=== PATIENT | male | born 1945 | race Caucasian/White ===

== ENCOUNTER 2022-04-21 14:18 | Inpatient (IN) | payer OTHER ==
--- OUTSIDE RECORDS SUMMARY | 2022-04-21 14:22 | XMS REPORT | Continuity of Care Document ---
:1945 Author Organization [facility] t Address [address] [place] [address] [address]. [address] [place] [address] Care Team Providers Name Role Phone JABIER HENRY Primary Care Physician Unavailable MAIRA NUÑEZ Attending Clinician Unavailable Savannah CARTRIDGE FEEDERMaira Ross Attending Clinician Jabier Henry MD Attending Clinician MAIRA NUÑEZ Admitting Clinician Unavailable Payers Payer Name Policy Type Policy Number Effective Date Expiration Date S luli MEDICARE PART A [id number] 2002 \\T\\ B 00:00:00 [employer] [id number] 2017 SHAY 00:00:00 Problems Condition Condition Condition Status Onset Resolution Last Treating Co mments Source Name Details Category Date Date Treatment Clinician Date Left leg Left leg Disease Active Unive rs weakness weakness 7-01 ity of 00:00: [place] 00 Medical Branch Gastroesop Gastroesop Disease Active 2020-09 U nivers hageal hageal 0-19 ity of reflux reflux 00:00: [place] disease disease 00 Medical Branch BPH BPH Disease Active Univers associated associated 4-23 it y of with with 00:00: [place] nocturia nocturia 00 Medica l Branch Dyspnea, Dyspnea, Disease Active Overview: Un janelle unspecifie unspecifie 9-17 Formattin ity of d type d type 00:00: g of this [place] 00 note Medical might be Branch different from the original. 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 0-12 ity of 00:00: [address] Branch Chronic Chronic Disease Active 2014-09 Univers back pain back pain 0-12 ity of 00:00: [address] Branch Essential Essential Disease Active 2014-09 Uni vers hypertensi hypertensi 0-12 it y of on on 00:00: [place] [facility] Branch 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 0-12 ity of disease disease 00:00: [address] Branch 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 nivers infarct, infarct, 0-12 ity of old old 00:00: [address] Branch 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 0-12 it y of s with s with 00:00: [place] radiculopa radiculopa 00 Me dical thy thy Branch Bite, Bite, Disease Active 2009-09 Univers snake snake 0-31 ity of 00:00: [address] Lower Lower Diagnosis Active Common urinary urinary Spirit tract tract - [facility] symptoms symptoms St (LUTS) (LUTS) [facility] Low Low Diagnosis Active Common testostero testostero Sp felipe ne in male ne in male - [facility] Urinary Urinary Diagnosis Active Commo n tract tract Spirit infection infection - CH I without without St hematuria, hematuria, Regi kes site site Medical unspecifie unspecifie Ce nter d d Urine Urine Diagnosis Active Common retention retention Spir - [facility] Allergies, Adverse Reactions, Alerts Allergy Allergy Status Severity Reaction(s) Onset Inactive Treating Comm ents Source Name Type Date Date Clinician NO KNOWN Drug Active Univers ALLERGIE Class ity of S [facility] Social History Social Habit Start Date Stop Date Quantity Comments Source Exposure to 2022-03-26 2022-04-05 Not sure [facility] SARS-CoV-2 00:00:00 12:23:00 [place] Medical (event) Branch Alcohol intake 2022-03-03 2022-03-03 Current University 00:00:00 00:00:00 non-drinker of [facility] alcohol (finding) Branch Tobacco use and 2015-07-02 2015-07-02 Smokeless tobacco Un iversity of exposure 00:00:00 00:00:00 non-user [facility] Sex [birth year] Universit y of 00:00:00 00:00:00 [facility] Smoking Status Start Date Stop Date Source Never smoked tobacco [facility] Medications Ordered Filled Start Stop Current Ordering Indication Dosage Frequency Signature Comments Components Source Medication Medication Date Date Medication? Clinician (SIG) Name Name cyanocobala 2021- No [id number] 1000ug Univers min 04-05 ity of (VITAMIN 18:45: 19:34 [place] B12) 00 :00 Medical injection Branch 1,000 mcg testosteron 2021- No [id number] 260mg Univers e cypionate 04-05 ity of (DEPO-TESTO 18:45: 19:34 [place] STERONE) 00 :00 Medical injection Branch 260 mg testosteron 2021- No [id number] 260mg 260 mg, Univers e cypionate 04-05 Intramuscu i ty of (DEPO-TESTO 18:45: 19:34 lar, ONCE, [place] STERONE) 00 :00 1 dose, On Medic al injection Sun04/05/22 Bran ch 260 mg at 1345, Routine cyanocobala 2021- No [id number] 1000ug 1,000 mcg, Univers min 04-05 Intramuscu ity of (VITAMIN 18:45: 19:34 [place] B12[place] 00 :00 1 dose, On Medical injection Sun04/05/22 Bran ch 1,000 mcg at 1345, Routine cyanocobala 2021- No [id number] 1000ug Univers min 04-05 ity of (VITAMIN 18:45: 19:34 [place] B12) 00 :00 Medical injection Branch 1,000 mcg testosteron 2021- No [id number] 260mg Univers e cypionate 04-05 ity of (DEPO-TESTO 18:45: 19:34 [place] STERONE) 00 :00 Medical injection Branch 260 mg testosteron 2021- No [id number] 260mg 260 mg, Univers e cypionate 04-05 Intramuscu i ty of (DEPO-TESTO 18:45: 19:34 lar, ONCE, [place] STERONE) 00 :00 1 dose, On Medic al injection Sun04/05/22 Bran ch 260 mg at 1345, Routine cyanocobala 2021- No [id number] 1000ug 1,000 mcg, Univers min 04-05 Intramuscu ity of (VITAMIN 18:45: 19:34 [place] B12[place] 00 :00 1 dose, On Medical injection Sun04/05/22 Bran ch 1,000 mcg at 1345, Routine atorvastati Yes [id number] 80mg Take 1 Univers n 80 mg 7-03 [id number] tablet by ity o f tablet 00:00: mouth at [place] 00 bedtime. Medical Branch levocetiriz Yes [id number] 2.5mg Take 0.5 Univers ine 5 mg 7- [id number] tablets by ity of tablet 00:00: mouth [place] 00 every Medical evening as Branch needed for Other (itching). atorvastati Yes [id number] 80mg Take 1 Univers n 80 mg 7-03 [id number] tablet by ity o f tablet 00:00: mouth at [place] 00 bedtime. Medical Branch levocetiriz Yes [id number] 2.5mg Take 0.5 Univers ine 5 mg 7-03 [id number] tablets by ity of tablet 00:00: mouth [place] 00 every Medical evening as Branch needed for Other (itching). atorvastati Yes [id number] 80mg Take 1 Univers n 80 mg 7-03 [id number] tablet by ity o f tablet 00:00: mouth at [place] 00 bedtime. Medical Branch levocetiriz Yes [id number] 2.5mg Take 0.5 Univers ine 5 mg 7-03 [id number] tablets by ity of tablet 00:00: mouth [place] 00 every Medical evening as Branch needed for Other (itching). SERTRALINE 0 Yes [id number] 50mg TAKE 1 U nivers 50 mg 6-27 TABLET BY ity of tablet 00:00: MOUTH [place] 00 DAILY Medical Branch SERTRALINE 0 Yes [id number] 50mg TAKE 1 U nivers 50 mg 6-27 TABLET BY ity of tablet 00:00: MOUTH DAILY Medical Branch SERTRALINE 0 Yes [id number] 50mg TAKE 1 U nivers 50 mg 6-27 TABLET BY ity of tablet 00:00: MOUTH [place] 00 DAILY Medical Branch HYDROCORTIS 0 Yes [id number] APPLY TO Univers ONE 2.5 % 6-01 AFFECTED ity of cream 00:00: AREA TWICE DAILY Medical Branch meclizine Yes [id number] 12.5mg Take 1 Univers 12.5 mg 6-01 tablet by ity of tablet 00:00: mouth 3 (three) Medical times Branch daily as needed for Dizziness. HYDROCORTIS Yes [id number] APPLY TO Univers ONE 2.5 % 6-01 AFFECTED ity of cream 00:00: AREA TWICE DAILY Medical Branch meclizine 0 Yes [id number] 12.5mg Take 1 Univers 12.5 mg 6-01 tablet by ity of tablet 00:00: mouth 3 (three) Medical times Branch daily as needed for Dizziness. HYDROCORTIS 0 Yes [id number] APPLY TO Univers ONE 2.5 % 6-01 AFFECTED ity of cream 00:00: AREA TWICE DAILY Medical Branch meclizine 0 Yes [id number] 12.5mg Take 1 Univers 12.5 mg 6-01 tablet by ity of tablet 00:00: mouth 3 00 (three) Medical times Branch daily as needed for Dizziness. ciprofloxac 2021-0 Yes [id number] 500mg Take 1 Univers in HCl 3-08 tablet by ity of (CIPRO) 500 00:00: mouth [place] mg tablet 00 every 12 Medica l (twelve) Branch hours. ciprofloxac 2021-0 Yes [id number] 500mg Take 1 Univers in HCl 3-08 tablet by ity of (CIPRO) 500 00:00: mouth [place] mg tablet 00 every 12 Medica l (twelve) Branch hours. ciprofloxac 0 Yes [id number] 500mg Take 1 Univers in HCl 3-08 tablet by ity of (CIPRO) 500 00:00: mouth [place] mg tablet 00 every 12 Medica l (twelve) Branch hours. amLODIPine 0 Yes [id number] 2.5mg Take 1 Univers 2.5 mg 1-28 tablet by ity of tablet 00:00: mouth [place] 00 daily. Medical Branch clopidogreL Yes [id number] 75mg Take 1 Univers 75 mg 1-28 tablet by ity of tablet 00:00: mouth [place] 00 daily. Medical Branch amLODIPine Yes [id number] 2.5mg Take 1 Univers 2.5 mg 1-28 tablet by ity of tablet 00:00: mouth [place] 00 daily. Medical Branch clopidogreL Yes [id number] 75mg Take 1 Univers 75 mg 1-28 tablet by ity of tablet 00:00: mouth [place] 00 daily. Medical Branch amLODIPine Yes [id number] 2.5mg Take 1 Univers 2.5 mg 1-28 tablet by ity of tablet 00:00: mouth [place] 00 daily. Medical Branch clopidogreL 0 Yes [id number] 75mg Take 1 Univers 75 mg 1-28 tablet by ity of tablet 00:00: mouth [place] 00 daily. Medical Branch ALPRAZOLAM 2020-09 Yes [id number] TAKE 1/2 Univers 2 mg tablet 2-13 TABLET BY ity of 00:00: MOUTH [place] 00 EVERY Medical NIGHT AT Branch BEDTIME NEEDED FOR SLEEP OR ANXIETY ALPRAZOLAM 2020-09 Yes [id number] TAKE 1/2 Univers 2 mg tablet 2-13 TABLET BY ity of 00:00: MOUTH [place] 00 EVERY Medical NIGHT AT Branch BEDTIME NEEDED FOR SLEEP OR ANXIETY ALPRAZOLAM 2020-09 Yes [id number] TAKE 1/2 Univers 2 mg tablet 2-13 TABLET BY ity of 00:00: MOUTH [place] 00 EVERY Medical NIGHT AT Branch BEDTIME NEEDED FOR SLEEP OR ANXIETY pantoprazol 0 Yes [id number] 40mg Take 1 Univers e 40 mg EC 6-03 tablet by ity of tablet 00:00: mouth [place] 00 daily. [facility] Branch pantoprazol Yes [id number] 40mg Take 1 Univers e 40 mg EC 6-03 tablet by ity of tablet 00:00: mouth [place] 00 daily. Medical Branch pantoprazol Yes [id number] 40mg Take 1 Univers e 40 mg EC 6-03 tablet by ity of tablet 00:00: mouth [place] 00 daily. Medical Branch Alfuzosin Alfuzosin 2020- No Brielle 1 tablet Common HCl ER HCl ER [id number] 06-16 [place] immediatel Spirit 00:00: 00:00 y after - [facility] 00 :00 the same [facility] Tamsulosin Tamsulosin 2020- No Brielle 1 capsule Common HCl HCl 10-14 08 [place] [facility] 00:00: 00:00 - [facility] 00 :00 [facility] fluocinonid 2018-09 Yes [id number] Apply to Univers e 0.05 % 1-18 area(s) 2 ity of cream 00:00: (two) 00 times Medical daily. Branch fluocinonid 2018-09 Yes [id number] Apply to Univers e 0.05 % 1-18 area(s) 2 ity of cream 00:00: (two) [place] 00 times Medical daily. Branch fluocinonid 2018-09 Yes [id number] Apply to Univers e 0.05 % 1-18 area(s) 2 ity of cream 00:00: (two) [place] 00 times Medical daily. Branch HYDROcodone Yes TK 1 T PO U nivers -acetaminop 8-23 TID ity of hen 10-325 00:00: [place] mg tablet 00 Medical Branch HYDROcodone Yes TK 1 T PO U nivers -acetaminop 8-23 TID ity of hen 10-325 00:00: [place] mg tablet 00 Medical Branch HYDROcodone Yes TK 1 T PO U nivers -acetaminop 8-23 TID ity of hen 10-325 00:00: [place] mg tablet 00 Medical Branch tamsulosin Yes [id number] .4mg Take 1 Univers 0.4 mg 24 4-23 01 capsule by ity of hr capsule 00:00: mouth [place] 00 daily. Medical Branch tamsulosin Yes [id number] .4mg Take 1 Univers 0.4 mg 24 4-23 01 capsule by ity of hr capsule 00:00: mouth [place] 00 daily. Medical Branch tamsulosin 2019-0 Yes [id number] .4mg Take 1 Univers 0.4 mg 24 4- 01 capsule by ity of hr capsule 00:00: mouth [place] 00 daily. Medical Branch lidocaine-p 0 Yes Apply to Un janelle rilocaine 4-10 area(s) ity of 2.5-2.5 % 00:00: daily. [place] cream Medical Branch lidocaine-p 0 Yes Apply to Un janelle rilocaine 4-10 area(s) ity of 2.5-2.5 % 00:00: daily. [place] cream 00 Medical Branch lidocaine-p 0 Yes Apply to Un janelle rilocaine 4-10 area(s) ity of 2.5-2.5 % 00:00: daily. [place] cream 00 Medical Branch oxybutynin 0 Yes 5mg Take 1 Unive rs chloride 5 7-02 tablet by ity of mg tablet 00:00: mouth 3 (three) Medical times Branch daily as needed for Bladder spasms. oxybutynin 2017-0 Yes 5mg Take 1 Unive rs chloride 5 7-02 tablet by ity of mg tablet 00:00: mouth 3 (three) Medical times Branch daily as needed for Bladder spasms. oxybutynin 2017-0 Yes 5mg Take 1 Unive rs chloride 5 7-02 tablet by ity of mg tablet 00:00: mouth 3 00 (three) Medical times Branch daily as needed for Bladder spasms. finasteride Yes [id number] 5mg Take 1 Univers 5 mg tablet 4-09 tablet by ity of 00:00: mouth [place] 00 daily. Medical Branch finasteride Yes [id number] 5mg Take 1 Univers 5 mg tablet 4-09 tablet by ity of 00:00: mouth [place] 00 daily. Medical Branch finasteride 2017-0 Yes [id number] 5mg Take 1 Univers 5 mg tablet 4-09 tablet by ity of 00:00: mouth [place] 00 daily. Medical Branch methadone 2015-09 Yes Take by Unive rs (DOLOPHINE 0-14 mouth ity of HCL) 10 mg 00:00: daily. [place] tablet 00 Indication Medical s: 2tabs Branch methadone 2015-09 Yes Take by Unive rs (DOLOPHINE 0-14 mouth ity of HCL) 10 mg 00:00: daily. [place] tablet 00 Indication Medical s: 2tabs Branch methadone 2015-09 Yes Take by Unive rs (DOLOPHINE 0-14 mouth ity of HCL) 10 mg 00:00: daily. [place] tablet 00 Indication Medical s: 2tabs Branch Amlodipine Amlodipine Yes Brielle 1 tablet Common Besylate Besylate Alicja [facility] Pantoprazol Pantoprazol Yes Brielle 1 tablet Common e Sodium e Sodium Alicja [facility] HydrOXYzine HydrOXYzine Yes Brielle 1 tablet Common HCl HCl [place] as needed [facility] Yes Brielle as Common Silver Silver Alicja directed [facility] Methadone Methadone Yes Brielle 1 tablet Common HCl HCl Alicja [facility] Ranolazine Ranolazine Yes Brielle 1 tablet Common ER ER Alicja [facility] Aspir-81 Aspir-81 Yes Brielle 1 tablet Co mmon Alicja [facility] Testosteron Testosteron Yes Brielle as Common e e [place] directed [facility] Clopidogrel Clopidogrel Yes Brielle 1 tablet Common Bisulfate Bisulfate [facility] Metoprolol Metoprolol Yes Brielle 1 capsule Common Succinate Succinate [facility] Immunizations Ordered Filled Immunization Date Status Comments [facility] e Immunization Name Name Influenza Virus 2021-12-07 Completed Universit y of Vaccine,quad 00:00:00 [place] Medica l Im,preserve Free Branch 65+ Influenza Virus 2021-12-07 Completed Universit y of Vaccine,quad 00:00:00 [place] Medica l Im,preserve Free Branch 65+ Influenza Virus 2021-12-07 Completed Universit y of Vaccine,quad 00:00:00 [place] Medica l Im,preserve Free Branch 65+ SARS-COV-2 COVID-19 2021-08-10 Completed Unive rsity of PFIZER VACCINE 00:00:00 [facility] SARS-COV-2 COVID-19 2021-08-10 Completed Unive rsity of PFIZER VACCINE 00:00:00 [facility] SARS-COV-2 COVID-19 2021-08-10 Completed Unive rsity of PFIZER VACCINE 00:00:00 [facility] SARS-COV-2 COVID-19 2020-11-05 Completed Unive rsity of PFIZER VACCINE 00:00:00 [facility] SARS-COV-2 COVID-19 2020-11-05 Completed Unive rsity of PFIZER VACCINE 00:00:00 [facility] SARS-COV-2 COVID-19 2020-11-05 Completed Unive rsity of PFIZER VACCINE 00:00:00 [facility] SARS-COV-2 COVID-19 2020-10-15 Completed Unive rsity of PFIZER VACCINE 00:00:00 [facility] SARS-COV-2 COVID-19 2020-10-15 Completed Unive rsity of PFIZER VACCINE 00:00:00 [facility] SARS-COV-2 COVID-19 2020-10-15 Completed Unive rsity of PFIZER VACCINE 00:00:00 [facility] Influenza High Dose 2020-09-02 Completed Unive rsity of Quad 00:00:00 [facility] Influenza High Dose 2020-09-02 Completed Unive rsity of Quad 00:00:00 [facility] Influenza High Dose 2020-09-02 Completed Unive rsity of Quad 00:00:00 [facility] Pneumococcal 2019-06-25 Completed University o f Polysaccharide, 00:00:00 [place] Med ical PPSV23 (PNEUMOVAX) Branch Influenza High Dose 2019-06-25 Completed Unive rsity of 00:00:00 [facility] Pneumococcal 2019-06-25 Completed University o f Polysaccharide, 00:00:00 [place] Med ical PPSV23 (PNEUMOVAX) Branch Influenza High Dose 2019-06-25 Completed Unive rsity of 00:00:00 [facility] Pneumococcal 2019-06-25 Completed University o f Polysaccharide, 00:00:00 [place] Med ical PPSV23 (PNEUMOVAX) Branch Influenza High Dose 2019-06-25 Completed Unive rsity of 00:00:00 [facility] Vital Signs Vital Name Observation Time Observation Value Comments Source Body temperature 2022-04-12 18:21:00 36.61 Diandra Univ ersity of [facility] Systolic blood 2022-04-12 18:19:00 121 mm[Hg] Univer sity of pressure [facility] Diastolic blood 2022-04-12 18:19:00 85 mm[Hg] Unive rsity of [facility] Heart rate 2022-04-12 18:19:00 91 /min Universi ty of [facility] Respiratory rate 2022-04-12 18:19:00 18 /min Univ ersity of [facility] Body height 2022-04-12 18:19:00 172.7 cm Universi ty of [facility] Body weight 2022-04-12 18:19:00 62.596 kg Universi ty [facility] BMI 2022-04-12 18:19:00 20.98 kg/m2 Universi [facility] Oxygen saturation in 2022-04-12 18:19:00 96 /min [facility] Arterial blood by [facility] Pulse oximetry Branch Systolic blood 2022-04-05 17:15:00 136 mm[Hg] Univer sity of [facility] Diastolic blood 2022-04-05 17:15:00 77 mm[Hg] Unive rsity of [facility] Heart rate 2022-04-05 17:15:00 82 /min Universi ty [facility] Body weight 2022-04-05 17:15:00 59.784 kg Universi [facility] BMI 2022-04-05 17:15:00 20.04 kg/m2 Universi [facility] Procedures Procedure Date / Time Performed Performing Clinician Sour e URINALYSIS 2022-04-12 21:11:00 Maira Nuñez [facility] HB ECG ROUTINE & 2022-04-12 19:01:56 Maira Nuñez [facility] RHYTHM STRIP [facility] XR CHEST 1 VW 2022-04-12 18:41:36 Maira Nuñez [facility] LIPASE 2022-04-12 18:30:00 Maira Nuñez [facility] TROPONIN I 2022-04-12 18:30:00 Maira Nuñez [facility] COMP. METABOLIC PANEL 2022-04-12 18:30:00 Maira Nuñez [facility] ([id number]) [facility] CBC WITH DIFF 2022-04-12 18:30:00 Maira Nuñez University o f [facility] Encounters Start End Encounter Admission Attending Care Care Encounter Source Date/Time Date/Time Type Type Clinicians Facility Department ID 2021-09-28 Outpatient [facility] [id number] Common 11:07:04 [id number] [facility] 2022-04-12 2022-04-12 Emergency X [facility] ERT [id number] Univers 13:22:00 16:36:00 CYNISE ity of [facility] 2022-04-12 2022-04-12 Emergency [facility] [id number] Univers 13:22:00 16:36:00 [facility] [id number] i ty of [facility] [id number] [place] [id number] [address] 2022-04-05 2022-04-05 [facility] [id number] Univers 12:15:00 13:00:56 Visit [facility] [id number] it y of [place] [id number] Abel as YOHAN?BLEA [id number] [address] MEDICAL OFFICE BUILDING 2019-11-19 2019-11-19 [id number] Common 11:45:00 11:45:00 t Specialty/U Sp felipe Specialty rology - [facility] 2019-10-15 2019-10-15 [id number] Common 09:41:00 09:41:00 t Specialty/U Sp felipe Specialty rology - [facility] 2019-10-14 2019-10-14 [id number] Common 14:00:00 14:00:00 t Specialty/U Sp felipe Specialty rology - [facility] Results Test Description Test Time Test Comments Results Result Comments Source CBC WITH DIFF 2022-04-12 19:18:34 Test Item Value Reference Range Interpretation Comme nts WBC (test code = 6690-2) See_Comment [A utomated message] The system which ge nerated this result transmit patricio reference range: 4.20 - 1 0.70 10*3/?L. The reference r sen was not used to interpr et this result as normal/abnor mal. RBC (test code = 789-8) See_Comment [Au tomated message] The system which ge nerated this result transmit patricio reference range: 4.26 - 5 .52 10*6/?L. The reference r sen was not used to interpr et this result as normal/abnor mal. HGB (test code = 718-7) 17.0 g/dL 12.2-16.4 H HCT (test code = 4544-3) 49.6 % 38.4-49.3 H MCV (test code = 787-2) 90.0 fL 81.7-95.6 MCH (test code = 785-6) 30.9 pg 26.1-32.7 MCHC (test code = 786-4) 34.3 g/dL 31.2-35 RDW-SD (test code = 18315-9) 44.2 fL 38.5-51.6 RDW-CV (test code = 788-0) 13.5 % 12.1-15.4 PLT (test code = 777-3) See_Comment [Au tomated message] The system which ge nerated this result transmit patricio reference range: 150 - 32 8 10*3/?L. The reference range was not used to interpret th is result as normal/abnormal . MPV (test code = 61150-3) 10.4 fL 9.8-13 NRBC/100 WBC (test code = See_Comment [ Automated message] The [id number]) system which ge nerated this result transmit patricio reference range: 0.0 - 10 .0 /100 WBCs. The reference r sen was not used to interpr et this result as normal/abnor mal. NRBC x10^3 (test code = See_Comment [Au tomated message] The [id number]) system which ge nerated this result transmit patricio reference range: 10*3/?L. The reference range was not u sed to interpret this result as normal/abnormal . GRAN MAT (NEUT) % (test code 76.9 % = 770-8) IMM GRAN % (test code = 0.40 % 4205707468) LYMPH % (test code = 736-9) 14.3 % MONO % (test code = 5905-5) 7.7 % EOS % (test code = 713-8) 0.3 % BASO % (test code = 706-2) 0.4 % GRAN MAT x10^3(ANC) (test 5.28 10*3/uL 1.99-6.95 code = 4635640322) IMM GRAN x10^3 (test code = 0.03 10*3/uL 0-0.06 5690165045) LYMPH x10^3 (test code = 0.98 10*3/uL 1.09-3.23 L 731-0) MONO x10^3 (test code = 0.53 10*3/uL 0.36-1.02 742-7) EOS x10^3 (test code = 0.06-0.53 L 711-2) BASO x10^3 (test code = 0.03 10*3/uL 0.01-0.09 704-7) Lab Interpretation (test Abnormal code = 58507-2) [facility] [id number] 19:17:13 Test Item Value Reference Interpretation Comments Range TROPONIN I (test 0.029 ng/mL See_Comment [Automated code = [id number]) message] The system which generated this result transmitted reference range : <=0.034. The reference range was not used to interpret this result as normal/abnormal . SONAL (test code = Reference (Normal) SONAL) Range (defined by the 99th percentile reference limit): <= 0.034 ng/mL Note: Cardiac troponin begins to rise 3-4 hours after the onset of ischemia. Repeat in 4-6 hours if the sample was drawn within 3-4 hours of the onset of the symptom and found normal. Diagnosis of myocardial injury is made with acute changes in cTn concentrations with at least one serial sample above the 99th percentile upper reference limit (URL), taken together with the patient's clinical presentation. Biotin has been reported to cause a negative bias, interpret results relative to patient's use of biotin. Lab Interpretation Normal (test code = 88611-5) [facility]. METABOLIC PANEL (75155)2022-04-12 19:05:30 Test Item Value Reference Range Interpretation Comments NA (test code = 141 mmol/L 135-145 1481883943) K (test code = 3.8 mmol/L 3.5-5 9845585314) CL (test code = 103 mmol/L 98-108 2660225769) CO2 TOTAL (test code = 29 mmol/L 23-31 4082649419) AGAP (test code = 2-16 4575457128) BUN (test code = 25 mg/dL 7-23 H 6535171850) GLUCOSE (test code = 108 mg/dL 70-110 9882334887) CREATININE (test code = 1.47 mg/dL 0.6-1.25 H 2918039118) TOTAL BILI (test code = 2.1 mg/dL 0.1-1.1 H 9761992916) CALCIUM (test code = 9.5 mg/dL 8.6-10.6 2479167454) T PROTEIN (test code = 6.5 g/dL 6.3-8.2 1257196584) ALBUMIN (test code = 4.0 g/dL 3.5-5 6663616727) ALK PHOS (test code = 80 U/L 34-122 5227559966) ALTv (test code = 29 U/L 5-50 1742-6) AST(SGOT) (test code = 33 U/L 13-40 1940419371) eGFR (test code = mL/min/1.73m2 6154055775) SONAL (test code = SONAL) Association of Glomerular Filtration Rate (GFR) and Staging of Kidney Disease* + --+ --+ ------+| GFR (mL/min/1.73 m2) ?| With Kidney Damage ?| ?Without Kidney Damage+ --------+ --------+ +| ?>90 ?| ?Stage one ?| ? Normal ?+ ---+ ---+ -------+| ?60-89 ?| ?Stage two ?| ? Decreased GFR ? + --+ --+ ------+| ?30-59 ?| ?Stage three ?| ? Stage three ? + --+ --+ ------+| ?15-29 ?| ?Stage four ? | ? Stage four ?+ ---+ ---+ -------+| ?<15 (or dialysis) ? ?| ?Stage five ? | ? Stage five ?+ ---+ ---+ -------+ *Each stage assumes the associated GFR level has been in effect for at least three months. ?Stages 1 to 5, with or without kidney disease, indicate chronic kidney disease. Notes: Determination of stages one and two (with eGFR >59mL/min/1.73 m2) requires estimation of kidney damage for at least three months as defined by structural or functional abnormalities of the kidney, manifested by either:Pathological abnormalities or Markers of kidney damage (including abnormalities in the composition of the blood or urine or abnormalities in imaging tests). Lab Interpretation Abnormal (test code = 12693-8) [facility] Test Item Value Reference Range Interpretation Comments LIPASE (test code = [id number]) 343 U/L 0-220 H Lab Interpretation (test code = Abnormal 73515-2) [facility]"
[2022-04-21 15:01] LABS: Absolute Lymphocytes (CBC) 0.7 K/uL (0.7-4.9); Hematocrit 46.3 % (39.6-49.0); Lymphocytes % 10.5 % (15.3-44.8); MCV 89.6 fL (80-100); MPV 7.5 fL (7.6-11.3); RBC Red Blood Cell Count 5.17 M/uL (4.33-5.43)
[2022-04-21 15:03] LABS: Protime INR 1.22
[2022-04-21 15:22] LABS: SARS-CoV-2 Antigen Rapid Res Negative (Negative)
--- NOTE | 2022-04-21 15:26 | RAD REPORT ---
EXAM DESCRIPTION: CT - Head Brain Wo Cont - 04/21/2022 3:18 pm CLINICAL HISTORY: Syncope COMPARISON: None TECHNIQUE: Computed axial tomography of the head was obtained. IV contrast was not requested. All CT scans are performed using dose optimization technique as appropriate and may include automated exposure control or mA/KV adjustment according to patient size. FINDINGS: An intracranial bleed is not seen . The ventricles are normal in caliber. No extra-axial fluid collection is noted. Moderate low-density within the right occipital and right parietal lobes. Small amount of fluid in the sphenoid sinus may indicate acute sinusitis IMPRESSION: Moderate low-density within the right occipital and right parietal lobes. 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 Right occipital lobe has more of an indeterminate appearance of acute versus chronic infarct If clinically indicated further evaluation with MRI may be helpful
[2022-04-21 15:41] LABS: Albumin 3.2 g/dL (3.4-5.0); Bilirubin Direct 0.6 mg/dL (0-0.2); Bilirubin Total 1.9 mg/dL (0.2-1.0); Potassium 3.7 mmol/L (3.5-5.1); Protein, Total 6.2 g/dL (6.4-8.2); Troponin High Sensitivity 16.9 pg/mL (<58.9)
--- NOTE | 2022-04-21 15:44 | RAD REPORT ---
EXAM DESCRIPTION: [facility] Single View04/21/2022 3:14 pm CLINICAL HISTORY: Cough COMPARISON: none FINDINGS: The lungs appear clear of acute infiltrate. The heart is normal size Postsurgical changes involve the chest. Absent distal left clavicle IMPRESSION: No acute abnormalities displayed
[2022-04-21 15:49] LABS: Urine Blood Trace-intact (Negative); Urine Glucose Negative (Negative); Urine Protein 1+ (Negative); Urine Specific Gravity >=1.030 (1.005-1.030); Urine pH 5.5 (5.0-7.0)
[2022-04-21] MEDS ORDERED: ASPIRIN 81 MG CHEWABLE TABLET ONE (16:11)
[2022-04-21] MEDS ORDERED: CEFTRIAXONE 1000 MG/VIAL ONE (16:11)
[2022-04-21] MEDS ORDERED: FAMOTIDINE 20 MG/2 ML VIAL IV ONE (16:11)
[2022-04-21] MEDS ORDERED: FOLIC ACID 5 MG/ML VIAL ONE (16:13)
--- NOTE | 2022-04-21 16:16 | ER ---
Nurse's Notes [facility] Name: Fritz Laws Age: 77 yrs Sex: Male : 1945 Arrival Date: 04/21/2022 Time: 14:21 Bed 25 Private MD: Diagnosis: Dehydration;Syncope Near;UTI/ Urinary tract infection, site not specified;Adjustment disorder with depressed mood-'s ;Acute kidney failure, unspecified-insufficency;Cerebral infarction, unspecified-SUBACUTE Presentation: 04/21 14:42 Chief complaint: Patient states: Cali hernandez toned out to pt home for weakness X 2 ld1 days. Fell last night, does not recall hitting head. C/O dizziness, denies pain. Coronavirus screen: At this time, the client does not indicate any symptoms associated with coronavirus-19. Ebola Screen: No symptoms or risks identified at this time. Initial Sepsis Screen: Does the patient meet any 2 criteria? No. Patient's initial sepsis screen is negative. Does the patient have a suspected source of infection? No. Patient's initial sepsis screen is negative. Risk Assessment: Do you want to hurt yourself or someone else? Patient reports no desire to harm self or others. Onset of symptoms was April 21, 2022. 14:42 Method Of Arrival: EMS: [facility] ld1 14:42 Acuity: MARTIN 3 ld1 Triage Assessment: 14:43 General: Appears in no apparent distress. comfortable, Behavior is calm, cooperative, ld1 appropriate for age. Pain: Denies pain. EENT: No signs and/or symptoms were reported regarding the EENT system. Neuro: Level of Consciousness is awake, alert, obeys commands, Oriented to person, place, time, situation, Reports dizziness. Cardiovascular: Capillary refill < 3 seconds Patient's skin is warm and dry. Rhythm is sinus rhythm. Respiratory: Airway is patent Respiratory effort is even, unlabored, Respiratory pattern is regular, symmetrical. GI: Abdomen is flat, non-distended. : No signs and/or symptoms were reported regarding the genitourinary system. Derm: No signs and/or symptoms reported regarding the dermatologic system. Musculoskeletal: No signs and/or symptoms reported regarding the musculoskeletal system. 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 - Social history:: Smoking status: Patient denies any tobacco usage or history of. Patient/guardian denies using alcohol. - Family history:: not pertinent. Screenin:45 Abuse screen: Denies threats or abuse. Denies injuries from another. Nutritional ld1 screening: No deficits noted. Tuberculosis screening: No symptoms or risk factors identified. Fall Risk Fall in past 12 months (25 points). No secondary diagnosis (0 pts). Assessment: 14:45 Reassessment: See triage assessment. ld1 19:00 Reassessment: Patient appears in no apparent distress at this time. Patient and/or jb4 family updated on plan of care and expected duration. Pain level reassessed. Patient is alert, oriented x 3, equal unlabored respirations, skin warm/dry/pink. 20:00 Reassessment: Patient appears in no apparent distress at this time. Patient and/or jb4 family updated on plan of care and expected duration. Pain level reassessed. Patient is alert, oriented x 3, equal unlabored respirations, skin warm/dry/pink. 21:00 Reassessment: Patient appears in no apparent distress at this time. Patient and/or jb4 family updated on plan of care and expected duration. Pain level reassessed. Patient is alert, oriented x 3, equal unlabored respirations, skin warm/dry/pink. 22:01 General: [phone] more williamson daughter . tw5 Vital Signs: 14:42 BP 143 / 98; Pulse 90; Resp 18; Temp 97.3(O); Pulse Ox 97% on R/A; Weight 62.6 kg; ld1 Height 5 ft. 8 in. (172.72 cm); Pain 0/10; 15:38 BP 133 / 102; Pulse 97; Resp 18; Pulse Ox 98% on R/A; ld1 17:00 BP 165 / 97; Pulse 86; Resp 18; Pulse Ox 99% on R/A; Pain 0/10; eh3 19:00 BP 165 / 83; Pulse 83; Resp 18; Pulse Ox 97% on R/A; jb4 20:00 BP 167 / 87; Pulse 73; Resp 21; Pulse Ox 97% on R/A; jb4 21:00 BP 142 / 72; Pulse 79; Resp 17; Pulse Ox 98% on R/A; jb4 22:00 BP 155 / 93; Pulse 74; Resp 21; Pulse Ox 98% on R/A; jb4 14:42 Body Mass Index 20.98 (62.60 kg, 172.72 cm) ld1 NIH Stroke Scale Scores: 15:43 NIHSS Score: 0 [facility] ED Course: 14:21 Patient arrived in ED. aa5 14:25 Haresh Pimentel MD is Attending Physician. elif 14:43 Triage completed. ld1 14:43 Arm band placed on right wrist. ld1 14:45 Patient has correct armband on for positive identification. Placed in gown. Bed in low ld1 position. Call light in reach. Side rails up X2. monitoring manager on. Pulse ox on. NIBP on. Door closed. Noise minimized. Warm blanket given. 14:45 No provider procedures requiring assistance completed. Maintain EMS IV. Dressing ld1 intact. Good blood return noted. Site clean \T\ dry. Gauge \T\ site: 20G LAC. 14:54 SARS RAPID Sent. jd3 14:55 Africa Magallon, RN is Primary Nurse. ld1 15:16 XRAY Chest (1 view) In Process Unspecified. EDMS 15:19 CT Head Brain wo Cont In Process Unspecified. EDMS 15:44 Straight cath inserted, using sterile technique, 14 Fr. Specimen obtained. Returned jw7 bloody urine. Patient tolerated well. 16:11 Con Dubon MD is Hospitalizing Provider. [facility] 16:36 Urine Culture Sent. eh3 17:04 Brain Wo Cont In Process Unspecified. EDMS 17:18 Door closed. Noise minimized. Lights dimmed. Warm blanket given. Pillow given. PO eh3 fluids given. Head of bed lowered. Diet: Patient given water. Tolerated well. 18:30 US Carotid Artery Bilateral In Process Unspecified. EDMS 08 07:46 Primary Nurse role handed off by Africa Magallon, RN eb Administered Medications: 04/21 14:54 Drug: NS 0.9% 1000 ml Route: IV; Rate: 1 bolus; Site: right antecubital; jd3 16:10 Drug: Rocephin (cefTRIAXone) 1 grams Route: IV; Rate: per protocol; Site: right 3 antecubital; 16:10 Drug: Aspirin Chewable Tablet 324 mg Route: PO; eh3 16:10 Drug: Pepcid (famotidine) 20 mg Route: IVP; Site: right antecubital; 3 16:10 Drug: foLIC Acid 1 mg Route: IVPB; Site: right antecubital; 3 16:40 Drug: Ativan (LORazepam) 1 mg Route: PO; ld1 18:51 Drug: Lipitor (atorvastatin) 40 mg Route: PO; ld1 19:49 Drug: PlaVIX (clopidogrel) 75 mg Route: PO; jb4 Medication: 14:45 VIS not applicable for this client. ld1 Outcome: 16:15 Decision to Hospitalize by Provider. [facility] 04/22 18:34 Patient left the ED. aa5 NIH Stroke Scale - NIH Stroke Score Date: 04/21/2022 Time: 15:43 Total Score = 0 1a. Level of Consciousness (LOC) - 0(Alert) 1b. Level of Consciousness (LOC) (Month \T\ Age) - 0(Both) 1c. LOC Commands (Open \T\ Closes Eyes/Criminal Justice Faculty) - 0(Both) 2. Best Gaze (Lateral Gaze Paresis) - 0(Normal) 3. Visual Field Loss - 0(No visual loss) 4. Facial Palsy - 0(Normal) 5a. Left Arm: Motor (10-second hold) - 0(No drift) 5b. Right Arm: Motor (10-second hold) - 0(No drift) 6a. Left Leg: Motor (5-second hold - always test supine) - 0(No drift) 6b. Right Leg: Motor (5-second hold - always test supine) - 0(No drift) 7. Limb Ataxia (finger/nose \T\ heel/lares - test with eyes open) - 0(Absent) 8. Sensory Loss (pinprick arms/legs/face) - 0(Normal) 9. Best Language: Aphasia (description/naming/reading) - 0(No aphasia) 10. Dysarthria (speech clarity - read or repeat words) - 0(Normal) 11. Extinction and Inattention (visual/tactile/auditory/spatial/personal) - 0(No abnormality) Initials: elif Signatures: Dispatcher [employer] Haresh Mijares MD MD cha Calderon, Audri, RN RN aa5 Robert Mckeon RN RN jb4 Lucian Navarrete RN RN jd3 Angelica Delaney Lauren RN RN ld1 Taryn Edgar tw5 Janeth Mason 7 Kasie Barrera RN RN eh3
--- NOTE | 2022-04-21 16:16 | EDPHYS ---
Physician Documentation [facility] Name: Fritz Laws Age: 77 yrs Sex: Male : 1945 Arrival Date: 04/21/2022 Time: 14:21 Bed 25 Private MD: ED Physician Haresh Pimentel HPI: 04/21 14:46 This 77 yrs old Male presents to ER via EMS with complaints of weak, near elif syncope. 14:46 04/17. The patient has experienced near-syncope, almost passed out, felt elif dizzy, felt faint, felt generally weak. Onset: The symptoms/episode began/occurred today. Duration: This was a single episode, that lasted 20 second(s). Context: the episode(s) was witnessed, by family. Onset: The symptoms/episode began/occurred today. Associated injury: The patient did not suffer any apparent associated injury. Associated signs and symptoms: The patient has no apparent associated signs or symptoms. Severity of symptoms: At their worst the symptoms were moderate in the emergency department the symptoms have improved moderately. 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 - Social history:: Smoking status: Patient denies any tobacco usage or history of. Patient/guardian denies using alcohol. - Family history:: not pertinent. ROS: 14:46 Constitutional: Negative for fever, chills, and weight loss, Eyes: Negative for injury, elif pain, redness, and discharge, ENT: Negative for injury, pain, and discharge, Neck: Negative for injury, pain, and swelling, Cardiovascular: Negative for chest pain, palpitations, and edema, Respiratory: Negative for shortness of breath, cough, wheezing, and pleuritic chest pain, Abdomen/GI: Negative for abdominal pain, nausea, vomiting, diarrhea, and constipation, Back: Negative for injury and pain, : Negative for injury, bleeding, discharge, and swelling, MS/Extremity: Negative for injury and deformity, Skin: Negative for injury, rash, and discoloration, Psych: Negative for depression, anxiety, suicide ideation, homicidal ideation, and hallucinations, Allergy/Immunology: Negative for hives, rash, and allergies, Endocrine: Negative for neck swelling, polydipsia, polyuria, polyphagia, and marked weight changes, Hematologic/Lymphatic: Negative for swollen nodes, abnormal bleeding, and unusual bruising. 14:46 Neuro: Positive for near syncope, weakness. Exam: 14:46 Constitutional: This is a well developed, well nourished patient who is awake, alert, elif and in no acute distress. Head/Face: Normocephalic, atraumatic. Eyes: Pupils equal round and reactive to light, extra-ocular motions intact. Lids and lashes normal. Conjunctiva and sclera are non-icteric and not injected. Cornea within normal limits. Periorbital areas with no swelling, redness, or edema. ENT: Nares patent. No nasal discharge, no septal abnormalities noted. Tympanic membranes are normal and external auditory canals are clear. Oropharynx with no redness, swelling, or masses, exudates, or evidence of obstruction, uvula midline. Mucous membranes moist. Neck: Trachea midline, no thyromegaly or masses palpated, and no cervical lymphadenopathy. Supple, full range of motion without nuchal rigidity, or vertebral point tenderness. No Meningismus. Chest/axilla: Normal chest wall appearance and motion. Nontender with no deformity. No lesions are appreciated. Cardiovascular: Regular rate and rhythm with a normal S1 and S2. No gallops, murmurs, or rubs. Normal PMI, no JVD. No pulse deficits. Respiratory: Lungs have equal breath sounds bilaterally, clear to auscultation and percussion. No rales, rhonchi or wheezes noted. No increased work of breathing, no retractions or nasal flaring. Abdomen/GI: Soft, non-tender, with normal bowel sounds. No distension or tympany. No guarding or rebound. No evidence of tenderness throughout. Back: No spinal tenderness. No costovertebral tenderness. Full range of motion. Male : Normal genitalia with no discharge or lesions. Skin: Warm, dry with normal turgor. Normal color with no rashes, no lesions, and no evidence of cellulitis. MS/ Extremity: Pulses equal, no cyanosis. Neurovascular intact. Full, normal range of motion. Neuro: Awake and alert, GCS 15, oriented to person, place, time, and situation. Cranial nerves II-XII grossly intact. Motor strength 5/5 in all extremities. Sensory grossly intact. Cerebellar exam normal. Normal gait. Psych: Awake, alert, with orientation to person, place and time. Behavior, mood, and affect are within normal limits. 14:46 ECG was reviewed by the Attending Physician. Vital Signs: 14:42 BP 143 / 98; Pulse 90; Resp 18; Temp 97.3(O); Pulse Ox 97% on R/A; Weight 62.6 kg; ld1 Height 5 ft. 8 in. (172.72 cm); Pain 0/10; 15:38 BP 133 / 102; Pulse 97; Resp 18; Pulse Ox 98% on R/A; ld1 17:00 BP 165 / 97; Pulse 86; Resp 18; Pulse Ox 99% on R/A; Pain 0/10; eh3 19:00 BP 165 / 83; Pulse 83; Resp 18; Pulse Ox 97% on R/A; jb4 20:00 BP 167 / 87; Pulse 73; Resp 21; Pulse Ox 97% on R/A; jb4 21:00 BP 142 / 72; Pulse 79; Resp 17; Pulse Ox 98% on R/A; jb4 22:00 BP 155 / 93; Pulse 74; Resp 21; Pulse Ox 98% on R/A; jb4 14:42 Body Mass Index 20.98 (62.60 kg, 172.72 cm) ld1 NIH Stroke Scale Scores: 15:43 NIHSS Score: 0 elif MDM: 14:25 Patient medically screened. elif 14:51 Differential Diagnosis altered mental status. Differential Diagnosis: aortic aneurysm, elif cardiac arrhythmia, cerebrovascular accident, emotional response, idiopathic syncope, vasovagal episode. Data reviewed: vital signs, nurses notes, lab test result(s), EKG, radiologic studies, CT scan, plain films. Data interpreted: Pulse oximetry: on room air is 97 %. Test interpretation: by ED physician or midlevel provider: ECG, plain radiologic studies. Counseling: I had a detailed discussion with the patient and/or guardian regarding: the historical points, exam findings, and any diagnostic results supporting the discharge/admit diagnosis, lab results, radiology results. 17:47 Physician consultation: Franklin Hearn MD and will see patient in inpatient room, NO elif TNK. ED course: PT WEAK X 2 DAYS, NEAR SYNCOPE, NIH 0, NON FOCAL, NOT IN A 4.5 HOUR WINDOW, NOT A TNK CANDIDATE. 04/21 14:44 Order name: Basic Metabolic Panel; Complete Time: 15:43 [facility] 04/21 14:44 Order name: CBC with Diff; Complete Time: 15:43 [facility] 04/21 14:44 Order name: LFT's; Complete Time: 15:43 [facility] 04/21 14:44 Order name: Magnesium; Complete Time: 15:43 [facility] 04/21 14:44 Order name: NT PRO-BNP; Complete Time: 15:43 [facility] 04/21 14:44 Order name: PT-INR; Complete Time: 15:43 [facility] 04/21 14:44 Order name: Troponin HS; Complete Time: 15:43 [facility] 04/21 14:44 Order name: Lipase; Complete Time: 15:43 [facility] 04/21 14:44 Order name: SARS RAPID; Complete Time: 15:43 [facility] 04/21 15:49 Order name: Urine Dipstick-Ancillary; Complete Time: 15:55 [facility] 04/21 15:54 Order name: Urine Culture [facility] 04/21 17:52 Order name: Lipid Profile; Complete Time: 18:50 [facility] 04/21 19:05 Order name: Urine Microscopic Only la1 04/22 03:34 Order name: CBC with Automated Diff [facility] 04/21 14:44 Order name: XRAY Chest (1 view); Complete Time: 15:55 [facility] 04/21 14:44 Order name: EKG; Complete Time: 14:45 [facility] 04/21 14:44 Order name: CT Head Brain wo Cont; Complete Time: 15:43 [facility] 04/21 16:54 Order name: Brain Wo Cont; Complete Time: 17:36 [facility] 04/21 17:52 Order name: US Carotid Artery Bilateral; Complete Time: 18:50 [facility] 04/22 03:49 Order name: Comprehensive Metabolic Panel [facility] 04/22 03:49 Order name: Lipid Profile [facility] 04/21 14:44 Order name: Cardiac monitoring; Complete Time: 14:46 [facility] 04/21 14:44 Order name: EKG - Nurse/Tech; Complete Time: 14:46 [facility] 04/21 14:44 Order name: IV Saline Lock; Complete Time: 14:46 [facility] 04/21 14:44 Order name: Labs collected and sent; Complete Time: 14:55 elif 04/21 14:44 Order name: O2 Per Protocol; Complete Time: 14:46 [facility] 04/21 14:44 Order name: O2 Sat Monitoring; Complete Time: 14:46 [facility] 04/21 14:44 Order name: Urine Dipstick-Ancillary (obtain specimen); Complete Time: 15:50 elif EC:46 Rate is 89 beats/min. Rhythm is regular. QRS [place] is Normal. [place] interval is normal. QRS elif interval is normal. QT interval is normal. No Q waves. T waves are Normal. No ST changes noted. Clinical impression: NSR w/ Non-specific ST/T Changes and No evidence of ischemia. Interpreted by me. Reviewed by me. Administered Medications: 14:54 Drug: NS 0.9% 1000 ml Route: IV; Rate: 1 bolus; Site: right antecubital; jd3 16:10 Drug: Rocephin (cefTRIAXone) 1 grams Route: IV; Rate: per protocol; Site: right eh3 antecubital; 16:10 Drug: Aspirin Chewable Tablet 324 mg Route: PO; eh3 16:10 Drug: Pepcid (famotidine) 20 mg Route: IVP; Site: right antecubital; eh3 16:10 Drug: foLIC Acid 1 mg Route: IVPB; Site: right antecubital; eh3 16:40 Drug: Ativan (LORazepam) 1 mg Route: PO; ld1 18:51 Drug: Lipitor (atorvastatin) 40 mg Route: PO; ld1 19:49 Drug: PlaVIX (clopidogrel) 75 mg Route: PO; jb4 Disposition Summary: 04/21/22 16:15 Hospitalization Ordered Provider: Con Dubon cha Condition: Fair elif Problem: new elif Symptoms: have improved elif Bed/Room Type: Standard elif Hospitalization Status: Inpatient Admission(04/21/22 17:52) elif Location: Telemetry/MedSurg (Inpatient)(04/22/22 17:38) eb Room Assignment: 224(04/22/22 17:38) eb Diagnosis - Dehydration elif - Syncope Near elif - UTI/ Urinary tract infection, site not specified elif - Adjustment disorder with depressed mood - 's elif - Acute kidney failure, unspecified - insufficency elif - Cerebral infarction, unspecified - SUBACUTE elif Forms: - Medication Reconciliation Form elif - SBAR form elif NIH Stroke Scale - NIH Stroke Score Date: 04/21/2022 Time: 15:43 Total Score = 0 1a. Level of Consciousness (LOC) - 0(Alert) 1b. Level of Consciousness (LOC) (Month \T\ Age) - 0(Both) 1c. LOC Commands (Open \T\ Closes Eyes/Portfolio Consultant) - 0(Both) 2. Best Gaze (Lateral Gaze Paresis) - 0(Normal) 3. Visual Field Loss - 0(No visual loss) 4. Facial Palsy - 0(Normal) 5a. Left Arm: Motor (10-second hold) - 0(No drift) 5b. Right Arm: Motor (10-second hold) - 0(No drift) 6a. Left Leg: Motor (5-second hold - always test supine) - 0(No drift) 6b. Right Leg: Motor (5-second hold - always test supine) - 0(No drift) 7. Limb Ataxia (finger/nose \T\ heel/lares - test with eyes open) - 0(Absent) 8. Sensory Loss (pinprick arms/legs/face) - 0(Normal) 9. Best Language: Aphasia (description/naming/reading) - 0(No aphasia) 10. Dysarthria (speech clarity - read or repeat words) - 0(Normal) 11. Extinction and Inattention (visual/tactile/auditory/spatial/personal) - 0(No abnormality) Initials: elif Signatures: Dispatcher [employer] EDHaresh Teran MD MD cha Attema, Lee, ASTRONAUT MISSION SPECIALIST-C ASTRONAUT MISSION SPECIALIST-Cla1 Sherice Ku, GERONIMO RN cg Robert Mckeon RN RN jb4 Lucian Navarrete RN RN jd3 Angelica Delaney Lauren, RN RN ld1 Kasie Barrera, RN RN eh3 Corrections: (The following items were deleted from the chart) 16:54 15:50 MR STROKE PROTOCOL+MRI.RAD.BRZ ordered. EDCT EDCT 17:52 16:15 Observation elif elif 21:12 16:15 Telemetry/MedSurg (Inpatient) elif cg 21:12 16:15 elif cg 04/22 17:38 04/21 21:12 [facility] ER HOLD cg eb 04/22 17:38 08/19 21:12 ERHOLD- eb
[2022-04-21] MEDS ORDERED: LORAZEPAM 1 MG TABLET ONE (16:45)
--- NOTE | 2022-04-21 17:14 | RAD REPORT ---
EXAM DESCRIPTION: MRI - Brain Wo Cont - 04/21/2022 5:02 pm CLINICAL HISTORY: CVA COMPARISON: Head CT April 21, 2022 TECHNIQUE: Axial, sagittal, and coronal magnetic resonance images of the brain were obtained. FINDINGS: Diffusion-weighted/ADC mapping demonstrate several small areas of abnormal signal within the perivent ricular and deep white matter of the left frontal and left parietal lobes. Moderate abnormal signal within the right occipital and right parietal lobes compatible with old infa rction. Old lacunar infarcts thalamus and basal ganglia. Several punctate areas of low signal on T2 weighted sequences within the cerebellum and brainstem lik rashawn old small bleeds The ventricles are normal caliber. An extra-axial fluid collection is not noted. Fluid within the sphenoid sinus IMPRESSION: Very small acute infarcts involving the periventricular and deep white matter of the lef t frontal and left parietal lobes
--- NOTE | 2022-04-21 18:39 | RAD REPORT ---
EXAM DESCRIPTION: USCarotid Artery Bilateral04/21/2022 6:28 pm CLINICAL HISTORY: CVA COMPARISON: None FINDINGS: The velocity of the right internal carotid artery equals 56 cm/sec. The right ICA/CCA rati o 1 The velocity of the left internal carotid artery equals 74 cm/sec. The left ICA/CCA ratio 0.9 Mild plaque is present within the carotid arteries. The vertebral arteries demonstrate antegrade flow IMPRESSION: Mild plaque within the carotid arteries without evidence of a hemodynamically significan t stenosis NASCET criteria used. Mild 0-49% stenosis Moderate 50-69% stenosis Severe 70-99% stenosis
[2022-04-21] MEDS ORDERED: ATORVASTATIN 20 MG TAB ONE ×2 (18:57→23:50)
[2022-04-21] MEDS ORDERED: CLOPIDOGREL 75 MG TABLET ONE (19:47)
--- NOTE | 2022-04-21 20:41 | P.HP ---
Certification for Inpatient Patient admitted to: Inpatient With expected LOS: >2 Midnights Patient will require the following post-hospital care: None Practitioner: I am a practitioner with admitting privileges, knowledge of patient current condition, hospital course, and medical plan of care. Services: Services provided to patient in accordance with Admission requirements found in Title 42 Section 412.3 of the Code of Federal Regulations <Alexandr Gunderson - Last Filed: 04/21/22 20:35> Patient History Date of Service: 04/21/22 Reason for admission: CVA History of Present Illness: 77-year-old male with history of hypertension, CAD status post CABG presented to the emergency department for 2 days of weakness, he had a fall last night feels as if he has been unable to walk and has been leaning to the left last couple of days. He lives alone he reports that he was trying to get to the bathroom last night and could not walk he had to crawl. He was evaluated in the emergency department his labs were significant for creatinine of 1.49 GFR 48 BUN 19unknown baseline renal function patient unaware of any kidney disease, T bili 1.9D bili 0.6 urine is nitrite positive leukoesterase negative chest x-ray with no acute findings CT scan of the head without contrast revealed moderate low- density within the right occipital and right parietal lobes, right parietal lobe has the appearance of an old infarction right occipital lobe has more of an indeterminate appearance of acute versus chronic infarct MRI of the brain was obtained which revealed very small acute infarcts involving the periventricular and deep white matter of the left frontal and left parietal lobes carotid Doppler was obtained which showed mild plaque within the carotids without evidence of hemodynamically significant stenosis. Patient was given aspirin, statin, folic acid in the emergency department ED provider discussed case with nephrology who recommends admission to the hospital service for further evaluation and management. - Past Medical/Surgical History -: CAD -: Hypertension -: CABG Psychosocial/ Personal History: Patient is retired and lives at home alone - Family History Father -: Heart disease - Social History Smoking Status: Never smoker Alcohol use: No CD- Drugs: No Caffeine use: Yes Place of Residence: Home <Alexandr Gunderson - Last Filed: 04/21/22 20:35> Date of Service: 04/22/22 <Con Dubon - Last Filed: 04/22/22 18:36> Allergies No Known Allergies Allergy (Unverified 04/21/22 18:51) Review of Systems 10-point ROS is otherwise unremarkable General: Weakness, Other (Falls) <Alexandr Gunderson - Last Filed: 04/21/22 20:35> Physical Examination - Physical Exam General: Alert, In no apparent distress, Oriented x3 HEENT: Atraumatic, PERRLA, Mucous membr. moist/pink, EOMI, Sclerae nonicteric Neck: Supple, 2+ carotid pulse no bruit, No LAD, Without JVD or thyroid abnormality Respiratory: Clear to auscultation bilaterally, Normal air movement Cardiovascular: Regular rate/rhythm, Normal S1 S2 Capillary refill: <2 Seconds Gastrointestinal: Normal bowel sounds, No tenderness Musculoskeletal: No tenderness Integumentary: No rashes Neurological: Normal speech, Normal strength at 5/5 x4 extr, Normal tone, Normal affect, Other (NIH 0) - Studies Laboratory Data (last 24 hrs) 04/21/22 14:52: Triglycerides 93, Cholesterol 86, HDL Cholesterol 27 L, Cholesterol/HDL Ratio 3.19 04/21/22 14:52: PT 13.5 H, INR 1.22 04/21/22 14:52: WBC 6.40, Hgb 16.2, Hct 46.3, Plt Count 192 04/21/22 14:52: Sodium 142, Potassium 3.7, BUN 19 H, Creatinine 1.49 H, Glucose 98, Magnesium 2.0, Total Bilirubin 1.9 H, AST 22, ALT 33, Alkaline Phosphatase 76, Lipase 194 <Alexandr Gunderson - Last Filed: 04/21/22 20:35> Assessment and Plan - Plan Assessment: Acute ischemic CVA Gait instability/weakness History of CAD Hypertension ARSENIO versus CKD Plan: Acute ischemic CVA: NIH 0, Reports gait instability and weakness. PT/OT/speech consults in place. Neuro consult. Continue ASA, plavix, statin, folic acid. Carotid doppler with mild plaque, non-smoker. hx HTN will monitor and adjust meds as needed. Gait instability/weakness: PT consult History of CAD: Monitor on tele, continue ASA and home meds. Hypertension: Continue home meds, adjust as needed to reduce risk fro further CVA ARSENIO versus CKD: unknown baseline, continue gentle IVF in AM and recheck chemistry. Consider renal consult for worsening. DVT PPX: Lovenox Code status: Full Discharge Plan: Home Plan to discharge in: 48 Hours - Advance Directives Does patient have a Living Will: No Does patient have a Durable POA for Healthcare: No - Code Status/Comfort Care Code Status Assessed: Yes (Full code) Critical Care: No Time Spent Managing Pts Care (In Minutes): 70 <Alexandr Gunderson - Last Filed: 04/21/22 20:35> Physician Review: Patient Assessed, Agree with Above Assessment and Plan <Con Dubon - Last Filed: 04/22/22 18:36>
[2022-04-21] MEDS ORDERED: ACETAMINOPHEN 500 MG TAB PO PRN (22:23)
[2022-04-21] MEDS: ATORVASTATIN 40 MG TAB PO SCH (22:23)
[2022-04-21] MEDS: Ringers Lactate 1,000 ML IV SCH (22:23)
[2022-04-21] MEDS ORDERED: ONDANSETRON 4 MG/2 ML VIAL IV PRN (22:23)
[2022-04-21] MEDS ORDERED: Ringers Lactate 1,000 ML IV ONE (23:50)
[2022-04-22 03:31] LABS: Absolute Lymphocytes (CBC) 0.9 K/uL (0.7-4.9); Hematocrit 44.3 % (39.6-49.0); Lymphocytes % 15.4 % (15.3-44.8); MCV 91.9 fL (80-100); MPV 7.9 fL (7.6-11.3); RBC Red Blood Cell Count 4.82 M/uL (4.33-5.43)
[2022-04-22 03:48] LABS: Albumin 2.9 g/dL (3.4-5.0); Potassium 3.5 mmol/L (3.5-5.1); Protein, Total 5.7 g/dL (6.4-8.2)
[2022-04-22] MEDS ORDERED: POTASSIUM 25 MEQ EFFERV TAB PO ONE (07:42)
--- NOTE | 2022-04-22 08:56 | EKG ---
Test Date: 2022-04-21 Test Time: 14:38:12 Senior Materials Analyst: MARQUITA MEASUREMENT RESULTS: Intervals: Rate: 89 OK: 154 QRSD: 126 QT: 400 QTc: 486 [place]: P: 89 OK: 154 QRS: -44 T: 84 INTERPRETIVE STATEMENTS: Sinus rhythm with occasional premature ventricular complexes Left axis deviation Right bundle branch block Left ventricular hypertrophy with repolarization abnormality Cannot rule out Septal infarct, age undetermined Abnormal ECG Compared to ECG 11/29/2000 16:39:00 Ventricular premature complex(es) now present Right bundle-branch block now present Early repolarization now present Myocardial infarct finding now present Electronically Signed On 04-22-22 08:55:50 CDT by Rahul Francis
[2022-04-22] MEDS ORDERED: FOLIC ACID 1 MG TABLET ONE (10:39)
[2022-04-22] MEDS ORDERED: ASPIRIN EC 81 MG TAB PO ONE (10:39)
[2022-04-22] MEDS ORDERED: CLOPIDOGREL 75 MG TABLET ONE (10:39)
[2022-04-22] MEDS ORDERED: POTASSIUM 25 MEQ EFFERV TAB ONE (10:39)
[2022-04-22] MEDS ORDERED: ENOXAPARIN 40 MG/0.4 ML SQ ONE (10:40)
[2022-04-22] MEDS: FOLIC ACID 1 MG TABLET PO SCH (11:00)
[2022-04-22] MEDS: ENOXAPARIN 40 MG/0.4 ML SQ SCH (11:00)
[2022-04-22] MEDS: ASPIRIN EC 81 MG TAB PO SCH (11:00)
[2022-04-22] MEDS: CLOPIDOGREL 75 MG TABLET PO SCH (11:00)
[2022-04-22] MEDS ORDERED: CYCLOBENZAPRINE 10 MG TAB PO ONE (16:31)
[2022-04-22] MEDS ORDERED: CYCLOBENZAPRINE 10 MG TAB ONE (17:00)
--- NOTE | 2022-04-22 18:39 | P.PN ---
Subjective Date of Service: 04/22/22 Chief Complaint: CVA No acute events overnight. He reports generalized weakness this morning. He denies any unilateral motor or sensory deficits. He reports significant muscle cramping in his right leg. Review of Systems 10-point ROS is otherwise unremarkable General: Weakness Musculoskeletal: Leg Pain (right, cramping) Physical Examination - Vital Signs Temperature: 98.0 F Blood Pressure: 160/84 Pulse: 77 Respirations: 16 Pulse Ox (%): 99 - Physical Exam General: Alert, In no apparent distress, Oriented x3 HEENT: Atraumatic, PERRLA, Mucous membr. moist/pink, EOMI, Sclerae nonicteric Neck: Supple, JVD not distended Respiratory: Clear to auscultation bilaterally, Normal air movement Cardiovascular: No edema, Regular rate/rhythm, Normal S1 S2, No gallops, No rubs, No murmurs Capillary refill: <2 Seconds Gastrointestinal: Normal bowel sounds, Soft and benign, Non-distended, No tenderness, No rebound, No guarding Musculoskeletal: No clubbing Integumentary: No rashes Neurological: Normal speech, Normal strength at 5/5 x4 extr, Sensation intact, Cranial nerves 3-12 intact, Normal affect, Abnormal gait (generalized weakness, unsteadiness) Assessment And Plan - Plan NIH Stroke Scale 1a. Level of consciousness: 0 - Alert; keenly responsive 1b. LOC questions: 0 - Both questions right 1c. LOC commands: 0 - Performs both tasks 2. Best Gaze: 0 - Normal 3. Visual: 0 - No visual loss 4. Facial Palsy: 0 - Normal symmetry 5a. Motor left arm: 0 - No drift for 10 seconds 5b. Motor right arm: 0 - No drift for 10 seconds 6a. Motor left le - No drift for 5 seconds 6b. Motor right le - No drift for 5 seconds 7. Limb ataxia: 0 - No ataxia 8. Sensory: 0 - Normal; no sensory loss 9. Best Language: 0 - Normal; no aphasia 10. Dysarthria: 0 - Normal 11. Extinction and Inattention: 0 - No abnormality 12. Distal motor function: 0 - No abnormality Total Score: 0 # Acute Small Left Frontal and Left Parietal Lobe Cerebrovascular Accidents - Consulted Neurology - recommendations appreciated - NIHSS = 0 - q4hr neurochecks - CT head = "moderate low-density within the right occipital and right parietal lobes. 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 Right occipital lobe has more of an indeterminate appearance of acute versus chronic infarct If clinically indicated further evaluation with MRI may be helpful " - MR brain = "very small acute infarcts involving the periventricular and deep white matter of the left frontal and left parietal lobes " - Ordered MRA head/neck - Ordered TTE - Carotid Doppler = "Mild plaque within the carotid arteries without evidence of a hemodynamically significant stenosis" - PT/OT evaluation requested - Ordered risk profile: - Hgb A1c = pending - Lipid panel = TC 79, LDL 36, HDL 27, TG 80 - TSH = pending - Started on aspirin, atorvastatin, clopidogrel, folic acid # Acute Kidney Injury likely Pre-Renal (improved) - Monitor creatinine and urine output - Renally dose medications # Coronary Artery Disease s/p CABG # Hypertension - Stable, continue home meds Con Dubon M.D.
[2022-04-22] MEDS: Ringers Lactate 1,000 ML IV SCH (21:04)
[2022-04-22] MEDS: MELATONIN 5 MG TABLET PO PRN (21:04)
[2022-04-22] MEDS: ATORVASTATIN 40 MG TAB PO SCH (21:09)
--- NOTE | 2022-04-22 23:59 | P.PN ---
Subjective Date of Service: 04/22/22 Chief Complaint: CVA Pt c/o insomnia, not any meds on medication list. Pt stated he takes something that was 50mg at HS Melatonin given earlier did not help. Requests medication for sleep. Will order trazodone. Physical Examination - Vital Signs Temperature: 98.8 F Blood Pressure: 125/72 Pulse: 89 Respirations: 16 Pulse Ox (%): 99 Assessment And Plan Physician Review: Patient Assessed, Agree with Above Assessment and Plan
[2022-04-23] MEDS: TRAZODONE 50 MG TABLET PO PRN ×2 (00:22→20:56)
[2022-04-23 06:23] LABS: Albumin 2.6 g/dL (3.4-5.0); Bilirubin Total 1.4 mg/dL (0.2-1.0); Potassium 3.4 mmol/L (3.5-5.1); Protein, Total 5.2 g/dL (6.4-8.2)
[2022-04-23 06:30] LABS: Absolute Lymphocytes (CBC) 0.9 K/uL (0.7-4.9); Hematocrit 42.7 % (39.6-49.0); Lymphocytes % 18.7 % (15.3-44.8); MCV 89.6 fL (80-100); MPV 7.9 fL (7.6-11.3); RBC Red Blood Cell Count 4.76 M/uL (4.33-5.43)
[2022-04-23] MEDS: ENOXAPARIN 40 MG/0.4 ML SQ SCH (08:40)
[2022-04-23] MEDS: FOLIC ACID 1 MG TABLET PO SCH (08:41)
[2022-04-23] MEDS: ASPIRIN EC 81 MG TAB PO SCH (08:41)
[2022-04-23] MEDS: CLOPIDOGREL 75 MG TABLET PO SCH (08:41)
[2022-04-23] MEDS ORDERED: POTASSIUM CL SA 10 MEQ TAB PO ONE (09:00)
[2022-04-23] MEDS: Ringers Lactate 1,000 ML IV SCH (11:10)
[2022-04-23] MEDS: lisinopriL 10 MG TAB PO SCH (15:31)
--- NOTE | 2022-04-23 18:55 | RAD REPORT ---
EXAM DESCRIPTION: CT - Head Brain Wo Cont - 04/23/2022 6:28 pm CLINICAL HISTORY: Increased weakness on right side, CVA COMPARISON: Head angio dated 04/23/2022; Neck Angio dated 04/23/2022; Head Brain Wo Cont dated 04/21/20 22; Brain Wo Cont dated 04/21/2022 TECHNIQUE: Axial 5 mm thick images of the head were obtained without IV contrast. All CT scans are performed using dose optimization technique as appropriate and may include automated exposure control or mA/KV adjustment according to patient size. FINDINGS: No intracranial hemorrhage has developed. No new mass effect, edema or shift of midline st ructures. The encephalomalacia and gliosis pattern in the right parietal and occipital lobes has not changed from April 21. The punctate nonhemorrhagic infarctions seen on the April 21 MRI study remai n occult on CT imaging. Underlying atrophy and chronic ischemic changes are present. Ventricles are i n proportion to volume loss. Asymmetry is created by head tilt. Arterial tree calcifications are pres ent. Mastoid air cells are clear. Air-fluid level present sphenoid sinus. No acute bony findings. IMPRESSION: No intracranial hemorrhage has developed. No new infarction seen by CT criteria. The acute nonhemorrhagic infarctions on the recent MRI study remain occult on CT imaging. No new CT Head finding compared April 21 imaging.
--- NOTE | 2022-04-23 18:57 | RAD REPORT ---
EXAM DESCRIPTION: CT - Neck Angio - 04/23/2022 6:30 pm CLINICAL HISTORY: Stroke Eval, CVA, abnormal MRI TECHNIQUE: During dynamic enhancement using nonionic IV contrast, axial 2 mm thick images of the nec k were obtained. Sagittal and axial reconstruction images were generated using MIP technique and revi ewed. All CT scans are performed using dose optimization technique as appropriate and may include automated exposure control or mA/KV adjustment according to patient size. COMPARISON: Carotid ultrasound April 21 FINDINGS: No aneurysm or vascular malformation identified. No carotid or vertebral dissection. No aortic arch or great vessel origin abnormality seen. Vertebral artery origins are tortuous but oth erwise unremarkable as well. No stenosis, vasculitis or other significant carotid artery finding. No focal abnormality of either vertebral artery. Basilar artery is normal. Air-fluid level seen in the sphenoid sinus. IMPRESSION: No significant atherosclerotic changes. No acute or significant cervical carotid or perico tebral finding. Air-fluid level in the sphenoid sinus.
--- NOTE | 2022-04-23 19:08 | RAD REPORT ---
EXAM DESCRIPTION: CT - Head angio - 04/23/2022 6:29 pm CLINICAL HISTORY: Stroke Eval, CVA, abnormal MRI TECHNIQUE: During dynamic enhancement using nonionic IV contrast, axial 1 millimeter thick images of the head were obtained. Sagittal and axial reconstruction images were generated using MIP technique and reviewed. All CT scans are performed using dose optimization technique as appropriate and may include automated exposure control or mA/KV adjustment according to patient size. COMPARISON: CT head April 23, MRI April 21 FINDINGS: No aneurysm or vascular malformation identified. Major venous sinuses are patent. Distal vertebral arteries and basilar artery are unremarkable. Posterior cerebral artery distribution s are unremarkable. Bilateral middle cerebral artery distributions show no named branch occlusion, vasculitis or signific ant atherosclerotic change. Right anterior cerebral artery distribution shows a short-segment narrowi ng in the A2 segment. Right-sided BOYD distribution is otherwise unremarkable. The left A1 and A2 BOYD segments are unremarkable. There is truncation or substantial reduction in flow in the left-side A3 s egment and far peripheral branches. The recent MRI show the infarctions to be in the left BOYD distrib ution. Bilateral internal carotid arteries show no significant disease. IMPRESSION: Truncation or marked reduction in flow in the left anterior cerebral artery A3 segment and more distal distribution. The recent MRI showed the infarction to be in the left BOYD distribution . Short segment stenosis of the right anterior cerebral artery A2 segment.
--- NOTE | 2022-04-23 19:39 | P.PN ---
Subjective Date of Service: 04/23/22 Chief Complaint: CVA This afternoon, he reported significant unsteadiness and right-sided deficits; however, his NIHSS remains at 0. Review of Systems 10-point ROS is otherwise unremarkable Neurological: Weakness, Incoordination Physical Examination - Vital Signs Temperature: 98.0 F Blood Pressure: 169/84 Pulse: 62 Respirations: 16 Pulse Ox (%): 94 - Studies Microbiology Data (last 24 hrs): 04/21/22 16:15 Catheterized Urine [place] Count - Final No growth. 04/21/22 16:15 Catheterized Urine - Final No growth. Assessment And Plan - Plan NIH Stroke Scale 1a. Level of consciousness: 0 - Alert; keenly responsive 1b. LOC questions: 0 - Both questions right 1c. LOC commands: 0 - Performs both tasks 2. Best Gaze: 0 - Normal 3. Visual: 0 - No visual loss 4. Facial Palsy: 0 - Normal symmetry 5a. Motor left arm: 0 - No drift for 10 seconds 5b. Motor right arm: 0 - No drift for 10 seconds 6a. Motor left le - No drift for 5 seconds 6b. Motor right le - No drift for 5 seconds 7. Limb ataxia: 0 - No ataxia 8. Sensory: 0 - Normal; no sensory loss 9. Best Language: 0 - Normal; no aphasia 10. Dysarthria: 0 - Normal 11. Extinction and Inattention: 0 - No abnormality 12. Distal motor function: 0 - No abnormality Total Score: 0 # Acute Small Left Frontal and Left Parietal Lobe Cerebrovascular Accidents - Consulted Neurology - recommendations appreciated - NIHSS = 0 - q4hr neurochecks - CT head = "moderate low-density within the right occipital and right parietal lobes. 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 Right occipital lobe has more of an indeterminate appearance of acute versus chronic infarct If clinically indicated further evaluation with MRI may be helpful " - MR brain = "very small acute infarcts involving the periventricular and deep white matter of the left frontal and left parietal lobes " - Ordered MRA head/neck - Ordered TTE - Carotid Doppler = "Mild plaque within the carotid arteries without evidence of a hemodynamically significant stenosis" - PT/OT evaluation requested - Ordered risk profile: - Hgb A1c = pending - Lipid panel = TC 79, LDL 36, HDL 27, TG 80 - TSH = pending - Started on aspirin, atorvastatin, clopidogrel, folic acid - Given new reported deficits, ordered STAT CT head, CTA head/neck: - CT head = "No intracranial hemorrhage has developed. No new infarction seen by CT criteria. The acute nonhemorrhagic infarctions on the recent MRI study remain occult on CT imaging. No new CT Head finding compared April 21 imaging." - CTA head = "Truncation or marked reduction in flow in the left anterior cerebral artery A3 segment and more distal distribution. The recent MRI showed the infarction to be in the left BOYD distribution. Short segment stenosis of the right anterior cerebral artery A2 segment." - CTA neck = "No significant atherosclerotic changes. No acute or significant cervical carotid or vertebral finding. Air-fluid level in the sphenoid sinus." - Discussed with Dr. Hearn - he states that he is not a candidate for TNK or thrombectomy - he recommended continued medical management # Acute Kidney Injury likely Pre-Renal (improved) - Monitor creatinine and urine output - Renally dose medications # Coronary Artery Disease s/p CABG # Hypertension - Stable, continue home meds Con Dubon M.D.
[2022-04-23] MEDS: ATORVASTATIN 40 MG TAB PO SCH (20:54)
[2022-04-23] MEDS: MELATONIN 5 MG TABLET PO PRN (20:55)
[2022-04-24] MEDS: Ringers Lactate 1,000 ML IV SCH ×3 (03:43→20:47)
[2022-04-24 05:55] LABS: Absolute Lymphocytes (CBC) 0.9 K/uL (0.7-4.9); Hematocrit 43.3 % (39.6-49.0); Lymphocytes % 14.9 % (15.3-44.8); MCV 89.7 fL (80-100); MPV 7.8 fL (7.6-11.3); RBC Red Blood Cell Count 4.83 M/uL (4.33-5.43)
[2022-04-24 06:17] LABS: Albumin 2.8 g/dL (3.4-5.0); Bilirubin Total 1.3 mg/dL (0.2-1.0); Potassium 3.7 mmol/L (3.5-5.1); Protein, Total 5.2 g/dL (6.4-8.2)
[2022-04-24] MEDS ORDERED: POTASSIUM CL SA 10 MEQ TAB PO ONE (09:00)
[2022-04-24] MEDS ORDERED: lisinopriL 10 MG TAB PO SCH (09:00)
[2022-04-24] MEDS: ENOXAPARIN 40 MG/0.4 ML SQ SCH (09:35)
[2022-04-24] MEDS: CLOPIDOGREL 75 MG TABLET PO SCH (09:36)
[2022-04-24] MEDS: ASPIRIN EC 81 MG TAB PO SCH (09:36)
[2022-04-24] MEDS: FOLIC ACID 1 MG TABLET PO SCH (09:36)
[2022-04-24] MEDS: lisinopriL 10 MG TAB PO SCH (09:36)
[2022-04-24] MEDS ORDERED: MORPHINE 2 MG/ML SYR IV ONE (09:48)
[2022-04-24] MEDS ORDERED: LORAZEPAM 1 MG TABLET PO ONE (09:50)
[2022-04-24] MEDS ORDERED: FAMOTIDINE 20 MG TAB PO ONE (10:53)
--- NOTE | 2022-04-24 11:55 | RAD REPORT ---
EXAM DESCRIPTION: MRI - MRA Neck W/Wo Cont - 04/24/2022 11:46 am CLINICAL HISTORY: Stroke Eval COMPARISON: Brain Wo Cont dated 04/21/2022 FINDINGS: Contrast enhance 2D [id number] MR angiography of the neck vessels was performed. Both carotid systems are widely patent. The vertebral arteries are codominant. Mild stenosis at the o rigin of the right vertebral artery. . IMPRESSION: Mild right proximal vertebral artery stenosis which is unlikely to be clinically signifi cant. The carotid systems and left vertebral artery are widely patent.
--- NOTE | 2022-04-24 12:06 | RAD REPORT ---
EXAM DESCRIPTION: MRI - MRA Head Wo Cont - 04/24/2022 11:46 am CLINICAL HISTORY: Stroke Eval CVA COMPARISON: Brain Wo Cont dated 04/21/2022; Carotid Artery Bilateral dated 04/21/2022; MRA Neck W/Wo C ont dated 04/24/2022; Head angio dated 04/23/2022 FINDINGS: 3D noncontrast [id number] MR angiography of the [place] was performed. Moderate focal stenosis of the right A2 segment of the anterior cerebral artery. Evaluation of the st enosis/occlusion of the left A3 segment is limited due to the field of view and [id number] techni que. The flow in the left A2 segment is certainly diminished compared with what would be expected wit h the caliber of the left A1 and A2 segments. Moderate focal stenosis at the distal right M1 segment of the middle cerebral artery. 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 . The visualized dural venous sinuses appear patent. IMPRESSION: MRI findings at the anterior cerebral artery is correlating with the recent CTA head fin dings. This includes stenoses of the right A2 segment and left A3 segments. Also noted is a moderate focal stenosis of the distal right M1 segment of the middle cerebral artery. 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
[2022-04-24 19:23] VITALS: BMI 18.8
[2022-04-24] MEDS: ENSURE ENLIVE 237 ML CAN PO SCH (20:46)
[2022-04-24] MEDS: ATORVASTATIN 40 MG TAB PO SCH (20:47)
[2022-04-24] MEDS: MELATONIN 5 MG TABLET PO PRN (20:50)
[2022-04-24] MEDS: TRAZODONE 50 MG TABLET PO PRN (20:50)
[2022-04-24] MEDS ORDERED: ALPRAZOLAM 0.5 MG TABLET PO ONE (23:31)
[2022-04-24] MEDS: TEMAZEPAM 15 MG CAP PO PRN (23:47)
[2022-04-25 04:19] LABS: Potassium 3.6 mmol/L (3.5-5.1)
[2022-04-25] MEDS: Ringers Lactate 1,000 ML IV SCH ×2 (06:23→21:56)
[2022-04-25] MEDS ORDERED: POTASSIUM CL SA 10 MEQ TAB PO ONE (09:00)
[2022-04-25] MEDS: ENOXAPARIN 40 MG/0.4 ML SQ SCH (09:41)
[2022-04-25] MEDS: CLOPIDOGREL 75 MG TABLET PO SCH (09:41)
[2022-04-25] MEDS: ASPIRIN EC 81 MG TAB PO SCH (09:42)
[2022-04-25] MEDS: lisinopriL 10 MG TAB PO SCH (09:42)
[2022-04-25] MEDS: ENSURE ENLIVE 237 ML CAN PO SCH ×2 (09:43→21:07)
[2022-04-25] MEDS: FOLIC ACID 1 MG TABLET PO SCH (09:43)
--- NOTE | 2022-04-25 14:21 | ECHO ---
HEIGHT: 5 ft 8 in WEIGHT: 123 lb 11.2 oz DATE OF STUDY: 04/25/[address]: Alexandr Gunderson NP 2-DIMENSIONAL: YES M.MODE: YES DOPPLER: YES COLOR FLOW: YES TDS: PORTABLE: YES DEFINITY: BUBBLE STUDY: DIAGNOSIS: CEREBRAL VASCULAR ACCIDENT CARDIAC HISTORY: CATHERIZATION: SURGERY: PROSTHETIC VALVE: PACEMAKER: MEASUREMENTS (cm) DIASTOLIC (NORMALS) SYSTOLIC (NORMALS) IVSd 1.0 (0.6-1.2) LA Diam 3.1 (1.9-4.0) LVEF 55-60% LVIDd 3.3 (3.5-5.7) LVIDs 2.4 (2.0-3.5) %FS 27% LVPWd 1.0 (0.6-1.2) Ao Diam 3.1 (2.0-3.7) 2 DIMENSIONAL ASSESSMENT: RIGHT ATRIUM: NORMAL LEFT ATRIUM: NORMAL RIGHT VENTRICLE: NORMAL LEFT VENTRICLE: NORMAL TRICUSPID VALVE: MILD TRICUSPID REGURGITATION MITRAL VALVE: NORMAL PULMONIC VALVE: NORMAL AORTIC VALVE: NORMAL PERICARDIAL EFFUSION: NONE AORTIC ROOT: NORMAL LEFT VENTRICULAR WALL MOTION: NORMAL DOPPLER/COLOR FLOW: MILD TRICUSPID REGURGITATION. COMMENTS: NORMAL LEFT VENTRICULAR EJECTION FRACTION 55-60%. NORMAL WALL MOTION. MILD TRICUSPID REGURGITATION. TECHNOLOGIST: ROSA ISELA HOFFMANN
[2022-04-25] MEDS: ATORVASTATIN 40 MG TAB PO SCH (21:06)
[2022-04-25] MEDS: TEMAZEPAM 15 MG CAP PO PRN (21:55)
--- NOTE | 2022-04-26 00:34 | P.PN ---
Subjective Date of Service: 04/24/22 Patient doing well. MRI report pending. Continue with physical therapy and speech therapy. Awaiting for placement. Review of Systems 10-point ROS is otherwise unremarkable Physical Examination - Vital Signs Temperature: 97.8 F Blood Pressure: 150/92 Pulse: 66 Respirations: 15 Pulse Ox (%): 94 - Physical Exam General: Alert, In no apparent distress, Oriented x3 Respiratory: Clear to auscultation bilaterally, Normal air movement Cardiovascular: Regular rate/rhythm, Normal S1 S2, No murmurs Gastrointestinal: Normal bowel sounds, Soft and benign, Non-distended, No tenderness Musculoskeletal: No clubbing, No swelling, No tenderness Neurological: Sensation intact, Cranial nerves 3-12 intact - Studies Medications List Reviewed: Yes Assessment & Plan - Problems (Diagnosis) (1) Acute CVA (cerebrovascular accident) Current Visit: Yes Status: Acute (2) Hypertension Current Visit: Yes Status: Acute (3) Depression Current Visit: Yes Status: Acute - Plan 1. MRI of the brain 2. Echocardiogram and carotid Doppler 3. Anti-platelet therapy and statin therapy 4. Neurology consultation appreciated 5. Physical therapy/occupational therapy/speech therapy evaluation; awaiting for [facility] facility placement 6. antidepressant 7. DVT prophylaxis Discharge Plan: Senior Living Plan to discharge in: 48 Hours - Advance Directives Does patient have a Living Will: Yes Does patient have a Durable POA for Healthcare: Yes - Code Status/Comfort Care Code Status Assessed: Yes Code Status: Full Code Physician Review: Patient Assessed, Agree with Above Assessment and Plan Critical Care: No Time Spent Managing PTS Care (In Minutes): 35
--- NOTE | 2022-04-26 00:35 | P.PN ---
Date of Service: 04/25/22 Subjective patient continues to improve. Clinical symptoms are better. Patient is depressed. Review of Systems 10-point ROS is otherwise unremarkable Physical Examination - Vital Signs reviewed - Physical Exam General: Alert, In no apparent distress, Oriented x3 Respiratory: Clear to auscultation bilaterally, Normal air movement Cardiovascular: Regular rate/rhythm, Normal S1 S2, No murmurs Gastrointestinal: Normal bowel sounds, Soft and benign, Non-distended, No tenderness Musculoskeletal: No clubbing, No swelling, No tenderness Neurological: Sensation intact, Cranial nerves 3-12 intact Assessment & Plan - Problems (Diagnosis) (1) Acute CVA (cerebrovascular accident) Current Visit: Yes Status: Acute (2) Hypertension Current Visit: Yes Status: Acute (3) Depression Current Visit: Yes Status: Acute - Plan 1. MRI of the brain with CVA 2. Echocardiogram and carotid Doppler pending 3. Anti-platelet therapy and statin therapy 4. Neurology consultation appreciated 5. Physical therapy/occupational therapy/speech therapy evaluation; awaiting for [facility] facility placement 6. antidepressant 7. DVT prophylaxis Discharge Plan: Snf Plan to discharge in: 48 Hours - Advance Directives Does patient have a Living Will: Yes Does patient have a Durable POA for Healthcare: Yes - Code Status/Comfort Care Code Status Assessed: Yes Code Status: Full Code Physician Review: Patient Assessed, Agree with Above Assessment and Plan Critical Care: No Time Spent Managing PTS Care (In Minutes): 35
[2022-04-26] MEDS: Ringers Lactate 1,000 ML IV SCH ×2 (09:03→17:23)
[2022-04-26] MEDS: AMLODIPINE 10 MG TAB PO SCH (09:24)
[2022-04-26] MEDS: ENSURE ENLIVE 237 ML CAN PO SCH ×2 (09:24→21:10)
[2022-04-26] MEDS: ENOXAPARIN 40 MG/0.4 ML SQ SCH (09:24)
[2022-04-26] MEDS: CLOPIDOGREL 75 MG TABLET PO SCH (09:24)
[2022-04-26] MEDS: FOLIC ACID 1 MG TABLET PO SCH (09:24)
[2022-04-26] MEDS: ASPIRIN EC 81 MG TAB PO SCH (09:24)
[2022-04-26] MEDS: lisinopriL 10 MG TAB PO SCH (09:25)
[2022-04-26] MEDS: ESCITALOPRAM 20 MG TAB PO SCH (09:25)
--- NOTE | 2022-04-26 13:55 | P.PN ---
Date of Service: 04/26/22 Subjective Patient continues to improve. Patient walked 160 feet with physical therapy. Continue with plan of care as mentioned. Patient will be referred to inpatient rehab. continue with antidepressant Review of Systems 10-point ROS is otherwise unremarkable Physical Examination - Vital Signs reviewed - Physical Exam General: Alert, In no apparent distress, Oriented x3 Respiratory: Clear to auscultation bilaterally, Normal air movement Cardiovascular: Regular rate/rhythm, Normal S1 S2, No murmurs Gastrointestinal: Normal bowel sounds, Soft and benign, Non-distended, No tenderness Musculoskeletal: No clubbing, No swelling, No tenderness Neurological: Sensation intact, Cranial nerves 3-12 intact Assessment & Plan - Problems (Diagnosis) (1) Acute CVA (cerebrovascular accident) Current Visit: Yes Status: Acute (2) Hypertension Current Visit: Yes Status: Acute (3) Depression Current Visit: Yes Status: Acute - Plan Continue with plan of care as mentioned below: 1. MRI of the brain with CVA 2. Echocardiogram and carotid Doppler pending 3. Anti-platelet therapy and statin therapy 4. Neurology consultation appreciated 5. Physical therapy/occupational therapy/speech therapy evaluation; awaiting for senior care facility placement 6. antidepressant 7. DVT prophylaxis Discharge Plan: Half-Way Plan to discharge in: 48 Hours - Advance Directives Does patient have a Living Will: Yes Does patient have a Durable POA for Healthcare: Yes - Code Status/Comfort Care Code Status Assessed: Yes Code Status: Full Code Physician Review: Patient Assessed, Agree with Above Assessment and Plan Critical Care: No Time Spent Managing PTS Care (In Minutes): 35
[2022-04-26] MEDS: TEMAZEPAM 15 MG CAP PO PRN (21:08)
[2022-04-26] MEDS: ATORVASTATIN 40 MG TAB PO SCH (21:08)
[2022-04-26] MEDS: TRAZODONE 50 MG TABLET PO PRN (23:11)
[2022-04-27 04:17] VITALS: O2SAT 97
[2022-04-27 05:56] LABS: Potassium 3.3 mmol/L (3.5-5.1)
[2022-04-27] MEDS ORDERED: POTASSIUM CL SA 10 MEQ TAB PO ONE (07:00)
[2022-04-27] MEDS: ESCITALOPRAM 20 MG TAB PO SCH (08:17)
[2022-04-27] MEDS: FOLIC ACID 1 MG TABLET PO SCH (08:17)
[2022-04-27] MEDS: AMLODIPINE 10 MG TAB PO SCH (08:17)
[2022-04-27] MEDS: CLOPIDOGREL 75 MG TABLET PO SCH (08:17)
[2022-04-27] MEDS: lisinopriL 10 MG TAB PO SCH (08:17)
[2022-04-27] MEDS: ENOXAPARIN 40 MG/0.4 ML SQ SCH (08:17)
[2022-04-27] MEDS: ASPIRIN EC 81 MG TAB PO SCH (08:17)
[2022-04-27] MEDS: ENSURE ENLIVE 237 ML CAN PO SCH ×2 (08:18→20:27)
[2022-04-27] MEDS: Ringers Lactate 1,000 ML IV SCH (08:18)
[2022-04-27] MEDS: TRAZODONE 50 MG TABLET PO PRN (20:26)
[2022-04-27] MEDS: TEMAZEPAM 15 MG CAP PO PRN (20:26)
[2022-04-27] MEDS: ATORVASTATIN 40 MG TAB PO SCH (20:27)
[2022-04-28] MEDS: Ringers Lactate 1,000 ML IV SCH (00:55)
--- NOTE | 2022-04-28 03:08 | P.DS ---
Discharge Date: 04/28/22 Disposition: TRANSFER TO INPATIENT REHAB Discharge Condition: GOOD Reason for Admission: CVA - Problems (1) Acute CVA (cerebrovascular accident) Current Visit: Yes Status: Acute (2) Hypertension Current Visit: Yes Status: Acute (3) Depression Current Visit: Yes Status: Acute Brief History of Present Illness: 77-year-old male with history of hypertension, CAD status post CABG presented to the emergency department for 2 days of weakness, he had a fall last night feels as if he has been unable to walk and has been leaning to the left last couple of days. He lives alone he reports that he was trying to get to the bathroom last night and could not walk he had to crawl. He was evaluated in the emergency department his labs were significant for creatinine of 1.49 GFR 48 BUN 19unknown baseline renal function patient unaware of any kidney disease, T bili 1.9D bili 0.6 urine is nitrite positive leukoesterase negative chest x-ray with no acute findings CT scan of the head without contrast revealed moderate low- density within the right occipital and right parietal lobes, right parietal lobe has the appearance of an old infarction right occipital lobe has more of an indeterminate appearance of acute versus chronic infarct MRI of the brain was obtained which revealed very small acute infarcts involving the periventricular and deep white matter of the left frontal and left parietal lobes carotid Doppler was obtained which showed mild plaque within the carotids without evidence of hemodynamically significant stenosis. Patient was given aspirin, statin, folic acid in the emergency department ED provider discussed case with nephrology who recommends admission to the hospital service for further evaluation and management. Vital Signs/Physical Exam: Temp Pulse Resp BP Pulse Ox 97.2 F 71 16 157/83 H 95 04/28/22 00:00 04/28/22 00:00 04/28/22 00:00 04/28/22 00:00 04/28/22 00:00 Laboratory Data at Discharge: WBC 6.30 K/uL (4.3-10.9) D 04/24/22 05:33 Hgb 14.8 g/dL (13.6-17.9) 04/24/22 05:33 Hct 43.3 % (39.6-49.0) 04/24/22 05:33 Plt Count 151 K/uL (152-406) L 04/24/22 05:33 PT 13.5 SECONDS (9.5-12.5) H 04/21/22 14:52 INR 1.22 04/21/22 14:52 Sodium 139 mmol/L (136-145) 04/27/22 05:24 Potassium 3.9 mmol/L (3.5-5.1) 04/27/22 12:56 BUN 11 mg/dL (7-18) 04/27/22 05:24 Creatinine 0.82 mg/dL (0.55-1.3) 04/27/22 05:24 Glucose 88 mg/dL (74-106) 04/27/22 05:24 Magnesium 2.0 mg/dL (1.8-2.4) 04/21/22 14:52 Total Bilirubin 1.3 mg/dL (0.2-1.0) H 04/24/22 05:33 AST 27 U/L (15-37) 04/24/22 05:33 ALT 23 U/L (12-78) 04/24/22 05:33 Alkaline Phosphatase 61 U/L (45-117) 04/24/22 05:33 Triglycerides 80 mg/dL (<150) 04/22/22 02:58 Cholesterol 79 mg/dL (<200) 04/22/22 02:58 HDL Cholesterol 27 mg/dL (40-60) L 04/22/22 02:58 Cholesterol/HDL Ratio 2.93 04/22/22 02:58 Lipase 194 U/L (73-393) 04/21/22 14:52 Home Medications: Amlodipine [Norvasc*] 10 mg PO DAILY #30 tab 04/26/22 Aspirin [Aspirin EC 81 MG] 162 mg PO DAILY #60 04/26/22 Atorvastatin Calcium [Lipitor] 40 mg PO BEDTIME #30 tab 04/26/22 Clopidogrel Bisulfate [Plavix*] 75 mg PO DAILY #30 04/26/22 Enoxaparin Sodium [Lovenox 40 MG INJ*] 40 mg SQ DAILY #14 syr 04/26/22 Ensure Enlive 237 ml PO BID #60 can 04/26/22 Escitalopram [Lexapro*] 10 mg PO DAILY #30 tab 04/26/22 Folic Acid 1 mg PO DAILY #30 04/26/22 Melatonin 5 mg PO BEDTIME PRN PRN #10 04/26/22 lisinopriL [Prinivil*] 10 mg PO DAILY #30 tab 04/26/22 New Medications: Aspirin [Aspirin EC 81 MG] 162 mg PO DAILY #60 Ensure Enlive 237 ml PO BID #60 can Folic Acid 1 mg PO DAILY #30 Escitalopram [Lexapro*] 10 mg PO DAILY #30 tab Atorvastatin Calcium [Lipitor] 40 mg PO BEDTIME #30 tab Enoxaparin Sodium [Lovenox 40 MG INJ*] 40 mg SQ DAILY #14 syr Melatonin 5 mg PO BEDTIME PRN PRN #10 PRN Reason: Insomnia Amlodipine [Norvasc*] 10 mg PO DAILY #30 tab Clopidogrel Bisulfate [Plavix*] 75 mg PO DAILY #30 lisinopriL [Prinivil*] 10 mg PO DAILY #30 tab Physician Discharge Instructions: OK TO TRANSFER TO INPATIENT REHAB ONCE ACCEPTED Diet: AHA Activity: Fall precautions Followup: Pasha Patel MD [Primary Care Provider] -
--- NOTE | 2022-04-28 03:12 | P.PN ---
Date of Service: 04/27/22 Subjective Patient is doing well. He has been accepted to inpatient rehab. He was scheduled to go upstairs, but he was COVID-19 test was positive. Patient completely asymptomatic and this is an incidental finding. Review of Systems 10-point ROS is otherwise unremarkable Physical Examination - Vital Signs reviewed - Physical Exam General: Alert, In no apparent distress, Oriented x3 Respiratory: Clear to auscultation bilaterally, Normal air movement Cardiovascular: Regular rate/rhythm, Normal S1 S2, No murmurs Gastrointestinal: Normal bowel sounds, Soft and benign, Non-distended, No tenderness Musculoskeletal: No clubbing, No swelling, No tenderness Neurological: Sensation intact, Cranial nerves 3-12 intact Assessment & Plan - Problems (Diagnosis) (1) Acute CVA (cerebrovascular accident) Current Visit: Yes Status: Acute (2) Hypertension Current Visit: Yes Status: Acute (3) Depression Current Visit: Yes Status: Acute (4) COVID-19 incidental positive test; asymptomatic Current Visit: Yes Status: Acute - Plan Continue with plan of care as mentioned below: 1. MRI of the brain with CVA 2. Echocardiogram and carotid Doppler pending 3. Anti-platelet therapy and statin therapy 4. Neurology consultation appreciated 5. Physical therapy/occupational therapy/speech therapy evaluation; awaiting for residential facility placement 6. antidepressant 7. Pt is stable for DC to rehab. Will recommend DC to rehab 8. GI/DVT prophylaxis Discharge Plan: Fpc Plan to discharge in: 48 Hours - Advance Directives Does patient have a Living Will: Yes Does patient have a Durable POA for Healthcare: Yes - Code Status/Comfort Care Code Status Assessed: Yes Code Status: Full Code Physician Review: Patient Assessed, Agree with Above Assessment and Plan Critical Care: No Time Spent Managing PTS Care (In Minutes): 35
[2022-04-28 06:52] LABS: Absolute Lymphocytes (CBC) 0.9 K/uL (0.7-4.9); Hematocrit 43.6 % (39.6-49.0); Lymphocytes % 17.5 % (15.3-44.8); MCV 90.1 fL (80-100); MPV 7.9 fL (7.6-11.3); RBC Red Blood Cell Count 4.84 M/uL (4.33-5.43)
[2022-04-28 07:04] LABS: Potassium 3.3 mmol/L (3.5-5.1)
[2022-04-28 08:23] VITALS: TEMP 97.9
[2022-04-28] MEDS: ENSURE ENLIVE 237 ML CAN PO SCH (09:00)
[2022-04-28] MEDS ORDERED: lisinopriL 10 MG TAB PO SCH (09:00)
[2022-04-28] MEDS ORDERED: POTASSIUM CL SA 10 MEQ TAB PO ONE (09:00)
[2022-04-28] MEDS: AMLODIPINE 10 MG TAB PO SCH (09:08)
[2022-04-28] MEDS: FOLIC ACID 1 MG TABLET PO SCH (09:09)
[2022-04-28] MEDS: ASPIRIN EC 81 MG TAB PO SCH (09:10)
[2022-04-28] MEDS: ESCITALOPRAM 20 MG TAB PO SCH (09:10)
[2022-04-28] MEDS: ENOXAPARIN 40 MG/0.4 ML SQ SCH (09:11)
--- NOTE | 2022-04-28 09:36 | RAD REPORT ---
EXAM DESCRIPTION: [place] Single View04/28/2022 5:21 am CLINICAL HISTORY: Chest pain COMPARISON: April 21, 2022 FINDINGS: The lungs appear clear of acute infiltrate. The heart is normal size. Postsurgical changes involve the chest IMPRESSION: No acute abnormalities displayed
[2022-04-28] MEDS: CLOPIDOGREL 75 MG TABLET PO SCH (12:10)
[2022-04-28 12:12] VITALS: BP 147/83
[2022-04-28] MEDS ORDERED: ENSURE ENLIVE 237 ML CAN PO SCH (14:00)
== END 2022-04-28 13:15 | DRG 64 ==
LOC: ER 14:18 → ERHOLD 20:02 → 2ND 04-22 18:23 → 4TH 04-24 13:46
PROVIDERS: ADMIT Internal Medicine; ATTEND Internal Medicine
DX: I63.9 Cerebral infarction, unspecified (principal); U07.1 COVID-19; N17.9 Acute kidney failure, unspecified; R53.1 Weakness; R29.700 NIHSS score 0; I25.10 Atherosclerotic heart disease of native coronary artery without angina pectoris; R26.89 Other abnormalities of gait and mobility; G47.00 Insomnia, unspecified; F32.A Depression, unspecified; Z95.1 Presence of aortocoronary bypass graft; Z20.822 Contact with and (suspected) exposure to COVID-19
CPT/HCPCS: 36415; 51702; 70450; 70496; 70498; 70544; 70549; 70551; 71045; 80048; 80053; 80061; 80076; 81003; 82947; 83690; 83735; 83880; 84132; 84484; 85025; 85610; 87086; 87088; 87811; 93005; 93306; 93880; 96374; 96375; 97110; 97116; 97161; 97165; 97530; 99284; A9577; J1650; J2270; J7120; Q9967; U0003

== ENCOUNTER 2022-04-27 10:13 | Inpatient (IN) | payer OTHER ==
--- NOTE | 2022-04-27 12:26 | R.PREADM ---
PRE-ADMISSION SCREENING FORM SCREENING DATE AND TIME 04/27/2022 10:38 (CDT) ANTICIPATED REHAB ADMISSION DATE 04/29/2022 REFERRING FACILITY [facility] REFERRAL DATE AND TIME 04/27/2022 10:40 (CDT) ACUTE ADMIT DATE 04/21/2022 HOSPITALIZED IN LAST 60 DAYS? Yes Previous Rehabilitation(s): No. REFERRING PHYSICIAN Con [place] REHAB FACILITY [facility] CLINICAL LIAISON Tamia Parker PHYSICIAN REVIEWER Dr. Franklin Hearn M.D. MR# [id number] NAME LESLYE ACOSTA ADDRESS [address] [place] [address] PHONE [facility] [id number] DATE OF 1945 AGE 77 SSN# [id number] GENDER male MARITAL STATUS unknown race ADMIT FROM 02 - [facility] PRE-HOSPITAL LIVING SETTING 01 - Home (private home/apt. board/care, assisted living, prison, transitional living) HOME TYPE AND DETAILS Type of home: single family house # of levels in the residence: 1 # of steps within the residence: 0 # of steps to enter the residence: 0 PRE-HOSPITAL LIVING WITH Family/Relatives FAMILY SUPPORT Yes PHONE PRIMARY FAMILY CONTACT ON ADM.? no IS PRIMARY FAMILY CONTACT AUTH. REP.? no PHONE 1ST CONTACT ON ADM. no IS 1ST CONTACT AUTH. REP.? no PHONE 2ND CONTACT ON ADM.? no PATIENT EMPLOYMENT STATUS Retired (for age) PATIENT EMPLOYER No Employer PAYOR INFORMATION: 1ST PAYOR NAME MEDICARE 1ST PAYOR PHONE 1ST PAYOR INJURY/ILLNESS DUE TO ACCIDENT? No ANOTHER LIBERTARIAN RESPONSIBLE? No PRIMARY REHAB/ACUTE DIAGNOSIS: CVA ONSET DATE 04/21/2022 REHAB IMPAIRMENT CATEGORY (NOREEN): 01 Stroke (STR) MEETS 60% rule AFFECTED EXTREMITIES: RLE, and RUE PRIMARY DIAGNOSIS-RELATED SURGERIES: None COMORBID REHAB/ACUTE DIAGNOSES: - Tier 3 Acute kidney failure, unspecified (N17.9) - Non-Tiered Essential (primary) hypertension (I10) - N/A coronary artery disease (CAD) INTERVENTIONS: - Hypertension Assess/ Monitor patient B/P and treat with prescribed medications Implement healthy diet Increase physical activity - CAD Monitor blood pressure, apical heart rate, and respirations every 5 minutes during an anginal attack Place patient in comfortable position and administer oxygen, if prescribed, to enhance myocardial oxy gen supply Encourage supine position for dizziness caused by antianginals Identify specific activities patient may engage in that are below the level at which anginal pain occ urs. - ARSENIO Administer medications as prescribed per MD Monitor pt BUN/Creatinine Monitor pt urine output - Stroke Assess pt neuro status regularly Monitor laboratory parameters like PT, INR, and PTT Provide aggressive PT, OT and Speech to improve pt level of function Monitor vital signs RISK FOR COMPLICATIONS: - DVT Active and Passive ROM exercises Administer medications per MD order Assist patient with frequent position changes Elevate BLE - Skin Breakdown Encourage ambulation as tolerated Repositioning q 2 hours Use of pillows or foam wedges while in bed - Pain Assess pt for pain and Administer prescribed pain medication as needed Anticipate the need for pain medication for optimal pain managment Educate patient on relaxation and deep breathing techniques - Falls Maintain call light within patient reach for easy access to nursing assistance Provide assistance getting out of bed and with ambulation Provide assistive devices - Stroke Assess/ Monitor and maintain patient pain level Assess/ Monitor patient blood pressure - Cardiac Failure Assess/Monitor pt cardiac status SUMMARY OF ACUTE HOSPITALIZATION: On 04/21/2022 Pt. presented to [facility] with sudden onset of right-side weakness. Pt. is a 77 yo male of unknown race. On 04/21/2022 he was admitted to [facility] with diagnosis CVA. His impairment category is Stroke 01 - Right Body (Left Brain) (01.2). Pre-morbidly, Pt. was independent/mod-I in Locomotion and Self-Care; and he had good Safety Awareness , Balance, Transfers Control, and Endurance. Currently, he has deficits of Locomotion, Safety Awareness, Balance, Transfers Control, Sphincter Con trol, Self-Care, and Endurance. Pt. is now referred to [facility] for acute in-patient rehabilitation in order to maximize patient's functional independence in activities of daily living, strength, ROM, and mobi lity. Patient has realistic goal of being discharged at assistance level 6-Con to reside at Home with Fam ebenezer/Relatives. PAST MEDICAL HISTORY Acute kidney failure, unspecified (N17.9) Essential (primary) hypertension (I10) coronary artery disease (CAD) PAST SURGICAL HISTORY: CABG MEDICATION ALLERGIES: No Known Drug Allergies (NKDA) ENVIRONMENTAL ALLERGIES: - Substance Allergies None Known - Other Allergies None Known CODE STATUS: Full code WEIGHT/HEIGHT/BMI: WEIGHT UNKNOWN lbs HEIGHT 5' UNKNOWN" BMI N/A DIET: - Diet Type Regular - Diet - Solid Texture Regular - Diet - Liquid Texture Regular - Tube Feed N/A none REVIEW OF SYSTEMS: - Gen Alert and awake Lying in bed No apparent distress Oriented to: person, time, and place - Vital Signs Temperature: 98.1 F SBP/DBP: 155/86 Pulse: 69 Resp: 18 Vital signs stable, afebrile - CVS RRR VITAL SIGNS Temperature: 98.1 F SBP/DBP: 155/86 Pulse: 69 Resp: 18 Vital signs stable, afebrile MEDICATIONS/TREATMENT: Other- See attached MAR (Medication Administration Record). CURRENT SPHINCTER CONTROL: Pre-hospital bladder status: unspecified # of bladder accidents in the last 7 days prior to screenin Pre-hospital bowel status: unspecified # of bowel accidents in the last 7 days prior to screenin Last Bowel Movement Date: 04/27/2022 CURRENT LOCOMOTION STATUS: distance walked 160 feet DETAILED CURRENT FUNCTIONAL STATUS: - Bladder accident frequency: 7-Ind - No accidents in the past 7 days - Bowel accident frequency: 7-Ind - No accidents in the past 7 days - Walking score based on distance walked: 0(N/A) score based on distance walked: 3(>=150ft) - Wheelchair score based on distance traveled: 0(N/A) QI SCORES: - Self-Care A. Eating 05-Setup or clean-up assistance B. Oral hygiene 05-Setup or clean-up assistance C. Toileting hygiene 03-Partial/moderate assistance E. Shower/bathe self 03-Partial/moderate assistance F. Upper body dressing 03-Partial/moderate assistance G. Lower body dressing 03-Partial/moderate assistance H. Putting on/taking off footwear 03-Partial/moderate assistance - Mobility A. Roll left and right 03-Partial/moderate assistance B. Sit to lying 03-Partial/moderate assistance C. Lying to sitting on side of bed 03-Partial/moderate assistance D. Sit to stand 03-Partial/moderate assistance E. Chair/[id number]-[id number] transfer 03-Partial/moderate assistance F. Toilet transfer 03-Partial/moderate assistance G. Car transfer 88-Not attempted due to medical condition or safety concerns I. Walk 10 feet 03-Partial/moderate assistance J. Walk 50 feet with two turns 03-Partial/moderate assistance K. Walk 150 feet 03-Partial/moderate assistance L. Walking 10 feet on uneven surfaces 88-Not attempted due to medical condition or safety concerns M. 1 step (curb) 88-Not attempted due to medical condition or safety concerns N. 4 steps 88-Not attempted due to medical condition or safety concerns O. 12 steps 88-Not attempted due to medical condition or safety concerns P. Picking up object 88-Not attempted due to medical condition or safety concerns R. Wheel 50 feet with two turns 09-Not applicable S. Wheel 150 feet 09-Not applicable - Bladder and Bowel Bladder continence 0-Always continent Bowel continence 0-Always continent - Endurance Fair - Balance Poor - Safety Awareness Fair CURRENT FUNC. DEFICITS: Self-Care, Mobility, Endurance, Balance, and Safety Awareness THERAPY NOTES FROM ACUTE CARE: Attached. SPECIAL NEEDS: - Safety Concerns Skin breakdown precautions needed due to skin breakdown risk PRECAUTIONS: - Weight Bearing Precaution WBAT left LE PATIENT NEEDS ACTIVE AND ONGOING THERAPEUTIC INTERVENTION OF MULTIPLE THERAPY DISCIPLINES, INCLUDING: - Dietary and Nutrition Adequate Nutrition. Nutritional Education. Nutritional Supplements. - Occupational Therapy Cognitive Retraining. Patient needs Occupational Therapy for a daily minimum of 1.5 hours at least 5 out of 7 days, to improve Activities of Daily Living, including: Eating, Grooming, Bathing, Dressing, Toileting, Toilet Transfers, Community Reintegration, Higher functional activities, Adaptive Equipme nt, Splinting, Household Tasks, and Other activities as determined. Visual Perceptual Training. - Speech Therapy Cognitive Training. Expressive Language Skills. Memory Strategies. Patient needs Speech Therapy for a daily minimum of 1.5 hours at least 5 out of 7 days, to improve: Swallowing, Cognition, Language Ski lls, and Compensatory Strategies. Receptive Language Skills. Speech Intelligibility Training. - Physical Therapy Patient needs Physical Therapy for a daily minimum of 1.5 hours at least 5 out of 7 days, to improve: Mobility, Strengthening, Transfers, Stretching, ROM, Endurance, Ability to manage stairs, Gait, and Balance. PATIENT NEEDS CLOSE MEDICAL SUPERVISION BY A REHABILITATION PHYSICIAN FOR: Coordination of Treatment Team Medical and Co-Morbidity Management Bowel and Bladder Management Pain Management PATIENT REQUIRES 24X7 REHAB NURSING FOR MEDICAL AND FUNCTIONAL MGT. OF THE FOLLOWING DEFICITS: Disease Management Medication Management Patient requires 24x7 Rehabilitation Nursing for: Pain Issues, Identifying and preventing risk factor s, Monitoring and reporting current medical conditions, Assisting with ambulation and transfer, Shoshana ting with all ADL-s, Teaching patients about disease process and medications, Family teaching, Provid ing safe environment, Bowel and Bladder Issues, Skin Integrity, and Medication Management Patient/Family Education Providing Safe Environment Skin Integrity PATIENT REQUIRES INTENSIVE, COORDINATED INTERDISCIPLINARY APPROACH TO REHAB: Arranging Home Equipment/Services Discharge Planning Family Intervention/Training Patient needs Dietary and Nutrition Services for: Adequate Nutrition, Nutritional Supplements, and Nu tritional Education Patient needs Market Garden Worker and/or Case Management for: Discharge Planning, Arranging Home Equipmen t or Services, and Family Interventions Market Garden Worker/Case Management PATIENT REHAB POTENTIAL: Gabriel ACOSTA is able and expected to receive 3 hours of individualized therapy daily on at least 5 of e very 7 days Gabriel ACOSTA'peter prognosis for significant practical improvement within a reasonable period of time appea rs Good Expected level of measurable improvement will be of a practical value to Gabriel ACOSTA's functional capa city or adaptations to impairments Has a viable Discharge Plan Medically appropriate; condition is sufficiently stable to participate in intensive rehab program DISCHARGE PLAN: - Estimated Length of Stay (days) 17. - Consensus on plan Discharge plan has been discussed with primary caregiver. Patient/Family is in agreement with the jorge a n. Primary caregiver is in agreement with the plan. - Patient/Family Goals Return home independently. - Planned Living Setting Upon Discharge Home, to live with Family/Relatives. Transitional Living. RECOMMENDED CARE LEVEL: IRF RECOMMENDATION DETAILS: Recommended Admission to Comprehensive Rehabilitation Program to Increase Functional [place] SCREENER'S COMPLETENESS CONFIRMATION: - Screening Confirmation The patient data collection on this preadmission screening form is finished PHYSICIANS REVIEW AND ADMISSION DETERMINATION Admit - Based on my review of the Pre-Admission Screening results, in my medical judgment and experie nce, I concur with the findings and recommend admission to [facility], as this patient requires an IRF level of care. SIGNATURE PANEL: Clinical Liaison - [electronically] signed by Tamia Parker on 04/27/2022 at 11:46 (CDT) Physician Reviewer - [electronically] signed by Dr. Franklin Hearn M.D. on 04/27/2022 at 12:25 (CDT )
--- OUTSIDE RECORDS SUMMARY | 2022-04-28 13:28 | XMS REPORT | Continuity of Care Document ---
:1945 Author Organization [facility] t Address [address] [place] [address] Care Team Providers Name Role Phone JABIER HENRY Primary Care Physician Unavailable MAIRA NUÑEZ Attending Clinician Unavailable [place] PRIMARY CARE PHYSICIANMaira Ross Attending Clinician Jabier Henry MD Attending Clinician MAIRA NUÑEZ Admitting Clinician Unavailable Payers Payer Name Policy Type Policy Number Effective Date Expiration Date S luli MEDICARE PART A [id number] 2002 \\T\\ B 00:00:00 [employer] [id number] 2017 SHAY 00:00:00 Problems Condition Condition Condition Status Onset Resolution Last Treating Co mments Source Name Details Category Date Date Treatment Clinician Date Left leg Left leg Disease Active Unive rs weakness weakness 7-01 ity of 00:00: [place] 00 Medical Branch Gastroesop Gastroesop Disease Active 2020-09 U nivers hageal hageal 0-19 ity of reflux reflux 00:00: [place] disease disease 00 Medical Branch BPH BPH Disease Active Univers associated associated 4-23 it y of with with 00:00: [place] nocturia nocturia 00 Medica l Branch Dyspnea, Dyspnea, Disease Active Overview: Un janelle unspecifie unspecifie 9-17 Formattin ity of d type d type 00:00: g of this [place] 00 note Medical might be Branch different from the original. 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 0-12 ity of 00:00: [address] Branch Chronic Chronic Disease Active 2014-09 Univers back pain back pain 0-12 ity of 00:00: [address] Branch Essential Essential Disease Active 2014-09 Uni vers hypertensi hypertensi 0-12 it y of on on 00:00: [place] [facility] Branch 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 0-12 ity of disease disease 00:00: [address] Branch 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 nivers infarct, infarct, 0-12 ity of old old 00:00: [address] Branch 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 0-12 it y of s with s with 00:00: [place] radiculopa radiculopa 00 Me dical thy thy Branch Bite, Bite, Disease Active 2009-09 Univers snake snake 0-31 ity of 00:00: [address] Lower Lower Diagnosis Active Common urinary urinary Spirit tract tract - [facility] symptoms symptoms St (LUTS) (LUTS) [facility] Low Low Diagnosis Active Common testostero testostero Sp felipe ne in male ne in male - [facility] Urinary Urinary Diagnosis Active Commo n tract tract Spirit infection infection - CH I without without St hematuria, hematuria, Regi kes site site Medical unspecifie unspecifie Ce nter d d Urine Urine Diagnosis Active Common retention retention Spir - [facility] Allergies, Adverse Reactions, Alerts Allergy Allergy Status Severity Reaction(s) Onset Inactive Treating Comm ents Source Name Type Date Date Clinician NO KNOWN Drug Active Univers ALLERGIE Class ity of S [facility] Social History Social Habit Start Date Stop Date Quantity Comments Source Exposure to 2022-03-26 2022-04-05 Not sure [facility] SARS-CoV-2 00:00:00 12:23:00 [place] Medical (event) Branch Alcohol intake 2022-03-03 2022-03-03 Current University 00:00:00 00:00:00 non-drinker of [facility] alcohol (finding) Branch Tobacco use and 2015-07-02 2015-07-02 Smokeless tobacco Un iversity of exposure 00:00:00 00:00:00 non-user [facility] Sex [birth year] Universit y of 00:00:00 00:00:00 [facility] Smoking Status Start Date Stop Date Source Never smoked tobacco [facility] Medications Ordered Filled Start Stop Current Ordering Indication Dosage Frequency Signature Comments Components Source Medication Medication Date Date Medication? Clinician (SIG) Name Name cyanocobala 2021- No [id number] 1000ug Univers min 04-05 ity of (VITAMIN 18:45: 19:34 [place] B12) 00 :00 Medical injection Branch 1,000 mcg testosteron 2021- No [id number] 260mg Univers e cypionate 04-05 ity of (DEPO-TESTO 18:45: 19:34 [place] STERONE) 00 :00 Medical injection Branch 260 mg testosteron 2021- No [id number] 260mg 260 mg, Univers e cypionate 04-05 Intramuscu i ty of (DEPO-TESTO 18:45: 19:34 lar, ONCE, [place] STERONE) 00 :00 1 dose, On Medic al injection Sun04/05/22 Bran ch 260 mg at 1345, Routine cyanocobala 2021- No [id number] 1000ug 1,000 mcg, Univers min 04-05 Intramuscu ity of (VITAMIN 18:45: 19:34 [place] B12[place] 00 :00 1 dose, On Medical injection Sun04/05/22 Bran ch 1,000 mcg at 1345, Routine cyanocobala 2021- No [id number] 1000ug Univers min 04-05 ity of (VITAMIN 18:45: 19:34 [place] B12) 00 :00 Medical injection Branch 1,000 mcg testosteron 2021- No [id number] 260mg Univers e cypionate 04-05 ity of (DEPO-TESTO 18:45: 19:34 [place] STERONE) 00 :00 Medical injection Branch 260 mg testosteron 2021- No [id number] 260mg 260 mg, Univers e cypionate 04-05 Intramuscu i ty of (DEPO-TESTO 18:45: 19:34 lar, ONCE, [place] STERONE) 00 :00 1 dose, On Medic al injection Sun04/05/22 Bran ch 260 mg at 1345, Routine cyanocobala 2021- No [id number] 1000ug 1,000 mcg, Univers min 04-05 Intramuscu ity of (VITAMIN 18:45: 19:34 [place] B12[place] 00 :00 1 dose, On Medical injection Sun04/05/22 Bran ch 1,000 mcg at 1345, Routine atorvastati Yes [id number] 80mg Take 1 Univers n 80 mg 7-03 [id number] tablet by ity o f tablet 00:00: mouth at [place] 00 bedtime. Medical Branch levocetiriz Yes [id number] 2.5mg Take 0.5 Univers ine 5 mg 7- [id number] tablets by ity of tablet 00:00: mouth [place] 00 every Medical evening as Branch needed for Other (itching). atorvastati Yes [id number] 80mg Take 1 Univers n 80 mg 7-03 [id number] tablet by ity o f tablet 00:00: mouth at [place] 00 bedtime. Medical Branch levocetiriz Yes [id number] 2.5mg Take 0.5 Univers ine 5 mg 7-03 [id number] tablets by ity of tablet 00:00: mouth [place] 00 every Medical evening as Branch needed for Other (itching). atorvastati Yes [id number] 80mg Take 1 Univers n 80 mg 7-03 [id number] tablet by ity o f tablet 00:00: mouth at [place] 00 bedtime. Medical Branch levocetiriz Yes [id number] 2.5mg Take 0.5 Univers ine 5 mg 7-03 [id number] tablets by ity of tablet 00:00: mouth [place] 00 every Medical evening as Branch needed for Other (itching). SERTRALINE 0 Yes [id number] 50mg TAKE 1 U nivers 50 mg 6-27 TABLET BY ity of tablet 00:00: MOUTH [place] 00 DAILY Medical Branch SERTRALINE 0 Yes [id number] 50mg TAKE 1 U nivers 50 mg 6-27 TABLET BY ity of tablet 00:00: MOUTH DAILY Medical Branch SERTRALINE 0 Yes [id number] 50mg TAKE 1 U nivers 50 mg 6-27 TABLET BY ity of tablet 00:00: MOUTH [place] 00 DAILY Medical Branch HYDROCORTIS 0 Yes [id number] APPLY TO Univers ONE 2.5 % 6-01 AFFECTED ity of cream 00:00: AREA TWICE DAILY Medical Branch meclizine Yes [id number] 12.5mg Take 1 Univers 12.5 mg 6-01 tablet by ity of tablet 00:00: mouth 3 (three) Medical times Branch daily as needed for Dizziness. HYDROCORTIS Yes [id number] APPLY TO Univers ONE 2.5 % 6-01 AFFECTED ity of cream 00:00: AREA TWICE DAILY Medical Branch meclizine 0 Yes [id number] 12.5mg Take 1 Univers 12.5 mg 6-01 tablet by ity of tablet 00:00: mouth 3 (three) Medical times Branch daily as needed for Dizziness. HYDROCORTIS 0 Yes [id number] APPLY TO Univers ONE 2.5 % 6-01 AFFECTED ity of cream 00:00: AREA TWICE DAILY Medical Branch meclizine 0 Yes [id number] 12.5mg Take 1 Univers 12.5 mg 6-01 tablet by ity of tablet 00:00: mouth 3 00 (three) Medical times Branch daily as needed for Dizziness. ciprofloxac 2021-0 Yes [id number] 500mg Take 1 Univers in HCl 3-08 tablet by ity of (CIPRO) 500 00:00: mouth [place] mg tablet 00 every 12 Medica l (twelve) Branch hours. ciprofloxac 2021-0 Yes [id number] 500mg Take 1 Univers in HCl 3-08 tablet by ity of (CIPRO) 500 00:00: mouth [place] mg tablet 00 every 12 Medica l (twelve) Branch hours. ciprofloxac 0 Yes [id number] 500mg Take 1 Univers in HCl 3-08 tablet by ity of (CIPRO) 500 00:00: mouth [place] mg tablet 00 every 12 Medica l (twelve) Branch hours. amLODIPine 0 Yes [id number] 2.5mg Take 1 Univers 2.5 mg 1-28 tablet by ity of tablet 00:00: mouth [place] 00 daily. Medical Branch clopidogreL Yes [id number] 75mg Take 1 Univers 75 mg 1-28 tablet by ity of tablet 00:00: mouth [place] 00 daily. Medical Branch amLODIPine Yes [id number] 2.5mg Take 1 Univers 2.5 mg 1-28 tablet by ity of tablet 00:00: mouth [place] 00 daily. Medical Branch clopidogreL Yes [id number] 75mg Take 1 Univers 75 mg 1-28 tablet by ity of tablet 00:00: mouth [place] 00 daily. Medical Branch amLODIPine Yes [id number] 2.5mg Take 1 Univers 2.5 mg 1-28 tablet by ity of tablet 00:00: mouth [place] 00 daily. Medical Branch clopidogreL 0 Yes [id number] 75mg Take 1 Univers 75 mg 1-28 tablet by ity of tablet 00:00: mouth [place] 00 daily. Medical Branch ALPRAZOLAM 2020-09 Yes [id number] TAKE 1/2 Univers 2 mg tablet 2-13 TABLET BY ity of 00:00: MOUTH [place] 00 EVERY Medical NIGHT AT Branch BEDTIME NEEDED FOR SLEEP OR ANXIETY ALPRAZOLAM 2020-09 Yes [id number] TAKE 1/2 Univers 2 mg tablet 2-13 TABLET BY ity of 00:00: MOUTH [place] 00 EVERY Medical NIGHT AT Branch BEDTIME NEEDED FOR SLEEP OR ANXIETY ALPRAZOLAM 2020-09 Yes [id number] TAKE 1/2 Univers 2 mg tablet 2-13 TABLET BY ity of 00:00: MOUTH [place] 00 EVERY Medical NIGHT AT Branch BEDTIME NEEDED FOR SLEEP OR ANXIETY pantoprazol 0 Yes [id number] 40mg Take 1 Univers e 40 mg EC 6-03 tablet by ity of tablet 00:00: mouth [place] 00 daily. [facility] Branch pantoprazol Yes [id number] 40mg Take 1 Univers e 40 mg EC 6-03 tablet by ity of tablet 00:00: mouth [place] 00 daily. Medical Branch pantoprazol Yes [id number] 40mg Take 1 Univers e 40 mg EC 6-03 tablet by ity of tablet 00:00: mouth [place] 00 daily. Medical Branch Alfuzosin Alfuzosin 2020- No Brielle 1 tablet Common HCl ER HCl ER [id number] [place] immediatel Spirit 00:00: 00:00 y after - [facility]I 00 :00 the same [facility] Tamsulosin Tamsulosin 2020- No Brielle 1 capsule Common HCl HCl 10-14 08 [place] Spirit 00:00: 00:00 - [facility] 00 :00 [facility] fluocinonid 2018-09 Yes [id number] Apply to Univers e 0.05 % 1-18 area(s) 2 ity of cream 00:00: (two) 00 times Medical daily. Branch fluocinonid 2018-09 Yes [id number] Apply to Univers e 0.05 % 1-18 area(s) 2 ity of cream 00:00: (two) [place] 00 times Medical daily. Branch fluocinonid 2018-09 Yes [id number] Apply to Univers e 0.05 % 1-18 [...] mg tablet 00 Medical Branch tamsulosin Yes [id number] .4mg Take 1 Univers 0.4 mg 24 4-23 01 capsule by ity of hr capsule 00:00: mouth [place] 00 daily. Medical Branch tamsulosin Yes [id number] .4mg Take 1 Univers 0.4 mg 24 4-23 01 capsule by ity of hr capsule 00:00: mouth [place] 00 daily. Medical Branch tamsulosin 2019-0 Yes [id number] .4mg Take 1 Univers 0.4 mg 24 [...] as needed for Bladder spasms. finasteride Yes [id number] 5mg Take 1 Univers 5 mg tablet 4-09 tablet by ity of 00:00: mouth [place] 00 daily. Medical Branch finasteride Yes [id number] 5mg Take 1 Univers 5 mg tablet 4-09 tablet by ity of 00:00: mouth [place] 00 daily. Medical Branch finasteride 2017-0 Yes [id number] 5mg Take 1 Univers 5 mg tablet [...] Brielle 1 tablet Common Besylate Besylate Alicja [facility] Pantoprazol Pantoprazol Yes Brielle 1 tablet Common e Sodium e Sodium Alicja [facility] HydrOXYzine HydrOXYzine Yes Brielle 1 tablet Common HCl HCl [place] as needed [facility] Centrum Centrum Yes Bri[place] as Common Silver Silver Alicja directed [facility] Methadone Methadone Yes Brielle 1 tablet Common HCl HCl Alicja [facility] Ranolazine Ranolazine Yes Brielle 1 tablet Common ER ER Alicja [facility] Aspir-81 Aspir-81 Yes Brielle 1 tablet Co mmon Alicja [facility] Testosteron Testosteron Yes [place] as Common e e [place] directed [facility] Clopidogrel Clopidogrel Yes Brielle 1 tablet Common Bisulfate Bisulfate [facility] Metoprolol Metoprolol Yes Brielle 1 capsule Common Succinate Succinate [facility] Immunizations Ordered Filled Immunization Date Status Comments [facility] e Immunization Name Name Influenza Virus 2021-12-07 Completed Universit y of Vaccine,quad 00:00:00 [place] Medica l Im,preserve Free Branch 65+ Influenza Virus 2021-12-07 Completed Universit y of Vaccine,quad 00:00:00 [place] Medica l Im,preserve Free Branch 65+ Influenza Virus 2021-12-07 Completed Universit y of Vaccine,quad 00:00:00 [place] Medica l Im,preserve Free Branch 65+ SARS-COV-2 COVID-19 2021-08-10 Completed Unive rsity of PFIZER VACCINE 00:00:00 [facility] SARS-COV-2 COVID-19 2021-08-10 Completed Unive rsity of PFIZER VACCINE 00:00:00 [facility] SARS-COV-2 COVID-19 2021-08-10 Completed Unive rsity of PFIZER VACCINE 00:00:00 [facility] SARS-COV-2 COVID-19 2020-11-05 Completed Unive rsity of PFIZER VACCINE 00:00:00 [facility] SARS-COV-2 COVID-19 2020-11-05 Completed Unive rsity of PFIZER VACCINE 00:00:00 [facility] SARS-COV-2 COVID-19 2020-11-05 Completed Unive rsity of PFIZER VACCINE 00:00:00 [facility] SARS-COV-2 COVID-19 2020-10-15 Completed Unive rsity of PFIZER VACCINE 00:00:00 [facility] SARS-COV-2 COVID-19 2020-10-15 Completed Unive rsity of PFIZER VACCINE 00:00:00 [facility] SARS-COV-2 COVID-19 2020-10-15 Completed Unive rsity of PFIZER VACCINE 00:00:00 [facility] Influenza High Dose 2020-09-02 Completed Unive rsity of Quad 00:00:00 [facility] Influenza High Dose 2020-09-02 Completed Unive rsity of Quad 00:00:00 [facility] Influenza High Dose 2020-09-02 Completed Unive rsity of [place] 00:00:00 [facility] Pneumococcal 2019-06-25 Completed University o f Polysaccharide, 00:00:00 [place] Med ical PPSV23 (PNEUMOVAX) Branch Influenza High Dose 2019-06-25 Completed Unive rsity of 00:00:00 [facility] Pneumococcal 2019-06-25 Completed University o f Polysaccharide, 00:00:00 [place] Med ical PPSV23 (PNEUMOVAX) Branch Influenza High Dose 2019-06-25 Completed Unive rsity of 00:00:00 [facility] Pneumococcal 2019-06-25 Completed University o f Polysaccharide, 00:00:00 [place] Med ical PPSV23 (PNEUMOVAX) Branch Influenza High Dose 2019-06-25 Completed Unive rsity of 00:00:00 [facility] Vital Signs Vital Name Observation Time Observation Value Comments Source Body temperature 2022-04-12 18:21:00 36.61 Diandra Univ ersity of [facility] Systolic blood 2022-04-12 18:19:00 121 mm[Hg] Univer sity of pressure [facility] Diastolic blood 2022-04-12 18:19:00 85 mm[Hg] Unive rsity of [facility] Heart rate 2022-04-12 18:19:00 91 /min Universi ty of [facility] Respiratory rate 2022-04-12 18:19:00 18 /min Univ ersity of [facility] Body height 2022-04-12 18:19:00 172.7 cm Universi ty of [facility] Body weight 2022-04-12 18:19:00 62.596 kg Universi ty [facility] BMI 2022-04-12 18:19:00 20.98 kg/m2 Universi [facility] Oxygen saturation in 2022-04-12 18:19:00 96 /min [facility] Arterial blood by [facility] Pulse oximetry Branch Systolic blood 2022-04-05 17:15:00 136 mm[Hg] Univer sity of [facility] Diastolic blood 2022-04-05 17:15:00 77 mm[Hg] Unive rsity of [facility] Heart rate 2022-04-05 17:15:00 82 /min Universi ty [facility] Body weight 2022-04-05 17:15:00 59.784 kg Universi [facility] BMI 2022-04-05 17:15:00 20.04 kg/m2 Universi [facility] Procedures Procedure Date / Time Performed Performing Clinician Sour e URINALYSIS 2022-04-12 21:11:00 Maira Nuñez [facility] HB ECG ROUTINE & 2022-04-12 19:01:56 Maira Nuñez [facility] RHYTHM STRIP [facility] XR CHEST 1 VW 2022-04-12 18:41:36 Maira Nuñez [facility] LIPASE 2022-04-12 18:30:00 Maira Nuñez [facility] TROPONIN I 2022-04-12 18:30:00 Maira Nuñez [facility] COMP. METABOLIC PANEL 2022-04-12 18:30:00 Maira Nuñez [facility] ([id number]) [facility] CBC WITH DIFF 2022-04-12 18:30:00 Maira Nuñez University o f [facility] Encounters Start End Encounter Admission Attending Care Care Encounter Source Date/Time Date/Time Type Type Clinicians Facility Department ID 2021-09-28 Outpatient [facility] [id number] Common 11:07:04 [id number] [facility] 2022-04-12 2022-04-12 Emergency X [facility] ERT [id number] Univers 13:22:00 16:36:00 CYNISE ity of [facility] 2022-04-12 2022-04-12 Emergency [facility] [id number] Univers 13:22:00 16:36:00 [facility] [id number] i [facility] [id number] [id number] [address] 2022-04-05 2022-04-05 [facility] [id number] Univers 12:15:00 13:00:56 Visit [facility] [id number] it y of [place] [id number] Abel as YOHAN?BLEA [id number] [address] MEDICAL OFFICE BUILDING 2019-11-19 2019-11-19 [id number] Common 11:45:00 11:45:00 t Specialty/U Sp felipe Specialty rology - [facility] 2019-10-15 2019-10-15 [facility] [id number] Common 09:41:00 09:41:00 t Specialty/U Sp felipe Specialty rology - [facility] /[facility] 2019-10-14 2019-10-14 [facility] [id number] Common 14:00:00 14:00:00 t Specialty/U Sp felipe Specialty rology - [facility] /[facility] Results Test Description Test Time Test Comments [...] 34.3 g/dL 31.2-35 RDW-SD (test code = 92253-7) 44.2 fL 38.5-51.6 RDW-CV (test code = 788-0) 13.5 % 12.1-15.4 PLT (test code = 777-3) See_Comment [Au tomated message] The system which ge nerated this result transmit patricio reference range: 150 - 32 8 10*3/?L. The reference range was not used to interpret th is result as normal/abnormal . MPV (test code = 78712-8) 10.4 fL 9.8-13 NRBC/100 WBC (test code = See_Comment [ Automated message] The 5717932119) system which ge nerated this result transmit patricio reference range: 0.0 - 10 .0 /100 WBCs. The reference r sen was not used to interpr et this result as normal/abnor mal. NRBC x10^3 (test code = See_Comment [Au tomated message] The 8732128096) system which ge nerated this result transmit patricio reference range: 10*3/?L. The reference range was not u sed to interpret this result as normal/abnormal . GRAN MAT (NEUT) % (test code 76.9 % = 770-8) IMM GRAN % (test code = 0.40 % 0961108555) LYMPH % (test code = 736-9) 14.3 % MONO % (test code = 5905-5) 7.7 % EOS % (test code = 713-8) 0.3 % BASO % (test code = 706-2) 0.4 % GRAN MAT x10^3(ANC) (test 5.28 10*3/uL 1.99-6.95 code = 4962120346) IMM GRAN x10^3 (test code = 0.03 10*3/uL 0-0.06 8566557777) LYMPH x10^3 (test code = 0.98 10*3/uL 1.09-3.23 L 731-0) MONO x10^3 (test code = 0.53 10*3/uL 0.36-1.02 742-7) EOS x10^3 (test code = 0.06-0.53 L 711-2) BASO x10^3 (test code = 0.03 10*3/uL 0.01-0.09 704-7) Lab Interpretation (test Abnormal code = 57670-1) [facility] [id number] 19:17:13 Test Item Value Reference Interpretation Comments Range TROPONIN I (test 0.029 ng/mL See_Comment [Automated code = 2400444101) message] The system which generated this result [...] biotin. Lab Interpretation Normal (test code = 22446-4) [facility]. METABOLIC PANEL ([id number])2022-04-12 19:05:30 Test Item Value Reference Range Interpretation Comments NA (test code = 141 mmol/L 135-145 8695504505) K (test code = 3.8 mmol/L 3.5-5 2820576789) CL (test code = 103 mmol/L 98-108 5671619049) CO2 TOTAL (test code = 29 mmol/L 23-31 0678489046) AGAP (test code = 2-16 7772311189) BUN (test code = 25 mg/dL 7-23 H 9414442083) GLUCOSE (test code = 108 mg/dL 70-110 7019460734) CREATININE (test code = 1.47 mg/dL 0.6-1.25 H 5649144560) TOTAL BILI (test code = 2.1 mg/dL 0.1-1.1 H 8224791024) CALCIUM (test code = 9.5 mg/dL 8.6-10.6 2980938208) T PROTEIN (test code = 6.5 g/dL 6.3-8.2 4463709426) ALBUMIN (test code = 4.0 g/dL 3.5-5 2105812846) ALK PHOS (test code = 80 U/L 34-122 3515495274) ALTv (test code = 29 U/L 5-50 1742-6) AST(SGOT) (test code = 33 U/L 13-40 7905229204) eGFR (test code = mL/min/1.73m2 6525004646) SONAL (test code = SONAL) Association of [...] tests). Lab Interpretation Abnormal (test code = 43713-7) [place] [facility]52 Test Item Value Reference Range Interpretation Comments LIPASE (test code = 3596904845) 343 U/L 0-220 H Lab Interpretation (test code = Abnormal 49813-0) [facility]"
[2022-04-28] MEDS ORDERED: ONDANSETRON 4 MG (ODT) TAB PO PRN (14:37)
[2022-04-28] MEDS ORDERED: DOCUSATE NA/SENNA CONC 1 TAB PO PRN (14:38)
--- NOTE | 2022-04-28 16:55 | R.HP ---
HISTORY AND PHYSICAL FACILITY: [facility] ENCOUNTER DATE AND TIME: 04/28/2022 16:50 (CDT) MR#: [id number] NAME LESLYE ACOSTA ADDRESS: [address] [place] [address] CITY: [facility] ZIP [address] PHONE: DATE OF : 1945 AGE: 77 SSN# [id number] GENDER: Male DEXTERITY Unknown dexterity MARITAL STATUS Unknown race PRE-HOSPITAL LIVING SETTING 01 - Home (private home/apt. board/care, assisted living, [facility], transitional living) PRE-HOSPITAL LIVING WITH Family/Relatives ENCOUNTER PHYSICIAN: Dr. Franklin Hearn M.D. REFERRING DOCTOR: florence Dubon DATE OF ADMISSION: 04/28/2022 13:10 (CDT) REFERRING FACILITY [facility] HOME TYPE AND DETAILS: Type of home: single family house # of levels in the residence: 1 # of steps within the residence: 0 # of steps to enter the residence: 0 ONSET DATE: 04/21/2022 PRIMARY DIAGNOSIS-RELATED SURGERIES: None SECONDARY/COMORBID DIAGNOSES (TIERED): - Tier 3 Acute kidney failure, unspecified (N17.9) - Non-Tiered Essential (primary) hypertension (I10) - N/A coronary artery disease (CAD) HISTORY OF PRESENT ILLNESS (HPI): On 04/21/2022 Pt. presented to [facility] with sudden onset of right-side weakness. Pt. is a 77 yo male of unknown race. On 04/21/2022 he was admitted to [facility] with diagnosis CVA. His impairment category is Stroke 01 - Right Body (Left Brain) (01.2). Pre-morbidly, Pt. was independent/mod-I in Locomotion and Self-Care; and he had good Safety Awareness , Balance, Transfers Control, and Endurance. Currently, he has deficits of Locomotion, Safety Awareness, Balance, Transfers Control, Sphincter Con trol, Self-Care, and Endurance. Pt. is now referred to [facility] for acute in-patient rehabilitation in order to maximize patient's functional independence in activities of daily living, strength, ROM, and mobi lity. Patient has realistic goal of being discharged at assistance level 6-Con to reside at Home with Fam ebenezer/Relatives. MEDICATION ALLERGIES: No Known Drug Allergies (NKDA) ENVIRONMENTAL ALLERGIES: - Substance Allergies None Known - Other Allergies None Known PAST MEDICAL HISTORY: Acute kidney failure, unspecified (N17.9) Essential (primary) hypertension (I10) coronary artery disease (CAD) PAST SURGICAL HISTORY: CABG SOCIAL HISTORY: - Home Living Family/Relatives REVIEW OF SYSTEMS: - Gen No Chills Fatigue No Fever - Eyes No Double Vision No itchiness - ENMT Difficulty Swallowing - CVS No Chest Discomfort No Chest Pain Fatigue No Weight Gain - Resp No Cough No Shortness of Breath - GI Continent No Abdominal Pain No Constipation No Diarrhea - Continent No Kidney Pain No Painful Urination No Urinary Urgency - MSK No Joint Pain Muscle Cramps Stiffness - Skin No Itching No Rash No Suspicious Lesions - Neuro Coordination Difficulty Difficulty with Concentration No Memory Loss No Seizures No Weakness - Psych Anxiety Depression No HIV Exposure No Persistent Infections No Seasonal Allergies - Endo No Cold/Heat Intolerance No Excessive Hunger No Excessive Thirst No Excessive Urination PHYSICAL EXAM - Gen Alert and awake Lying in bed No apparent distress Oriented to: person, time, and place - Skin No skin breakdown. Normacephalic - Eyes No abnormalities - ENMT No abnormalities - Neck No abnormalities - CVS RRR - Chest No abnormalities - Resp Clear to auscultation - Abd Soft - GI + bowel sounds Deferred - No abnormalities - Ext No significant edema - MSK 4+/5 weakness in right upper and lower extremities - Neuro 4/5 strength right upper and lower extremities. - Psych Mild depression and anxiety. VITAL SIGNS Temperature: 97.4 F SBP/DBP: 150/85 Pulse: 79 Resp: 16 NURSING: - Shower allowing shower - Bladder care per protocol - Skin care per protocol PRECAUTIONS: - Weight Bearing Precaution WBAT left LE ACTIVITIES OOB only with supervision QI SCORES: - Self-Care A. Eating 05-Setup or clean-up assistance B. Oral hygiene 05-Setup or clean-up assistance C. Toileting hygiene 03-Partial/moderate assistance E. Shower/bathe self 03-Partial/moderate assistance F. Upper body dressing 03-Partial/moderate assistance G. Lower body dressing 03-Partial/moderate assistance H. Putting on/taking off footwear 03-Partial/moderate assistance - Mobility A. Roll left and right 03-Partial/moderate assistance B. Sit to lying 03-Partial/moderate assistance C. Lying to sitting on side of bed 03-Partial/moderate assistance D. Sit to stand 03-Partial/moderate assistance E. Chair/dfs-qc-[id number] transfer 03-Partial/moderate assistance F. Toilet transfer 03-Partial/moderate assistance G. Car transfer 88-Not attempted due to medical condition or safety concerns I. Walk 10 feet 03-Partial/moderate assistance J. Walk 50 feet with two turns 03-Partial/moderate assistance K. Walk 150 feet 03-Partial/moderate assistance L. Walking 10 feet on uneven surfaces 88-Not attempted due to medical condition or safety concerns M. 1 step (curb) 88-Not attempted due to medical condition or safety concerns N. 4 steps 88-Not attempted due to medical condition or safety concerns O. 12 steps 88-Not attempted due to medical condition or safety concerns P. Picking up object 88-Not attempted due to medical condition or safety concerns R. Wheel 50 feet with two turns 09-Not applicable S. Wheel 150 feet 09-Not applicable - Bladder and Bowel Bladder continence 0-Always continent Bowel continence 0-Always continent - Endurance Fair - Balance Poor - Safety Awareness Fair CURRENT FUNC. DEFICITS: Self-Care, Mobility, Endurance, Balance, and Safety Awareness MEDICATIONS: - Other See attached MAR (Medication Administration Record) ASSESSMENT: On 04/21/2022 Pt. presented to [facility] with sudden onset of right-side weakness.Pt. is a 77 yo male of unknown race.On 04/21/2022 he was admitted to [facility] with diagnosis CV A.His impairment category is Stroke 01 - Right Body (Left Brain) (01.2).Pre-morbidly, Pt. was indepe ndent/mod-I in Locomotion and Self-Care; and he had good Safety Awareness, Balance, Transfers Control , and Endurance.Currently, he has deficits of Locomotion, Safety Awareness, Balance, Transfers Contro l, Sphincter Control, Self-Care, and Endurance.Pt. is now referred to [facility] for acute in-patient rehabilitation in order to maximize patient's functional independence in acti vities of daily living, strength, ROM, and mobility.- Rehab Goal Patient has realistic goal of being discharged at assistance level 6-Con to reside at Home with Fam ebenezer/Relatives. for Dementia, TBI, Stroke, or others - Physical Therapy Gait dysfunction - to improve, our physical therapists will perform initial evaluation of pt's status upon admission and devise an individualized program for Gait Training, and Wheel Chair mobility Inability to transfer - to improve, our physical therapists will perform initial evaluation of pt's s tatus upon admission and devise an individualized program for Bed mobility Need for home safety evaluation - to improve, our physical therapists will perform initial evaluation of pt's status upon admission and devise an individualized program for Home Evaluation Need in caregiver upon discharge - to improve, our physical therapists will perform initial evaluatio n of pt's status upon admission and devise an individualized program for Caregiver Training New precaution - to improve, our physical therapists will perform initial evaluation of pt's status u naila admission and devise an individualized program for Patient precaution education Edema - to improve, our physical therapists will perform initial evaluation of pt's status upon admi ssion and devise an individualized program for Elevation Training, and Lymphedema Therapy Poor balance - to improve, our physical therapists will perform initial evaluation of pt's status upo n admission and devise an individualized program for Balance Training Poor endurance - to improve, our physical therapists will perform initial evaluation of pt's status u naila admission and devise an individualized program for Endurance Training Weakness - to improve, our physical therapists will perform initial evaluation of pt's status upon ad mission and devise an individualized program for Aquatic Therapy, Neuromuscular Reeducation, and Stre ngthening Achieving independence - to improve, our physical therapists will perform initial evaluation of pt's status upon admission and devise an individualized program for Community Reintegration Activities - Occupational Therapy ADL deficits - to improve, our occupation therapists will perform initial evaluation of pt's status u naila admission and devise an individualized program for Bathing, Bed mobility, Community Reintegration , Cooking, Dressing, Eating, Fine Motor Skills, Grooming, Homemaking, Kitchen Mobility, Laundry, Joan ent Education, Safety Awareness, Splinting - Positioning, Transfers(Toilet, Tub, Shower), and Wheel C hair Management Need for post acute care nurse - to improve, our occupation therapists will perform initial evaluation of pt's s tatus upon admission and devise an individualized program for Caregiver Training Weakness - to improve, our occupation therapists will perform initial evaluation of pt's status upon admission and devise an individualized program for Aquatic Therapy, Balance, Endurance, UE ROM, and U E strengthening MEDICAL PLAN: - Diet Type Start Regular - Diet - Liquid Texture Start Regular - Tube Feed Start N/A - Bladder care per protocol - Weight Bearing Precaution WBAT right LE - Skin care per protocol - Other See attached MAR (Medication Administration Record) - Diet - Solid Texture Regular - Shower shower DISCHARGE PLAN: - Estimated Length of Stay (days) 17. - Consensus on plan Discharge plan has been discussed with primary caregiver. Patient/Family is in agreement with the jorge a n. Primary caregiver is in agreement with the plan. - Patient/Family Goals Return home independently. - Planned Living Setting Upon Discharge Home, to live with Family/Relatives. Transitional Living. SIGNATURE PANEL: (CDT)
--- NOTE | 2022-04-28 16:56 | PAPE ---
POST ADMISSION PHYSICIAN EVALUATION PATIENT: [facility] MR# [id number] REFERRING DOCTOR florence Dubon EVALUATION DATE AND TIME 04/28/2022 16:55 (CDT) NAME LESLYE ACOSTA DATE OF 1945 AGE 77 PHONE SSN# [id number] GENDER male EVALUATING PHYSICIAN Dr. Franklin Hearn M.D. ADMISSION DIAGNOSIS: CVA ONSET DATE 04/21/2022 SECONDARY/COMORBID DIAGNOSES TIERED: - Tier 3 Acute kidney failure, unspecified (N17.9) - Non-Tiered Essential (primary) hypertension (I10) - N/A coronary artery disease (CAD) POST-ADMISSION FUNCTIONAL/MEDICAL STATUS: - Bladder Same accident frequency: 7-Ind - No accidents in the past 7 days - Bowel Same accident frequency: 7-Ind - No accidents in the past 7 days - Walking Same score based on distance walked: 0(N/A) Same score based on distance walked: 3(>=150ft) - Wheelchair Same score based on distance traveled: 0(N/A) STATUS CHANGE EVALUATION: No change in Functional or Medical Status is identified compared with Pre-Admission screening. PATIENT NEEDS CLOSE MEDICAL SUPERVISION BY A REHABILITATION PHYSICIAN FOR: Coordination of Treatment Team Medical and Co-Morbidity Management Bowel and Bladder Management Pain Management PATIENT REQUIRES 24X7 REHAB NURSING FOR MEDICAL AND FUNCTIONAL MGT. OF THE FOLLOWING DEFICITS: Disease Management Medication Management Patient requires 24x7 Rehabilitation Nursing for: Pain Issues, Identifying and preventing risk factor s, Monitoring and reporting current medical conditions, Assisting with ambulation and transfer, Shoshana ting with all ADL-s, Teaching patients about disease process and medications, Family teaching, Provid ing safe environment, Bowel and Bladder Issues, Skin Integrity, and Medication Management Patient/Family Education Providing Safe Environment Skin Integrity PATIENT REQUIRES INTENSIVE, COORDINATED INTERDISCIPLINARY APPROACH TO REHAB: Arranging Home Equipment/Services Discharge Planning Family Intervention/Training Patient needs Dietary and Nutrition Services for: Adequate Nutrition, Nutritional Supplements, and Nu tritional Education Patient needs Pearl Maker and/or Case Management for: Discharge Planning, Arranging Home Equipmen t or Services, and Family Interventions Pearl Maker/Case Management LIST OF IDENTIFIED AND POTENTIAL PROBLEMS: Alteration in leisure activities Bladder, Incontinence Blood Pressure, Hypertension/hypotension Issues Bowel, Incontinence Infection, Actual or Potential Mobility Impaired Pain, Alteration in Comfort Self Care Deficit Skin Integrity, Actual or Potential Urinary Tract Infection (UTI), Actual or Potential RISK FOR COMPLICATIONS - DVT Active and Passive ROM exercises. Administer medications per MD order. Assist patient with frequent p osition changes. Elevate BLE. - Skin Breakdown Encourage ambulation as tolerated. Repositioning q 2 hours. Use of pillows or foam wedges while in be d. - Pain Assess pt for pain and Administer prescribed pain medication as needed. Anticipate the need for pain medication for optimal pain managment. Educate patient on relaxation and deep breathing techniques. - Falls Maintain call light within patient reach for easy access to nursing assistance. Provide assistance ge tting out of bed and with ambulation. Provide assistive devices. - Stroke Assess/ Monitor and maintain patient pain level. Assess/ Monitor patient blood pressure. - Cardiac Failure Assess/Monitor pt cardiac status. INTERVENTIONS - Hypertension - CAD Monitor blood pressure, apical heart rate, and respirations every 5 minutes during an anginal attack. Place patient in comfortable position and administer oxygen, if prescribed, to enhance myocardial ox ygen supply. Encourage supine position for dizziness caused by antianginals. Identify specific activi ties patient may engage in that are below the level at which anginal pain occurs. - ARSENIO Administer medications as prescribed per MD. Monitor pt BUN/Creatinine. Monitor pt urine output. - Stroke Assess pt neuro status regularly. Monitor laboratory parameters like PT, INR, and PTT. Provide aggres sive PT, OT and Speech to improve pt level of function. Monitor vital signs. PATIENT COULD BE AT RISK FOR COMPLICATIONS FROM ADVERSE MEDICAL CONDITIONS DUE TO HIS/HER COMORBIDITI ES AND THE RIGORS OF THE INTENSIVE REHABILLITATION PROGRAM. METHODS OR INTERVENTIONS TO AVOID COMPLIC ATIONS INCLUDE: - Bleeding Stroke patients assessed for lethargy or change in status. - Infection Clinical staff to assess and manage the signs and symptoms of infection including fever, redness, war mth, etc. - Urinary Tract Infection - Aspiration Clinical staff will assess and manage coughing, drooling, congestion. - Falls Patient will be evaluated for Fall Precautions and will be placed on Fall Precautions as indicated pe r protocol. - Skin Breakdown Nursing will assess skin daily using assessment tool and will place on Skin Breakdown Precautions as indicated per protocol. - Pain Clinical staff may employ non-medication methods such as massage, distraction, decrease stimulus, etc . as needed. Clinical staff will assess patient's pain level every shift per protocol to assess and e nsure pain management effectiveness. Medications will be given and the pain level re-assessed. PRELIMINARY PLAN OF CARE: - Physical Therapy Patient needs Physical Therapy for a daily minimum of 1.5 hours at least 5 out of 7 days, to improve: Mobility, Strengthening, Transfers, Stretching, ROM, Endurance, Ability to manage stairs, Gait, and Balance. - Speech Therapy Patient needs Speech Therapy for a daily minimum of 0.5 hours at least 5 out of 7 days, to improve: S wallowing, Cognition, Language Skills, and Compensatory Strategies. - Rehabilitation Nursing Patient requires 24x7 Rehabilitation Nursing for: Pain Issues, Identifying and preventing risk factor s, Monitoring and reporting current medical conditions, Assisting with ambulation and transfer, Shoshana ting with all ADL-s, Teaching patients about disease process and medications, Family teaching, Provid ing safe environment, Bowel and Bladder Issues, Skin Integrity, and Medication Management. Patient needs Pearl Maker and/or Case Management for: Discharge Planning, Arranging Home Equipmen t or Services, and Family Interventions. - Dietary and Nutrition Services Patient needs Dietary and Nutrition Services for: Adequate Nutrition, Nutritional Supplements, and Nu tritional Education. - Occupational Therapy Patient needs Occupational Therapy for a daily minimum of 1.5 hours at least 5 out of 7 days, to impr ove Activities of Daily Living, including: Eating, Grooming, Bathing, Dressing, Toileting, Toilet Tra nsfers, Community Reintegration, Higher functional activities, Adaptive Equipment, Splinting, Househo ld Tasks, and Other activities as determined. QI SCORES: - Self-Care A. Eating 05-Setup or clean-up assistance B. Oral hygiene 05-Setup or clean-up assistance C. Toileting hygiene 03-Partial/moderate assistance E. Shower/bathe self 03-Partial/moderate assistance F. Upper body dressing 03-Partial/moderate assistance G. Lower body dressing 03-Partial/moderate assistance H. Putting on/taking off footwear 03-Partial/moderate assistance - Mobility A. Roll left and right 03-Partial/moderate assistance B. Sit to lying 03-Partial/moderate assistance C. Lying to sitting on side of bed 03-Partial/moderate assistance D. Sit to stand 03-Partial/moderate assistance E. Chair/eqa-np-mquhs transfer 03-Partial/moderate assistance F. Toilet transfer 03-Partial/moderate assistance G. Car transfer 88-Not attempted due to medical condition or safety concerns I. Walk 10 feet 03-Partial/moderate assistance J. Walk 50 feet with two turns 03-Partial/moderate assistance K. Walk 150 feet 03-Partial/moderate assistance L. Walking 10 feet on uneven surfaces 88-Not attempted due to medical condition or safety concerns M. 1 step (curb) 88-Not attempted due to medical condition or safety concerns N. 4 steps 88-Not attempted due to medical condition or safety concerns O. 12 steps 88-Not attempted due to medical condition or safety concerns P. Picking up object 88-Not attempted due to medical condition or safety concerns R. Wheel 50 feet with two turns 09-Not applicable S. Wheel 150 feet 09-Not applicable - Bladder and Bowel Bladder continence 0-Always continent Bowel continence 0-Always continent - Endurance Fair - Balance Poor - Safety Awareness Fair POTENTIAL FUNCTIONAL GOALS FOR PATIENT TO ACHIEVE BY DISCHARGE: - Safety Precaution Patient will remain free from falls or injury at time of discharge. - Bed Mobility Patient will perform bed mobility at 4-Leigha level of assistance. - Transfers Patient will complete transfers from bed to chair at 4-Leigha level of assistance. - Mobility Patient will ambulate 150 ft with 4-Leigha level of assistance with RW. PATIENT REHAB POTENTIAL Gabriel ACOSTA is able and expected to receive 3 hours of individualized therapy daily on at least 5 of e very 7 days Gabriel ACOSTA's prognosis for significant practical improvement within a reasonable period of time appea rs Good Expected level of measurable improvement will be of a practical value to Gabriel ACOSTA's functional capa city or adaptations to impairments Has a viable Discharge Plan Medically appropriate; condition is sufficiently stable to participate in intensive rehab program DISCHARGE PLAN: - Estimated Length of Stay (days) 17. - Consensus on plan Discharge plan has been discussed with primary caregiver. Patient/Family is in agreement with the jorge a n. Primary caregiver is in agreement with the plan. - Patient/Family Goals Return home independently. - Planned Living Setting Upon Discharge Home, to live with Family/Relatives. Transitional Living. CONCLUSION ON REHABILITATION NECESSITY: I have evaluated patient's pre-admission functional status and, comparing it to the patient's post-ad mission functional status now, I conclude that the pre-admission assessment was accurate. Patient's c ondition on admission supports the medical necessity of admission to [facility]. It is safe to proceed with patient's therapy program. SIGNATURE PANEL: (CDT)
[2022-04-28] MEDS: lisinopriL 20 MG TAB PO SCH (19:40)
[2022-04-28] MEDS: MELATONIN 5 MG TABLET PO PRN (19:40)
[2022-04-28] MEDS: ATORVASTATIN 40 MG TAB PO SCH (19:40)
[2022-04-28] MEDS: TEMAZEPAM 15 MG CAP PO PRN (19:46)
[2022-04-28] MEDS: ENSURE ENLIVE 237 ML CAN PO SCH (19:51)
[2022-04-29 03:28] LABS: Urine Blood Negative (Negative); Urine Clarity Clear (Clear); Urine Color Yellow (Yellow); Urine Glucose Negative (Negative); Urine Protein Negative (Negative); Urine pH 7.5 (5.0-7.0)
[2022-04-29 03:41] LABS: Urine Bilirubin Negative (Negative)
[2022-04-29 04:24] LABS: Urine Bacteria 20-50 /HPF (<20); Urine Mucus 2+ /HPF (None Seen); Urine RBC <5 /HPF (None Seen)
[2022-04-29 06:10] LABS: Hematocrit 42.8 % (39.6-49.0); Lymphocytes % 18.2 % (15.3-44.8); MPV 7.6 fL (7.6-11.3); RBC Red Blood Cell Count 4.75 M/uL (4.33-5.43)
[2022-04-29 07:19] LABS: Magnesium 1.7 mg/dL (1.8-2.4); Potassium 3.6 mmol/L (3.5-5.1); Prealbumin 12.4 mg/dL (20-40)
[2022-04-29] MEDS ORDERED: AMLODIPINE 10 MG TAB PO SCH (08:00)
[2022-04-29] MEDS: ENOXAPARIN 40 MG/0.4 ML SQ SCH (08:00)
[2022-04-29] MEDS: lisinopriL 20 MG TAB PO SCH ×3 (08:18→20:30)
[2022-04-29] MEDS: ASPIRIN EC 81 MG TAB PO SCH (08:18)
[2022-04-29] MEDS: ESCITALOPRAM 20 MG TAB PO SCH (08:18)
[2022-04-29] MEDS: FOLIC ACID 1 MG TABLET PO SCH (08:18)
[2022-04-29] MEDS: CLOPIDOGREL 75 MG TABLET PO SCH (08:18)
[2022-04-29] MEDS: ENSURE ENLIVE 237 ML CAN PO SCH ×3 (10:49→20:30)
[2022-04-29] MEDS: AMLODIPINE 10 MG TAB PO SCH ×2 (10:49→12:52)
[2022-04-29] MEDS: ATORVASTATIN 40 MG TAB PO SCH (20:30)
[2022-04-29] MEDS: TEMAZEPAM 15 MG CAP PO PRN (20:30)
[2022-04-29] MEDS: clonazePAM 0.5 MG TAB PO PRN (21:53)
[2022-04-30] MEDS: ASPIRIN EC 81 MG TAB PO SCH (08:42)
[2022-04-30] MEDS: AMLODIPINE 10 MG TAB PO SCH (08:42)
[2022-04-30] MEDS: ENOXAPARIN 40 MG/0.4 ML SQ SCH (08:42)
[2022-04-30] MEDS: CLOPIDOGREL 75 MG TABLET PO SCH (08:43)
[2022-04-30] MEDS: FOLIC ACID 1 MG TABLET PO SCH (08:43)
[2022-04-30] MEDS: ESCITALOPRAM 20 MG TAB PO SCH (08:43)
[2022-04-30] MEDS: lisinopriL 20 MG TAB PO SCH ×2 (11:07→20:01)
[2022-04-30] MEDS: ENSURE ENLIVE 237 ML CAN PO SCH ×3 (11:07→20:27)
[2022-04-30] MEDS: MEGESTROL 40 MG TAB PO SCH (20:01)
[2022-04-30] MEDS: ATORVASTATIN 40 MG TAB PO SCH (20:01)
[2022-04-30] MEDS: clonazePAM 0.5 MG TAB PO PRN (20:02)
[2022-05-01] MEDS: ENOXAPARIN 40 MG/0.4 ML SQ SCH (07:07)
[2022-05-01] MEDS: ASPIRIN EC 81 MG TAB PO SCH (07:41)
[2022-05-01] MEDS: ESCITALOPRAM 20 MG TAB PO SCH (07:41)
[2022-05-01] MEDS: FOLIC ACID 1 MG TABLET PO SCH (07:42)
[2022-05-01] MEDS: MEGESTROL 40 MG TAB PO SCH ×2 (07:42→19:38)
[2022-05-01] MEDS: AMLODIPINE 10 MG TAB PO SCH (07:42)
[2022-05-01] MEDS: ENSURE ENLIVE 237 ML CAN PO SCH ×3 (07:43→19:39)
[2022-05-01] MEDS: CLOPIDOGREL 75 MG TABLET PO SCH (07:43)
[2022-05-01] MEDS: lisinopriL 20 MG TAB PO SCH ×2 (07:43→19:38)
[2022-05-01] MEDS: ACETAMINOPHEN 500 MG TAB PO PRN (08:19)
--- NOTE | 2022-05-01 15:21 | R.PN ---
PROGRESS NOTES ENCOUNTER DATE AND TIME: 05/01/2022 15:16 (CDT) NAME LESLYE ACOSTA DATE OF : 1945 DATE OF ADMISSION: 04/28/2022 13:10 (CDT) CVACHIEF COMPLAINT: Stroke with incoordination and weakness SUBJECTIVE: Pt denied any Shortness of Breath. Pt denied any depression. Labs reviewed and are stable. Ambulated 160' with RW and minimum assistance. VITAL SIGNS Temperature: 97.4 F SBP/DBP: 129/81 Pulse: 85 Resp: 16 MEDICATION ALLERGIES: No Known Drug Allergies (NKDA) ENVIRONMENTAL ALLERGIES: - Substance Allergies None Known - Other Allergies None Known NURSING: - Shower allowing shower - Bladder care per protocol - Skin care per protocol PRECAUTIONS: - Weight Bearing Precaution WBAT left LE ACTIVITIES OOB only with supervision THERAPIES: - Dietary and Nutrition Adequate Nutrition. Nutritional Education. Nutritional Supplements. - Occupational Therapy Cognitive Retraining. Patient needs Occupational Therapy for a daily minimum of 1.5 hours at least 5 out of 7 days, to improve Activities of Daily Living, including: Eating, Grooming, Bathing, Dressing, Toileting, Toilet Transfers, Community Reintegration, Higher functional activities, Adaptive Equipme nt, Splinting, Household Tasks, and Other activities as determined. Visual Perceptual Training. - Speech Therapy Cognitive Training. Expressive Language Skills. Memory Strategies. Patient needs Speech Therapy for a daily minimum of 1.5 hours at least 5 out of 7 days, to improve: Swallowing, Cognition, Language Ski lls, and Compensatory Strategies. Receptive Language Skills. Speech Intelligibility Training. - Physical Therapy Patient needs Physical Therapy for a daily minimum of 1.5 hours at least 5 out of 7 days, to improve: Mobility, Strengthening, Transfers, Stretching, ROM, Endurance, Ability to manage stairs, Gait, and Balance. PHYSICAL EXAM - Gen Alert and awake Lying in bed No apparent distress Oriented to: person, time, and place - Skin No skin breakdown. Normacephalic - Eyes No abnormalities - ENMT No abnormalities - Neck No abnormalities - CVS RRR - Chest No abnormalities - Resp Clear to auscultation - Abd Soft - GI + bowel sounds Deferred - No abnormalities - Ext No significant edema - MSK 4+/5 weakness in right upper and lower extremities - Neuro 4/5 strength right upper and lower extremities. - Psych Mild depression and anxiety. ASSESSMENT: On 04/21/2022 Pt. presented to [facility] with sudden onset of right-side weakness.Pt. is a 77 yo male of unknown race.On 04/21/2022 he was admitted to [facility] with diagnosis CV A.His impairment category is Stroke 01 - Right Body (Left Brain) (01.2).Pre-morbidly, Pt. was indepe ndent/mod-I in Locomotion and Self-Care; and he had good Safety Awareness, Balance, Transfers Control , and Endurance.Currently, he has deficits of Locomotion, Safety Awareness, Balance, Transfers Contro l, Sphincter Control, Self-Care, and Endurance.Pt. is now referred to [facility] for acute in-patient rehabilitation in order to maximize patient's functional independence in acti vities of daily living, strength, ROM, and mobility.- Rehab Goal Patient has realistic goal of being discharged at assistance level 6-Con to reside at Home with Fam ebenzeer/Relatives. MDM/PLAN: - Physical Therapy Gait dysfunction - to improve, our physical therapists will perform initial evaluation of pt's statu s upon admission and devise an individualized program for Gait Training, and Wheel Chair mobility Inability to transfer - to improve, our physical therapists will perform initial evaluation of pt's status upon admission and devise an individualized program for Bed mobility Need for home safety evaluation - to improve, our physical therapists will perform initial evaluatio n of pt's status upon admission and devise an individualized program for Home Evaluation Need in caregiver upon discharge - to improve, our physical therapists will perform initial evaluati on of pt's status upon admission and devise an individualized program for Caregiver Training New precaution - to improve, our physical therapists will perform initial evaluation of pt's status upon admission and devise an individualized program for Patient precaution education Edema - to improve, our physical therapists will perform initial evaluation of pt's status upon admis jama and devise an individualized program for Elevation Training, and Lymphedema Therapy Poor balance - to improve, our physical therapists will perform initial evaluation of pt's status up on admission and devise an individualized program for Balance Training Poor endurance - to improve, our physical therapists will perform initial evaluation of pt's status upon admission and devise an individualized program for Endurance Training Weakness - to improve, our physical therapists will perform initial evaluation of pt's status upon a dmission and devise an individualized program for Aquatic Therapy, Neuromuscular Reeducation, and Str engthening Achieving independence - to improve, our physical therapists will perform initial evaluation of pt's status upon admission and devise an individualized program for Community Reintegration Activities - Occupational Therapy ADL deficits - to improve, our occupation therapists will perform initial evaluation of pt's status upon admission and devise an individualized program for Bathing, Bed mobility, Community Reintegratio n, Cooking, Dressing, Eating, Fine Motor Skills, Grooming, Homemaking, Kitchen Mobility, Laundry, Pat ient Education, Safety Awareness, Splinting - Positioning, Transfers(Toilet, Tub, Shower), and Wheel Chair Management Need for child caregiver private home - to improve, our occupation therapists will perform initial evaluation of pt's status upon admission and devise an individualized program for Caregiver Training Weakness - to improve, our occupation therapists will perform initial evaluation of pt's status upon admission and devise an individualized program for Aquatic Therapy, Balance, Endurance, UE ROM, and UE strengthening - Other See attached MAR (Medication Administration Record) - Diet Type Continue Regular - Diet - Liquid Texture Continue Regular - Tube Feed Continue N/A - Bladder care per protocol - Weight Bearing Precaution WBAT right LE - Skin care per protocol - Diet - Solid Texture Continue Regular - Shower allowing shower for Dementia, TBI, Stroke, or others FUNCTIONAL STATUS: UPDATED AT WEEKLY TEAM CONFERENCE - Bladder Same accident frequency: 7-Ind - No accidents in the past 7 days - Bowel Same accident frequency: 7-Ind - No accidents in the past 7 days - Walking Same score based on distance walked: 0(N/A) Same score based on distance walked: 3(>=150ft) - Wheelchair Same score based on distance traveled: 0(N/A) FUNCTIONAL STATUS: - Self-Care A. Eating Ind B. Grooming Ind C. Bathing Leigha D. Dressing - Upper Leigha E. Dressing - Lower modA F. Toileting sup - Sphincter Control G. Bladder control Con H. Bowel control Con - Transfers Control I. Bed/Chair/Wheelchair sup J. Toilet sup K. Tub/Shower Leigha - Locomotion L. Walk/Wheelchair (B) Leigha M. Stairs maxA - Communication N. Comprehension (B) sup O. Expression (B) sup - Social Cognition P. Social Interaction Con Q. Problem Solving Leigha R. Memory Leigha - Endurance Fair - Balance Fair - Safety Awareness Fair QI SCORES: - Self-Care A. Eating 05-Setup or clean-up assistance B. Oral hygiene 05-Setup or clean-up assistance C. Toileting hygiene 03-Partial/moderate assistance E. Shower/bathe self 03-Partial/moderate assistance F. Upper body dressing 03-Partial/moderate assistance G. Lower body dressing 03-Partial/moderate assistance H. Putting on/taking off footwear 03-Partial/moderate assistance - Mobility A. Roll left and right 03-Partial/moderate assistance B. Sit to lying 03-Partial/moderate assistance C. Lying to sitting on side of bed 03-Partial/moderate assistance D. Sit to stand 03-Partial/moderate assistance E. Chair/[id number] transfer 03-Partial/moderate assistance F. Toilet transfer 03-Partial/moderate assistance G. Car transfer 88-Not attempted due to medical condition or safety concerns I. Walk 10 feet 03-Partial/moderate assistance J. Walk 50 feet with two turns 03-Partial/moderate assistance K. Walk 150 feet 03-Partial/moderate assistance L. Walking 10 feet on uneven surfaces 88-Not attempted due to medical condition or safety concerns M. 1 step (curb) 88-Not attempted due to medical condition or safety concerns N. 4 steps 88-Not attempted due to medical condition or safety concerns O. 12 steps 88-Not attempted due to medical condition or safety concerns P. Picking up object 88-Not attempted due to medical condition or safety concerns R. Wheel 50 feet with two turns 09-Not applicable S. Wheel 150 feet 09-Not applicable - Bladder and Bowel Bladder continence 0-Always continent Bowel continence 0-Always continent - Endurance Fair - Balance Poor - Safety Awareness Fair CURRENT FUNC. DEFICITS: Self-Care, Mobility, Endurance, Balance, and Safety Awareness SIGNATURE PANEL: (CDT)
[2022-05-01] MEDS: ATORVASTATIN 40 MG TAB PO SCH (19:38)
[2022-05-01] MEDS: clonazePAM 0.5 MG TAB PO PRN (19:38)
[2022-05-02] MEDS: FOLIC ACID 1 MG TABLET PO SCH (07:59)
[2022-05-02] MEDS: MEGESTROL 40 MG TAB PO SCH ×2 (07:59→20:10)
[2022-05-02] MEDS: ENOXAPARIN 40 MG/0.4 ML SQ SCH (07:59)
[2022-05-02] MEDS: AMLODIPINE 10 MG TAB PO SCH (08:00)
[2022-05-02] MEDS: lisinopriL 20 MG TAB PO SCH (08:00)
[2022-05-02] MEDS: ESCITALOPRAM 20 MG TAB PO SCH (08:01)
[2022-05-02] MEDS: CLOPIDOGREL 75 MG TABLET PO SCH (08:01)
[2022-05-02] MEDS: ASPIRIN EC 81 MG TAB PO SCH (08:01)
[2022-05-02] MEDS: ENSURE ENLIVE 237 ML CAN PO SCH ×3 (09:40→20:10)
[2022-05-02] MEDS ORDERED: NA CHLORIDE 0.9% 1,000 ML IV SCH (11:00)
--- NOTE | 2022-05-02 11:25 | RAD REPORT ---
EXAM DESCRIPTION: RAD - Hip Bilateral With Pelvis - 05/02/2022 10:06 am CLINICAL HISTORY: Pelvic pain FINDINGS: No fracture or dislocation is seen If patient continues to have symptoms to suggest an occult fracture MRI would be recommended
--- NOTE | 2022-05-02 11:49 | RAD REPORT ---
EXAM DESCRIPTION: CT - Head Brain Wo Cont - 05/02/2022 11:39 am CLINICAL HISTORY: Alteration of awareness/confusion COMPARISON: April 21, 2022 MRI TECHNIQUE: Computed axial tomography of the head was obtained. IV contrast was not requested. All CT scans are performed using dose optimization technique as appropriate and may include automated exposure control or mA/KV adjustment according to patient size. FINDINGS: An intracranial bleed is not seen . The ventricles are normal in caliber. No extra-axial fluid collection is noted. 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 Small left cerebellar infarct Small amount of fluid sphenoid sinus IMPRESSION: No acute intracranial abnormality is seen. If patient's symptoms persist MRI of the bra in would be recommended.
[2022-05-02] MEDS: LIDOCAINE 4% PATCH TOP SCH (13:15)
--- NOTE | 2022-05-02 15:45 | RAD REPORT ---
EXAM DESCRIPTION: RAD - Lumbar Spine 3 Views - 05/02/2022 3:36 pm CLINICAL HISTORY: S/P FALL COMPARISON: No comparisons FINDINGS: No acute fracture. Partially imaged mild thoracolumbar curvature. Mild disc height loss an d spurring at L4-5. Surgical clips in right upper quadrant. Facet degenerative changes are present at L4-5 and L5-S1. Question osteopenia. IMPRESSION: No acute osseous abnormality involving the lumbar spine.
--- NOTE | 2022-05-02 19:49 | R.PN ---
PROGRESS NOTES ENCOUNTER DATE AND TIME: 05/02/2022 19:44 (CDT) NAME LESLYE ACOSTA DATE OF : 1945 DATE OF ADMISSION: 04/28/2022 13:10 (CDT) CVACHIEF COMPLAINT: Stroke with incoordination and weakness SUBJECTIVE: Pt denied any Shortness of Breath. Pt denied any depression. Labs reviewed and are stable. Ambulated 160' with RW and minimum assistance. He fell in his room after transferring without requesting help.His lumbar spine x-ray, hip and pelvis x-rays and head CT were negative. Bed mobility was done with moderate assistance. VITAL SIGNS Temperature: 98.2 F SBP/DBP: 135/76 Pulse: 67 Resp: 16 MEDICATION ALLERGIES: No Known Drug Allergies (NKDA) ENVIRONMENTAL ALLERGIES: - Substance Allergies None Known - Other Allergies None Known NURSING: - Shower allowing shower - Bladder care per protocol - Skin care per protocol PRECAUTIONS: - Weight Bearing Precaution WBAT left LE ACTIVITIES OOB only with supervision THERAPIES: - Dietary and Nutrition Adequate Nutrition. Nutritional Education. Nutritional Supplements. - Occupational Therapy Cognitive Retraining. Patient needs Occupational Therapy for a daily minimum of 1.5 hours at least 5 out of 7 days, to improve Activities of Daily Living, including: Eating, Grooming, Bathing, Dressing, Toileting, Toilet Transfers, Community Reintegration, Higher functional activities, Adaptive Equipme nt, Splinting, Household Tasks, and Other activities as determined. Visual Perceptual Training. - Speech Therapy Cognitive Training. Expressive Language Skills. Memory Strategies. Patient needs Speech Therapy for a daily minimum of 1.5 hours at least 5 out of 7 days, to improve: Swallowing, Cognition, Language Ski lls, and Compensatory Strategies. Receptive Language Skills. Speech Intelligibility Training. - Physical Therapy Patient needs Physical Therapy for a daily minimum of 1.5 hours at least 5 out of 7 days, to improve: Mobility, Strengthening, Transfers, Stretching, ROM, Endurance, Ability to manage stairs, Gait, and Balance. PHYSICAL EXAM - Gen Alert and awake Lying in bed No apparent distress Oriented to: person, time, and place - Skin No skin breakdown. Normacephalic - Eyes No abnormalities - ENMT No abnormalities - Neck No abnormalities - CVS RRR - Chest No abnormalities - Resp Clear to auscultation - Abd Soft - GI + bowel sounds Deferred - No abnormalities - Ext No significant edema - MSK 4+/5 weakness in right upper and lower extremities - Neuro 4/5 strength right upper and lower extremities. - Psych Mild depression and anxiety. ASSESSMENT: On 04/21/2022 Pt. presented to [facility] with sudden onset of right-side weakness.Pt. is a 77 yo male of unknown race.On 04/21/2022 he was admitted to [facility] with diagnosis CV A.His impairment category is Stroke 01 - Right Body (Left Brain) (01.2).Pre-morbidly, Pt. was indepe ndent/mod-I in Locomotion and Self-Care; and he had good Safety Awareness, Balance, Transfers Control , and Endurance.Currently, he has deficits of Locomotion, Safety Awareness, Balance, Transfers Contro l, Sphincter Control, Self-Care, and Endurance.Pt. is now referred to [facility] for acute in-patient rehabilitation in order to maximize patient's functional independence in acti vities of daily living, strength, ROM, and mobility.- Rehab Goal Patient has realistic goal of being discharged at assistance level 6-Con to reside at Home with Fam ebenezer/Relatives. MDM/PLAN: - Physical Therapy Gait dysfunction - to improve, our physical therapists will perform initial evaluation of pt's statu s upon admission and devise an individualized program for Gait Training, and Wheel Chair mobility Inability to transfer - to improve, our physical therapists will perform initial evaluation of pt's status upon admission and devise an individualized program for Bed mobility Need for home safety evaluation - to improve, our physical therapists will perform initial evaluatio n of pt's status upon admission and devise an individualized program for Home Evaluation Need in caregiver upon discharge - to improve, our physical therapists will perform initial evaluati on of pt's status upon admission and devise an individualized program for Caregiver Training New precaution - to improve, our physical therapists will perform initial evaluation of pt's status upon admission and devise an individualized program for Patient precaution education Edema - to improve, our physical therapists will perform initial evaluation of pt's status upon admi ssion and devise an individualized program for Elevation Training, and Lymphedema Therapy Poor balance - to improve, our physical therapists will perform initial evaluation of pt's status up on admission and devise an individualized program for Balance Training Poor endurance - to improve, our physical therapists will perform initial evaluation of pt's status upon admission and devise an individualized program for Endurance Training Weakness - to improve, our physical therapists will perform initial evaluation of pt's status upon a dmission and devise an individualized program for Aquatic Therapy, Neuromuscular Reeducation, and Str engthening Achieving independence - to improve, our physical therapists will perform initial evaluation of pt's status upon admission and devise an individualized program for Community Reintegration Activities - Occupational Therapy ADL deficits - to improve, our occupation therapists will perform initial evaluation of pt's status upon admission and devise an individualized program for Bathing, Bed mobility, Community Reintegratio n, Cooking, Dressing, Eating, Fine Motor Skills, Grooming, Homemaking, Kitchen Mobility, Laundry, Pat ient Education, Safety Awareness, Splinting - Positioning, Transfers(Toilet, Tub, Shower), and Wheel Chair Management Need for healthcare liaison - to improve, our occupation therapists will perform initial evaluation of pt's status upon admission and devise an individualized program for Caregiver Training Weakness - to improve, our occupation therapists will perform initial evaluation of pt's status upon admission and devise an individualized program for Aquatic Therapy, Balance, Endurance, UE ROM, and UE strengthening - Other See attached MAR (Medication Administration Record) - Diet Type Continue Regular - Diet - Liquid Texture Continue Regular - Tube Feed Continue N/A - Bladder care per protocol - Weight Bearing Precaution WBAT right LE - Skin care per protocol - Diet - Solid Texture Continue Regular - Shower allowing shower for Dementia, TBI, Stroke, or others FUNCTIONAL STATUS: UPDATED AT WEEKLY TEAM CONFERENCE - Bladder Same accident frequency: 7-Ind - No accidents in the past 7 days - Bowel Same accident frequency: 7-Ind - No accidents in the past 7 days - Walking Same score based on distance walked: 0(N/A) Same score based on distance walked: 3(>=150ft) - Wheelchair Same score based on distance traveled: 0(N/A) FUNCTIONAL STATUS: - Self-Care A. Eating Ind B. Grooming Ind C. Bathing Leigha D. Dressing - Upper Leigha E. Dressing - Lower modA F. Toileting sup - Sphincter Control G. Bladder control Con H. Bowel control Con - Transfers Control I. Bed/Chair/Wheelchair sup J. Toilet sup K. Tub/Shower Leigha - Locomotion L. Walk/Wheelchair (B) Leigha M. Stairs maxA - Communication N. Comprehension (B) sup O. Expression (B) sup - Social Cognition P. Social Interaction Con Q. Problem Solving Leigha R. Memory Leigha - Endurance Fair - Balance Fair - Safety Awareness Fair QI SCORES: - Self-Care A. Eating 05-Setup or clean-up assistance B. Oral hygiene 05-Setup or clean-up assistance C. Toileting hygiene 03-Partial/moderate assistance E. Shower/bathe self 03-Partial/moderate assistance F. Upper body dressing 03-Partial/moderate assistance G. Lower body dressing 03-Partial/moderate assistance H. Putting on/taking off footwear 03-Partial/moderate assistance - Mobility A. Roll left and right 03-Partial/moderate assistance B. Sit to lying 03-Partial/moderate assistance C. Lying to sitting on side of bed 03-Partial/moderate assistance D. Sit to stand 03-Partial/moderate assistance E. Chair/fhh-yp-[id number] transfer 03-Partial/moderate assistance F. Toilet transfer 03-Partial/moderate assistance G. Car transfer 88-Not attempted due to medical condition or safety concerns I. Walk 10 feet 03-Partial/moderate assistance J. Walk 50 feet with two turns 03-Partial/moderate assistance K. Walk 150 feet 03-Partial/moderate assistance L. Walking 10 feet on uneven surfaces 88-Not attempted due to medical condition or safety concerns M. 1 step (curb) 88-Not attempted due to medical condition or safety concerns N. 4 steps 88-Not attempted due to medical condition or safety concerns O. 12 steps 88-Not attempted due to medical condition or safety concerns P. Picking up object 88-Not attempted due to medical condition or safety concerns R. Wheel 50 feet with two turns 09-Not applicable S. Wheel 150 feet 09-Not applicable - Bladder and Bowel Bladder continence 0-Always continent Bowel continence 0-Always continent - Endurance Fair - Balance Poor - Safety Awareness Fair CURRENT FUNC. DEFICITS: Self-Care, Mobility, Endurance, Balance, and Safety Awareness SIGNATURE PANEL: (CDT)
[2022-05-02] MEDS: ATORVASTATIN 40 MG TAB PO SCH (20:09)
[2022-05-02] MEDS: lisinopriL 10 MG TAB PO SCH (20:10)
[2022-05-02] MEDS: TAMSULOSIN 0.4 MG SR CAP PO SCH (20:10)
[2022-05-02] MEDS: clonazePAM 0.5 MG TAB PO PRN (21:27)
[2022-05-03] MEDS: lisinopriL 10 MG TAB PO SCH ×2 (08:00→20:24)
[2022-05-03] MEDS: AMLODIPINE 5 MG TAB PO SCH (08:00)
[2022-05-03] MEDS: ENSURE ENLIVE 237 ML CAN PO SCH ×3 (08:00→20:24)
[2022-05-03] MEDS: ESCITALOPRAM 20 MG TAB PO SCH (08:36)
[2022-05-03] MEDS: APIXABAN 2.5 MG TABLET PO SCH ×2 (08:36→20:24)
[2022-05-03] MEDS: FLUDROCORTISONE 0.1 MG TAB PO SCH (08:36)
[2022-05-03] MEDS: ASPIRIN EC 81 MG TAB PO SCH (08:36)
[2022-05-03] MEDS: CLOPIDOGREL 75 MG TABLET PO SCH (08:36)
[2022-05-03] MEDS: MEGESTROL 40 MG TAB PO SCH ×2 (09:32→20:23)
[2022-05-03] MEDS: LIDOCAINE 4% PATCH TOP SCH (09:32)
[2022-05-03] MEDS: FOLIC ACID 1 MG TABLET PO SCH (09:32)
[2022-05-03 11:24] LABS: Absolute Lymphocytes (CBC) 0.7 K/uL (0.7-4.9); Hematocrit 44.3 % (39.6-49.0); Lymphocytes % 15.1 % (15.3-44.8); MCV 92.1 fL (80-100); MPV 7.6 fL (7.6-11.3); RBC Red Blood Cell Count 4.81 M/uL (4.33-5.43)
[2022-05-03 11:39] LABS: Potassium 3.2 mmol/L (3.5-5.1)
[2022-05-03] MEDS ORDERED: LORAZEPAM 0.5 MG TABLET PO ONE (14:00)
--- NOTE | 2022-05-03 14:58 | RAD REPORT ---
EXAM DESCRIPTION: MRI - Brain Wo Cont - 05/03/2022 2:37 pm CLINICAL HISTORY: CVA COMPARISON: MRI April 21, 2022 TECHNIQUE: Axial, sagittal, and coronal magnetic resonance images of the brain were obtained. FINDINGS: Old right cerebral infarction. Small old left cerebellar infarction. Diffusion-weighted/ADC mapping demonstrate several small areas of abnormal signal within the perivent ricular and deep white matter of the left frontal and left parietal lobes that are without significan t change in size from the prior exam and are compatible with subacute infarcts. The ventricles are normal caliber. An extra-axial fluid collection is not noted. Fluid within the sinuses/mastoids is not seen IMPRESSION: Very small white matter subacute infarcts left cerebrum without significant change in si ze from April 21, 2022 An acute infarct is not visualized There is no evidence of hemorrhagic transformation.
[2022-05-03] MEDS ORDERED: NA CHLORIDE 0.9% 1,000 ML IV SCH (16:00)
[2022-05-03] MEDS ORDERED: POTASSIUM CL SA 10 MEQ TAB PO ONE (16:30)
--- NOTE | 2022-05-03 17:35 | R.PN ---
PROGRESS NOTES ENCOUNTER DATE AND TIME: 05/03/2022 17:28 (CDT) NAME LESLYE ACOSTA DATE OF : 1945 DATE OF ADMISSION: 04/28/2022 13:10 (CDT) CVACHIEF COMPLAINT: Stroke with incoordination and weakness SUBJECTIVE: Pt denied any Shortness of Breath. Pt denied any depression. He fell in his room after transferring without requesting help.His lumbar spine x-ray, hip and pelvis x-rays and head CT were negative. Bed mobility was done with maximum assistance. CBC with diff is essentially normal. K+ is 3.2. Given K+ 20 meq x 1 and 10 meq daily. Prealbumin 12.4 . 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 VITAL SIGNS Temperature: 97.7 F SBP/DBP: 104/62 Pulse: 78 Resp: 16 MEDICATION ALLERGIES: No Known Drug Allergies (NKDA) ENVIRONMENTAL ALLERGIES: - Substance Allergies None Known - Other Allergies None Known NURSING: - Shower allowing shower - Bladder care per protocol - Skin care per protocol PRECAUTIONS: - Weight Bearing Precaution WBAT left LE ACTIVITIES OOB only with supervision THERAPIES: - Dietary and Nutrition Adequate Nutrition. Nutritional Education. Nutritional Supplements. - Occupational Therapy Cognitive Retraining. Patient needs Occupational Therapy for a daily minimum of 1.5 hours at least 5 out of 7 days, to improve Activities of Daily Living, including: Eating, Grooming, Bathing, Dressing, Toileting, Toilet Transfers, Community Reintegration, Higher functional activities, Adaptive Equipme nt, Splinting, Household Tasks, and Other activities as determined. Visual Perceptual Training. - Speech Therapy Cognitive Training. Expressive Language Skills. Memory Strategies. Patient needs Speech Therapy for a daily minimum of 1.5 hours at least 5 out of 7 days, to improve: Swallowing, Cognition, Language Ski lls, and Compensatory Strategies. Receptive Language Skills. Speech Intelligibility Training. - Physical Therapy Patient needs Physical Therapy for a daily minimum of 1.5 hours at least 5 out of 7 days, to improve: Mobility, Strengthening, Transfers, Stretching, ROM, Endurance, Ability to manage stairs, Gait, and Balance. PHYSICAL EXAM - Gen Alert and awake Lying in bed No apparent distress Oriented to: person, time, and place - Skin No skin breakdown. Normacephalic - Eyes No abnormalities - ENMT No abnormalities - Neck No abnormalities - CVS RRR - Chest No abnormalities - Resp Clear to auscultation - Abd Soft - GI + bowel sounds Deferred - No abnormalities - Ext No significant edema - MSK 4+/5 weakness in right upper and lower extremities - Neuro 4/5 strength right upper and lower extremities. - Psych Mild depression and anxiety. ASSESSMENT: On 04/21/2022 Pt. presented to [facility] with sudden onset of right-side weakness.Pt. is a 77 yo male of unknown race.On 04/21/2022 he was admitted to [facility] with diagnosis CV A.His impairment category is Stroke 01 - Right Body (Left Brain) (01.2).Pre-morbidly, Pt. was indepe ndent/mod-I in Locomotion and Self-Care; and he had good Safety Awareness, Balance, Transfers Control , and Endurance.Currently, he has deficits of Locomotion, Safety Awareness, Balance, Transfers Contro l, Sphincter Control, Self-Care, and Endurance.Pt. is now referred to [facility] for acute in-patient rehabilitation in order to maximize patient's functional independence in acti vities of daily living, strength, ROM, and mobility.- Rehab Goal Patient has realistic goal of being discharged at assistance level 6-Con to reside at Home with Fam ebenezer/Relatives. MDM/PLAN: - Physical Therapy Gait dysfunction - to improve, our physical therapists will perform initial evaluation of pt's statu s upon admission and devise an individualized program for Gait Training, and Wheel Chair mobility Inability to transfer - to improve, our physical therapists will perform initial evaluation of pt's status upon admission and devise an individualized program for Bed mobility Need for home safety evaluation - to improve, our physical therapists will perform initial evaluatio n of pt's status upon admission and devise an individualized program for Home Evaluation Need in caregiver upon discharge - to improve, our physical therapists will perform initial evaluati on of pt's status upon admission and devise an individualized program for Caregiver Training New precaution - to improve, our physical therapists will perform initial evaluation of pt's status upon admission and devise an individualized program for Patient precaution education Edema - to improve, our physical therapists will perform initial evaluation of pt's status upon admi ssion and devise an individualized program for Elevation Training, and Lymphedema Therapy Poor balance - to improve, our physical therapists will perform initial evaluation of pt's status up on admission and devise an individualized program for Balance Training Poor endurance - to improve, our physical therapists will perform initial evaluation of pt's status upon admission and devise an individualized program for Endurance Training Weakness - to improve, our physical therapists will perform initial evaluation of pt's status upon a dmission and devise an individualized program for Aquatic Therapy, Neuromuscular Reeducation, and Str engthening Achieving independence - to improve, our physical therapists will perform initial evaluation of pt's status upon admission and devise an individualized program for Community Reintegration Activities - Occupational Therapy ADL deficits - to improve, our occupation therapists will perform initial evaluation of pt's status upon admission and devise an individualized program for Bathing, Bed mobility, Community Reintegratio n, Cooking, Dressing, Eating, Fine Motor Skills, Grooming, Homemaking, Kitchen Mobility, Laundry, Pat ient Education, Safety Awareness, Splinting - Positioning, Transfers(Toilet, Tub, Shower), and Wheel Chair Management Need for chronic care nurse - to improve, our occupation therapists will perform initial evaluation of pt's status upon admission and devise an individualized program for Caregiver Training Weakness - to improve, our occupation therapists will perform initial evaluation of pt's status upon admission and devise an individualized program for Aquatic Therapy, Balance, Endurance, UE ROM, and UE strengthening - Other See attached MAR (Medication Administration Record) - Diet Type Continue Regular - Diet - Liquid Texture Continue Regular - Tube Feed Continue N/A - Bladder care per protocol - Weight Bearing Precaution WBAT right LE - Skin care per protocol - Diet - Solid Texture Continue Regular - Shower allowing shower for Dementia, TBI, Stroke, or others FUNCTIONAL STATUS: UPDATED AT WEEKLY TEAM CONFERENCE - Bladder Same accident frequency: 7-Ind - No accidents in the past 7 days - Bowel Same accident frequency: 7-Ind - No accidents in the past 7 days - Walking Same score based on distance walked: 0(N/A) Same score based on distance walked: 3(>=150ft) - Wheelchair Same score based on distance traveled: 0(N/A) FUNCTIONAL STATUS: - Self-Care A. Eating Ind B. Grooming Ind C. Bathing Leigha D. Dressing - Upper Leigha E. Dressing - Lower modA F. Toileting sup - Sphincter Control G. Bladder control Con H. Bowel control Con - Transfers Control I. Bed/Chair/Wheelchair sup J. Toilet sup K. Tub/Shower Leigha - Locomotion L. Walk/Wheelchair (B) Leigha M. Stairs maxA - Communication N. Comprehension (B) sup O. Expression (B) sup - Social Cognition P. Social Interaction Con Q. Problem Solving Leigha R. Memory Leigha - Endurance Fair - Balance Fair - Safety Awareness Fair QI SCORES: - Self-Care A. Eating 05-Setup or clean-up assistance B. Oral hygiene 05-Setup or clean-up assistance C. Toileting hygiene 03-Partial/moderate assistance E. Shower/bathe self 03-Partial/moderate assistance F. Upper body dressing 03-Partial/moderate assistance G. Lower body dressing 03-Partial/moderate assistance H. Putting on/taking off footwear 03-Partial/moderate assistance - Mobility A. Roll left and right 03-Partial/moderate assistance B. Sit to lying 03-Partial/moderate assistance C. Lying to sitting on side of bed 03-Partial/moderate assistance D. Sit to stand 03-Partial/moderate assistance E. Chair/ule-yj-fttuk transfer 03-Partial/moderate assistance F. Toilet transfer 03-Partial/moderate assistance G. Car transfer 88-Not attempted due to medical condition or safety concerns I. Walk 10 feet 03-Partial/moderate assistance J. Walk 50 feet with two turns 03-Partial/moderate assistance K. Walk 150 feet 03-Partial/moderate assistance L. Walking 10 feet on uneven surfaces 88-Not attempted due to medical condition or safety concerns M. 1 step (curb) 88-Not attempted due to medical condition or safety concerns N. 4 steps 88-Not attempted due to medical condition or safety concerns O. 12 steps 88-Not attempted due to medical condition or safety concerns P. Picking up object 88-Not attempted due to medical condition or safety concerns R. Wheel 50 feet with two turns 09-Not applicable S. Wheel 150 feet 09-Not applicable - Bladder and Bowel Bladder continence 0-Always continent Bowel continence 0-Always continent - Endurance Fair - Balance Poor - Safety Awareness Fair CURRENT FUNC. DEFICITS: Self-Care, Mobility, Endurance, Balance, and Safety Awareness SIGNATURE PANEL: (CDT)
--- NOTE | 2022-05-03 18:30 | EKG ---
Test Date: 2022-05-02 Test Time: 11:17:36 Manager Of Product: DAVE MEASUREMENT RESULTS: Intervals: Rate: 82 MT: 162 QRSD: 126 QT: 412 QTc: 481 [place]: P: 69 MT: 162 QRS: -40 T: 58 INTERPRETIVE STATEMENTS: Normal sinus rhythm Left axis deviation Right bundle branch block Abnormal ECG Compared to ECG 04/21/2022 14:38:12 Ventricular premature complex(es) no longer present Left ventricular hypertrophy no longer present Early repolarization no longer present Myocardial infarct finding no longer present Electronically Signed On 05-03-22 18:28:12 CDT by Rahul Francis
[2022-05-03] MEDS: ATORVASTATIN 40 MG TAB PO SCH (20:23)
[2022-05-03] MEDS: TAMSULOSIN 0.4 MG SR CAP PO SCH (20:24)
[2022-05-03] MEDS: MAGNESIUM OXIDE 400 MG TAB PO SCH (20:24)
[2022-05-03] MEDS: SERTRALINE HCL 50 MG TAB PO SCH (20:24)
[2022-05-03] MEDS: clonazePAM 0.5 MG TAB PO PRN (23:00)
[2022-05-04 05:04] LABS: Hematocrit 40.6 % (39.6-49.0); Lymphocytes % 23.5 % (15.3-44.8); MCV 91.3 fL (80-100); MPV 7.9 fL (7.6-11.3); RBC Red Blood Cell Count 4.45 M/uL (4.33-5.43)
[2022-05-04 05:16] LABS: Albumin 2.9 g/dL (3.4-5.0); Potassium 3.4 mmol/L (3.5-5.1); Prealbumin 13.2 mg/dL (20-40)
[2022-05-04] MEDS ORDERED: POTASSIUM CL SA 10 MEQ TAB PO SCH (08:00)
[2022-05-04] MEDS: APIXABAN 2.5 MG TABLET PO SCH ×2 (08:03→20:18)
[2022-05-04] MEDS: lisinopriL 10 MG TAB PO SCH ×2 (08:03→20:19)
[2022-05-04] MEDS: AMLODIPINE 5 MG TAB PO SCH (08:04)
[2022-05-04] MEDS: MAGNESIUM OXIDE 400 MG TAB PO SCH ×2 (08:04→20:19)
[2022-05-04] MEDS: FOLIC ACID 1 MG TABLET PO SCH (08:04)
[2022-05-04] MEDS: MEGESTROL 40 MG TAB PO SCH ×2 (08:04→20:18)
[2022-05-04] MEDS: ESCITALOPRAM 20 MG TAB PO SCH (08:04)
[2022-05-04] MEDS: ASPIRIN EC 81 MG TAB PO SCH (08:04)
[2022-05-04] MEDS: CLOPIDOGREL 75 MG TABLET PO SCH (08:04)
[2022-05-04] MEDS: FLUDROCORTISONE 0.1 MG TAB PO SCH (08:05)
[2022-05-04] MEDS: ENSURE ENLIVE 237 ML CAN PO SCH ×3 (08:06→20:19)
[2022-05-04] MEDS: ACETAMINOPHEN 500 MG TAB PO PRN ×2 (08:07→15:08)
[2022-05-04] MEDS: LIDOCAINE 4% PATCH TOP SCH (09:54)
[2022-05-04] MEDS ORDERED: POTASSIUM CL SA 10 MEQ TAB PO ONE (13:00)
--- NOTE | 2022-05-04 17:57 | R.PN ---
PROGRESS NOTES ENCOUNTER DATE AND TIME: 05/04/2022 17:52 (CDT) NAME LESLYE ACOSTA DATE OF : 1945 DATE OF ADMISSION: 04/28/2022 13:10 (CDT) CVACHIEF COMPLAINT: Stroke with incoordination and weakness SUBJECTIVE: Pt denied any Shortness of Breath. Pt denied any depression. He fell in his room after transferring without requesting help.His lumbar spine x-ray, hip and pelvis x-rays and head CT were negative. Therapeutic exercises done in bed and chair. Bed mobility was done with maximum assistance. CBC with diff is essentially normal, WBC 4.2. K+ is 3.4. Given K+ 10 meq twice daily. Prealbumin 13. 2. 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 VITAL SIGNS Temperature: 97.6 F SBP/DBP: 112/71 Pulse: 109 Resp: 16 MEDICATION ALLERGIES: No Known Drug Allergies (NKDA) ENVIRONMENTAL ALLERGIES: - Substance Allergies None Known - Other Allergies None Known NURSING: - Shower allowing shower - Bladder care per protocol - Skin care per protocol PRECAUTIONS: - Weight Bearing Precaution WBAT left LE ACTIVITIES OOB only with supervision THERAPIES: - Dietary and Nutrition Adequate Nutrition. Nutritional Education. Nutritional Supplements. - Occupational Therapy Cognitive Retraining. Patient needs Occupational Therapy for a daily minimum of 1.5 hours at least 5 out of 7 days, to improve Activities of Daily Living, including: Eating, Grooming, Bathing, Dressing, Toileting, Toilet Transfers, Community Reintegration, Higher functional activities, Adaptive Equipme nt, Splinting, Household Tasks, and Other activities as determined. Visual Perceptual Training. - Speech Therapy Cognitive Training. Expressive Language Skills. Memory Strategies. Patient needs Speech Therapy for a daily minimum of 1.5 hours at least 5 out of 7 days, to improve: Swallowing, Cognition, Language Ski lls, and Compensatory Strategies. Receptive Language Skills. Speech Intelligibility Training. - Physical Therapy Patient needs Physical Therapy for a daily minimum of 1.5 hours at least 5 out of 7 days, to improve: Mobility, Strengthening, Transfers, Stretching, ROM, Endurance, Ability to manage stairs, Gait, and Balance. PHYSICAL EXAM - Gen Alert and awake Lying in bed No apparent distress Oriented to: person, time, and place - Skin No skin breakdown. Normacephalic - Eyes No abnormalities - ENMT No abnormalities - Neck No abnormalities - CVS RRR - Chest No abnormalities - Resp Clear to auscultation - Abd Soft - GI + bowel sounds Deferred - No abnormalities - Ext No significant edema - MSK 4+/5 weakness in right upper and lower extremities - Neuro 4/5 strength right upper and lower extremities. - Psych Mild depression and anxiety. ASSESSMENT: On 04/21/2022 Pt. presented to [facility] with sudden onset of right-side weakness.Pt. is a 77 yo male of unknown race.On 04/21/2022 he was admitted to [facility] with diagnosis CV A.His impairment category is Stroke 01 - Right Body (Left Brain) (01.2).Pre-morbidly, Pt. was indepe ndent/mod-I in Locomotion and Self-Care; and he had good Safety Awareness, Balance, Transfers Control , and Endurance.Currently, he has deficits of Locomotion, Safety Awareness, Balance, Transfers Contro l, Sphincter Control, Self-Care, and Endurance.Pt. is now referred to [facility] for acute in-patient rehabilitation in order to maximize patient's functional independence in acti vities of daily living, strength, ROM, and mobility.- Rehab Goal Patient has realistic goal of being discharged at assistance level 6-Con to reside at Home with Fam ebenezer/Relatives. MDM/PLAN: - Physical Therapy Gait dysfunction - to improve, our physical therapists will perform initial evaluation of pt's statu s upon admission and devise an individualized program for Gait Training, and Wheel Chair mobility Inability to transfer - to improve, our physical therapists will perform initial evaluation of pt's status upon admission and devise an individualized program for Bed mobility Need for home safety evaluation - to improve, our physical therapists will perform initial evaluatio n of pt's status upon admission and devise an individualized program for Home Evaluation Need in caregiver upon discharge - to improve, our physical therapists will perform initial evaluati on of pt's status upon admission and devise an individualized program for Caregiver Training New precaution - to improve, our physical therapists will perform initial evaluation of pt's status upon admission and devise an individualized program for Patient precaution education Edema - to improve, our physical therapists will perform initial evaluation of pt's status upon admi ssion and devise an individualized program for Elevation Training, and Lymphedema Therapy Poor balance - to improve, our physical therapists will perform initial evaluation of pt's status up on admission and devise an individualized program for Balance Training Poor endurance - to improve, our physical therapists will perform initial evaluation of pt's status upon admission and devise an individualized program for Endurance Training Weakness - to improve, our physical therapists will perform initial evaluation of pt's status upon a dmission and devise an individualized program for Aquatic Therapy, Neuromuscular Reeducation, and Str engthening Achieving independence - to improve, our physical therapists will perform initial evaluation of pt's status upon admission and devise an individualized program for Community Reintegration Activities - Occupational Therapy ADL deficits - to improve, our occupation therapists will perform initial evaluation of pt's status upon admission and devise an individualized program for Bathing, Bed mobility, Community Reintegratio n, Cooking, Dressing, Eating, Fine Motor Skills, Grooming, Homemaking, Kitchen Mobility, Laundry, Pat ient Education, Safety Awareness, Splinting - Positioning, Transfers(Toilet, Tub, Shower), and Wheel Chair Management Need for nurse care manager - to improve, our occupation therapists will perform initial evaluation of pt's status upon admission and devise an individualized program for Caregiver Training Weakness - to improve, our occupation therapists will perform initial evaluation of pt's status upon admission and devise an individualized program for Aquatic Therapy, Balance, Endurance, UE ROM, and UE strengthening - Other See attached MAR (Medication Administration Record) - Diet Type Continue Regular - Diet - Liquid Texture Continue Regular - Tube Feed Continue N/A - Bladder care per protocol - Weight Bearing Precaution WBAT right LE - Skin care per protocol - Diet - Solid Texture Continue Regular - Shower allowing shower for Dementia, TBI, Stroke, or others FUNCTIONAL STATUS: UPDATED AT WEEKLY TEAM CONFERENCE - Bladder Same accident frequency: 7-Ind - No accidents in the past 7 days - Bowel Same accident frequency: 7-Ind - No accidents in the past 7 days - Walking Same score based on distance walked: 0(N/A) Same score based on distance walked: 3(>=150ft) - Wheelchair Same score based on distance traveled: 0(N/A) FUNCTIONAL STATUS: - Self-Care A. Eating Ind B. Grooming Ind C. Bathing Leigha D. Dressing - Upper Leigha E. Dressing - Lower modA F. Toileting sup - Sphincter Control G. Bladder control Con H. Bowel control Con - Transfers Control I. Bed/Chair/Wheelchair sup J. Toilet sup K. Tub/Shower Leigha - Locomotion L. Walk/Wheelchair (B) Leigha M. Stairs maxA - Communication N. Comprehension (B) sup O. Expression (B) sup - Social Cognition P. Social Interaction Con Q. Problem Solving Leigha R. Memory Leigha - Endurance Fair - Balance Fair - Safety Awareness Fair QI SCORES: - Self-Care A. Eating 05-Setup or clean-up assistance B. Oral hygiene 05-Setup or clean-up assistance C. Toileting hygiene 03-Partial/moderate assistance E. Shower/bathe self 03-Partial/moderate assistance F. Upper body dressing 03-Partial/moderate assistance G. Lower body dressing 03-Partial/moderate assistance H. Putting on/taking off footwear 03-Partial/moderate assistance - Mobility A. Roll left and right 03-Partial/moderate assistance B. Sit to lying 03-Partial/moderate assistance C. Lying to sitting on side of bed 03-Partial/moderate assistance D. Sit to stand 03-Partial/moderate assistance E. Chair/egz-sb-yhutz transfer 03-Partial/moderate assistance F. Toilet transfer 03-Partial/moderate assistance G. Car transfer 88-Not attempted due to medical condition or safety concerns I. Walk 10 feet 03-Partial/moderate assistance J. Walk 50 feet with two turns 03-Partial/moderate assistance K. Walk 150 feet 03-Partial/moderate assistance L. Walking 10 feet on uneven surfaces 88-Not attempted due to medical condition or safety concerns M. 1 step (curb) 88-Not attempted due to medical condition or safety concerns N. 4 steps 88-Not attempted due to medical condition or safety concerns O. 12 steps 88-Not attempted due to medical condition or safety concerns P. Picking up object 88-Not attempted due to medical condition or safety concerns R. Wheel 50 feet with two turns 09-Not applicable S. Wheel 150 feet 09-Not applicable - Bladder and Bowel Bladder continence 0-Always continent Bowel continence 0-Always continent - Endurance Fair - Balance Poor - Safety Awareness Fair CURRENT FUNC. DEFICITS: Self-Care, Mobility, Endurance, Balance, and Safety Awareness SIGNATURE PANEL: (CDT)
[2022-05-04] MEDS: TEMAZEPAM 15 MG CAP PO PRN (20:18)
[2022-05-04] MEDS: ATORVASTATIN 40 MG TAB PO SCH (20:18)
[2022-05-04] MEDS: TAMSULOSIN 0.4 MG SR CAP PO SCH (20:18)
[2022-05-04] MEDS: POTASSIUM CL SA 10 MEQ TAB PO SCH (20:18)
[2022-05-04] MEDS: SERTRALINE HCL 50 MG TAB PO SCH (20:19)
[2022-05-05] MEDS: AMLODIPINE 5 MG TAB PO SCH (08:00)
[2022-05-05] MEDS: lisinopriL 10 MG TAB PO SCH ×2 (08:00→20:29)
[2022-05-05] MEDS: ESCITALOPRAM 20 MG TAB PO SCH ×2 (08:00→09:06)
[2022-05-05] MEDS: APIXABAN 2.5 MG TABLET PO SCH ×2 (08:55→20:28)
[2022-05-05] MEDS: LIDOCAINE 4% PATCH TOP SCH (09:05)
[2022-05-05] MEDS: FOLIC ACID 1 MG TABLET PO SCH (09:05)
[2022-05-05] MEDS: ASPIRIN EC 81 MG TAB PO SCH (09:06)
[2022-05-05] MEDS: MAGNESIUM OXIDE 400 MG TAB PO SCH ×2 (09:06→20:28)
[2022-05-05] MEDS: CLOPIDOGREL 75 MG TABLET PO SCH (09:06)
[2022-05-05] MEDS: ACETAMINOPHEN 500 MG TAB PO PRN ×3 (09:06→21:38)
[2022-05-05] MEDS: MEGESTROL 40 MG TAB PO SCH (09:06)
[2022-05-05] MEDS: POTASSIUM CL SA 10 MEQ TAB PO SCH ×2 (09:07→20:28)
[2022-05-05] MEDS: FLUDROCORTISONE 0.1 MG TAB PO SCH (09:07)
[2022-05-05] MEDS: ENSURE ENLIVE 237 ML CAN PO SCH ×3 (10:16→20:29)
--- NOTE | 2022-05-05 13:32 | P.RH.PN ---
Estimated Length of Stay: 11 Expected Discharge Date: 05/09/22 Discharge Disposition Plan: Home Family Support: Yes Alf Goal: Mobility, Transfers, Self Care Vital Signs: Last Vital Signs Temp 97.6 F 05/05/22 08:40 Pulse 93 H 05/05/22 08:40 Resp 18 05/05/22 08:40 BP 106/65 05/05/22 08:40 Pulse Ox 94 05/05/22 08:40 Laboratory: Laboratory Last Values WBC 4.20 K/uL (4.3-10.9) L 05/04/22 04:04 RBC 4.45 M/uL (4.33-5.43) 05/04/22 04:04 Hgb 13.8 g/dL (13.6-17.9) 05/04/22 04:04 Hct 40.6 % (39.6-49.0) 05/04/22 04:04 MCV 91.3 fL (80-100) 05/04/22 04:04 MCH 31.1 pg (27.0-35.0) 05/04/22 04:04 MCHC 34.1 g/dL (32.0-36.0) 05/04/22 04:04 RDW 15.4 % (12.1-15.2) H 05/04/22 04:04 Plt Count 159 K/uL (152-406) 05/04/22 04:04 MPV 7.9 fL (7.6-11.3) 05/04/22 04:04 Neutrophils % 68.2 % (41.7-73.7) 05/04/22 04:04 Lymphocytes % 23.5 % (15.3-44.8) 05/04/22 04:04 Monocytes % 6.0 % (3.3-12.3) 05/04/22 04:04 Eosinophils % 1.7 % (0-4.4) 05/04/22 04:04 Basophils % 0.6 % (0-1.3) 05/04/22 04:04 Absolute Neutrophils 2.9 K/uL (1.8-8.0) 05/04/22 04:04 Absolute Lymphocytes 1.0 K/uL (0.7-4.9) 05/04/22 04:04 Absolute Monocytes 0.3 K/uL (0.1-1.3) 05/04/22 04:04 Absolute Eosinophils 0.1 K/uL (0-0.5) 05/04/22 04:04 Absolute Basophils 0.0 K/uL (0-0.5) 05/04/22 04:04 Sodium 146 mmol/L (136-145) H 05/04/22 04:04 Potassium 3.4 mmol/L (3.5-5.1) L 05/04/22 04:04 Chloride 115 mmol/L (98-107) H 05/04/22 04:04 Carbon Dioxide 28 mmol/L (21-32) 05/04/22 04:04 Anion Gap 6.4 mEq/L (5.0-15.0) 05/04/22 04:04 BUN 23 mg/dL (7-18) H 05/04/22 04:04 Creatinine 0.92 mg/dL (0.55-1.3) 05/04/22 04:04 Est GFR (CKD-EPI) 86 ml/min (=/>90) L 05/04/22 04:04 Glucose 95 mg/dL (74-106) 05/04/22 04:04 POC Glucose 151 mg/dL (65-120) H 05/03/22 10:39 Calcium 8.4 mg/dL (8.5-10.1) L 05/04/22 04:04 Magnesium 2.0 mg/dL (1.8-2.4) 05/04/22 04:04 Albumin 2.9 g/dL (3.4-5.0) L 05/04/22 04:04 Prealbumin 13.2 mg/dL (20-40) L 05/04/22 04:04 Urine Color Yellow (Yellow) 04/29/22 03:25 Urine Clarity Clear (Clear) 04/29/22 03:25 Urine pH 7.5 (5.0-7.0) H 04/29/22 03:25 Ur Specific [place] 1.020 (1.005-1.030) 04/29/22 03:25 Glucose (UA)(Auto) Negative (Negative) 04/29/22 03:25 Urine Ketones 1+ (Negative) H 04/29/22 03:25 Urine Blood Negative (Negative) 04/29/22 03:25 Urine Nitrite Negative (Negative) 04/29/22 03:25 Urine Bilirubin Negative (Negative) 04/29/22 03:25 Urine Urobilinogen 2.0 mg/dL (0.2-1.0) H 04/29/22 03:25 Ur Leukocyte Esterase Negative (Negative) 04/29/22 03:25 Urine RBC <5 /HPF (None Seen) 04/29/22 03:25 Urine Red Cell Clumps Cancelled 04/29/22 03:14 Urine WBC <5 /HPF (<5) 04/29/22 03:25 Urine WBC Clumps Cancelled 04/29/22 03:14 Ur Squamous Epith Cells <5 /HPF (None Seen) 04/29/22 03:25 U Non-Squamous Epi Cells Cancelled 04/29/22 03:14 Ur Transition Epith Cell Cancelled 04/29/22 03:14 Ur Renal Epithelial Cell Cancelled 04/29/22 03:14 Calcium Carbonate Cryst Cancelled 04/29/22 03:14 Calcium Oxalate Crystal Cancelled 04/29/22 03:14 Leucine Crystals Cancelled 04/29/22 03:14 Cystine Crystals Cancelled 04/29/22 03:14 Uric Acid Crystals Few /HPF (None Seen) 04/29/22 03:25 Triple Phos Crystals Cancelled 04/29/22 03:14 Tyrosine Crystals Cancelled 04/29/22 03:14 Unidentified Crystals Cancelled 04/29/22 03:14 Amorphous Crystals Cancelled 04/29/22 03:14 Urine Bacteria 20-50 /HPF (<20) H 04/29/22 03:25 Hyaline Casts Cancelled 04/29/22 03:14 Granular Casts Cancelled 04/29/22 03:14 Waxy Casts Cancelled 04/29/22 03:14 RBC Casts Cancelled 04/29/22 03:14 WBC Casts Cancelled 04/29/22 03:14 Urine Mucus 2+ /HPF (None Seen) 04/29/22 03:25 Urine Trichomonas Cancelled 04/29/22 03:14 Ur Yeast w Hyphae Cancelled 04/29/22 03:14 Urine Yeast (Budding) Cancelled 04/29/22 03:14 Urine Sperm Cancelled 04/29/22 03:14 Ur Oval Fat Bodies Cancelled 04/29/22 03:14 Urine Total Protein Negative (Negative) 04/29/22 03:25 Urine Ascorbic Acid Cancelled 04/29/22 03:14 Urine Fat Cancelled 04/29/22 03:14 Weight: 121 lb 12.8 oz Wound Present: No Closed Surgical Incision Present: No Negative Pressure Wound Therapy Present: No Physician Update: Labs reviewed. Supine to sit min assistance, mod assistance for transfers. Wheelchair 150' x 2 SBA. Max assistance for gait with RW. Declined with occupational therapy, max assistance with bathing, upper and lower body dressing. Toilet transfer at mod assistance. Appears depressed after the loss of his . Poor vocal quality. Speech to reevalute after decline in functioning. Summary: Patient's care plan and nursing home goals have been reviewed and revised as necessary. Please see the Rehabilitation Signature page for all necessary signatures.
[2022-05-05 15:16] VITALS: BMI 18.5
[2022-05-05] MEDS: MEGESTROL 400 MG/10 ML UCUP PO SCH (20:00)
[2022-05-05] MEDS: TAMSULOSIN 0.4 MG SR CAP PO SCH (20:29)
[2022-05-05] MEDS: MELATONIN 5 MG TABLET PO PRN (20:30)
[2022-05-05] MEDS: SERTRALINE HCL 50 MG TAB PO SCH (20:30)
[2022-05-05] MEDS: ATORVASTATIN 40 MG TAB PO SCH (20:30)
[2022-05-05] MEDS: TEMAZEPAM 15 MG CAP PO PRN (23:22)
[2022-05-06] MEDS: LIDOCAINE 4% PATCH TOP SCH (07:42)
[2022-05-06] MEDS: CLOPIDOGREL 75 MG TABLET PO SCH (07:42)
[2022-05-06] MEDS: FLUDROCORTISONE 0.1 MG TAB PO SCH (07:42)
[2022-05-06] MEDS: MEGESTROL 400 MG/10 ML UCUP PO SCH ×2 (07:42→19:52)
[2022-05-06] MEDS: FOLIC ACID 1 MG TABLET PO SCH (07:42)
[2022-05-06] MEDS: APIXABAN 2.5 MG TABLET PO SCH ×2 (07:42→19:53)
[2022-05-06] MEDS: POTASSIUM CL SA 10 MEQ TAB PO SCH ×2 (07:43→19:53)
[2022-05-06] MEDS: ASPIRIN EC 81 MG TAB PO SCH (07:43)
[2022-05-06] MEDS: AMLODIPINE 5 MG TAB PO SCH (08:00)
[2022-05-06] MEDS: lisinopriL 10 MG TAB PO SCH ×2 (08:00→19:53)
[2022-05-06] MEDS: MAGNESIUM OXIDE 400 MG TAB PO SCH ×2 (09:21→19:52)
[2022-05-06] MEDS: ENSURE ENLIVE 237 ML CAN PO SCH ×3 (10:31→19:54)
[2022-05-06] MEDS ORDERED: NA CHLORIDE 0.9% 1,000 ML IV SCH (14:00)
[2022-05-06] MEDS: BISACODYL 10 MG RECTAL SUPP PR PRN (16:21)
[2022-05-06] MEDS: TAMSULOSIN 0.4 MG SR CAP PO SCH (19:52)
[2022-05-06] MEDS: TEMAZEPAM 15 MG CAP PO PRN (19:53)
[2022-05-06] MEDS: SERTRALINE HCL 50 MG TAB PO SCH (19:53)
[2022-05-06] MEDS: ATORVASTATIN 40 MG TAB PO SCH (19:53)
[2022-05-07] MEDS: clonazePAM 0.5 MG TAB PO PRN (02:13)
[2022-05-07] MEDS: ACETAMINOPHEN 500 MG TAB PO PRN (02:14)
[2022-05-07 05:42] LABS: Absolute Lymphocytes (CBC) 0.8 K/uL (0.7-4.9); Hematocrit 40.9 % (39.6-49.0); Lymphocytes % 15.4 % (15.3-44.8); MCV 91.8 fL (80-100); MPV 7.9 fL (7.6-11.3); RBC Red Blood Cell Count 4.45 M/uL (4.33-5.43)
[2022-05-07 05:54] LABS: Potassium 3.8 mmol/L (3.5-5.1)
[2022-05-07] MEDS: LIDOCAINE 4% PATCH TOP SCH (08:07)
[2022-05-07] MEDS: MEGESTROL 400 MG/10 ML UCUP PO SCH ×2 (08:07→20:19)
[2022-05-07] MEDS: ASPIRIN EC 81 MG TAB PO SCH (08:07)
[2022-05-07] MEDS: FOLIC ACID 1 MG TABLET PO SCH (08:07)
[2022-05-07] MEDS: POTASSIUM CL SA 10 MEQ TAB PO SCH ×2 (08:08→20:20)
[2022-05-07] MEDS: lisinopriL 10 MG TAB PO SCH ×2 (08:08→20:20)
[2022-05-07] MEDS: CLOPIDOGREL 75 MG TABLET PO SCH (08:08)
[2022-05-07] MEDS: APIXABAN 2.5 MG TABLET PO SCH ×2 (08:09→20:20)
[2022-05-07] MEDS: FLUDROCORTISONE 0.1 MG TAB PO SCH (08:09)
[2022-05-07] MEDS: AMLODIPINE 5 MG TAB PO SCH (08:09)
[2022-05-07] MEDS: MAGNESIUM OXIDE 400 MG TAB PO SCH ×2 (08:10→20:20)
[2022-05-07] MEDS: ENSURE ENLIVE 237 ML CAN PO SCH ×3 (08:11→20:21)
[2022-05-07] MEDS: SERTRALINE HCL 50 MG TAB PO SCH (20:20)
[2022-05-07] MEDS: ATORVASTATIN 40 MG TAB PO SCH (20:20)
[2022-05-07] MEDS: TEMAZEPAM 15 MG CAP PO PRN (20:20)
[2022-05-07] MEDS: TAMSULOSIN 0.4 MG SR CAP PO SCH (20:20)
[2022-05-08] MEDS: clonazePAM 0.5 MG TAB PO PRN ×2 (01:10→20:02)
[2022-05-08] MEDS: AMLODIPINE 5 MG TAB PO SCH (08:00)
[2022-05-08] MEDS: lisinopriL 10 MG TAB PO SCH ×2 (08:00→20:02)
[2022-05-08] MEDS: MEGESTROL 400 MG/10 ML UCUP PO SCH ×2 (09:04→20:01)
[2022-05-08] MEDS: LIDOCAINE 4% PATCH TOP SCH (09:05)
[2022-05-08] MEDS: APIXABAN 2.5 MG TABLET PO SCH ×2 (09:05→20:02)
[2022-05-08] MEDS: FLUDROCORTISONE 0.1 MG TAB PO SCH (09:06)
[2022-05-08] MEDS: CLOPIDOGREL 75 MG TABLET PO SCH (09:06)
[2022-05-08] MEDS: FOLIC ACID 1 MG TABLET PO SCH (09:06)
[2022-05-08] MEDS: ASPIRIN EC 81 MG TAB PO SCH (09:06)
[2022-05-08] MEDS: POTASSIUM CL SA 10 MEQ TAB PO SCH ×2 (09:07→20:02)
[2022-05-08] MEDS: MAGNESIUM OXIDE 400 MG TAB PO SCH ×2 (09:31→20:02)
[2022-05-08] MEDS: ENSURE ENLIVE 237 ML CAN PO SCH ×3 (10:28→20:03)
[2022-05-08] MEDS ORDERED: NA CHLORIDE 0.9% 1,000 ML IV SCH (13:00)
[2022-05-08] MEDS: TAMSULOSIN 0.4 MG SR CAP PO SCH (20:01)
[2022-05-08] MEDS: SERTRALINE HCL 50 MG TAB PO SCH (20:02)
[2022-05-08] MEDS: ATORVASTATIN 40 MG TAB PO SCH (20:02)
[2022-05-08] MEDS: TEMAZEPAM 15 MG CAP PO PRN (22:00)
[2022-05-08 22:05] VITALS: TEMP 98.4
[2022-05-09] MEDS: LIDOCAINE 4% PATCH TOP SCH (07:16)
[2022-05-09] MEDS: APIXABAN 2.5 MG TABLET PO SCH (07:57)
[2022-05-09] MEDS: MEGESTROL 400 MG/10 ML UCUP PO SCH (07:57)
[2022-05-09] MEDS: FOLIC ACID 1 MG TABLET PO SCH (07:57)
[2022-05-09] MEDS: MAGNESIUM OXIDE 400 MG TAB PO SCH (07:57)
[2022-05-09] MEDS: POTASSIUM CL SA 10 MEQ TAB PO SCH (07:58)
[2022-05-09] MEDS: ASPIRIN EC 81 MG TAB PO SCH (07:58)
[2022-05-09] MEDS: ENSURE ENLIVE 237 ML CAN PO SCH ×2 (07:58→13:34)
[2022-05-09] MEDS: FLUDROCORTISONE 0.1 MG TAB PO SCH (07:58)
[2022-05-09] MEDS: CLOPIDOGREL 75 MG TABLET PO SCH (07:58)
[2022-05-09] MEDS: AMLODIPINE 5 MG TAB PO SCH (08:00)
[2022-05-09] MEDS: lisinopriL 10 MG TAB PO SCH (08:00)
[2022-05-09 09:47] VITALS: BP 91/72
[2022-05-09] MEDS: BISACODYL 10 MG RECTAL SUPP PR PRN (13:34)
== END 2022-05-09 16:40 | DRG 57 ==
LOC: 5TH 04-28 13:00 → UNDOADMIN 04-28 13:25 → 5TH 04-28 13:25
PROVIDERS: ADMIT Psychiatry & Neurology Neurology with Special Qualifications in Child Neurology; ATTEND Psychiatry & Neurology Neurology with Special Qualifications in Child Neurology
DX: I69.351 Hemiplegia and hemiparesis following cerebral infarction affecting right dominant side (principal); N17.9 Acute kidney failure, unspecified; W01.0XXA Fall on same level from slipping, tripping and stumbling without subsequent striking against object, initial encounter; Y92.230 Patient room in hospital as the place of occurrence of the external cause; I10 Essential (primary) hypertension; I25.10 Atherosclerotic heart disease of native coronary artery without angina pectoris; Z95.1 Presence of aortocoronary bypass graft
CPT/HCPCS: 36415; 70450; 70551; 72100; 73521; 80048; 81001; 82040; 82947; 83735; 84134; 85025; 87086; 87088; 92523; 92526; 93005; 97110; 97112; 97116; 97161; 97165; 97530; 97542; J1650; J2001; J7030; U0003

== ENCOUNTER 2022-05-14 10:45 | Inpatient (IN) | payer OTHER ==
--- OUTSIDE RECORDS SUMMARY | 2022-05-14 10:49 | XMS REPORT | Continuity of Care Document ---
:1945 Author Organization [facility] [place] [facility] t Address [address] [place] [address] Dr. Sam[address] [place] [address] Care Team Providers Name Role Phone Jabier Henry MD Primary Care Physician Doctor Unassigned, [place] Attending Clinician Unavailable JABIER HENRY Attending Clinician Unavailable MAIRA NUÑEZ Attending Clinician Unavailable Maira Manriquez Attending Clinician Jabier Henry MD Attending Clinician MAIRA NUÑEZ Admitting Clinician Unavailable Payers Payer Name Policy Type Policy Number Effective Date Expiration Date S ource Problems Condition Condition Condition Status Onset Resolution Last Treating Co mments Source Name Details Category Date Date Treatment Clinician Date Left leg Left leg Disease Active Unive rs weakness weakness 7-01 ity of 00:00: [place] 00 Medical Branch Gastroesop Gastroesop Disease Active 2020-09 U nivers hageal hageal 0-19 ity of reflux reflux 00:00: [place] disease disease 00 Medical Branch BPH BPH Disease Active Univers associated associated 4-23 it y of with with 00:00: [place] nocturia nocturia 00 Medica l Branch Dyspnea, Dyspnea, Disease Active Overview: Un janelle unspecifie unspecifie 9-17 Formattin ity of d type d type 00:00: g of this [place] 00 note Medical might be Branch different from the original. 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 0-12 ity of 00:00: [address] Branch Chronic Chronic Disease Active 2014-09 Univers back pain back pain 0-12 ity of 00:00: [address] Branch Essential Essential Disease Active 2014-09 Uni vers hypertensi hypertensi 0-12 it y of on on 00:00: [address] Branch 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 Lower Lower Diagnosis Active Common urinary urinary Spirit tract tract - [facility] symptoms symptoms St (LUTS) (LUTS) [facility] Low Low Diagnosis Active Common testostero testostero Sp felipe ne in male ne in male [facility] Urinary Urinary Diagnosis Active Commo n tract tract Spirit infection infection - CH I without without St hematuria, hematuria, Regi kes site site Medical unspecifie unspecifie Ce nter d d Urine Urine Diagnosis Active Common retention retention Spir [facility] Allergies, Adverse Reactions, Alerts Allergy Allergy Status Severity Reaction(s) Onset Inactive Treating Comm ents Source Name Type Date Date Clinician NO KNOWN Drug Active Univers ALLERGIE Class ity of S [place] [facility] Social History Social Habit Start Date Stop Date Quantity Comments Source Exposure to 2022-03-26 2022-04-05 Not sure University of SARS-CoV-2 00:00:00 12:23:00 [place] Medical (event) Branch Alcohol intake 2022-03-03 2022-03-03 Current University of 00:00:00 00:00:00 non-drinker of [facility] alcohol (finding) Branch Tobacco use and 2015-07-02 2015-07-02 Smokeless tobacco Un iversity of exposure 00:00:00 00:00:00 non-user [facility] Sex [birth year] At [birth year] Universit y of 00:00:00 00:00:00 [place] [facility] Smoking Status Start Date Stop Date Source Never smoked tobacco [facility] [place] Medications Ordered Filled Start Stop Current Ordering Indication Dosage Frequency Signature Comments Components Source Medication Medication Date Date Medication? Clinician (SIG) Name Name cyanocobala 2021- No [id number] 1000ug Univers min 04-05 ity of (VITAMIN 18:45: 19:34 [place] B12) 00 :00 Medical injection Branch 1,000 mcg testosteron 2021- No [id number] 260mg Univers e cypionate 04-05 ity of (DEPO-TESTO 18:45: 19:34 [place] STERONE) 00 :00 Medical injection Branch 260 mg testosteron 2021- No [id number] 260mg 260 mg, Univers e cypionate 04-05 Intramuscu i ty of (DEPO-TESTO 18:45: 19:34 lar, ONCE, [place] STERONE) 00 :00 1 dose, On Medic al injection Sun04/05/22 Bran ch 260 mg at 1345, Routine cyanocobala 2021- No [id number] 1000ug 1,000 mcg, Univers min 04-05 Intramuscu ity of (VITAMIN 18:45: 19:34 [place] B12[place] 00 :00 1 dose, On Medical injection Sun04/05/22 Bran ch 1,000 mcg at 1345, Routine cyanocobala 2021- No [id number] 1000ug Univers min 04-05 ity of (VITAMIN 18:45: 19:34 [place] B12) 00 :00 Medical injection Branch 1,000 mcg testosteron 2021- No [id number] 260mg Univers e cypionate 04-05 ity of (DEPO-TESTO 18:45: 19:34 [place] STERONE) 00 :00 Medical injection Branch 260 mg testosteron 2021- No [id number] 260mg 260 mg, Univers e cypionate 04-05 Intramuscu i ty of (DEPO-TESTO 18:45: 19:34 lar, ONCE, [place] STERONE) 00 :00 1 dose, On Medic al injection Sun04/05/22 Bran ch 260 mg at 1345, Routine cyanocobala 2021- No [id number] 1000ug 1,000 mcg, Univers min 04-05 Intramuscu ity of (VITAMIN 18:45: 19:34 [place] B12[place] 00 :00 1 dose, On Medical injection Sun04/05/22 Bran ch 1,000 mcg at 1345, Routine atorvastati Yes [id number] 80mg Take 1 Univers n 80 mg 7- [id number] tablet by ity o f tablet 00:00: mouth at [place] 00 bedtime. Medical Branch levocetiriz Yes [id number] 2.5mg Take 0.5 Univers ine 5 mg 7- [id number] tablets by ity of tablet 00:00: mouth [place] 00 every Medical evening as Branch needed for Other (itching). atorvastati Yes [id number] 80mg Take 1 Univers n 80 mg 7- [id number] tablet by ity o f tablet 00:00: mouth at [place] 00 bedtime. Medical Branch levocetiriz Yes [id number] 2.5mg Take 0.5 Univers ine 5 mg 7- [id number] tablets by ity of tablet 00:00: mouth [place] 00 every Medical evening as Branch needed for Other (itching). atorvastati Yes [id number] 80mg Take 1 Univers n 80 mg 7-03 079972 tablet by ity o f tablet 00:00: mouth at [place] 00 bedtime. Medical Branch levocetiriz Yes [id number] 2.5mg Take 0.5 Univers ine 5 mg 7- [id number] tablets by ity of tablet 00:00: mouth [place] 00 every Medical evening as Branch needed for Other (itching). atorvastati 0 Yes [id number] 80mg Take 1 Univers n 80 mg 7- [id number] tablet by ity o f tablet 00:00: mouth at [place] 00 bedtime. Medical Branch levocetiriz 0 Yes [id number] 2.5mg Take 0.5 Univers ine 5 mg 7- [id number] tablets by ity of tablet 00:00: mouth 00 every Medical evening as Branch needed for Other (itching). SERTRALINE Yes [id number] 50mg TAKE 1 U nivers 50 mg 6-27 TABLET BY ity of tablet 00:00: MOUTH DAILY Medical Branch SERTRALINE Yes [id number] 50mg TAKE 1 U nivers 50 mg 6-27 TABLET BY ity of tablet 00:00: MOUTH DAILY Medical Branch SERTRALINE Yes [id number] 50mg TAKE 1 U nivers 50 mg 6-27 TABLET BY ity of tablet 00:00: MOUTH DAILY Medical Branch SERTRALINE Yes [id number] 50mg TAKE 1 U nivers 50 mg 6-27 TABLET BY ity of tablet 00:00: MOUTH DAILY Medical Branch HYDROCORTIS Yes [id number] APPLY TO Univers ONE 2.5 % 6-01 AFFECTED ity of cream 00:00: AREA TWICE [place] DAILY Medical Branch meclizine Yes [id number] 12.5mg Take 1 Univers 12.5 mg 6-01 tablet by ity of tablet 00:00: mouth 3 (three) Medical times Branch daily as needed for Dizziness. HYDROCORTIS Yes [id number] APPLY TO Univers ONE 2.5 % 6-01 AFFECTED ity of cream 00:00: AREA TWICE [place] DAILY Medical Branch meclizine Yes [id number] 12.5mg Take 1 Univers 12.5 mg 6-01 tablet by ity of tablet 00:00: mouth 3 [place] (three) Medical times Branch daily as needed for Dizziness. HYDROCORTIS 0 Yes [id number] APPLY TO Univers ONE 2.5 % 6-01 AFFECTED ity of cream 00:00: AREA TWICE DAILY Medical Branch meclizine Yes [id number] 12.5mg Take 1 Univers 12.5 mg 6-01 tablet by ity of tablet 00:00: mouth 3 [place] 00 (three) Medical times Branch daily as needed for Dizziness. HYDROCORTIS 2021-0 Yes [id number] APPLY TO Univers ONE 2.5 % 6-01 AFFECTED ity of cream 00:00: AREA TWICE [place] 00 DAILY Medical Branch meclizine 2021-0 Yes [id number] 12.5mg Take 1 Univers 12.5 mg 6-01 tablet by ity of tablet 00:00: mouth 3 [place] 00 (three) Medical times Branch daily as needed for Dizziness. ciprofloxac 2021-0 Yes [id number] 500mg Take 1 Univers in HCl 3-08 tablet by ity of (CIPRO) 500 00:00: mouth [place] mg tablet 00 every 12 Medica l (twelve) Branch hours. ciprofloxac 2021-0 Yes [id number] 500mg Take 1 Univers in HCl 3-08 tablet by ity of (CIPRO) 500 00:00: mouth [place] mg tablet 00 every 12 Medica l (twelve) Branch hours. ciprofloxac 2021-0 Yes [id number] 500mg Take 1 Univers in HCl 3-08 tablet by ity of (CIPRO) 500 00:00: mouth [place] mg tablet 00 every 12 Medica l (twelve) Branch hours. ciprofloxac 2021-0 Yes [id number] 500mg Take 1 Univers in HCl 3-08 tablet by ity of (CIPRO) 500 00:00: mouth [place] mg tablet 00 every 12 Medica l (twelve) Branch hours. amLODIPine 2021-0 Yes [id number] 2.5mg Take 1 Univers 2.5 mg 1-28 tablet by ity of tablet 00:00: mouth [place] 00 daily. Medical Branch clopidogreL 2021-0 Yes [id number] 75mg Take 1 Univers 75 mg 1-28 tablet by ity of tablet 00:00: mouth [place] 00 daily. Medical Branch amLODIPine 2021-0 Yes [id number] 2.5mg Take 1 Univers 2.5 mg 1-28 tablet by ity of tablet 00:00: mouth [place] 00 daily. Medical Branch clopidogreL 2-0 Yes [id number] 75mg Take 1 Univers 75 mg 1-28 tablet by ity of tablet 00:00: mouth [place] 00 daily. Medical Branch amLODIPine 0 Yes [id number] 2.5mg Take 1 Univers 2.5 mg 1-28 tablet by ity of tablet 00:00: mouth [place] 00 daily. Medical Branch clopidogreL 0 Yes [id number] 75mg Take 1 Univers 75 mg 1-28 tablet by ity of tablet 00:00: mouth [place] 00 daily. Medical Branch amLODIPine 0 Yes [id number] 2.5mg Take 1 Univers 2.5 mg 1-28 tablet by ity of tablet 00:00: mouth [place] 00 daily. Medical Branch clopidogreL 0 Yes [id number] 75mg Take 1 Univers 75 mg 1-28 tablet by ity of tablet 00:00: mouth [place] 00 daily. Medical Branch ALPRAZOLAM 2020-09 Yes [id number] TAKE 1/2 Univers 2 mg tablet 2-13 TABLET BY ity of 00:00: MOUTH [place] 00 EVERY Medical NIGHT AT Branch BEDTIME NEEDED FOR SLEEP OR ANXIETY ALPRAZOLAM 2020-09 Yes [id number] TAKE 1/2 Univers 2 mg tablet 2-13 TABLET BY ity of 00:00: MOUTH [place] 00 EVERY Medical NIGHT AT Branch BEDTIME NEEDED FOR SLEEP OR ANXIETY ALPRAZOLAM 2020-09 Yes [id number] TAKE 1/2 Univers 2 mg tablet 2-13 TABLET BY ity of 00:00: MOUTH [place] 00 EVERY Medical NIGHT AT Branch BEDTIME NEEDED FOR SLEEP OR ANXIETY ALPRAZOLAM 2020-09 Yes [id number] TAKE 1/2 Univers 2 mg tablet 2-13 TABLET BY ity of 00:00: MOUTH [place] 00 EVERY Medical NIGHT AT Branch BEDTIME NEEDED FOR SLEEP OR ANXIETY pantoprazol 0 Yes [id number] 40mg Take 1 Univers e 40 mg EC 6-03 tablet by ity of tablet 00:00: mouth [place] 00 daily. Medical Branch pantoprazol 0 Yes [id number] 40mg Take 1 Univers e 40 mg EC 6-03 tablet by ity of tablet 00:00: mouth [place] 00 daily. Medical Branch pantoprazol 0 Yes [id number] 40mg Take 1 Univers e 40 mg EC 6-03 tablet by ity of tablet 00:00: mouth [place] 00 daily. Medical Branch pantoprazol 0 Yes [id number] 40mg Take 1 Univers e 40 mg EC 6-03 tablet by ity of tablet 00:00: mouth [place] 00 daily. Medical Branch Alfuzosin Alfuzosin 2020- No Brielle 1 tablet Common HCl ER HCl ER [id number] 06-16 [place] immediatel Spirit 00:00: 00:00 y after - [facility]I 00 :00 the same [facility] Tamsulosin Tamsulosin 2020- No [place] 1 capsule Common HCl HCl 2 08-09 [place] [facility] 00:00: 00:00 - [facility] 00 :00 [facility] fluocinonid 2018- Yes [id number] Apply to Univers e 0.05 % 1-18 area(s) 2 ity of cream 00:00: (two) [place] 00 times Medical daily. Branch fluocinonid 2018-09 Yes [id number] Apply to Univers e 0.05 % 1-18 area(s) 2 ity of cream 00:00: (two) [place] 00 times Medical daily. Branch fluocinonid 2018-09 Yes [id number] Apply to Univers e 0.05 % 1-18 area(s) 2 ity of cream 00:00: (two) [place] 00 times Medical daily. Branch fluocinonid 2018-09 Yes [id number] Apply to Univers e 0.05 % 1-18 [...] mg tablet 00 Medical Branch tamsulosin Yes [id number] .4mg Take 1 Univers 0.4 mg 24 4 capsule by ity of hr capsule 00:00: mouth [place] 00 daily. Medical Branch tamsulosin 2018-0 Yes [id number] .4mg Take 1 Univers 0.4 mg 24 4-23 01 capsule by ity of hr capsule 00:00: mouth daily. Medical Branch tamsulosin 2019-0 Yes [id number] .4mg Take 1 Univers 0.4 mg 24 4-23 01 capsule by ity of hr capsule 00:00: mouth daily. Medical Branch tamsulosin 2019-0 Yes [id number] .4mg Take 1 Univers 0.4 mg 24 4-23 01 capsule by ity of hr capsule 00:00: mouth daily. Medical Branch lidocaine-p 2019-0 Yes Apply to Un janelle rilocaine 4-10 area(s) ity of 2.5-2.5 % 00:00: daily. [place] cream 00 Medical Branch lidocaine-p 2019-0 Yes Apply to Un janelle rilocaine 4-10 area(s) ity of 2.5-2.5 % 00:00: daily. [place] cream Medical Branch lidocaine-p 2019-0 Yes Apply to Un janelle rilocaine 4-10 area(s) ity of 2.5-2.5 % 00:00: daily. [place] cream Medical Branch lidocaine-p 2019-0 Yes Apply to Un janelle rilocaine 4-10 area(s) ity of 2.5-2.5 % 00:00: daily. [place] cream 00 Medical Branch oxybutynin 2018-0 Yes 5mg Take 1 Unive rs chloride 5 7-02 tablet by ity of mg tablet 00:00: mouth 3 (three) Medical times Branch daily as needed for Bladder spasms. oxybutynin 2018-0 Yes 5mg Take 1 Unive rs chloride 5 7-02 tablet by ity of mg tablet 00:00: mouth 3 (three) Medical times Branch daily as needed for Bladder spasms. oxybutynin 2018-0 Yes 5mg Take 1 Unive rs chloride 5 7-02 tablet by ity of mg tablet 00:00: mouth 3 (three) Medical times Branch daily as needed for Bladder spasms. oxybutynin 2018-0 Yes 5mg Take 1 Unive rs chloride 5 7-02 tablet by ity of mg tablet 00:00: mouth 3 (three) Medical times Branch daily as needed for Bladder spasms. finasteride 2018-0 Yes [id number] 5mg Take 1 Univers 5 mg tablet 4-09 tablet by ity of 00:00: mouth [place] 00 daily. Medical Branch finasteride Yes [id number] 5mg Take 1 Univers 5 mg tablet 4-09 tablet by ity of 00:00: mouth [place] 00 daily. Medical Branch finasteride Yes [id number] 5mg Take 1 Univers 5 mg tablet 4-09 tablet by ity of 00:00: mouth [place] 00 daily. Medical Branch finasteride Yes [id number] 5mg Take 1 Univers 5 mg tablet [...] Brielle 1 tablet Common Besylate Besylate Alicja [facility] Pantoprazol Pantoprazol Yes Brielle 1 tablet Common e Sodium e Sodium Alicja [facility] HydrOXYzine HydrOXYzine Yes Brielle 1 tablet Common HCl HCl [place] as needed [facility] Yes Brielle as Common Silver Silver [place] directed [facility] Methadone Methadone Yes Brielle 1 tablet Common HCl HCl Alicja [facility] Ranolazine Ranolazine Yes Brielle 1 tablet Common ER ER Alicja [facility] Aspir-81 Aspir-81 Yes Brielle 1 tablet Co mmon [place] [facility] Testosteron Testosteron Yes Brielle as Common e e Alicja directed [facility] Clopidogrel Clopidogrel Yes Brielle 1 tablet Common Bisulfate Bisulfate Alicja [facility] Metoprolol Metoprolol Yes Brielle 1 capsule Common Succinate Succinate Alicja [facility] Immunizations Ordered Filled Immunization Date Status Comments [facility] e Immunization Name Name Influenza Virus [...] Completed Unive rsity of PFIZER VACCINE 00:00:00 [facility] SARS-COV-2 COVID-19 2021-08-10 Completed Unive rsity of PFIZER VACCINE 00:00:00 [facility] SARS-COV-2 COVID-19 2021-08-10 Completed Unive rsity of PFIZER VACCINE 00:00:00 [facility] SARS-COV-2 COVID-19 2021-08-10 Completed Unive rsity of PFIZER VACCINE 00:00:00 [facility] SARS-COV-2 COVID-19 2020-11-05 Completed Unive rsity of PFIZER VACCINE 00:00:00 [facility] SARS-COV-2 COVID-19 2020-11-05 Completed Unive rsity of PFIZER VACCINE 00:00:00 [facility] SARS-COV-2 COVID-19 2020-11-05 Completed Unive rsity of PFIZER VACCINE 00:00:00 [facility] SARS-COV-2 COVID-19 2020-11-05 Completed Unive rsity of PFIZER VACCINE 00:00:00 [facility] SARS-COV-2 COVID-19 2020-10-15 Completed Unive rsity of PFIZER VACCINE 00:00:00 [facility] SARS-COV-2 COVID-19 2020-10-15 Completed Unive rsity of PFIZER VACCINE 00:00:00 [facility] SARS-COV-2 COVID-19 2020-10-15 Completed Unive rsity of PFIZER VACCINE 00:00:00 [facility] SARS-COV-2 COVID-19 2020-10-15 Completed Unive rsity of PFIZER VACCINE 00:00:00 [facility] Influenza High Dose 2020-09-02 Completed Unive rsity of Quad 00:00:00 [facility] Influenza High Dose 2020-09-02 Completed Unive rsity of [place] 00:00:00 [facility] Influenza High Dose 2020-09-02 Completed Unive rsity of [place] 00:00:00 [facility] Influenza High Dose 2020-09-02 Completed Unive rsity of [place] 00:00:00 [facility] Pneumococcal 2019-06-25 Completed University o f Polysaccharide, 00:00:00 [place] Med ical PPSV23 (PNEUMOVAX) Branch Influenza High Dose 2019-06-25 Completed Unive rsity of 00:00:00 [facility] Pneumococcal 2019-06-25 Completed University o f Polysaccharide, 00:00:00 [place] Med ical PPSV23 (PNEUMOVAX) Branch Influenza High Dose 2019-06-25 Completed Unive rsity of 00:00:00 [facility] Pneumococcal 2019-06-25 Completed University o f Polysaccharide, 00:00:00 [place] Med ical PPSV23 (PNEUMOVAX) Branch Influenza High Dose 2019-06-25 Completed Unive rsity of 00:00:00 [facility] Pneumococcal 2019-06-25 Completed University o f Polysaccharide, 00:00:00 [place] Med ical PPSV23 (PNEUMOVAX) Branch Influenza High Dose 2019-06-25 Completed Unive rsity of 00:00:00 [facility] Vital Signs Vital Name Observation Time Observation Value Comments Source Body temperature 2022-04-12 18:21:00 36.61 Diandra Univ ersity of [facility] Systolic blood 2022-04-12 18:19:00 121 mm[Hg] Univer sity of pressure [facility] Diastolic blood 2022-04-12 18:19:00 85 mm[Hg] Unive rsity of pressure [facility] Heart rate 2022-04-12 18:19:00 91 [facility] Respiratory rate 2022-04-12 18:19:00 18 /min [facility] Body height 2022-04-12 18:19:00 172.7 cm Universi ty [facility] [place] Body weight 2022-04-12 18:19:00 62.596 kg Universi [facility] BMI 2022-04-12 18:19:00 20.98 kg/m2 [facility] Oxygen saturation in 2022-04-12 18:19:00 96 /min [facility] Arterial blood by [facility] Pulse oximetry Branch Systolic blood 2022-04-05 17:15:00 136 mm[Hg] [facility] Diastolic blood 2022-04-05 17:15:00 77 mm[Hg] [facility] Heart rate 2022-04-05 17:15:00 82 /min [facility] Body weight 2022-04-05 17:15:00 59.784 kg [facility] BMI 2022-04-05 17:15:00 20.04 kg/m2 [facility] Procedures Procedure Date / Time Performed Performing Clinician Sour e EXTERNAL PROVIDER 2022-05-11 05:01:00 Doctor Unassigned, No Univ [facility] RECORDS Name Medical Branch URINALYSIS 2022-04-12 21:11:00 Maira Nuñez [facility] HB ECG ROUTINE & 2022-04-12 19:01:56 Maira Nuñez [facility] RHYTHM STRIP [facility] XR CHEST 1 VW 2022-04-12 18:41:36 Maira Nuñez [facility] LIPASE 2022-04-12 18:30:00 Maira Nuñez [facility] TROPONIN I 2022-04-12 18:30:00 [facility] COMP. METABOLIC PANEL 2022-04-12 18:30:00 Maira Nuñez [facility] ([id number]) Medical [place] CBC WITH DIFF 2022-04-12 18:30:00 Maira Nuñez [facility] Encounters Start End Encounter Admission Attending Care Care Encounter Source Date/Time Date/Time Type Type Clinicians Facility Department ID 2021-09-28 Outpatient [facility] [id number] Common 11:07:04 [id number] [facility] 2022-05-11 2022-05-11 Orders Doctor LESLYE [id number] Univers 00:00:00 00:00:00 Only Unassigned, CHAI [id number] ity of [facility] [id number] [facility] 009 [place] 2022-05-03 2022-05-03 [facility] [id number] Univers 12:30:00 12:30:00 JABIER [facility] 2022-04-12 2022-04-12 Emergency X [facility] ERT [id number] Univers 13:22:00 16:36:00 MAIRA sadie [facility] 2022-04-12 2022-04-12 Emergency [facility] [id number] Univers 13:22:00 16:36:00 Maira SHAR[place] [id number] i ty of [place] [id number] [id number] [address] 2022-04-05 2022-04-05 [facility] [id number] Univers 12:15:00 13:00:56 Visit [facility] [id number] it y of [place] 4.2.7.2.686 Abel as YOHAN?BLEA [id number] [address] MEDICAL OFFICE BUILDING 2019-11-19 2019-11-19 Out[facility] [id number] Common 11:45:00 11:45:00 t Specialty/U Sp felipe Specialty rology - [facility] /[facility] 2019-10-15 2019-10-15 [facility] [id number] Common 09:41:00 09:41:00 t Specialty/U Sp felipe Specialty rology - [facility] /[facility] 2019-10-14 2019-10-14 Outpatient Albert Pacnhal 29 [id number] Common 14:00:00 14:00:00 t Specialty/U Sp felipe Specialty rology - [facility] /[facility] Results Test Description Test Time [...] 34.3 g/dL 31.2-35 RDW-SD (test code = 80489-2) 44.2 fL 38.5-51.6 RDW-CV (test code = 788-0) 13.5 % 12.1-15.4 PLT (test code = 777-3) See_Comment [Au tomated message] The system which ge nerated this result transmit patricio reference range: 150 - 32 8 10*3/?L. The reference range was not used to interpret th is result as normal/abnormal . MPV (test code = 11636-7) 10.4 fL 9.8-13 NRBC/100 WBC (test code = See_Comment [ Automated message] The [id number]) system which ge nerated this result transmit patricio reference range: 0.0 - 10 .0 /100 WBCs. The reference r sen was not used to interpr et this result as normal/abnor mal. NRBC x10^3 (test code = See_Comment [Au tomated message] The [id number]) system which ge nerated this result transmit patricio reference range: 10*3/?L. The reference range was not u sed to interpret this result as normal/abnormal . GRAN MAT (NEUT) % (test code 76.9 % = 770-8) IMM GRAN % (test code = 0.40 % 4069337518) LYMPH % (test code = 736-9) 14.3 % MONO % (test code = 5905-5) 7.7 % EOS % (test code = 713-8) 0.3 % BASO % (test code = 706-2) 0.4 % GRAN MAT x10^3(ANC) (test 5.28 10*3/uL 1.99-6.95 code = 7634749093) IMM GRAN x10^3 (test code = 0.03 10*3/uL 0-0.06 6256283007) LYMPH x10^3 (test code = 0.98 10*3/uL 1.09-3.23 L 731-0) MONO x10^3 (test code = 0.53 10*3/uL 0.36-1.02 742-7) EOS x10^3 (test code = 0.06-0.53 L 711-2) BASO x10^3 (test code = 0.03 10*3/uL 0.01-0.09 704-7) Lab Interpretation (test Abnormal code = 72437-2) [facility] [id number] 19:17:13 Test Item Value Reference Interpretation Comments Range TROPONIN I (test 0.029 ng/mL See_Comment [Automated code = 3542047690) message] The system which generated this result [...] biotin. Lab Interpretation Normal (test code = 87123-2) [facility] [place] [facility]. METABOLIC PANEL (38100)2022-04-12 19:05:30 Test Item Value Reference Range Interpretation Comments NA (test code = 141 mmol/L 135-145 8803184313) K (test code = 3.8 mmol/L 3.5-5 0734164710) CL (test code = 103 mmol/L 98-108 4698657275) CO2 TOTAL (test code = 29 mmol/L 23-31 4342786443) AGAP (test code = 2-16 1440713711) BUN (test code = 25 mg/dL 7-23 H 7737487765) GLUCOSE (test code = 108 mg/dL 70-110 6280247002) CREATININE (test code = 1.47 mg/dL 0.6-1.25 H 8330398234) TOTAL BILI (test code = 2.1 mg/dL 0.1-1.1 H 7962152445) CALCIUM (test code = 9.5 mg/dL 8.6-10.6 5728162595) T PROTEIN (test code = 6.5 g/dL 6.3-8.2 8805696428) ALBUMIN (test code = 4.0 g/dL 3.5-5 1468406025) ALK PHOS (test code = 80 U/L 34-122 4325301278) ALTv (test code = 29 U/L 5-50 1742-6) AST(SGOT) (test code = 33 U/L 13-40 0001032407) eGFR (test code = mL/min/1.73m2 7559393437) SONAL (test code = SONAL) Association of [...] tests). Lab Interpretation Abnormal (test code = 49534-6) [facility] Test Item Value Reference Range Interpretation Comments LIPASE (test code = 8825925351) 343 U/L 0-220 H Lab Interpretation (test code = Abnormal 07714-0) [facility]"
[2022-05-14] MEDS ORDERED: FOLIC ACID 5 MG/ML VIAL ONE (11:23)
[2022-05-14] MEDS ORDERED: NA CHLORIDE 0.9% 1,000 ML ONE ×2 (11:23→13:20)
--- NOTE | 2022-05-14 11:35 | RAD REPORT ---
EXAM DESCRIPTION: CT - Ct Stroke Brain Wo Cont - 05/14/2022 11:25 am CLINICAL HISTORY: Altered mental status Headache, drowsiness, CVA symptomology COMPARISON: Head Brain Wo Cont dated 05/02/2022; Head Brain Wo Cont dated 04/23/2022; Brain Wo Cont da patricio 05/03/2022 TECHNIQUE: All CT scans are performed using dose optimization technique as appropriate and may inclu de automated exposure control or mA/KV adjustment according to patient size. FINDINGS: No intracranial hemorrhage, hydrocephalus or extra-axial fluid collection.Old infarct is n oted in the region of the right parietal lobe. Small old infarcts also seen in both cerebral hemisphe res. Mild brain atrophy with mild periventricular deep white matter chronic microvascular ischemic ch anges.No midline shift is evident. The paranasal sinuses and mastoids are clear except for a small amount of fluid in the sphenoid sinus . . The calvarium is intact. IMPRESSION: No acute intracranial abnormality. Evidence of multiple areas of old infarction noted. If there is continued clinical concern for CVA, MR imaging of the brain would be recommended. The findings were discussed with Dr Pimentel in the ER on 05/14/2022 at 11:30 a.m. by telephone.
[2022-05-14 11:36] LABS: Absolute Lymphocytes (CBC) 0.6 K/uL (0.7-4.9); Hematocrit 46.7 % (39.6-49.0); Lymphocytes % 2.7 % (15.3-44.8); MCV 91.8 fL (80-100); MPV 7.4 fL (7.6-11.3); Protime INR 1.51; RBC Red Blood Cell Count 5.09 M/uL (4.33-5.43)
[2022-05-14 11:54] LABS: SARS-CoV-2 Antigen Rapid Res Negative (Negative)
[2022-05-14 12:07] LABS: Albumin 3.2 g/dL (3.4-5.0); Bilirubin Direct 0.3 mg/dL (0-0.2); Bilirubin Total 0.8 mg/dL (0.2-1.0); Magnesium 2.8 mg/dL (1.8-2.4); Protein, Total 6.4 g/dL (6.4-8.2)
[2022-05-14 12:09] LABS: Potassium 4.3 mmol/L (3.5-5.1); Troponin High Sensitivity 10.1 pg/mL (<58.9)
--- NOTE | 2022-05-14 12:13 | ER ---
Nurse's Notes [facility] Name: Fritz Laws Age: 77 yrs Sex: Male : 1945 Arrival Date: 05/14/2022 Time: 10:45 Bed 6 Private MD: Diagnosis: Weakness;Altered mental status, unspecified;Elevated white blood cell count;Dehydration;Acute kidney failure, unspecified-on chronic;Bandemia;UTI/ Urinary tract infection, site not specified Presentation: 05/14 10:59 Chief complaint: EMS states: EMS called out for pt not wanting to walk or talk much jh this am. Pt does have Hx of CVA. Pt alert to person and place. speaking slow but clear, reporting mouth is dry. States that he does not feel confused and just feels tired. Coronavirus screen: Vaccine status: Patient reports receiving the 2nd dose of the covid vaccine. Ebola Screen: Patient negative for fever greater than or equal to 101.5 degrees Fahrenheit, and additional compatible Ebola Virus Disease symptoms Patient denies exposure to infectious person. Patient denies travel to an Ebola-affected area in the 21 days before illness onset. Initial Sepsis Screen: Does the patient meet any 2 criteria? HR > 90 bpm. Yes Does the patient have a suspected source of infection? No. Patient's initial sepsis screen is negative. Risk Assessment: Do you want to hurt yourself or someone else? Patient reports no desire to harm self or others. Onset of symptoms was May 14, 2022. 10:59 Method Of Arrival: EMS: [place] [id number] 10:59 Acuity: MARTIN 3 6 Triage Assessment: 11:03 General: Appears in no apparent distress. Behavior is calm, cooperative. Pain: Denies [facility] pain. Neuro: Level of Consciousness is awake, alert, obeys commands, Oriented to person, place, situation, [employer] Out[employer] Super[employer] are equal bilaterally Moves all extremities. Speech. Cardiovascular: Capillary refill < 3 seconds Clubbing of nail beds is absent JVD is absent Patient's skin is warm and dry. Rhythm is BIGEMINY. Historical: - PMHx: 11:03 Hypertensive disorder; jh6 - PSHx: 11:03 CABG; [facility] - Immunization history:: Adult Immunizations up to date. - Social history:: Smoking status: unknown. Screenin:05 Abuse screen: Denies threats or abuse. Denies injuries from another. Nutritional jh6 screening: No deficits noted. Tuberculosis screening: No symptoms or risk factors identified. Fall Risk Secondary diagnosis (15 points) CVA, IV access (20 points). Assessment: 11:05 General: Appears in no apparent distress. SEE TRIAGE NOTE. jh6 12:00 Reassessment: No changes from previously documented assessment. Patient and/or family 6 updated on plan of care and expected duration. Pain level reassessed. Patient is alert, oriented x 3, equal unlabored respirations, skin warm/dry/pink. pt when asked if he could give a urine sample stated that he was going to have to cathed. 13:00 Reassessment: No changes from previously documented assessment. Patient and/or family jh6 updated on plan of care and expected duration. Pain level reassessed. attempted twice for cath UA sample. Coud Cath used for sample. 14:00 Reassessment: No changes from previously documented assessment. jh6 15:00 Reassessment: No changes from previously documented assessment. Patient and/or family 6 updated on plan of care and expected duration. Pain level reassessed. Patient is alert, oriented x 3, equal unlabored respirations, skin warm/dry/pink. pt able to drink small amounts of water and states that she hasn't been hungry. 16:00 Reassessment: Patient and/or family updated on plan of care and expected duration. Pain jh6 level reassessed. Patient is alert, oriented x 3, equal unlabored respirations, skin warm/dry/pink. 17:00 Reassessment: No changes from previously documented assessment. Patient and/or family 6 updated on plan of care and expected duration. Pain level reassessed. Patient is alert, oriented x 3, equal unlabored respirations, skin warm/dry/pink. pt able to sit up and eat 20% of dinner and drink tea, no complaints when asked. pt alert and oriented to surroundings. 19:45 General: attempted to call report . as6 Vital Signs: 10:59 BP 175 / 103; Pulse 104; Resp 18; Temp 97.5(O); Pulse Ox 100% on R/A; Weight 79.38 kg; jh6 Height 5 ft. 8 in. (172.72 cm); Pain 0/10; 12:00 BP 135 / 80; Pulse 88; Resp 16; Pulse Ox 100% ; jh6 13:00 BP 101 / 86; Pulse 85; Resp 18; Pulse Ox 100% ; Pain 0/10; jh6 18:34 BP 116 / 71; Pulse 108; Resp 16; Pulse Ox 100% ; jh6 19:32 BP 124 / 75; Pulse 104; Resp 17 S; Pulse Ox 100% on R/A; as6 10:59 Body Mass Index 26.61 (79.38 kg, 172.72 cm) [facility] ED Course: 10:45 Patient arrived in ED. eb 10:46 Haresh Pimentel MD is Attending Physician. elif 10:59 Racquel Kennedy, GERONIMO is Primary Nurse. 6 11:03 Triage completed. 6 11:05 Arm band placed on right wrist. 6 11:06 Placed in gown. Bed in low position. Call light in reach. Side rails up X2. [facility] 11:06 Initial lab(s) drawn, by me, sent to lab. EKG done, by ED staff, reviewed by Haresh Pimentel MD. 11:15 Missed attempt(s): 20 gauge in right forearm. Bleeding controlled, band aid applied, dh3 catheter tip intact. 11:15 First set of blood cultures drawn by me. 3 11:18 Inserted saline lock: 22 gauge in right upper arm, using aseptic technique. Blood dh3 collected. 11:[address] via stretcher. jh6 11:27 CT Stroke Brain w/o Contrast In Process Unspecified. EDMS 11:[address]. [facility] 12:11 José Phoenix MD is Hospitalizing Provider. [facility] 12:33 XRAY Chest (1 view) In Process Unspecified. EDMS 14:13 CT Stone Protocol In Process Unspecified. EDMS 19:37 No provider procedures requiring assistance completed. Patient admitted, IV remains in as6 place. Administered Medications: 11:28 Drug: foLIC Acid 1 mg Route: IVPB; Site: right upper arm; [facility] 19:40 Follow up: Response: No adverse reaction; IV Status: Completed infusion; IV Intake: 94thqm9 11:29 Drug: NS 0.9% 500 ml Route: IV; Rate: bolus; Site: right upper arm; [facility] 19:40 Follow up: Response: No adverse reaction; IV Status: Completed infusion; IV Intake: as6 500ml 11:29 Drug: NS 0.9% 1000 ml Route: IV; Rate: 125 ml/hr; Site: right upper arm; 6 19:41 Follow up: Response: No adverse reaction; IV Status: Completed infusion; IV Intake: as6 1000ml 13:14 Drug: Rocephin (cefTRIAXone) 1 grams Route: IV; Rate: per protocol; Site: left forearm; 6 19:39 Follow up: Response: No adverse reaction; IV Status: Completed infusion; IV Intake: 34yvjq3 13:15 Drug: NS 0.9% 1000 ml Route: IV; Rate: 1 bolus; Site: left forearm; 6 19:39 Follow up: Response: No adverse reaction; IV Status: Completed infusion; IV Intake: as6 1000ml Medication: 11:06 VIS not applicable for this client. jh6 Intake: 19:39 IV: 50ml; Total: 50ml. as6 19:39 IV: 1000ml; Total: 1050ml. as6 19:40 IV: 500ml; Total: 1550ml. as6 19:40 IV: 50ml; Total: 1600ml. as6 19:41 IV: 1000ml; Total: 2600ml. as6 Outcome: 12:13 Decision to Hospitalize by Provider. elif 19:37 Admitted to Tele accompanied by tech, via stretcher, room 413, with chart. as6 19:37 Condition: stable 19:37 Instructed on the need for admit. 19:53 Patient left the ED. as6 Signatures: Dispatcher [employer] Haresh Mijares MD MD cha Herrera, Deanna [facility] Angelica Delaney Ashby, RN RN as6 Racquel Kennedy RN RN jh6
--- NOTE | 2022-05-14 12:13 | EDPHYS ---
Physician Documentation [facility] Name: Fritz Laws Age: 77 yrs Sex: Male : 1945 Arrival Date: 05/14/2022 Time: 10:45 Bed 6 Private MD: ED Physician Haresh Pimentel HPI: 05/14 12:07 This 77 yrs old Male presents to ER via EMS with complaints of ams, weak and elif decreased activity. Historical: - PMHx: 11:03 Hypertensive disorder; jh6 - PSHx: 11:03 CABG; 6 - Immunization history:: Adult Immunizations up to date. - Social history:: Smoking status: unknown. ROS: 12:09 Constitutional: Negative for fever, chills, and weight loss, Eyes: Negative for injury, elif pain, redness, and discharge, ENT: Negative for injury, pain, and discharge, Neck: Negative for injury, pain, and swelling, Cardiovascular: Negative for chest pain, palpitations, and edema, Respiratory: Negative for shortness of breath, cough, wheezing, and pleuritic chest pain, Abdomen/GI: Negative for abdominal pain, nausea, vomiting, diarrhea, and constipation, Back: Negative for injury and pain, : Negative for injury, bleeding, discharge, and swelling, MS/Extremity: Negative for injury and deformity, Skin: Negative for injury, rash, and discoloration, Psych: Negative for depression, anxiety, suicide ideation, homicidal ideation, and hallucinations, Allergy/Immunology: Negative for hives, rash, and allergies, Endocrine: Negative for neck swelling, polydipsia, polyuria, polyphagia, and marked weight changes, Hematologic/Lymphatic: Negative for swollen nodes, abnormal bleeding, and unusual bruising. 12:09 Neuro: Positive for altered mental status, dizziness, weakness. Exam: 12:09 Constitutional: This is a well developed, well nourished patient who is awake, alert, elif and in no acute distress. Eyes: Pupils equal round and reactive to light, extra-ocular motions intact. Lids and lashes normal. Conjunctiva and sclera are non-icteric and not injected. Cornea within normal limits. Periorbital areas with no swelling, redness, or edema. ENT: Nares patent. No nasal discharge, no septal abnormalities noted. Tympanic membranes are normal and external auditory canals are clear. Oropharynx with no redness, swelling, or masses, exudates, or evidence of obstruction, uvula midline. Mucous membranes moist. Neck: Trachea midline, no thyromegaly or masses palpated, and no cervical lymphadenopathy. Supple, full range of motion without nuchal rigidity, or vertebral point tenderness. No Meningismus. Chest/axilla: Normal chest wall appearance and motion. Nontender with no deformity. No lesions are appreciated. Cardiovascular: Regular rate and rhythm with a normal S1 and S2. No gallops, murmurs, or rubs. Normal PMI, no JVD. No pulse deficits. Respiratory: Lungs have equal breath sounds bilaterally, clear to auscultation and percussion. No rales, rhonchi or wheezes noted. No increased work of breathing, no retractions or nasal flaring. Abdomen/GI: Soft, non-tender, with normal bowel sounds. No distension or tympany. No guarding or rebound. No evidence of tenderness throughout. Back: No spinal tenderness. No costovertebral tenderness. Full range of motion. Male : Normal genitalia with no discharge or lesions. Skin: Warm, dry with normal turgor. Normal color with no rashes, no lesions, and no evidence of cellulitis. MS/ Extremity: Pulses equal, no cyanosis. Neurovascular intact. Full, normal range of motion. Neuro: Awake and alert, GCS 15, oriented to person, place, time, and situation. Cranial nerves II-XII grossly intact. Motor strength 5/5 in all extremities. Sensory grossly intact. Cerebellar exam normal. Normal gait. Psych: Awake, alert, with orientation to person, place and time. Behavior, mood, and affect are within normal limits. 12:09 Head/face: dry mm. 12:16 Radiologist reports: negative for acute changes , per Caleb asencio 12:16 Neck: ROM/movement: is normal, no acute changes, limited range of motion, is not appreciated, Meningeal signs: are not present, Kernig's sign is negative, Brudzinski's sign is negative, nuchal rigidity, is not appreciated. Vital Signs: 10:59 BP 175 / 103; Pulse 104; Resp 18; Temp 97.5(O); Pulse Ox 100% on R/A; Weight 79.38 kg; jh6 Height 5 ft. 8 in. (172.72 cm); Pain 0/10; 12:00 BP 135 / 80; Pulse 88; Resp 16; Pulse Ox 100% ; 6 13:00 BP 101 / 86; Pulse 85; Resp 18; Pulse Ox 100% ; Pain 0/10; 6 18:34 BP 116 / 71; Pulse 108; Resp 16; Pulse Ox 100% ; 6 19:32 BP 124 / 75; Pulse 104; Resp 17 S; Pulse Ox 100% on R/A; as6 10:59 Body Mass Index 26.61 (79.38 kg, 172.72 cm) 6 MDM: 10:47 Patient medically screened. elif 12:14 Differential diagnosis: CVA, TIA, Dementia, metabolic disorder, drug effects. elif Differential Diagnosis altered mental status, sepsis, flu. Differential Diagnosis: CVA, electrolyte abnormality, hypoglycemia, intracranial bleed, pneumonia, seizure, sepsis, TIA, UTI, volume depletion. Data reviewed: vital signs, nurses notes, EMS record, lab test result(s), EKG, radiologic studies, CT scan, plain films. Data interpreted: manager fund: rate is 104 beats/min, rhythm is regular, Pulse oximetry: on room air is 100 %. Test interpretation: by ED physician or midlevel provider: ECG, plain radiologic studies. Counseling: I had a detailed discussion with the patient and/or guardian regarding: the historical points, exam findings, and any diagnostic results supporting the discharge/admit diagnosis, lab results, radiology results, the need for further work-up and treatment in the hospital. 05/14 10:49 Order name: Basic Metabolic Panel; Complete Time: 13:30 [facility] 05/14 10:49 Order name: CBC with Diff; Complete Time: 13:30 [facility] 05/14 10:49 Order name: LFT's; Complete Time: 13:30 elif 05/14 10:49 Order name: Magnesium; Complete Time: 13:30 [facility] 05/14 10:49 Order name: NT PRO-BNP; Complete Time: 13:30 [facility] 05/14 10:49 Order name: PT-INR; Complete Time: 12:04 [facility] 05/14 10:49 Order name: Troponin HS; Complete Time: 13:30 [facility] 05/14 10:49 Order name: Lipase; Complete Time: 13:30 [facility] 05/14 10:49 Order name: SARS RAPID; Complete Time: 12:04 [facility] 05/14 10:49 Order name: Urine Microscopic Only; Complete Time: 14:51 [facility] 05/14 11:41 Order name: Manual Differential; Complete Time: 13:30 [facility] 05/14 12:09 Order name: Lactate; Complete Time: 13:30 [facility] 05/14 12:09 Order name: Blood Culture Adult (2) [facility] 05/14 13:06 Order name: Urine Dipstick-Ancillary; Complete Time: 13:30 [facility] 05/14 10:49 Order name: XRAY Chest (1 view); Complete Time: 13:30 [facility] 05/14 10:49 Order name: EKG; Complete Time: 10:50 [facility] 05/14 11:16 Order name: CT Stroke Brain w/o Contrast; Complete Time: 12:04 05/14 13:32 Order name: CT Stone Protocol; Complete Time: 14:51 [facility] 05/14 13:48 Order name: Urine Culture [facility] 05/14 14:07 Order name: CBC with Automated Diff [facility] 05/14 14:07 Order name: CBC with Automated Diff [facility] 05/14 14:07 Order name: Comprehensive Metabolic Panel [facility] 05/14 14:07 Order name: Comprehensive Metabolic Panel [facility] 05/14 16:50 Order name: Lactate Sepsis 2 HR Follow-up [facility] 05/14 10:49 Order name: Cardiac monitoring; Complete Time: 11:08 [facility] 05/14 10:49 Order name: EKG - Nurse/Tech; Complete Time: 11:08 [facility] 05/14 10:49 Order name: IV Saline Lock; Complete Time: 11:08 [facility] 05/14 10:49 Order name: Labs collected and sent; Complete Time: 11:08 [facility] 05/14 10:49 Order name: O2 Per Protocol; Complete Time: 11:08 [facility] 05/14 10:49 Order name: O2 Sat Monitoring; Complete Time: 11:08 [facility] 05/14 10:49 Order name: Urine Dipstick-Ancillary (obtain specimen); Complete Time: 16:16 [facility] 05/14 12:09 Order name: Misc. Order: cath ua; Complete Time: 13:15 [facility] 05/14 14:07 Order name: Heart Healthy [facility] 05/14 14:08 Order name: CONS Physician Consult [facility] 05/14 14:08 Order name: Speech Therapy Consult [facility] Administered Medications: 11:28 Drug: foLIC Acid 1 mg Route: IVPB; Site: right upper arm; [facility] 19:40 Follow up: Response: No adverse reaction; IV Status: Completed infusion; IV Intake: 36ycis6 11:29 Drug: NS 0.9% 500 ml Route: IV; Rate: bolus; Site: right upper arm; [facility] 19:40 Follow up: Response: No adverse reaction; IV Status: Completed infusion; IV Intake: as6 500ml 11:29 Drug: NS 0.9% 1000 ml Route: IV; Rate: 125 ml/hr; Site: right upper arm; [facility] 19:41 Follow up: Response: No adverse reaction; IV Status: Completed infusion; IV Intake: as6 1000ml 13:14 Drug: Rocephin (cefTRIAXone) 1 grams Route: IV; Rate: per protocol; Site: left forearm; [facility] 19:39 Follow up: Response: No adverse reaction; IV Status: Completed infusion; IV Intake: 80ucvc6 13:15 Drug: NS 0.9% 1000 ml Route: IV; Rate: 1 bolus; Site: left forearm; [facility] 19:39 Follow up: Response: No adverse reaction; IV Status: Completed infusion; IV Intake: as6 1000ml Disposition Summary: 05/14/22 12:13 Hospitalization Ordered Hospitalization Status: Inpatient Admission elif Provider: José Phoenix cha [facility] elif Condition: Fair elif Problem: new elif Symptoms: have improved elif Bed/Room Type: Standard elif Room Assignment: 413(05/14/22 18:19) dw Diagnosis - Weakness elif - Altered mental status, unspecified elif - Elevated white blood cell count elif - Dehydration elif - Acute kidney failure, unspecified - on chronic elif - Bandemia elif - UTI/ Urinary tract infection, site not specified elif Forms: - Medication Reconciliation Form elif - SBAR form elif Signatures: Dispatcher [employer] Lani Lynn RN RN dw Anderson, Corey, MD MD cha Hastedt, Jennifer, RN RN 6 Orestes Salinas RN as6 Corrections: (The following items were deleted from the chart) 18:19 12:13 elif dw
[2022-05-14 12:41] LABS: Platelet Estimate ADEQ
[2022-05-14 12:43] LABS: ACANTHOCYTE FEW; Anisocytosis SLIGHT; Blood Morphology Comment NOTED (NOT SEEN); Burr Cells FEW; Poikilocytosis SLIGHT
--- NOTE | 2022-05-14 12:45 | RAD REPORT ---
EXAM DESCRIPTION: RAD - Chest Single View - 05/14/2022 12:32 pm CLINICAL HISTORY: COUGH Chest pain. COMPARISON: Chest Single View dated 04/28/2022; Chest Single View dated 04/21/2022 FINDINGS: Portable technique limits examination quality. The lungs are grossly clear. The heart is normal in size. No displaced fractures.Evidence of prior CA BG with sternotomy wires present. IMPRESSION: No acute intrathoracic process suspected.
[2022-05-14 13:05] LABS: Urine Blood 3+ (Negative); Urine Glucose Negative (Negative); Urine Protein 2+ (Negative); Urine Specific Gravity 1.015 (1.005-1.030)
[2022-05-14] MEDS ORDERED: CEFTRIAXONE 1000 MG/VIAL ONE (13:20)
[2022-05-14 13:40] LABS: Urine RBC 21-50 /HPF (None Seen)
[2022-05-14] MEDS ORDERED: ONDANSETRON 4 MG/2 ML VIAL IV PRN (14:03)
[2022-05-14] MEDS ORDERED: ACETAMINOPHEN 500 MG TAB PO PRN (14:03)
[2022-05-14] MEDS ORDERED: MORPHINE 2 MG/ML SYR IV PRN (14:03)
--- NOTE | 2022-05-14 14:03 | P.HP ---
Certification for Inpatient Patient admitted to: Inpatient With expected LOS: >2 Midnights Patient will require the following post-hospital care: None Practitioner: I am a practitioner with admitting privileges, knowledge of patient current condition, hospital course, and medical plan of care. Services: Services provided to patient in accordance with Admission requirements found in Title 42 Section 412.3 of the Code of Federal Regulations Patient History Date of Service: 05/14/22 Reason for admission: AMS; dehydration; depression History of Present Illness: Patient is a 77-year-old gentleman who presents to the emergency room with altered mental status and acute dehydration. Patient is prerenal azotemia. Patient appeared to be dehydrated. He states he has not been eating well because he has difficulty with swallowing. He was seen in rehab by speech therapy and was tolerating his diet well there. In the ER he had a UTI and altered mental status. He has acute renal failure from dehydration. Patient has been living at [facility]. We will go ahead and hydrate him aggressively. We check his renal function. Start him on IV antibiotics. Will get physical therapy and speech therapy consultation as well. Anticipate discharge over the next 48-72 hours once his renal function improves and his infection is better controlled. He will be going back to [facility] on discharge. Allergies No Known Allergies Allergy (Verified 05/15/22 00:56) Home Medications: Amlodipine [Norvasc*] 5 mg PO DAILY tab 05/09/22 Apixaban [Eliquis *] 2.5 mg PO BID 05/09/22 Atorvastatin Calcium [Lipitor] 40 mg PO BEDTIME tab 05/09/22 Bisacodyl [Dulcolax*] 10 mg [place] DAILY PRN supp 05/09/22 Clopidogrel Bisulfate [Plavix*] 75 mg PO DAILY 05/09/22 Magnesium Oxide [Mag 0X*] 400 mg PO BID tab 05/09/22 Melatonin 5 mg PO BEDTIME PRN PRN 05/09/22 Ondansetron [Zofran (Odt)*] 4 mg PO Q6H PRN tab 05/09/22 Potassium Oral Tab [Klor-Con 10 mEq Tab*] 10 meq PO BID tab 05/09/22 Sertraline [Zoloft*] 50 mg PO BEDTIME tab 05/09/22 Tamsulosin [Flomax*] 0.4 mg PO BEDTIME cap 05/09/22 Temazepam [Restoril*] 15 mg PO BEDTIME PRN PRN cap 05/09/22 lisinopriL [Prinivil*] 5 mg PO BID #30 tab 05/09/22 Acetaminophen 650 mg PO Q6H PRN 05/15/22 Mirtazapine [Remeron] 15 mg PO BEDTIME 05/15/22 Sennosides [Senna] 2 tab PO Q24H PRN 05/15/22 Tramadol HCl [Ultram] 50 mg PO Q6H PRN 05/15/22 - Past Medical/Surgical History -: CAD -: Hypertension -: CVA -: CABG Psychosocial/ Personal History: Patient is retired and lives at home alone - Family History Father Medical History: Heart disease - Social History Smoking Status: Former smoker Alcohol use: No CD- Drugs: No Caffeine use: No Review of Systems 10-point ROS is otherwise unremarkable Physical Examination - Physical Exam General: Alert, In no apparent distress, Oriented x2, Confused, Other ( vital signs have been reviewed) HEENT: Atraumatic, PERRLA, Mucous membr. moist/pink, EOMI, Sclerae nonicteric Neck: Supple, 2+ carotid pulse no bruit, No LAD, Without JVD or thyroid abnorma lity Respiratory: Clear to auscultation bilaterally, Normal air movement Cardiovascular: Regular rate/rhythm, Normal S1 S2 Gastrointestinal: Normal bowel sounds, Soft and benign, Non-distended, No tenderness Musculoskeletal: No clubbing, No swelling, No tenderness Integumentary: No rashes Neurological: Normal speech, Normal tone, Sensation intact, Cranial nerves 3-12 intact, Abnormal gait, Abnormal strength Lymphatics: No axilla or inguinal lymphadenopathy - Studies Laboratory Data (last 24 hrs) 05/14/22 11:15: PT 16.8 H, INR 1.51 05/14/22 11:15: WBC 21.60 H* D, Hgb 15.6, Hct 46.7, Plt Count 331 D 05/14/22 11:15: Sodium 146 H, Potassium 4.3, BUN 50 H D, Creatinine 1.71 H, Glucose 114 H, Magnesium 2.8 H D, Total Bilirubin 0.8, AST 16, ALT 33, Alkaline Phosphatase 64, Lipase 565 H Assessment & Plan - Problems (Diagnosis) (1) UTI (urinary tract infection) Current Visit: Yes Status: Acute (2) Leukocytosis Current Visit: Yes Status: Acute (3) ARSENIO (acute kidney injury) Current Visit: Yes Status: Acute (4) H/O: CVA (cerebrovascular accident) Current Visit: Yes Status: Acute (5) Depression Current Visit: No Status: Acute - Plan plan: 1. Continue with IV fluids 2. continue with IV antibiotics 3. Physical therapy and speech therapy 4. bedside swallow eval 5. strict blood pressure and blood sugar control 6. plan to return back to [facility] upon discharge Discharge Plan: Alf Plan to discharge in: Greater than 2 days - Advance Directives Does patient have a Living Will: Yes Does patient have a Durable POA for Healthcare: Yes - Code Status/Comfort Care Code Status Assessed: Yes Code Status: Full Code Critical Care: No Time Spent Managing PTS Care (In Minutes): 45
[2022-05-14] MEDS ORDERED: MELATONIN 5 MG TABLET PO PRN (14:06)
[2022-05-14] MEDS ORDERED: ONDANSETRON 4 MG (ODT) TAB PO PRN (14:06)
[2022-05-14] MEDS ORDERED: DOCUSATE NA/SENNA CONC 1 TAB PO PRN (14:06)
--- NOTE | 2022-05-14 14:18 | RAD REPORT ---
EXAM DESCRIPTION: CT - Stone Protocol - 05/14/2022 2:11 pm CLINICAL HISTORY: Flank pain. Flank pain, kidney stone suspected COMPARISON: MRA Neck W/Wo Cont dated 04/24/2022 TECHNIQUE: Axial images were obtained without oral or IV contrast. Lack of contrast limits solid org an and vascular assessment. The [id number] spans the entirety of the system partially obscuring uppermost abdomen and lung bases. Coronal reformatted images were obtained and reviewed. All CT scans are performed using dose optimization technique as appropriate and may include automated exposure control or mA/KV adjustment according to patient size. FINDINGS: The lower lung taylor are clear. Cholecystectomy clips. Imaged portions of the liver and spleen show no suspicious findings on non-contrast imaging. The panc reas and adrenal glands are normal. No pathologic lymphadenopathy in the abdomen or pelvis. No urinary tract stones or obstructive uropathy. No bowel obstruction, free air, free fluid or abscess. Normal appendix noted.Significant fecal retent ion throughout the colon. No significant bony abnormality. IMPRESSION: No urinary tract stones or obstructive uropathy. Prominent stool retention throughout the colon.
[2022-05-14] MEDS ORDERED: NA CHLORIDE 0.9% 1,000 ML IV SCH (15:00)
[2022-05-14] MEDS ORDERED: ENOXAPARIN 40 MG/0.4 ML SQ SCH (17:00)
[2022-05-14 18:17] VITALS: BMI 26.6
[2022-05-14] MEDS ORDERED: CEFTRIAXONE 1,000 MG in NA CHLORIDE 0.9% 50 ML IVPB SCH (21:00)
[2022-05-14] MEDS: MAGNESIUM OXIDE 400 MG TAB PO SCH ×2 (21:00→21:08)
[2022-05-14] MEDS: NA CHLORIDE 0.9% 1,000 ML IV SCH (21:07)
[2022-05-14] MEDS: TAMSULOSIN 0.4 MG SR CAP PO SCH (21:08)
[2022-05-14] MEDS: APIXABAN 2.5 MG TABLET PO SCH (21:08)
[2022-05-14] MEDS: SERTRALINE HCL 50 MG TAB PO SCH (21:08)
[2022-05-14] MEDS: ATORVASTATIN 40 MG TAB PO SCH (21:08)
[2022-05-14] MEDS: ENSURE ENLIVE 237 ML CAN PO SCH (21:09)
[2022-05-14] MEDS: DIPHENHYDRAMINE 25 MG TAB/CAP PO PRN (23:20)
[2022-05-15 03:45] LABS: Absolute Lymphocytes (CBC) 0.5 K/uL (0.7-4.9); Hematocrit 41.7 % (39.6-49.0); Lymphocytes % 1.9 % (15.3-44.8); MCV 93.2 fL (80-100); MPV 7.9 fL (7.6-11.3); RBC Red Blood Cell Count 4.48 M/uL (4.33-5.43)
[2022-05-15 03:57] LABS: Albumin 2.5 g/dL (3.4-5.0); Bilirubin Total 0.6 mg/dL (0.2-1.0); Potassium 4.4 mmol/L (3.5-5.1); Protein, Total 5.2 g/dL (6.4-8.2)
[2022-05-15] MEDS ORDERED: CEFEPIME 1 GM in NA CHLORIDE 0.9% 100 ML IV SCH (04:00)
[2022-05-15] MEDS: NA CHLORIDE 0.9% 1,000 ML IV SCH (04:20)
[2022-05-15] MEDS ORDERED: CEFEPIME 1 GM/VIAL ONE (04:48)
--- NOTE | 2022-05-15 05:39 | EKG ---
Test Date: 2022-05-14 Test Time: 10:59:04 Title Manager: OPHELIA MEASUREMENT RESULTS: Intervals: Rate: 104 [place]: 148 QRSD: 112 QT: 382 QTc: 502 [place]: P: 86 KY: 148 QRS: -41 T: 79 INTERPRETIVE STATEMENTS: Sinus tachycardia with frequent premature ventricular complexes in a pattern of bigeminy Left axis deviation Pulmonary disease pattern Right bundle branch block Abnormal ECG Compared to ECG 05/02/2022 11:17:36 Ventricular premature complex(es) now present Sinus rhythm no longer present Electronically Signed On 05-15-22 05:37:58 CDT by Rahul Francis
[2022-05-15] MEDS ORDERED: PNEUMOCOCCAL VACCINE 0.5 ML IMVAC ONE (08:00)
[2022-05-15] MEDS: D5W 1,000 ML IV SCH ×2 (09:07→21:45)
[2022-05-15] MEDS: APIXABAN 2.5 MG TABLET PO SCH ×2 (09:08→21:31)
[2022-05-15] MEDS: MAGNESIUM OXIDE 400 MG TAB PO SCH ×3 (09:08→21:32)
[2022-05-15] MEDS: AMLODIPINE 5 MG TAB PO SCH (09:08)
[2022-05-15] MEDS: CLOPIDOGREL 75 MG TABLET PO SCH (09:08)
[2022-05-15] MEDS: ENSURE ENLIVE 237 ML CAN PO SCH ×3 (09:13→21:32)
[2022-05-15] MEDS: FLUDROCORTISONE 0.1 MG TAB PO SCH (10:29)
[2022-05-15] MEDS: CEFEPIME 1 GM in NA CHLORIDE 0.9% 100 ML IV SCH (15:02)
--- NOTE | 2022-05-15 16:58 | P.PN ---
Subjective Date of Service: 05/15/22 Chief Complaint: AMS; dehydration; depression Subjective: No new changes No acute events overnight. He appears slightly confused this morning. He is alert and oriented x [address] He is unable to tell me the month, date, or year. Review of Systems 10-point ROS is otherwise unremarkable Genitourinary: Dysuria Neurological: Confusion Physical Examination - Vital Signs Temperature: 98.0 F Blood Pressure: 124/70 Pulse: 73 Respirations: 14 Pulse Ox (%): 100 - Physical Exam General: Alert, In no apparent distress, Oriented x2 HEENT: Atraumatic, PERRLA, Mucous membr. moist/pink, EOMI, Sclerae nonicteric Neck: Supple, JVD not distended Respiratory: Clear to auscultation bilaterally, Normal air movement Cardiovascular: No edema, Regular rate/rhythm, Normal S1 S2, No gallops, No rubs, No murmurs Gastrointestinal: Normal bowel sounds, Soft and benign, Non-distended, No tenderness, No rebound, No guarding Musculoskeletal: No clubbing Integumentary: No rashes Neurological: Normal speech, Cranial nerves 3-12 intact, Normal affect Assessment And Plan - Plan # Severe Sepsis likely secondary to a Urinary Tract Infection # Acute Toxic Metabolic Encephalopathy secondary to Sepsis vs Stroke Recrudesence He met SIRS criteria based on HR > 90 bpm, RR > 20 breaths/min, and WBC > 12,000 and > 10% bands and the suspected source is a UTI. Severe sepsis is suspected due to concern for tissue hypoperfusion/organ dysfunction based on lactic acid > 2 mmol/L. - Sepsis order set was initiated - Lactate was 2.1 -> 1.1 - Blood cultures drawn before antibiotics were given - Broad spectrum antibiotics started: Cefepime - In regards to fluids: - 30 mL/kg of IV fluids was not administered given SBP > 90, MAP > 65, lactic acid < 4 # Acute Kidney Injury likely Pre-Renal (improved) - Creatinine: 1.71 -> 1.26 (baseline ~ 0.8-1.0) - Monitor creatinine and urine output - Renally dose medications # Hypernatremia secondary to Dehydration - Currently on D5W @ 75 mL/hr - Repeat BMP in AM # Recent Admission for Acute Small Left Frontal and Left Parietal Lobe Cerebrovascular Accidents # Coronary Artery Disease s/p CABG - Continue home atorvastatin, clopidogrel, apixaban # Hypertension - Continue home amlodipine # Adrenal Insufficiency? - Continue home fludrocortisone # Depression - Continue home sertraline # Benign Prostatic Hyperplasia - Continue home tamsulosin Con Dubon M.D. Discharge Plan: Residential Plan to discharge in: Greater than 2 days
[2022-05-15] MEDS: TAMSULOSIN 0.4 MG SR CAP PO SCH (21:31)
[2022-05-15] MEDS: ATORVASTATIN 40 MG TAB PO SCH (21:31)
[2022-05-15] MEDS: SERTRALINE HCL 50 MG TAB PO SCH (21:31)
[2022-05-15] MEDS: DIPHENHYDRAMINE 25 MG TAB/CAP PO PRN (21:32)
--- NOTE | 2022-05-16 02:10 | CON ---
Reason For Consultation: Consultation called because of altered mental status and dehydration. History Of Present Illness: Mr. Laws is a 77-year-old patient who has significant dysarthria, dys phagia, and dementia, was discharged from rehab to residential and he has not been swallowing and eating well. He became more confused and was diagnosed with a significant urinary tract infection a nd dehydration, and he was brought into [facility]. He did have acute renal failure as well . He was started on IV hydration. To be noted, urinalysis showed 3+ blood, positive nitrites, 1+ es terase, 20 to 50 red blood cells, greater than 50 bacteria plus protein. COVID-19 was negative. His white blood cell count was elevated today at 26,500 with 96.1% neutrophils. INR unremarkable. Ches t x-ray showed no acute cardiothoracic processes and brain MRI showed evidence of multiple strokes in both cerebral hemispheres. 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 His level of functio patrick did improve after hydration and antibiotic treatment towards his cognitive baseline. Past Medical History: As noted. Past Surgical History: Coronary artery bypass grafting. Allergies: NO KNOWN DRUG ALLERGIES. Medications: At home, Norvasc 5 mg daily, Eliquis 2.5 mg twice daily, Lipitor 40 mg at bedtime, ____ daily, Plavix 75 mg daily. Magnesium oxide 400 mg twice daily. Melatonin 5 mg at bedtime, Zo radu 4 mg every 6 hours. Potassium 10 mEq daily, Zoloft 50 mg at bedtime. Flomax 0.4 mg at bedtime. Restoril 50 mg at bedtime. Prinivil 5 mg twice daily. Tylenol 650 every 6 hours as needed. Gwendolyn zapine 50 mg at bedtime, senna 2 tablets at 24 hours, Ultram 50 mg every 6 hours. Family History: Positive for heart disease in father. Social History: No current alcohol or tobacco use. Review of Systems: He does have diffuse weakness. Admits of confusion, dysarthria, dysphagia, and myalgias. Physical Examination: Vital Signs: Blood pressure 124/70, pulse 73, respiratory rate 14, temperature 98, oxygen saturation 100%. Weight 175 pounds, height 5 feet 8 inches, BMI 26.6. General: Mr. Laws is resting in bed. He reports now good appetite. I saw him at lunchtime. HEENT: He is normocephalic, atraumatic. Sclerae anicteric. Oropharynx is moist. Neck: Supple. Chest: Clear. Abdomen: Soft. Neurological: He is alert and oriented to person, difficulty determining if he is oriented to situat ion, place, or time. He does follow simple commands with some encouragement. Cranial nerves show no focal deficits. His motor, sensory, coordination examination show no focal deficits despite his str ari. He did not, however, move very well to commands. Assessment: Mr. Laws is a 77-year-old patient with possible systemic infection from urinary tract infection. He is currently on antibiotics per primary team including cefepime 1 g every 12 hours, a lso on Plavix and Eliquis for stroke risk reduction. He does have blood pressure support as well. Plan: Aggressive management of urinary tract infection and likely systemic infection which is most l ikely the etiology of his altered mental status. 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 If the patient continues his full code status may have to con rn visiting alternative means of hydration such as PEG tube, such that his level of fluid management could be easily adjusted and his oral intake as well. At this time, once he is rehydrated, he may be discharged back to residential, in addition to con tinuous antibiotic regimen along with adequate medications. CINTIHA/GEOVANNA Voice ID: [id number] Report ID: [id number]
[2022-05-16] MEDS: CEFEPIME 1 GM in NA CHLORIDE 0.9% 100 ML IV SCH ×2 (03:40→15:25)
[2022-05-16 06:03] LABS: Absolute Lymphocytes (CBC) 1.1 K/uL (0.7-4.9); Hematocrit 35.6 % (39.6-49.0); Lymphocytes % 12.1 % (15.3-44.8); MPV 7.2 fL (7.6-11.3); RBC Red Blood Cell Count 3.96 M/uL (4.33-5.43)
[2022-05-16 06:16] LABS: Potassium 3.5 mmol/L (3.5-5.1)
[2022-05-16] MEDS: APIXABAN 2.5 MG TABLET PO SCH ×2 (09:24→20:19)
[2022-05-16] MEDS: FLUDROCORTISONE 0.1 MG TAB PO SCH (09:24)
[2022-05-16] MEDS: MAGNESIUM OXIDE 400 MG TAB PO SCH ×2 (09:24→20:19)
[2022-05-16] MEDS: AMLODIPINE 5 MG TAB PO SCH (09:24)
[2022-05-16] MEDS: ENSURE ENLIVE 237 ML CAN PO SCH ×3 (09:24→20:19)
[2022-05-16] MEDS: CLOPIDOGREL 75 MG TABLET PO SCH (09:24)
--- NOTE | 2022-05-16 14:55 | RAD REPORT ---
EXAM DESCRIPTION: RAD - Barium Swallow Modified - 05/16/2022 2:48 pm CLINICAL HISTORY: Coughing after eating and drinking COMPARISON: Stone Protocol dated 05/14/2022 TECHNIQUE: The patient was given liquid, semi-solid and solid forms of barium. Lateral view fluorosc opic imaging was performed in conjunction with speech pathology service. FINDINGS: Laryngeal penetration: Not Cleared with Thin liquid ; Cleared with nectar Aspiration: w/ Thin liquid, had cough and no cough Pharyngeal residue: Mild in the Vallecula w/ thin, nectar, puree, whole pill w/ puree Mild in Pyriform w/ thin, nectar, puree Trace in pyriform with thin, dry solid, whole pill w/ nectar, whole pill w/ puree Total fluoroscopy time: 3 minutes and 52 seconds
[2022-05-16] MEDS: D5W 1,000 ML IV SCH (15:25)
[2022-05-16] MEDS ORDERED: CEFEPIME 1 GM/VIAL ONE (15:29)
[2022-05-16] MEDS: TRAZODONE 50 MG TABLET PO SCH (20:19)
[2022-05-16] MEDS: SERTRALINE HCL 50 MG TAB PO SCH (20:19)
[2022-05-16] MEDS: ATORVASTATIN 40 MG TAB PO SCH (20:19)
[2022-05-16] MEDS: TAMSULOSIN 0.4 MG SR CAP PO SCH (20:19)
--- NOTE | 2022-05-16 23:05 | P.PN ---
Subjective Date of Service: 05/16/22 Chief Complaint: AMS; dehydration; depression No acute events overnight. This morning, he is alert and oriented x 4 to person, place, time, and situation. This morning, he has a flat affect and endorses active suicidal ideation and intention. He denies a suicidal plan. He states that he no longer wants to be on this earth, now that his has passed (she unfortunately last month). He is interested in pursuing psychiatric help. He was placed on suicide precautions. Review of Systems 10-point ROS is otherwise unremarkable General: Other (suicidal ideation, intention) Physical Examination - Vital Signs Temperature: 97.5 F Blood Pressure: 153/69 Pulse: 69 Respirations: 16 Pulse Ox (%): 99 Assessment And Plan - Plan - Physical Exam General: Alert, In no apparent distress, Oriented x2 HEENT: Atraumatic, PERRLA, Mucous membr. moist/pink, EOMI, Sclerae nonicteric Neck: Supple, JVD not distended Respiratory: Clear to auscultation bilaterally, Normal air movement Cardiovascular: No edema, Regular rate/rhythm, Normal S1 S2, No gallops, No rubs, No murmurs Gastrointestinal: Normal bowel sounds, Soft and benign, Non-distended, No tenderness, No rebound, No guarding Musculoskeletal: No clubbing Integumentary: No rashes Neurological: Normal speech, Cranial nerves 3-12 intact, Normal affect Psychiatric: Flat affect. Endorses suicidal ideation # Suidical Ideation/Intention # Depression This morning, he endorses active suicidal ideation and intention. He denies a suicidal paln or previous suicide attempts. He states that his trigger is the recent of his . He is interested in pursuing psychiatric help. - Placed on suicide precautions - Sitter requested - [employer] - Consulted Psychiatry and spoke with Dr. Castro - recommendations appreciated - If he is stable tomorrow, will have him "medically cleared" - At this time, will contact [facility] for evaluation of inpat ient vs outpatient therapy - Continue sertraline # Severe Sepsis likely secondary to a Urinary Tract Infection # Acute Toxic Metabolic Encephalopathy secondary to Sepsis vs Stroke Recrud esence He met SIRS criteria based on HR > 90 bpm, RR > 20 breaths/min, and WBC > 12,000 and > 10% bands and the suspected source is a UTI. Severe sepsis is suspected due to concern for tissue hypoperfusion/organ dysfunction based on lactic acid > 2 mmol/L. - Sepsis order set was initiated - Lactate was 2.1 -> 1.1 - Blood cultures drawn before antibiotics were given - Broad spectrum antibiotics started: Cefepime - In regards to fluids: - 30 mL/kg of IV fluids was not administered given SBP > 90, MAP > 65, lactic acid < 4 # Acute Kidney Injury likely Pre-Renal (improved) - Creatinine: 1.71 -> 1.26 -> 0.95 (baseline ~ 0.8-1.0) - Monitor creatinine and urine output - Renally dose medications # Hypernatremia secondary to Dehydration (resolved) - Monitor BMP # Recent Admission for Acute Small Left Frontal and Left Parietal Lobe Cerebrovascular Accidents # Coronary Artery Disease s/p CABG - Continue home atorvastatin, clopidogrel, apixaban # Hypertension - Continue home amlodipine # Adrenal Insufficiency? - Continue home fludrocortisone # Benign Prostatic Hyperplasia - Continue home tamsulosin Con Dubon M.D.
[2022-05-17] MEDS: CEFEPIME 1 GM in NA CHLORIDE 0.9% 100 ML IV SCH (03:38)
[2022-05-17 04:10] LABS: Absolute Lymphocytes (CBC) 1.1 K/uL (0.7-4.9); Lymphocytes % 16.7 % (15.3-44.8); MCV 89.2 fL (80-100); MPV 7.4 fL (7.6-11.3); RBC Red Blood Cell Count 4.37 M/uL (4.33-5.43)
[2022-05-17 04:18] LABS: Potassium 3.2 mmol/L (3.5-5.1)
[2022-05-17] MEDS: MAGNESIUM OXIDE 400 MG TAB PO SCH ×2 (09:00→20:19)
[2022-05-17] MEDS: ENSURE ENLIVE 237 ML CAN PO SCH ×3 (09:00→20:20)
[2022-05-17] MEDS: FLUDROCORTISONE 0.1 MG TAB PO SCH (09:10)
[2022-05-17] MEDS: APIXABAN 2.5 MG TABLET PO SCH ×2 (09:10→20:19)
[2022-05-17] MEDS: BUPROPION HCL XL 150 MG TAB PO SCH (09:10)
[2022-05-17] MEDS: CLOPIDOGREL 75 MG TABLET PO SCH (09:12)
[2022-05-17] MEDS: AMLODIPINE 5 MG TAB PO SCH (09:12)
[2022-05-17] MEDS: ATORVASTATIN 40 MG TAB PO SCH (20:19)
[2022-05-17] MEDS: TRAZODONE 50 MG TABLET PO SCH (20:19)
[2022-05-17] MEDS: TAMSULOSIN 0.4 MG SR CAP PO SCH (20:19)
[2022-05-17] MEDS: SERTRALINE HCL 50 MG TAB PO SCH (20:20)
[2022-05-17] MEDS ORDERED: CEFDINIR 300 MG CAP PO SCH (21:00)
--- NOTE | 2022-05-17 21:08 | P.PN ---
Subjective Date of Service: 05/17/22 Chief Complaint: AMS; dehydration; depression No acute events overnight. This morning, he feels better from a urinary/septic standpoint. However, he continues to endorse suicidal ideation. He explicitly states that if he were to be discharged home, there is a high likelihood that he will kill himself. Review of Systems 10-point ROS is otherwise unremarkable Other: Reports suicidal ideation Physical Examination - Vital Signs Temperature: 97.4 F Blood Pressure: 147/89 Pulse: 78 Respirations: 18 Pulse Ox (%): 98 Assessment And Plan - Plan - Physical Exam General: Alert, In no apparent distress, Oriented x2 HEENT: Atraumatic, PERRLA, Mucous membr. moist/pink, EOMI, Sclerae nonicteric Neck: Supple, JVD not distended Respiratory: Clear to auscultation bilaterally, Normal air movement Cardiovascular: No edema, Regular rate/rhythm, Normal S1 S2, No gallops, No rubs, No murmurs Gastrointestinal: Normal bowel sounds, Soft and benign, Non-distended, No tenderness, No rebound, No guarding Musculoskeletal: No clubbing Integumentary: No rashes Neurological: Normal speech, Cranial nerves 3-12 intact, Normal affect Psychiatric: Flat affect. Endorses suicidal ideation # Suidical Ideation/Intention # Depression This morning, he endorses active suicidal ideation and intention. He denies a suicidal paln or previous suicide attempts. He states that his trigger is the recent of his . He is interested in pursuing psychiatric help. - Placed on suicide precautions - Sitter requested - [employer] - Consulted Psychiatry and spoke with Dr. Castro - recommendations appreciated - He has been medically cleared for discharge to inpatient psychiatry - [facility] Psychiatry was consulted and I spoke with Pooja from their organization - She agrees that he will require inpatient psychiatric hospitalization - he is voluntary - Continue sertraline, bupropion, trazodone per Psych recs # Severe Sepsis likely secondary to Alpha Streptococcus Urinary Tract Infection # Acute Toxic Metabolic Encephalopathy secondary to Sepsis vs Stroke Recrudesence He met SIRS criteria based on HR > 90 bpm, RR > 20 breaths/min, and WBC > 12,000 and > 10% bands and the suspected source is a UTI. Severe sepsis is suspected due to concern for tissue hypoperfusion/organ dysfunction based on lactic acid > 2 mmol/L. - Sepsis order set was initiated - Lactate was 2.1 -> 1.1 - Blood cultures drawn before antibiotics were given - Broad spectrum antibiotics started: Cefepime -> Cefdinir - In regards to fluids: - 30 mL/kg of IV fluids was not administered given SBP > 90, MAP > 65, lactic acid < 4 # Acute Kidney Injury likely Pre-Renal (improved) - Creatinine: 1.71 -> 1.26 -> 0.95 (baseline ~ 0.8-1.0) - Monitor creatinine and urine output - Renally dose medications # Hypernatremia secondary to Dehydration (resolved) - Monitor BMP # Recent Admission for Acute Small Left Frontal and Left Parietal Lobe Cerebrovascular Accidents # Coronary Artery Disease s/p CABG - Continue home atorvastatin, clopidogrel, apixaban # Hypertension - Continue home amlodipine # Adrenal Insufficiency? - Continue home fludrocortisone # Benign Prostatic Hyperplasia - Continue home tamsulosin Con Dubon M.D.
[2022-05-18 06:44] LABS: Magnesium 2.2 mg/dL (1.8-2.4); Potassium 3.4 mmol/L (3.5-5.1)
[2022-05-18] MEDS: ENSURE ENLIVE 237 ML CAN PO SCH ×3 (09:00→21:49)
[2022-05-18] MEDS: MAGNESIUM OXIDE 400 MG TAB PO SCH ×2 (09:00→21:00)
[2022-05-18] MEDS: AMLODIPINE 5 MG TAB PO SCH (10:19)
[2022-05-18] MEDS: AMOX/K CLAV 875 MG TAB PO SCH ×2 (10:19→21:48)
[2022-05-18] MEDS: CLOPIDOGREL 75 MG TABLET PO SCH (10:19)
[2022-05-18] MEDS: BUPROPION HCL XL 150 MG TAB PO SCH (10:25)
[2022-05-18] MEDS: APIXABAN 2.5 MG TABLET PO SCH ×2 (10:26→21:49)
[2022-05-18] MEDS: FLUDROCORTISONE 0.1 MG TAB PO SCH (10:26)
--- NOTE | 2022-05-18 20:13 | P.PN ---
Subjective Date of Service: 05/18/22 Chief Complaint: AMS; dehydration; depression No acute events overnight. He is medically cleared for discharge to inpatient psychiatry unit, once accepted. Review of Systems 10-point ROS is otherwise unremarkable General: Other (suicidal ideation/intention) Physical Examination - Vital Signs Temperature: 98.1 F Blood Pressure: 112/73 Pulse: 79 Respirations: 16 Pulse Ox (%): 100 - Studies Microbiology Data (last 24 hrs): 05/14/22 13:00 Catheterized Urine Moro Count - Final BETWEEN 10,000 & 100,000 CFU/ML 05/14/22 13:00 Catheterized Urine - Final Enterococcus Faecalis Assessment And Plan - Plan - Physical Exam General: Alert, In no apparent distress, Oriented x2 HEENT: Atraumatic, PERRLA, Mucous membr. moist/pink, EOMI, Sclerae nonicteric Neck: Supple, JVD not distended Respiratory: Clear to auscultation bilaterally, Normal air movement Cardiovascular: No edema, Regular rate/rhythm, Normal S1 S2, No gallops, No rubs, No murmurs Gastrointestinal: Normal bowel sounds, Soft and benign, Non-distended, No tenderness, No rebound, No guarding Musculoskeletal: No clubbing Integumentary: No rashes Neurological: Normal speech, Cranial nerves 3-12 intact, Normal affect Psychiatric: Flat affect. Endorses suicidal ideation # Suidical Ideation/Intention # Depression This morning, he endorses active suicidal ideation and intention. He denies a suicidal paln or previous suicide attempts. He states that his trigger is the recent of his . He is interested in pursuing psychiatric help. - Placed on suicide precautions - Sitter requested - [employer] - Consulted Psychiatry and spoke with Dr. Castro - recommendations appreciated - He has been medically cleared for discharge to inpatient psychiatry - [facility] Psychiatry was consulted and I spoke with Pooja from their organization - She agrees that he will require inpatient psychiatric hospitalization - he is voluntary - Continue sertraline, bupropion, trazodone per Psych recs # Severe Sepsis likely secondary to Enterococcus Faecalis Urinary Tract Infection # Acute Toxic Metabolic Encephalopathy secondary to Sepsis vs Stroke Recrudesence He met SIRS criteria based on HR > 90 bpm, RR > 20 breaths/min, and WBC > 12,000 and > 10% bands and the suspected source is a UTI. Severe sepsis is suspected due to concern for tissue hypoperfusion/organ dysfunction based on lactic acid > 2 mmol/L. 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 - Continue home fludrocortisone # Benign Prostatic Hyperplasia - Continue home tamsulosin - He has been medically cleared for discharge to inpatient psychiatry once accepted Con Dubon M.D.
[2022-05-18] MEDS: SERTRALINE HCL 50 MG TAB PO SCH (21:48)
[2022-05-18] MEDS: TRAZODONE 50 MG TABLET PO SCH (21:48)
[2022-05-18] MEDS: TAMSULOSIN 0.4 MG SR CAP PO SCH (21:49)
[2022-05-18] MEDS: ATORVASTATIN 40 MG TAB PO SCH (21:49)
[2022-05-19] MEDS: CLOPIDOGREL 75 MG TABLET PO SCH (08:50)
[2022-05-19] MEDS: FLUDROCORTISONE 0.1 MG TAB PO SCH (08:50)
[2022-05-19] MEDS: AMOX/K CLAV 875 MG TAB PO SCH ×2 (08:50→21:21)
[2022-05-19] MEDS: BUPROPION HCL XL 150 MG TAB PO SCH (08:50)
[2022-05-19] MEDS: MAGNESIUM OXIDE 400 MG TAB PO SCH ×2 (08:50→21:23)
[2022-05-19] MEDS: APIXABAN 2.5 MG TABLET PO SCH ×2 (08:50→21:23)
[2022-05-19] MEDS: AMLODIPINE 5 MG TAB PO SCH (08:50)
[2022-05-19] MEDS: ENSURE ENLIVE 237 ML CAN PO SCH ×3 (08:51→21:24)
--- NOTE | 2022-05-19 20:01 | P.PN ---
Subjective Date of Service: 05/19/22 Chief Complaint: AMS; dehydration; depression No acute events overnight. He reports continued suicidal ideation, but believes that the medications are helping him. He endorses that he would like to work with PT, as moving around may help him feel better. He is medically cleared for discharge to inpatient psychiatry unit, once accepted. Review of Systems 10-point ROS is otherwise unremarkable General: Weakness (generalized) Neurological: Other (suicidal ideation) Physical Examination - Vital Signs Temperature: 98.0 F Blood Pressure: 110/55 Pulse: 78 Respirations: 16 Pulse Ox (%): 99 - Studies Microbiology Data (last 24 hrs): 05/14/22 12:49 Blood - Blood Aerobic Blood Culture - Final No growth in 5 days. 05/14/22 12:49 Blood - Blood Anaerobic Blood Culture - Final No growth in 5 days. 05/14/22 11:15 Blood - Blood Aerobic Blood Culture - Final No growth in 5 days. 05/14/22 11:15 Blood - Blood Anaerobic Blood Culture - Final No growth in 5 days. Assessment And Plan - Plan - Physical Exam General: Alert, In no apparent distress, Oriented x2 HEENT: Atraumatic, PERRLA, Mucous membr. moist/pink, EOMI, Sclerae nonicteric Neck: Supple, JVD not distended Respiratory: Clear to auscultation bilaterally, Normal air movement Cardiovascular: No edema, Regular rate/rhythm, Normal S1 S2, No gallops, No rubs, No murmurs Gastrointestinal: Normal bowel sounds, Soft and benign, Non-distended, No tenderness, No rebound, No guarding Musculoskeletal: No clubbing Integumentary: No rashes Neurological: Normal speech, Cranial nerves 3-12 intact, Normal affect Psychiatric: Flat affect. Endorses suicidal ideation # Suidical Ideation/Intention # Depression This morning, he endorses active suicidal ideation and intention. He denies a suicidal paln or previous suicide attempts. He states that his trigger is the recent of his . He is interested in pursuing psychiatric help. - Placed on suicide precautions - Sitter requested - [employer] - Consulted Psychiatry and spoke with Dr. Castro - recommendations appreciated - He has been medically cleared for discharge to inpatient psychiatry - [facility] Psychiatry was consulted and I spoke with Pooja from their organization - She agrees that he will require inpatient psychiatric hospitalization - he is voluntary - Continue sertraline, bupropion, trazodone per Psych recs # Severe Sepsis likely secondary to Enterococcus Faecalis Urinary Tract Infection # Acute Toxic Metabolic Encephalopathy secondary to Sepsis vs Stroke Recrudesence He met SIRS criteria based on HR > 90 bpm, RR > 20 breaths/min, and WBC > 12,000 and > 10% bands and the suspected source is a UTI. Severe sepsis is suspected due to concern for tissue hypoperfusion/organ dysfunction based on lactic acid > 2 mmol/L. 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 - Continue home fludrocortisone # Benign Prostatic Hyperplasia - Continue home tamsulosin - He has been medically cleared for discharge to inpatient psychiatry once accepted - Consult PT - recs appreciated Con Dubon M.D.
[2022-05-19] MEDS: TRAZODONE 50 MG TABLET PO SCH (21:21)
[2022-05-19] MEDS: ATORVASTATIN 40 MG TAB PO SCH (21:23)
[2022-05-19] MEDS: TAMSULOSIN 0.4 MG SR CAP PO SCH (21:23)
[2022-05-19] MEDS: SERTRALINE HCL 50 MG TAB PO SCH (21:23)
[2022-05-20] MEDS: MAGNESIUM OXIDE 400 MG TAB PO SCH ×2 (09:00→20:04)
[2022-05-20] MEDS: FLUDROCORTISONE 0.1 MG TAB PO SCH (10:21)
[2022-05-20] MEDS: AMLODIPINE 5 MG TAB PO SCH (10:21)
[2022-05-20] MEDS: AMOX/K CLAV 875 MG TAB PO SCH ×2 (10:21→20:04)
[2022-05-20] MEDS: CLOPIDOGREL 75 MG TABLET PO SCH (10:21)
[2022-05-20] MEDS: BUPROPION HCL XL 150 MG TAB PO SCH (10:21)
[2022-05-20] MEDS: ENSURE ENLIVE 237 ML CAN PO SCH ×3 (10:22→20:06)
[2022-05-20] MEDS: APIXABAN 2.5 MG TABLET PO SCH ×2 (10:26→20:04)
--- NOTE | 2022-05-20 18:44 | P.PN ---
Subjective Date of Service: 05/20/22 Chief Complaint: AMS; dehydration; depression No acute events overnight. He is in good spirits this morning. He believes the psychiatric medications we have started him on are helping him significantly. He denies suicidal ideation, intention, or plan this morning. May require placement per PT. He is medically cleared for discharge, once accepted. Review of Systems 10-point ROS is otherwise unremarkable General: Weakness (generalized) Physical Examination - Vital Signs Temperature: 97.3 F Blood Pressure: 132/71 Pulse: 78 Respirations: 20 Pulse Ox (%): 99 Assessment And Plan - Plan - Physical Exam General: Alert, In no apparent distress, Oriented x2 HEENT: Atraumatic, PERRLA, Mucous membr. moist/pink, EOMI, Sclerae nonicteric Neck: Supple, JVD not distended Respiratory: Clear to auscultation bilaterally, Normal air movement Cardiovascular: No edema, Regular rate/rhythm, Normal S1 S2, No gallops, No rubs, No murmurs Gastrointestinal: Normal bowel sounds, Soft and benign, Non-distended, No tenderness, No rebound, No guarding Musculoskeletal: No clubbing Integumentary: No rashes Neurological: Normal speech, Cranial nerves 3-12 intact, Normal affect Psychiatric: Denies suicidal ideation, intention, or plan # Suidical Ideation/Intention (resolved?) # Depression This morning, he endorses active suicidal ideation and intention. He denies a suicidal paln or previous suicide attempts. He states that his trigger is the recent of his . He is interested in pursuing psychiatric help. - Placed on suicide precautions - Sitter requested - [employer] - Consulted Psychiatry and spoke with Dr. Castro - recommendations appreciated - He has been medically cleared for discharge to inpatient psychiatry - [facility] Psychiatry was consulted and I spoke with Pooja from their organization - She agrees that he will require inpatient psychiatric hospitalization - he is voluntary - Continue sertraline, bupropion, trazodone per Psych recs - As of this morning, he denies suicidal ideation, intention, or plan - Requested re-assessment by [facility] Psychiatry to clear him for discharge from a psychiatric standpoint # Severe Sepsis likely secondary to Enterococcus Faecalis Urinary Tract Infection # Acute Toxic Metabolic Encephalopathy secondary to Sepsis vs Stroke Recrudesence He met SIRS criteria based on HR > 90 bpm, RR > 20 breaths/min, and WBC > 12,000 and > 10% bands and the suspected source is a UTI. Severe sepsis is suspected due to concern for tissue hypoperfusion/organ dysfunction based on lactic acid > 2 mmol/L. 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 - Continue home fludrocortisone # Benign Prostatic Hyperplasia - Continue home tamsulosin - He has been medically cleared for discharge, once accepted - Consult PT - recs appreciated - May require placement, notified CM Con Dubon M.D.
[2022-05-20] MEDS: SERTRALINE HCL 50 MG TAB PO SCH (20:04)
[2022-05-20] MEDS: TAMSULOSIN 0.4 MG SR CAP PO SCH (20:04)
[2022-05-20] MEDS: ATORVASTATIN 40 MG TAB PO SCH (20:04)
[2022-05-20] MEDS: TRAZODONE 50 MG TABLET PO SCH (20:05)
[2022-05-21] MEDS: AMOX/K CLAV 875 MG TAB PO SCH ×2 (08:53→20:10)
[2022-05-21] MEDS: CLOPIDOGREL 75 MG TABLET PO SCH (08:54)
[2022-05-21] MEDS: MAGNESIUM OXIDE 400 MG TAB PO SCH ×2 (08:54→20:10)
[2022-05-21] MEDS: AMLODIPINE 5 MG TAB PO SCH (08:54)
[2022-05-21] MEDS: FLUDROCORTISONE 0.1 MG TAB PO SCH (08:55)
[2022-05-21] MEDS: BUPROPION HCL XL 150 MG TAB PO SCH (08:55)
[2022-05-21] MEDS: ENSURE ENLIVE 237 ML CAN PO SCH ×3 (08:56→20:26)
[2022-05-21] MEDS: APIXABAN 2.5 MG TABLET PO SCH ×2 (08:59→20:10)
[2022-05-21 15:04] VITALS: O2SAT 100
--- NOTE | 2022-05-21 18:05 | P.PN ---
Subjective Date of Service: 05/21/22 Chief Complaint: AMS; dehydration; depression No acute events overnight. He is in good spirits this morning. He denies suicidal ideation, intention, or plan this morning. He reports that he feels well and has no concerns this morning. He is medically cleared for discharge, once accepted. Review of Systems 10-point ROS is otherwise unremarkable General: Weakness (generalized) Physical Examination - Vital Signs Temperature: 98.1 F Blood Pressure: 129/77 Pulse: 81 Respirations: 16 Pulse Ox (%): 98 Assessment And Plan - Plan - Physical Exam General: Alert, In no apparent distress, Oriented x2 HEENT: Atraumatic, PERRLA, Mucous membr. moist/pink, EOMI, Sclerae nonicteric Neck: Supple, JVD not distended Respiratory: Clear to auscultation bilaterally, Normal air movement Cardiovascular: No edema, Regular rate/rhythm, Normal S1 S2, No gallops, No rubs, No murmurs Gastrointestinal: Normal bowel sounds, Soft and benign, Non-distended, No tenderness, No rebound, No guarding Musculoskeletal: No clubbing Integumentary: No rashes Neurological: Normal speech, Cranial nerves 3-12 intact, Normal affect Psychiatric: Denies suicidal ideation, intention, or plan # Suidical Ideation/Intention (resolved?) # Depression This morning, he endorses active suicidal ideation and intention. He denies a suicidal paln or previous suicide attempts. He states that his trigger is the recent of his . He is interested in pursuing psychiatric help. - Placed on suicide precautions - Sitter requested - [employer] - Consulted Psychiatry and spoke with Dr. Castro - recommendations appreciated - He has been medically cleared for discharge to inpatient psychiatry - [facility] Psychiatry was consulted and I spoke with Pooja from their organization - She agrees that he will require inpatient psychiatric hospitalization - he is voluntary - Continue sertraline, bupropion, trazodone per Psych recs - As of this morning, he denies suicidal ideation, intention, or plan - Requested re-assessment by [facility] Psychiatry to clear him for discharge from a psychiatric standpoint # Severe Sepsis likely secondary to Enterococcus Faecalis Urinary Tract Infection # Acute Toxic Metabolic Encephalopathy secondary to Sepsis vs Stroke Recrudesence He met SIRS criteria based on HR > 90 bpm, RR > 20 breaths/min, and WBC > 12,000 and > 10% bands and the suspected source is a UTI. Severe sepsis is suspected due to concern for tissue hypoperfusion/organ dysfunction based on lactic acid > 2 mmol/L. 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 - Continue home fludrocortisone # Benign Prostatic Hyperplasia - Continue home tamsulosin - He has been medically cleared for discharge, once accepted - Consult PT - recs appreciated - May require placement, notified CM - Waiting for [facility] re-assessment - No new changes today - awaiting placement Con Dubon M.D.
[2022-05-21] MEDS: TAMSULOSIN 0.4 MG SR CAP PO SCH (20:10)
[2022-05-21] MEDS: TRAZODONE 50 MG TABLET PO SCH (20:10)
[2022-05-21] MEDS: SERTRALINE HCL 50 MG TAB PO SCH (20:10)
[2022-05-21] MEDS: ATORVASTATIN 40 MG TAB PO SCH (20:10)
[2022-05-22] MEDS: AMOX/K CLAV 875 MG TAB PO SCH ×2 (10:12→20:39)
[2022-05-22] MEDS: CLOPIDOGREL 75 MG TABLET PO SCH (10:13)
[2022-05-22] MEDS: BUPROPION HCL XL 150 MG TAB PO SCH (10:13)
[2022-05-22] MEDS: AMLODIPINE 5 MG TAB PO SCH (10:13)
[2022-05-22] MEDS: APIXABAN 2.5 MG TABLET PO SCH ×2 (10:13→20:42)
[2022-05-22] MEDS: MAGNESIUM OXIDE 400 MG TAB PO SCH ×2 (10:13→20:42)
[2022-05-22] MEDS: ENSURE ENLIVE 237 ML CAN PO SCH ×3 (10:14→20:46)
[2022-05-22] MEDS: FLUDROCORTISONE 0.1 MG TAB PO SCH (10:14)
--- NOTE | 2022-05-22 14:58 | CON ---
Date of Consultation: 05/18/2022 Reason For Service: Psychiatric consult to evaluate the patient with significant depression and suicidal ideation. Place Of Service: Fourth floor, inpatient. Chief Complaint: "I don't have any reason to live." History Of Present Illness: Mr. Laws is a 77-year-old male who was admitted via the ER on May 14, 2022 on account of altered mental status, dehydration, and also found to have sepsis, urinary tract infection. During the course of admission, the patient was noted to be endorsing depressive symptoms, as the cause of his visit today, the patient has been having depression, which he described as depressed mood for most part of the day, frequent crying spells, feeling hopeless and helpless, with suicidal ideation and plan which he says he is very serious about. He stated he has no psychiatric history and has never been this depressed, stating that current episode was triggered by the of his on April 17, 2022,(His birthday). He feels guilty that he was not at his 's bedside when she passed from complication of malignant cancer. Patient states he does not see any reason to live even though he has a daughter and grandchildren. Patient states he has guns at home and the truth is if discharged home. Patient admits to anxiety, which he describes as excessive worrying about different issues with associated difficulty falling and staying asleep. Denies arthritic symptoms. No history of bipolar. The patient has no history of alcohol or substance abuse. Patient admits to having suicidal thoughts, but denies any specific plan. He admits to owning guns at home. Objective: Vital Signs: Blood pressure 160/75, pulse rate is 72 beats per minute, temperature 97.8, respiratory rate is 15, O2 saturation is 98%. Mental Status Examination: The patient is a 77-year-old male lying in bed, dressed in hospital attire. He is not in any acute cardiorespiratory distress. He is alert and oriented x3. He is very cooperative with the interview. Speech is spontaneous. Normal rate, rhythm, and volume. Mood: He described as depressed. Affect: Mood congruent. Thought process: Linear, at times circumstantial. Thought content: Ruminates about passing away. No auditory or visual hallucination. Fund of knowledge fair. Insight, judgment, impulse control limited to fair. Impression: 77-year-old male with no significant past psychiatric history, admitted for altered mental status, sepsis secondary to urinary tract infection, endorsed severe depressive symptoms, expressing suicidal thoughts with plan and intent. No past history of suicidal attempts. Currently lives alone after passing of his . Diagnoses: 1. 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 2. Anxiety disorder, unspecified. 3. Insomnia. Recommendations: 1. Recommend psychiatric inpatient hospitalization for safety and mood stabilization 2. Will start Wellbutrin 150 mg p.o. daily in the morning. 3. Will start Sertraline 25 mg p.o. daily. 4. Will start trazodone 25 mg p.o. at bedtime for sleep. 5. Will discontinue the melatonin 5 mg p.o. daily. 6. Discuss recommendation with treatment team with management team. KAL Voice ID: [id number] Report ID: [id number] ANDREE
[2022-05-22] MEDS: TRAZODONE 50 MG TABLET PO SCH (20:39)
[2022-05-22] MEDS: TAMSULOSIN 0.4 MG SR CAP PO SCH (20:41)
[2022-05-22] MEDS: SERTRALINE HCL 50 MG TAB PO SCH (20:42)
[2022-05-22] MEDS: ATORVASTATIN 40 MG TAB PO SCH (20:42)
--- NOTE | 2022-05-23 09:09 | P.PN ---
Subjective Date of Service: 05/22/22 Subjective: No new changes, No C/O voiced, Improving Patient states that the psychiatric medicines have helped him. He is no longer feeling suicidal. He should be stable for discharge back to [facility]. [facility] will be reevaluating him today. Review of Systems 10-point ROS is otherwise unremarkable Physical Examination - Vital Signs Temperature: 97 F Blood Pressure: 130/75 Pulse: 76 Respirations: 18 Pulse Ox (%): 98 - Physical Exam General: Alert, In no apparent distress HEENT: Atraumatic, PERRLA, EOMI Neck: Supple, JVD not distended Respiratory: Clear to auscultation bilaterally, Normal air movement Cardiovascular: Regular rate/rhythm, Normal S1 S2 Gastrointestinal: Normal bowel sounds, No tenderness Musculoskeletal: No tenderness Integumentary: No rashes Neurological: Normal speech, Normal tone, Normal affect Lymphatics: No axilla or inguinal lymphadenopathy - Studies Medications List Reviewed: Yes Assessment & Plan - Problems (Diagnosis) (1) UTI (urinary tract infection) Current Visit: Yes Status: Acute (2) Leukocytosis Current Visit: Yes Status: Acute (3) ARSENIO (acute kidney injury) Current Visit: Yes Status: Acute (4) H/O: CVA (cerebrovascular accident) Current Visit: Yes Status: Acute (5) Depression Current Visit: No Status: Acute - Plan plan: 1. Diet as tolerated 2. Change to oral antibiotics 3. Continue with speech and physical therapy 4. Continue with antidepressant 5. Strict blood pressure and blood sugar control 6. DC back to [facility] in a.m. Discharge Plan: Retirement Plan to discharge in: 24 Hours - Advance Directives Does patient have a Living Will: Yes Does patient have a Durable POA for Healthcare: Yes - Code Status/Comfort Care Code Status: Full Code Critical Care: No Time Spent Managing PTS Care (In Minutes): 35
--- NOTE | 2022-05-23 09:16 | P.DS ---
Discharge Date: 05/23/22 Disposition: TRANSFER TO SENIOR CARE Discharge Condition: GOOD Reason for Admission: AMS; dehydration; depression - Problems (1) UTI (urinary tract infection) Current Visit: Yes Status: Acute (2) Leukocytosis Current Visit: Yes Status: Acute (3) ARSENIO (acute kidney injury) Current Visit: Yes Status: Acute (4) H/O: CVA (cerebrovascular accident) Current Visit: Yes Status: Acute (5) Depression Current Visit: No Status: Acute Brief History of Present Illness: Patient is a 77-year-old gentleman who presents to the emergency room with altered mental status and acute dehydration. Patient is prerenal azotemia. Patient appeared to be dehydrated. He states he has not been eating well because he has difficulty with swallowing. He was seen in rehab by speech therapy and was tolerating his diet well there. In the ER he had a UTI and altered mental status. He has acute renal failure from dehydration. Patient has been living at [facility]. We will go ahead and hydrate him aggressively. We check his renal function. Start him on IV antibiotics. Will get physical t herapy and speech therapy consultation as well. Anticipate discharge over the next 48-72 hours once his renal function improves and his infection is better controlled. He will be going back to [facility] on discharge. Hospital Course: Patient has done well during hospitalization. Patient was very depressed, and he was feeling suicidal. He really does not have any way to harm himself unless he gets supplies from the kitchen. We went ahead and did a psych eval and initially patient was deemed to go to inpatient psychiatry. However, he was started on antidepressant and his depression has improved. Patient denies being suicidal. He feels much better. He thinks the medications are working for him. He was also treated for a urinary tract infection which has improved as well. Clinically, patient is doing well and he appears to be stable for discharge. He will transfer back to [facility] at discharge. Continue with outpatient follow-up with psychiatry, cardiology, and neurology. Recommend continuing with hydration and monitoring appetite. Follow-up with long term physician in 1 to 2 weeks. Vital Signs/Physical Exam: Temp Pulse Resp BP Pulse Ox 97 F 76 18 130/75 98 05/23/22 09:09 05/23/22 09:09 05/23/22 09:09 05/23/22 09:09 05/23/22 09:09 General: Alert, In no apparent distress, Oriented x3 Laboratory Data at Discharge: WBC 6.80 K/uL (4.3-10.9) D 05/17/22 03:31 Hgb 13.6 g/dL (13.6-17.9) 05/17/22 03:31 Hct 39.0 % (39.6-49.0) L 05/17/22 03:31 Plt Count 193 K/uL (152-406) 05/17/22 03:31 PT 16.8 SECONDS (9.5-12.5) H 05/14/22 11:15 INR 1.51 05/14/22 11:15 Sodium 143 mmol/L (136-145) 05/17/22 03:31 Potassium 3.4 mmol/L (3.5-5.1) L 05/18/22 05:20 BUN 22 mg/dL (7-18) H 05/17/22 03:31 Creatinine 0.96 mg/dL (0.55-1.3) 05/17/22 03:31 Glucose 93 mg/dL (74-106) 05/17/22 03:31 Magnesium 2.2 mg/dL (1.8-2.4) 05/18/22 05:20 Total Bilirubin 0.6 mg/dL (0.2-1.0) 05/15/22 02:54 AST 18 U/L (15-37) 05/15/22 02:54 ALT 26 U/L (12-78) 05/15/22 02:54 Alkaline Phosphatase 56 U/L (45-117) 05/15/22 02:54 Lipase 488 U/L (73-393) H 05/16/22 04:57 Home Medications: Amlodipine [Norvasc*] 5 mg PO DAILY tab 05/09/22 Apixaban [Eliquis *] 2.5 mg PO BID 05/09/22 Atorvastatin Calcium [Lipitor] 40 mg PO BEDTIME tab 05/09/22 Bisacodyl [Dulcolax*] 10 mg ME DAILY PRN supp 05/09/22 Clopidogrel Bisulfate [Plavix*] 75 mg PO DAILY 05/09/22 Magnesium Oxide [Mag 0X*] 400 mg PO BID tab 05/09/22 Melatonin 5 mg PO BEDTIME PRN PRN 05/09/22 Ondansetron [Zofran (Odt)*] 4 mg PO Q6H PRN tab 05/09/22 Potassium Oral Tab [Klor-Con 10 mEq Tab*] 10 meq PO BID tab 05/09/22 Sertraline [Zoloft*] 50 mg PO BEDTIME tab 05/09/22 Tamsulosin [Flomax*] 0.4 mg PO BEDTIME cap 05/09/22 Temazepam [Restoril*] 15 mg PO BEDTIME PRN PRN cap 05/09/22 lisinopriL [Prinivil*] 5 mg PO BID #30 tab 05/09/22 Acetaminophen 650 mg PO Q6H PRN 05/15/22 Mirtazapine [Remeron*] 15 mg PO BEDTIME 05/15/22 Sennosides [Senna] 2 tab PO Q24H PRN 05/15/22 Tramadol HCl [Ultram] 50 mg PO Q6H PRN 05/15/22 Amox/Clavulanate [Augmentin 875-125 Tab*] 875 mg PO BID #5 tab 05/23/22 Bupropion *Xl* [Wellbutrin XL*] 150 mg PO DAILY #30 tab 05/23/22 New Medications: Amox/Clavulanate [Augmentin 875-125 Tab*] 875 mg PO BID #5 tab Bupropion *Xl* [Wellbutrin XL*] 150 mg PO DAILY #30 tab Physician Discharge Instructions: -DC IV and DC home -Follow-up with PCP in 1 to 2 weeks -Follow-up with psychiatry in 1 to 2 weeks -Follow-up with cardiology in 2 to 4 weeks -Follow-up with neurology in 2 to 4 weeks -Please call Dr. Phoenix at [phone] if any questions regarding hospital stay -Please call nursing station at [phone] if any nursing or medication questions -Return to the emergency room if symptoms worsen Diet: AHA Activity: Fall precautions Followup: NONE,NONE [Primary Care Provider] - Time spent managing pt's care (in minutes): 35
[2022-05-23] MEDS: BUPROPION HCL XL 150 MG TAB PO SCH (10:14)
[2022-05-23] MEDS: MAGNESIUM OXIDE 400 MG TAB PO SCH (10:14)
[2022-05-23] MEDS: AMOX/K CLAV 875 MG TAB PO SCH (10:14)
[2022-05-23] MEDS: FLUDROCORTISONE 0.1 MG TAB PO SCH (10:15)
[2022-05-23] MEDS: CLOPIDOGREL 75 MG TABLET PO SCH (10:15)
[2022-05-23] MEDS: AMLODIPINE 5 MG TAB PO SCH (10:15)
[2022-05-23] MEDS: APIXABAN 2.5 MG TABLET PO SCH (10:15)
[2022-05-23] MEDS: ENSURE ENLIVE 237 ML CAN PO SCH (10:16)
[2022-05-23 12:45] VITALS: BP 126/76; TEMP 98.9
== END 2022-05-23 16:06 | DRG 871 ==
LOC: ER 10:45 → ERHOLD 14:04 → 4TH 19:14
PROVIDERS: ADMIT Hospitalist; ATTEND Hospitalist
DX: A41.9 Sepsis, unspecified organism (principal); E43 Unspecified severe protein-calorie malnutrition; G92.8 Other toxic encephalopathy; U07.1 COVID-19; N39.0 Urinary tract infection, site not specified; N17.9 Acute kidney failure, unspecified; E87.0 Hyperosmolality and hypernatremia; R45.851 Suicidal ideations; F32.2 Major depressive disorder, single episode, severe without psychotic features; R65.20 Severe sepsis without septic shock; I10 Essential (primary) hypertension; E86.0 Dehydration; N40.0 Benign prostatic hyperplasia without lower urinary tract symptoms; F41.9 Anxiety disorder, unspecified; I25.10 Atherosclerotic heart disease of native coronary artery without angina pectoris; G47.00 Insomnia, unspecified; D72.829 Elevated white blood cell count, unspecified; Z63.4 Disappearance and death of family member; Z60.2 Problems related to living alone; Z95.1 Presence of aortocoronary bypass graft; Z86.73 Personal history of transient ischemic attack (TIA), and cerebral infarction without residual deficits; Z79.01 Long term (current) use of anticoagulants; Z68.26 Body mass index [BMI] 26.0-26.9, adult; Z79.02 Long term (current) use of antithrombotics/antiplatelets; Z87.891 Personal history of nicotine dependence; Z79.899 Other long term (current) drug therapy
CPT/HCPCS: 36415; 70450; 71045; 74176; 74230; 76377; 80048; 80053; 80076; 81003; 81015; 83605; 83690; 83735; 83880; 84132; 84484; 85025; 85610; 87040; 87077; 87086; 87088; 87186; 87811; 92526; 92610; 92611; 93005; 97110; 97161; 97530; 99285; J0692; J2270; J7030; U0003

== ENCOUNTER 2022-05-30 11:04 | Emergency (ER) | payer OTHER ==
--- OUTSIDE RECORDS SUMMARY | 2022-05-30 11:08 | XMS REPORT | Continuity of Care Document ---
:[address] [facility] t Address [address] [place] [address] Dr. Samaniego [address] [place] [address] Care Team Providers Name Role Phone Jabier Henry MD Primary Care Physician Doctor Unassigned, [place] Attending Clinician Unavailable JABIER HENRY Attending Clinician [...] Added automatic ally from request for surgery [id number] Stroke Stroke Disease Active Univers 1-11 ity of 00:00: [place] 00 Medical Branch Lower Lower Disease Active Univers urinary urinary 5-30 ity of tract tract 00:00: [place] symptoms symptoms 00 Medica l (LUTS) (LUTS) Branch Fatigue, Fatigue, Disease Active Unive rs unspecifie unspecifie 5-30 it y of d type d type 00:00: [place] 00 [facility] Branch 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 0-12 ity of 00:00: [address] Branch Chronic Chronic Disease Active 2014-09 Univers back pain back pain 0-12 ity of 00:00: [address] Branch Essential Essential Disease Active 2014-09 Uni vers hypertensi hypertensi 0-12 it y of on on 00:00: [address] Branch 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 Lower Lower Diagnosis Active Common urinary urinary Spirit tract tract - [facility] symptoms symptoms St (LUTS) (LUTS) [facility] Low Low Diagnosis Active Common testostero testostero Sp felipe ne in male ne in male [facility] Urinary Urinary Diagnosis Active Commo n tract tract Spirit infection infection - CH I without without St hematuria, hematuria, Regi kes site site Medical unspecifie unspecifie Ce nter d d Urine Urine Diagnosis Active Common retention retention Spir [facility] Allergies, Adverse Reactions, Alerts Allergy Allergy Status Severity Reaction(s) Onset Inactive Treating Comm ents Source Name Type Date Date Clinician NO KNOWN Drug Active Univers ALLERGIE Class ity of S [facility] Social History Social Habit Start Date Stop Date Quantity Comments Source Exposure to 2022-03-26 2022-04-05 Not sure University of SARS-CoV-2 00:00:00 12:23:00 [place] Medical (event) Branch Alcohol intake 2022-03-03 2022-03-03 Current University of 00:00:00 00:00:00 non-drinker of [facility] alcohol (finding) Branch Tobacco use and 2015-07-02 2015-07-02 Smokeless tobacco Un iversity of exposure 00:00:00 00:00:00 non-user [facility] Sex Ass[birth year] At [birth year] Universit y of 00:00:00 00:00:00 [facility] Smoking Status Start Date Stop Date Source Never smoked tobacco [facility] Medications Ordered Filled Start Stop Current Ordering Indication Dosage Frequency Signature Comments Components Source Medication Medication Date Date Medication? Clinician (SIG) Name Name cyanocobala 2021- No [id number] 1000ug Univers min 04-05 ity of (VITAMIN 18:45: 19:34 [place] B12) 00 :00 Medical injection Branch 1,000 mcg testosteron 2021- No [id number] 260mg Univers e cypionate 04-05 ity of (DEPO-TESTO 18:45: 19:34 [place] STERONE) 00 :00 Medical injection Branch 260 mg testosteron 2021- No [id number] 260mg 260 mg, Univers e cypionate 04-05 Intramuscu i ty of (DEPO-TESTO 18:45: 19:34 lar, ONCE, [place] STERONE) 00 :00 1 dose, On Medic al injection Sun04/05/22 Bran ch 260 mg at 1345, Routine cyanocobala 2021- No [id number] 1000ug 1,000 mcg, Univers min 04-05 Intramuscu ity of (VITAMIN 18:45: 19:34 [place] B12[place] 00 :00 1 dose, On Medical injection Sun04/05/22 Bran ch 1,000 mcg at 1345, Routine cyanocobala 2021- No [id number] 1000ug Univers min 04-05 ity of (VITAMIN 18:45: 19:34 [place] B12) 00 :00 Medical injection Branch 1,000 mcg testosteron 2021- No [id number] 260mg Univers e cypionate 04-05 ity of (DEPO-TESTO 18:45: 19:34 [place] STERONE) 00 :00 Medical injection Branch 260 mg testosteron 2021- No [id number] 260mg 260 mg, Univers e cypionate 04-05 Intramuscu i ty of (DEPO-TESTO 18:45: 19:34 lar, ONCE, [place] STERONE) 00 :00 1 dose, On Medic al injection Sun04/05/22 Bran ch 260 mg at 1345, Routine cyanocobala 2021- No [id number] 1000ug 1,000 mcg, Univers min 04-05 Intramuscu ity of (VITAMIN 18:45: 19:34 [place] B12[place] 00 :00 1 dose, On Medical injection Sun04/05/22 Bran ch 1,000 mcg at 1345, Routine atorvastati Yes [id number] 80mg Take 1 Univers n 80 mg 7- [id number] tablet by ity o f tablet 00:00: mouth at [place] 00 bedtime. Medical Branch levocetiriz Yes [id number] 2.5mg Take 0.5 Univers ine 5 mg 7- [id number] tablets by ity of tablet 00:00: mouth [place] 00 every Medical evening as Branch needed for Other (itching). atorvastati Yes [id number] 80mg Take 1 Univers n 80 mg 7- [id number] tablet by ity o f tablet 00:00: mouth at [place] 00 bedtime. Medical Branch levocetiriz Yes [id number] 2.5mg Take 0.5 Univers ine 5 mg 7- [id number] tablets by ity of tablet 00:00: mouth [place] 00 every Medical evening as Branch needed for Other (itching). atorvastati Yes [id number] 80mg Take 1 Univers n 80 mg 7-03 913184 tablet by ity o f tablet 00:00: mouth at [place] 00 bedtime. Medical Branch levocetiriz Yes [id number] 2.5mg Take 0.5 Univers ine 5 mg 7- [id number] tablets by ity of tablet 00:00: mouth [place] 00 every Medical evening as Branch needed for Other (itching). atorvastati 0 Yes [id number] 80mg Take 1 Univers n 80 mg 7- [id number] tablet by ity o f tablet 00:00: mouth at [place] 00 bedtime. Medical Branch levocetiriz 0 Yes [id number] 2.5mg Take 0.5 Univers ine 5 mg 7- [id number] tablets by ity of tablet 00:00: mouth 00 every Medical evening as Branch needed for Other (itching). SERTRALINE Yes [id number] 50mg TAKE 1 U nivers 50 mg 6-27 TABLET BY ity of tablet 00:00: MOUTH DAILY Medical Branch SERTRALINE Yes [id number] 50mg TAKE 1 U nivers 50 mg 6-27 TABLET BY ity of tablet 00:00: MOUTH DAILY Medical Branch SERTRALINE Yes [id number] 50mg TAKE 1 U nivers 50 mg 6-27 TABLET BY ity of tablet 00:00: MOUTH DAILY Medical Branch SERTRALINE Yes [id number] 50mg TAKE 1 U nivers 50 mg 6-27 TABLET BY ity of tablet 00:00: MOUTH DAILY Medical Branch HYDROCORTIS Yes [id number] APPLY TO Univers ONE 2.5 % 6-01 AFFECTED ity of cream 00:00: AREA TWICE [place] DAILY Medical Branch meclizine Yes [id number] 12.5mg Take 1 Univers 12.5 mg 6-01 tablet by ity of tablet 00:00: mouth 3 (three) Medical times Branch daily as needed for Dizziness. HYDROCORTIS Yes [id number] APPLY TO Univers ONE 2.5 % 6-01 AFFECTED ity of cream 00:00: AREA TWICE [place] DAILY Medical Branch meclizine Yes [id number] 12.5mg Take 1 Univers 12.5 mg 6-01 tablet by ity of tablet 00:00: mouth 3 [place] (three) Medical times Branch daily as needed for Dizziness. HYDROCORTIS 0 Yes [id number] APPLY TO Univers ONE 2.5 % 6-01 AFFECTED ity of cream 00:00: AREA TWICE DAILY Medical Branch meclizine Yes [id number] 12.5mg Take 1 Univers 12.5 mg 6-01 tablet by ity of tablet 00:00: mouth 3 [place] 00 (three) Medical times Branch daily as needed for Dizziness. HYDROCORTIS 2021-0 Yes [id number] APPLY TO Univers ONE 2.5 % 6-01 AFFECTED ity of cream 00:00: AREA TWICE [place] 00 DAILY Medical Branch meclizine 2021-0 Yes [id number] 12.5mg Take 1 Univers 12.5 mg 6-01 tablet by ity of tablet 00:00: mouth 3 [place] 00 (three) Medical times Branch daily as needed for Dizziness. ciprofloxac 2021-0 Yes [id number] 500mg Take 1 Univers in HCl 3-08 tablet by ity of (CIPRO) 500 00:00: mouth [place] mg tablet 00 every 12 Medica l (twelve) Branch hours. ciprofloxac 2021-0 Yes [id number] 500mg Take 1 Univers in HCl 3-08 tablet by ity of (CIPRO) 500 00:00: mouth [place] mg tablet 00 every 12 Medica l (twelve) Branch hours. ciprofloxac 2021-0 Yes [id number] 500mg Take 1 Univers in HCl 3-08 tablet by ity of (CIPRO) 500 00:00: mouth [place] mg tablet 00 every 12 Medica l (twelve) Branch hours. ciprofloxac 2021-0 Yes [id number] 500mg Take 1 Univers in HCl 3-08 tablet by ity of (CIPRO) 500 00:00: mouth [place] mg tablet 00 every 12 Medica l (twelve) Branch hours. amLODIPine 2021-0 Yes [id number] 2.5mg Take 1 Univers 2.5 mg 1-28 tablet by ity of tablet 00:00: mouth [place] 00 daily. Medical Branch clopidogreL 2021-0 Yes [id number] 75mg Take 1 Univers 75 mg 1-28 tablet by ity of tablet 00:00: mouth [place] 00 daily. Medical Branch amLODIPine 2021-0 Yes [id number] 2.5mg Take 1 Univers 2.5 mg 1-28 tablet by ity of tablet 00:00: mouth [place] 00 daily. Medical Branch clopidogreL 2-0 Yes [id number] 75mg Take 1 Univers 75 mg 1-28 tablet by ity of tablet 00:00: mouth [place] 00 daily. Medical Branch amLODIPine 0 Yes [id number] 2.5mg Take 1 Univers 2.5 mg 1-28 tablet by ity of tablet 00:00: mouth [place] 00 daily. Medical Branch clopidogreL 0 Yes [id number] 75mg Take 1 Univers 75 mg 1-28 tablet by ity of tablet 00:00: mouth [place] 00 daily. Medical Branch amLODIPine 0 Yes [id number] 2.5mg Take 1 Univers 2.5 mg 1-28 tablet by ity of tablet 00:00: mouth [place] 00 daily. Medical Branch clopidogreL 0 Yes [id number] 75mg Take 1 Univers 75 mg 1-28 tablet by ity of tablet 00:00: mouth [place] 00 daily. Medical Branch ALPRAZOLAM 2020-09 Yes [id number] TAKE 1/2 Univers 2 mg tablet 2-13 TABLET BY ity of 00:00: MOUTH [place] 00 EVERY Medical NIGHT AT Branch BEDTIME NEEDED FOR SLEEP OR ANXIETY ALPRAZOLAM 2020-09 Yes [id number] TAKE 1/2 Univers 2 mg tablet 2-13 TABLET BY ity of 00:00: MOUTH [place] 00 EVERY Medical NIGHT AT Branch BEDTIME NEEDED FOR SLEEP OR ANXIETY ALPRAZOLAM 2020-09 Yes [id number] TAKE 1/2 Univers 2 mg tablet 2-13 TABLET BY ity of 00:00: MOUTH [place] 00 EVERY Medical NIGHT AT Branch BEDTIME NEEDED FOR SLEEP OR ANXIETY ALPRAZOLAM 2020-09 Yes [id number] TAKE 1/2 Univers 2 mg tablet 2-13 TABLET BY ity of 00:00: MOUTH [place] 00 EVERY Medical NIGHT AT Branch BEDTIME NEEDED FOR SLEEP OR ANXIETY pantoprazol 0 Yes [id number] 40mg Take 1 Univers e 40 mg EC 6-03 tablet by ity of tablet 00:00: mouth [place] 00 daily. Medical Branch pantoprazol 0 Yes [id number] 40mg Take 1 Univers e 40 mg EC 6-03 tablet by ity of tablet 00:00: mouth [place] 00 daily. Medical Branch pantoprazol 0 Yes [id number] 40mg Take 1 Univers e 40 mg EC 6-03 tablet by ity of tablet 00:00: mouth [place] 00 daily. Medical Branch pantoprazol 0 Yes [id number] 40mg Take 1 Univers e 40 mg EC 6-03 tablet by ity of tablet 00:00: mouth [place] 00 daily. Medical Branch Alfuzosin Alfuzosin 2020- No [place] 1 tablet Common HCl ER HCl ER [id number] 06-16 [place] immediatel Spirit 00:00: 00:00 y after - [facility]I 00 :00 the same [facility] Tamsulosin Tamsulosin 2020- No [place] 1 capsule Common HCl HCl 2 08-09 [place] Spirit 00:00: 00:00 - [facility] 00 :00 [facility] fluocinonid 2018- Yes [id number] Apply to Univers e 0.05 % 1-18 area(s) 2 ity of cream 00:00: (two) [place] 00 times Medical daily. Branch fluocinonid 2018-09 Yes [id number] Apply to Univers e 0.05 % 1-18 area(s) 2 ity of cream 00:00: (two) [place] 00 times Medical daily. Branch fluocinonid 2018-09 Yes [id number] Apply to Univers e 0.05 % 1-18 area(s) 2 ity of cream 00:00: (two) [place] 00 times Medical daily. Branch fluocinonid 2018-09 Yes [id number] Apply to Univers e 0.05 % 1-18 [...] mg tablet 00 Medical Branch tamsulosin Yes [id number] .4mg Take 1 Univers 0.4 mg 24 4 capsule by ity of hr capsule 00:00: mouth [place] 00 daily. Medical Branch tamsulosin 2018-0 Yes [id number] .4mg Take 1 Univers 0.4 mg 24 4-23 01 capsule by ity of hr capsule 00:00: mouth daily. Medical Branch tamsulosin 2019-0 Yes [id number] .4mg Take 1 Univers 0.4 mg 24 4-23 01 capsule by ity of hr capsule 00:00: mouth daily. Medical Branch tamsulosin 2019-0 Yes [id number] .4mg Take 1 Univers 0.4 mg 24 [...] needed for Bladder spasms. finasteride 2018-0 Yes [id number] 5mg Take 1 Univers 5 mg tablet 4-09 tablet by ity of 00:00: mouth [place] 00 daily. Medical Branch finasteride Yes [id number] 5mg Take 1 Univers 5 mg tablet 4-09 tablet by ity of 00:00: mouth [place] 00 daily. Medical Branch finasteride Yes [id number] 5mg Take 1 Univers 5 mg tablet 4-09 tablet by ity of 00:00: mouth [place] 00 daily. Medical Branch finasteride Yes [id number] 5mg Take 1 Univers 5 mg tablet [...] Brielle 1 tablet Common Besylate Besylate Alicja [facility] Pantoprazol Pantoprazol Yes Brielle 1 tablet Common e Sodium e Sodium Alicja [facility] HydrOXYzine HydrOXYzine Yes Brielle 1 tablet Common HCl HCl [place] as needed [facility] Centrum Centrum Yes [place] as Common Silver Silver [place] directed [facility] Methadone Methadone Yes Brielle 1 tablet Common HCl HCl Alicja [facility] Ranolazine Ranolazine Yes Bri[place] 1 tablet Common ER ER Alicja [facility] Aspir-81 Aspir-81 Yes Brielle 1 tablet Co mmon [place] [facility] Testosteron Testosteron Yes [place] as Common e e Alicja directed [facility] Clopidogrel Clopidogrel Yes Brielle 1 tablet Common Bisulfate Bisulfate Alicja [facility] Metoprolol Metoprolol Yes Brielle 1 capsule Common Succinate Succinate Alicja [facility] Immunizations Ordered Filled Immunization Date Status Comments [facility] e Immunization Name Name Influenza Virus 2021-12-07 [...] Unive rsity of PFIZER VACCINE 00:00:00 [place] [facility] SARS-COV-2 COVID-19 2021-08-10 Completed Unive rsity of PFIZER VACCINE 00:00:00 [place] [facility] SARS-COV-2 COVID-19 2021-08-10 Completed Unive rsity of PFIZER VACCINE 00:00:00 [place] [facility] SARS-COV-2 COVID-19 2021-08-10 Completed Unive rsity of PFIZER VACCINE 00:00:00 [place] [facility] SARS-COV-2 COVID-19 2020-11-05 Completed Unive rsity of PFIZER VACCINE 00:00:00 [place] [facility] SARS-COV-2 COVID-19 2020-11-05 Completed Unive rsity of PFIZER VACCINE 00:00:00 [place] [facility] SARS-COV-2 COVID-19 2020-11-05 Completed Unive rsity of PFIZER VACCINE 00:00:00 [place] [facility] SARS-COV-2 COVID-19 2020-11-05 Completed Unive rsity of PFIZER VACCINE 00:00:00 [place] [facility] SARS-COV-2 COVID-19 2020-10-15 Completed Unive rsity of PFIZER VACCINE 00:00:00 [place] [facility] SARS-COV-2 COVID-19 2020-10-15 Completed Unive rsity of PFIZER VACCINE 00:00:00 [place] [facility] SARS-COV-2 COVID-19 2020-10-15 Completed Unive rsity of PFIZER VACCINE 00:00:00 [place] [facility] SARS-COV-2 COVID-19 2020-10-15 Completed Unive rsity of PFIZER VACCINE 00:00:00 [place] [facility] Influenza High Dose 2020-09-02 Completed Unive rsity of Quad 00:00:00 [facility] Influenza High Dose 2020-09-02 Completed Unive rsity of [place] 00:00:00 [facility] Influenza High Dose 2020-09-02 Completed Unive rsity of [place] 00:00:00 [facility] Influenza High Dose 2020-09-02 Completed Unive rsity of [place] 00:00:00 [facility] Pneumococcal 2019-06-25 Completed University o f Polysaccharide, 00:00:00 [place] Med ical PPSV23 (PNEUMOVAX) Branch Influenza High Dose 2019-06-25 Completed Unive rsity of 00:00:00 [facility] Pneumococcal 2019-06-25 Completed University o f Polysaccharide, 00:00:00 [place] Med ical PPSV23 (PNEUMOVAX) Branch Influenza High Dose 2019-06-25 Completed Unive rsity of 00:00:00 [facility] Pneumococcal 2019-06-25 Completed University o f Polysaccharide, 00:00:00 [place] Med ical PPSV23 (PNEUMOVAX) Branch Influenza High Dose 2019-06-25 Completed Unive rsity of 00:00:00 [facility] Pneumococcal 2019-06-25 Completed University o f Polysaccharide, 00:00:00 [place] Med ical PPSV23 (PNEUMOVAX) Branch Influenza High Dose 2019-06-25 Completed Unive rsity of 00:00:00 [facility] Vital Signs Vital Name Observation Time Observation Value Comments Source Body temperature 2022-04-12 18:21:00 36.61 Diandra Univ ersity of [facility] Systolic blood 2022-04-12 18:19:00 121 mm[Hg] Univer sity of pressure [facility] Diastolic blood 2022-04-12 18:19:00 85 mm[Hg] Unive rsity of pressure [facility] Heart rate 2022-04-12 18:19:00 91 /[facility] Respiratory rate 2022-04-12 18:19:00 18 /min [place] [facility] Body height 2022-04-12 18:19:00 172.7 cm Universi ty [facility] Medical [place] Body weight 2022-04-12 18:19:00 62.596 kg Universi [facility] BMI 2022-04-12 18:19:00 20.98 kg/m2 [facility] Oxygen saturation in 2022-04-12 18:19:00 96 /min [facility] Arterial blood by [facility] Pulse oximetry Branch Systolic blood 2022-04-05 17:15:00 136 mm[Hg] [place] [facility] Diastolic blood 2022-04-05 17:15:00 77 mm[Hg] [place] [facility] Heart rate 2022-04-05 17:15:00 82 /min [facility] Body weight 2022-04-05 17:15:00 59.784 kg [facility] BMI 2022-04-05 17:15:00 20.04 kg/m2 [facility] Procedures Procedure Date / Time Performed Performing Clinician Sour e EXTERNAL PROVIDER 2022-05-11 05:01:00 Doctor Unassigned, No Univ [facility] RECORDS Name Medical Branch URINALYSIS 2022-04-12 21:11:00 Maira Nuñez [facility] HB ECG ROUTINE & 2022-04-12 19:01:56 Maira Nuñez [facility] RHYTHM STRIP [facility] XR CHEST 1 VW 2022-04-12 18:41:36 Maira Nuñez [facility] LIPASE 2022-04-12 18:30:00 Maira Nuñez [facility] TROPONIN I 2022-04-12 18:30:00 [place] [facility] COMP. METABOLIC PANEL 2022-04-12 18:30:00 Maira Nuñez [facility] ([id number]) Medical [place] CBC WITH DIFF 2022-04-12 18:30:00 Maira Nuñez [facility] Encounters Start End Encounter Admission Attending Care Care Encounter Source Date/Time Date/Time Type Type Clinicians Facility Department ID 2021-09-28 Outpatient [facility] [id number] Common 11:07:04 [id number] [facility] 2022-05-11 2022-05-11 Orders Doctor LESLYE [id number] Univers 00:00:00 00:00:00 Only Unassigned, CHAI [id number] ity of [place] [facility] [id number] Abel as [id number] [facility] 009 [place] 2022-05-03 2022-05-03 [facility] [id number] Univers 12:30:00 12:30:00 JABIER [facility] 2022-04-12 2022-04-12 Emergency X [facility] ERT [id number] Univers 13:22:00 16:36:00 MAIRA sadie [facility] 2022-04-12 2022-04-12 Emergency [facility] [id number] Univers 13:22:00 16:36:00 [place]aira [place] 350.1.13.10 i ty of [place] [id number] [id number] [address] 2022-04-05 2022-04-05 [facility] [id number] Univers 12:15:00 13:00:56 Visit [facility] [id number] it y of [place] 4.2.7.2.686 Abel as YOHAN?BLEA [id number] [address] MEDICAL OFFICE BUILDING 2019-11-19 2019-11-19 Out[facility] [id number] Common 11:45:00 11:45:00 t Specialty/U Sp felipe Specialty rology - [facility] 2019-10-15 2019-10-15 [id number] Common 09:41:00 09:41:00 t Specialty/U Sp felipe Specialty rology - [facility] /[facility] 2019-10-14 2019-10-14 Outpatient Albert Panchal [id number] Common 14:00:00 14:00:00 t Specialty/U Sp felipe Specialty rology - [facility] /[facility] Results Test Description Test Time Test [...] 34.3 g/dL 31.2-35 RDW-SD (test code = 25227-9) 44.2 fL 38.5-51.6 RDW-CV (test code = 788-0) 13.5 % 12.1-15.4 PLT (test code = 777-3) See_Comment [Au tomated message] The system which ge nerated this result transmit patricio reference range: 150 - 32 8 10*3/?L. The reference range was not used to interpret th is result as normal/abnormal . MPV (test code = 84735-2) 10.4 fL 9.8-13 NRBC/100 WBC (test code = See_Comment [ Automated message] The [id number]) system which ge nerated this result transmit patricio reference range: 0.0 - 10 .0 /100 WBCs. The reference r sen was not used to interpr et this result as normal/abnor mal. NRBC x10^3 (test code = See_Comment [Au tomated message] The [id number]) system which ge nerated this result transmit patricio reference range: 10*3/?L. The reference range was not u sed to interpret this result as normal/abnormal . GRAN MAT (NEUT) % (test code 76.9 % = 770-8) IMM GRAN % (test code = 0.40 % 4162727035) LYMPH % (test code = 736-9) 14.3 % MONO % (test code = 5905-5) 7.7 % EOS % (test code = 713-8) 0.3 % BASO % (test code = 706-2) 0.4 % GRAN MAT x10^3(ANC) (test 5.28 10*3/uL 1.99-6.95 code = 2083320862) IMM GRAN x10^3 (test code = 0.03 10*3/uL 0-0.06 4644400166) LYMPH x10^3 (test code = 0.98 10*3/uL 1.09-3.23 L 731-0) MONO x10^3 (test code = 0.53 10*3/uL 0.36-1.02 742-7) EOS x10^3 (test code = 0.06-0.53 L 711-2) BASO x10^3 (test code = 0.03 10*3/uL 0.01-0.09 704-7) Lab Interpretation (test Abnormal code = 17148-1) [facility] [id number] 19:17:13 Test Item Value Reference Interpretation Comments Range TROPONIN I (test 0.029 ng/mL See_Comment [Automated code = 7544549190) message] The system which generated this result [...] biotin. Lab Interpretation Normal (test code = 31909-9) [facility]. METABOLIC PANEL ([id number])2022-04-12 19:05:30 Test Item Value Reference Range Interpretation Comments NA (test code = 141 mmol/L 135-145 2475083237) K (test code = 3.8 mmol/L 3.5-5 8954675744) CL (test code = 103 mmol/L 98-108 0893962064) CO2 TOTAL (test code = 29 mmol/L 23-31 6314354976) AGAP (test code = 2-16 6167663335) BUN (test code = 25 mg/dL 7-23 H 3903729212) GLUCOSE (test code = 108 mg/dL 70-110 1449871923) CREATININE (test code = 1.47 mg/dL 0.6-1.25 H 7920598519) TOTAL BILI (test code = 2.1 mg/dL 0.1-1.1 H 4741011322) CALCIUM (test code = 9.5 mg/dL 8.6-10.6 7182068396) T PROTEIN (test code = 6.5 g/dL 6.3-8.2 0545100523) ALBUMIN (test code = 4.0 g/dL 3.5-5 0915633868) ALK PHOS (test code = 80 U/L 34-122 0572384866) ALTv (test code = 29 U/L 5-50 1742-6) AST(SGOT) (test code = 33 U/L 13-40 6071762111) eGFR (test code = mL/min/1.73m2 6215442194) SONAL (test code = SONAL) Association of [...] tests). Lab Interpretation Abnormal (test code = 24358-6) [facility]52 Test Item Value Reference Range Interpretation Comments LIPASE (test code = 8679101254) 343 U/L 0-220 H Lab Interpretation (test code = Abnormal 53919-5) [facility]"
--- NOTE | 2022-05-30 11:34 | ER ---
Nurse's Notes [facility] Name: Fritz Laws Age: 77 yrs Sex: Male : 1945 Arrival Date: 05/30/2022 Time: 11:06 Bed 12 Private MD: Diagnosis: Fall from non-moving wheelchair;Dementia in other diseases classified elsewhere without behavioral disturbance Presentation: 05/30 11:06 Chief complaint: EMS states: FALL FROM SEATED POSITION, NO LOC, NO APPARENT INJURY. bp Coronavirus screen: At this time, the client does not indicate any symptoms associated with coronavirus-19. Ebola Screen: No symptoms or risks identified at this time. Initial Sepsis Screen: Does the patient meet any 2 criteria? HR > 90 bpm. No. Patient's initial sepsis screen is negative. Does the patient have a suspected source of infection? No. Patient's initial sepsis screen is negative. Risk Assessment: Do you want to hurt yourself or someone else? Patient reports no desire to harm self or others. Onset of symptoms was May 30, 2022 at 10:30. Care prior to arrival: Cervical collar in place. 11:06 Method Of Arrival: EMS: [facility] bp 11:06 Acuity: MARTIN 3 bp 11:15 Note DNR. bp Triage Assessment: 11:08 General: Appears in no apparent distress. Behavior is calm, cooperative. Pain: bp Complains of pain in back of neck. EENT: No deficits noted. Neuro: Level of Consciousness is awake, obeys commands, confused, Oriented to person. Cardiovascular: No deficits noted. Respiratory: No deficits noted. GI: No signs and/or symptoms were reported involving the gastrointestinal system. : No signs and/or symptoms were reported regarding the genitourinary system. Derm: No deficits noted. Musculoskeletal: No deficits noted. Historical: - Allergies: 11:08 No Known Allergies; bp - Home Meds: 11:08 apixaban 2.5 mg oral tab 1 tab 2 times per day [Active]; atorvastatin 40 mg oral tab 1 bp tab once daily [Active]; clopidogrel 75 mg oral tab 1 tab once daily [Active]; Flomax 0.4 mg Oral cap 1 cap once daily [Active]; Klor-Con 10 10 mEq Oral TbER 1 tab 2 times per day [Active]; lisinopril 5 mg Oral tab 1 tab twice a day [Active]; magnesium oxide 400 mg magnesium Oral tab 400 mg twice a day [Active]; mirtazapine 30 mg Oral tab 1 tab once daily [Active]; Norvasc 5 mg Oral tab 1 tab once daily [Active]; Restoril 15 mg Oral cap 1 cap nightly [Active]; tramadol 50 mg Oral tab 1 tab every 6 hours [Active]; Zoloft 100 mg Oral tab 1 tab once daily [Active]; - PMHx: 11:08 Hypertensive disorder; Cerebrovascular accident; Hypercholesterolemia; Depressive bp disorder; - Immunization history:: Adult Immunizations up to date. - Social history:: Smoking status: Patient denies any tobacco usage or history of. - Family history:: not pertinent. Screenin:10 Abuse screen: Denies threats or abuse. Denies injuries from another. Nutritional bp screening: No deficits noted. Tuberculosis screening: No symptoms or risk factors identified. Fall Risk None identified. Assessment: 11:10 General: SEE TRIAGE NOTE. bp 11:38 Reassessment: [facility] CONTACTED FOR RETURN TRANSPORT. bp Vital Signs: 11:06 BP 110 / 64; Pulse 96; Resp 16; Temp 98; Pulse Ox 100% ; bp 11:38 BP 99 / 71; Pulse 90; Resp 21; Pulse Ox 98% ; bp ED Course: 11:06 Patient arrived in ED. bp 11:07 Haresh Pimentel MD is Attending Physician. elif 11:08 Triage completed. bp 11:08 Arm band placed on. bp 11:10 Patient has correct armband on for positive identification. Bed in low position. Call bp light in reach. Side rails up X2. 11:15 Charlie Matthews, RN is Primary Nurse. bp 11:19 CT Head C Spine In Process Unspecified. EDMS Administered Medications: No medications were administered Medication: 11:10 VIS not applicable for this client. bp Outcome: 11:34 Discharge ordered by . elif 17:09 Patient left the ED. iw Signatures: Dispatcher [employer] EDMS Haresh Pimentel MD MD cha Williams, Irene, RN RN iw Charlie Matthews, GERONIMO RN bp Corrections: (The following items were deleted from the chart) 11:13 11:08 PSHx: CABG; bp bp
--- NOTE | 2022-05-30 11:34 | EDPHYS ---
Physician Documentation [facility] Name: Fritz Laws Age: 77 yrs Sex: Male : 1945 Arrival Date: 05/30/2022 Time: 11:06 Bed 12 Private MD: ED Physician Haresh Pimentel HPI: 05/30 11:29 This 77 yrs old Male presents to ER via EMS with complaints of Fall Injury. elif 11:29 Details of fall: The patient fell from seated position, out of a chair. Onset: The elif symptoms/episode began/occurred just prior to arrival. Associated injuries: The patient sustained no obvious injury. Severity of symptoms: At their worst the symptoms were mild, in the emergency department the symptoms are unchanged. The patient has experienced similar episodes in the past, multiple times. Historical: - Allergies: 11:08 No Known Allergies; bp - Home Meds: 11:08 apixaban 2.5 mg oral tab 1 tab 2 times per day [Active]; atorvastatin 40 mg oral tab 1 bp tab once daily [Active]; clopidogrel 75 mg oral tab 1 tab once daily [Active]; Flomax 0.4 mg Oral cap 1 cap once daily [Active]; Klor-Con 10 10 mEq Oral TbER 1 tab 2 times per day [Active]; lisinopril 5 mg Oral tab 1 tab twice a day [Active]; magnesium oxide 400 mg magnesium Oral tab 400 mg twice a day [Active]; mirtazapine 30 mg Oral tab 1 tab once daily [Active]; Norvasc 5 mg Oral tab 1 tab once daily [Active]; Restoril 15 mg Oral cap 1 cap nightly [Active]; tramadol 50 mg Oral tab 1 tab every 6 hours [Active]; Zoloft 100 mg Oral tab 1 tab once daily [Active]; - PMHx: 11:08 Hypertensive disorder; Cerebrovascular accident; Hypercholesterolemia; Depressive bp disorder; - Immunization history:: Adult Immunizations up to date. - Social history:: Smoking status: Patient denies any tobacco usage or history of. - Family history:: not pertinent. ROS: 11:29 Constitutional: Negative for fever, chills, and weight loss, Eyes: Negative for injury, elif pain, redness, and discharge, ENT: Negative for injury, pain, and discharge, Neck: Negative for injury, pain, and swelling, Cardiovascular: Negative for chest pain, palpitations, and edema, Respiratory: Negative for shortness of breath, cough, wheezing, and pleuritic chest pain, Abdomen/GI: Negative for abdominal pain, nausea, vomiting, diarrhea, and constipation, Back: Negative for injury and pain, : Negative for injury, bleeding, discharge, and swelling, MS/Extremity: Negative for injury and deformity, Skin: Negative for injury, rash, and discoloration, Psych: Negative for depression, anxiety, suicide ideation, homicidal ideation, and hallucinations, Allergy/Immunology: Negative for hives, rash, and allergies, Endocrine: Negative for neck swelling, polydipsia, polyuria, polyphagia, and marked weight changes, Hematologic/Lymphatic: Negative for swollen nodes, abnormal bleeding, and unusual bruising. 11:29 Neuro: Positive for DEMENTIA. Exam: 11:31 Constitutional: This is a well developed, well nourished patient who is awake, alert, elif and in no acute distress. Head/Face: Normocephalic, atraumatic. Eyes: Pupils equal round and reactive to light, extra-ocular motions intact. Lids and lashes normal. Conjunctiva and sclera are non-icteric and not injected. Cornea within normal limits. Periorbital areas with no swelling, redness, or edema. ENT: Nares patent. No nasal discharge, no septal abnormalities noted. Tympanic membranes are normal and external auditory canals are clear. Oropharynx with no redness, swelling, or masses, exudates, or evidence of obstruction, uvula midline. Mucous membranes moist. Neck: Trachea midline, no thyromegaly or masses palpated, and no cervical lymphadenopathy. Supple, full range of motion without nuchal rigidity, or vertebral point tenderness. No Meningismus. Chest/axilla: Normal chest wall appearance and motion. Nontender with no deformity. No lesions are appreciated. Cardiovascular: Regular rate and rhythm with a normal S1 and S2. No gallops, murmurs, or rubs. Normal PMI, no JVD. No pulse deficits. Respiratory: Lungs have equal breath sounds bilaterally, clear to auscultation and percussion. No rales, rhonchi or wheezes noted. No increased work of breathing, no retractions or nasal flaring. Abdomen/GI: Soft, non-tender, with normal bowel sounds. No distension or tympany. No guarding or rebound. No evidence of tenderness throughout. Back: No spinal tenderness. No costovertebral tenderness. Full range of motion. Male : Normal genitalia with no discharge or lesions. Skin: Warm, dry with normal turgor. Normal color with no rashes, no lesions, and no evidence of cellulitis. MS/ Extremity: Pulses equal, no cyanosis. Neurovascular intact. Full, normal range of motion. Psych: Awake, alert, with orientation to person, place and time. Behavior, mood, and affect are within normal limits. 11:31 Neuro: Orientation: to person, Not oriented to place, time, situation, Mentation: is normal, Memory: immediate memory is impaired, remote memory is impaired, recent memory is impaired, Cranial nerves: grossly normal, Cerebellar function: is grossly normal, Motor: no acute changes, Sensation: unable to test, Gait: not tested. Babinski testing is normal. Vital Signs: 11:06 BP 110 / 64; Pulse 96; Resp 16; Temp 98; Pulse Ox 100% ; bp 11:38 BP 99 / 71; Pulse 90; Resp 21; Pulse Ox 98% ; bp MDM: 11:07 Patient medically screened. elif 11:32 Differential diagnosis: closed head injury, contusion, fracture, multiple trauma, elif sprain, strain. Data reviewed: vital signs, nurses notes, EMS record, radiologic studies, CT scan. Data interpreted: monitoring manager: rate is 96 beats/min, Pulse oximetry: on room air. Counseling: I had a detailed discussion with the patient and/or guardian regarding: the historical points, exam findings, and any diagnostic results supporting the discharge/admit diagnosis, radiology results, the need for outpatient follow up, for definitive care, an transistor tester. 05/30 11:08 Order name: CT Head C Spine elif Administered Medications: No medications were administered Disposition Summary: 05/30/22 11:34 Discharge Ordered Location: Home elif Problem: new elif Symptoms: have improved elif Condition: Stable elif Diagnosis - Fall from non-moving wheelchair elif - Dementia in other diseases classified elsewhere without behavioral disturbance elif Followup: elif - With: Private Physician - When: 2 - 3 days - Reason: Recheck today's complaints, Continuance of care, Re-evaluation by your physician Discharge Instructions: - Discharge Summary Sheet elif - Dementia elif - Fall Prevention in the Home, Adult elif - Fall Prevention in the Home, Adult, [id number] elif - Dementia, [id number] elif Forms: - Medication Reconciliation Form elif - Thank You Letter elif - Antibiotic Education elif - Prescription Opioid Use elfi Signatures: Dispatcher [employer] Haresh Mijares MD MD cha Peltier, Brian, RN RN bp Corrections: (The following items were deleted from the chart) 11:13 11:08 PSHx: CABG; bp bp
--- NOTE | 2022-05-30 11:36 | RAD REPORT ---
EXAM DESCRIPTION: CT - [id number] - 05/30/2022 11:18 am CLINICAL HISTORY: Trauma, head and neck injury. fall COMPARISON: Neck Angio dated 04/23/2022; Brain Wo Cont dated 05/03/2022 TECHNIQUE: Axial 5 mm thick images of the head were obtained. Axial 2 mm thick images of the cervical spine were obtained with sagittal and coronal reconstruction images generated and reviewed. All CT scans are performed using dose optimization technique as appropriate and may include automated exposure control or mA/KV adjustment according to patient size. FINDINGS: CT HEAD WITHOUT CONTRAST: No acute hemorrhage, hydrocephalus or extra-axial collection is identified.No areas of brain edema or midline shift. Remote right parietal and occipital lobe infarct. Remote cerebellar infarcts. Air-fluid level in the left sphenoid sinus.The calvarium is intact. CT CERVICAL SPINE WITHOUT CONTRAST: No fracture or subluxation.No prevertebral soft tissues swelling is identified. Mild multilevel cervi riley spondylosis with varying degrees of neural foraminal narrowing. Trace anterolisthesis of C4 on C5 is likely related to underlying degenerative changes. IMPRESSION: No acute intracranial or cervical spine findings.
[2022-06-01 21:34] VITALS: TEMP 98
[2022-06-01 21:40] VITALS: BP 99/71; O2SAT 98
== END 2022-05-30 17:09 | disposition home or self-care (01) ==
LOC: ER 11:04
DX: Z04.3 Encounter for examination and observation following other accident (principal); W05.0XXA Fall from non-moving wheelchair, initial encounter; F03.90 Unspecified dementia, unspecified severity, without behavioral disturbance, psychotic disturbance, mood disturbance, and anxiety; I10 Essential (primary) hypertension; Z86.73 Personal history of transient ischemic attack (TIA), and cerebral infarction without residual deficits
CPT/HCPCS: 70450; 72125; 99283

== ENCOUNTER 2023-04-09 09:15 | Emergency (ER) | payer OTHER ==
--- OUTSIDE RECORDS SUMMARY | 2023-04-09 09:34 | XMS REPORT | Continuity of Care Document ---
:[address] [facility] t Address [address] [place] [address] [address] [place] [address] Care Team Providers Name Role Phone Pasha Henry MD Primary Care Physician EDGAR OGDEN Attending Clinician Unavailable EDGAR OGDEN Attending Clinician Unavailable Doctor Unassigned, [place] Attending Clinician Unavailable PASHA HENRY Attending Clinician Unavailable RACHEL NUÑEZ Attending Clinician Unavailable Rachel Manriquez Attending Clinician Pasha Henry MD Attending Clinician Suly Woo LVN A Attending Clinician Unavailable Frederick MELTON, Brenda Santoro Attending Clinician Unavailable ANTHONY MEZA Attending Clinician Unavailable Anthony Meza MD Attending Clinician RANI MENJIVAR Attending Clinician Unavailable RANI MENJIVAR Attending Clinician Unavailable Mick Lamas DO Attending Clinician Yuko Fry Attending Clinician YUKO MALCOLM Attending Clinician Unavailable Edgar Ogden MD Attending Clinician Kasie Logan MD Attending Clinician Beth Lopez RN Attending Clinician Unavailable SITA WILSON Attending Clinician Unavailable Sita Patino Attending Clinician [facility] Attending Clinician Unavailable YEIMI FULLER Attending Clinician Unavailable Yeimi Fuller MD Attending Clinician Vaccine, Ang Db Cbc Fam Attending Clinician Unavailable JOSE SU Attending Clinician Unavailable NORMAN IRELAND Attending Clinician Unavailable Lab, Adc Fam Pob I Attending Clinician Unavailable 2, Adc Lab Attending Clinician Unavailable Rafa Sam MD Attending Clinician EDGAR OGDEN Admitting Clinician Unavailable RACHEL NUÑEZ Admitting Clinician Unavailable ANTHONY MEZA Admitting Clinician Unavailable RANI MENJIVAR Admitting Clinician Unavailable Edgar Ogden MD Admitting Clinician SITA WILSON Admitting Clinician Unavailable Payers Payer Name Policy Type Policy Number Effective Date Expiration Date Carlie rockwell MEDICARE PART A [id number] 2002 \\T\\ B 00:00:00 [employer] MUTLIPLE [id number] 2017 SHAY 00:00:00 Problems Condition Condition Condition Status Onset Resolution Last Treating Co mments Source Name Details Category Date Date Treatment Clinician Date Left leg Left leg Disease Active Unive rs weakness weakness 7-01 ity of 00:00: [place] 00 Medical Branch Gastroesop Gastroesop Disease Active [...] Added automatic ally from request for surgery [id number] Stroke Stroke Disease Active Univers 1-11 ity of 00:00: [place] 00 Medical Branch Lower Lower Disease Active Univers urinary urinary 5-30 ity of tract tract 00:00: [place] symptoms symptoms 00 Medica l (LUTS) (LUTS) Branch Fatigue, Fatigue, Disease Active Unive rs unspecifie unspecifie 5-30 it y of d type d type 00:00: [place] 00 Medical Branch 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 0-12 ity of 00:00: [place] 00 Medical Branch Chronic Chronic Disease Active 2014-09 Univers back pain back pain 0-12 ity of 00:00: [place] [address] Medical Branch Essential Essential Disease Active 2014-09 Uni vers hypertensi hypertensi 0-12 it y of on on 00:00: [place] [facility] 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 Low Low Diagnosis Active Common testostero testostero Sp felipe ne in male ne in male [facility] Urinary Urinary Diagnosis Active Commo n tract tract Spirit infection infection - CH I without without St hematuria, hematuria, Regi kes site site Medical unspecifie unspecifie Ce nter d d Urine Urine Diagnosis Active Common retention retention Spir it - [facility] Allergies, Adverse Reactions, Alerts Allergy Allergy Status Severity Reaction(s) Onset Inactive Treating Comm ents Source Name Type Date Date Clinician NO KNOWN Drug Active [facility] ALLERGIE Class ity of S [facility] Social History Social Habit Start Date Stop Date Quantity Comments Source Exposure to 2022-03-26 2022-04-05 Not sure [facility] SARS-CoV-2 00:00:00 12:23:00 [place] Medical (event) Branch Alcohol intake 2022-03-03 2022-03-03 Current University of 00:00:00 00:00:00 non-drinker of [facility] alcohol (finding) Branch Tobacco use and 2015-07-02 2015-07-02 Smokeless tobacco Un iversity of exposure 00:00:00 00:00:00 non-user [facility] Sex [birth year] Universit y of 00:00:00 00:00:00 [facility] Smoking Status Start Date Stop Date Source Never smoked tobacco [facility] Medications Ordered Filled Start Stop Current Ordering Indication Dosage Frequency Signature Comments Components Source Medication Medication Date Date Medication? Clinician (SIG) Name Name cyanocobala No [id number] 1000ug Univers min 04-05 ity of (VITAMIN 18:45: 19:34 [place] B12) 00 :00 Medical injection Branch 1,000 mcg testosteron 2021- No [id number] 260mg Univers e cypionate 04-05 ity of (DEPO-TESTO 18:45: 19:34 [place] STERONE) 00 :00 Medical injection Branch 260 mg testosteron No [id number] 260mg 260 mg, Univers e cypionate 04-05 Intramuscu i ty of (DEPO-TESTO 18:45: 19:34 lar, ONCE, [place] STERONE) 00 :00 1 dose, On Medic al injection Sun04/05/22 Bran ch 260 mg at 1345, Routine cyanocobala No [id number] 1000ug 1,000 mcg, Univers min 04-05 Intramuscu ity of (VITAMIN 18:45: 19:34 [place] B12[place] 00 :00 1 dose, On Medical injection Sun04/05/22 Bran ch 1,000 mcg at 1345, Routine cyanocobala No [id number] 1000ug Univers min 04-05 ity of (VITAMIN 18:45: 19:34 [place] B12) 00 :00 Medical injection Branch 1,000 mcg testosteron No [id number] 260mg Univers e cypionate 04-05 ity of (DEPO-TESTO 18:45: 19:34 [place] STERONE) 00 :00 Medical injection Branch 260 mg testosteron No [id number] 260mg 260 mg, Univers e cypionate 04-05 Intramuscu i ty of (DEPO-TESTO 18:45: 19:34 lar, ONCE, [place] STERONE) 00 :00 1 dose, On Medic al injection Sun04/05/22 Bran ch 260 mg at 1345, Routine cyanocobala 2021- No [id number] 1000ug 1,000 mcg, Univers min 04-05 Intramuscu ity of (VITAMIN 18:45: 19:34 [place] B12[place] 00 :00 1 dose, On Medical injection Sun04/05/22 Bran ch 1,000 mcg at 1345, Routine atorvastati Yes [id number] 80mg Take 1 Univers n 80 mg 7- [id number] tablet by ity o f tablet 00:00: mouth at [place] 00 bedtime. Medical Branch levocetiriz Yes [id number] 2.5mg Take 0.5 Univers ine 5 mg 7- [id number] tablets by ity of tablet 00:00: mouth [place] 00 every Medical evening as Branch needed for Other (itching). atorvastati Yes [id number] 80mg Take 1 Univers n 80 mg 7- 236332 tablet by ity o f tablet 00:00: mouth at [place] 00 bedtime. Medical Branch levocetiriz Yes [id number] 2.5mg Take 0.5 Univers ine 5 mg 7- [id number] tablets by ity of tablet 00:00: mouth 00 every Medical evening as Branch needed for Other (itching). atorvastati Yes [id number] 80mg Take 1 Univers n 80 mg 7-03 [id number] tablet by ity o f tablet 00:00: mouth at [place] 00 bedtime. Medical Branch levocetiriz Yes [id number] 2.5mg Take 0.5 Univers ine 5 mg 7-03 [id number] tablets by ity of tablet 00:00: mouth [place] 00 every Medical evening as Branch needed for Other (itching). atorvastati Yes [id number] 80mg Take 1 Univers n 80 mg 7-03 [id number] tablet by ity o f tablet 00:00: mouth at [place] 00 bedtime. Medical Branch levocetiriz Yes [id number] 2.5mg Take 0.5 Univers ine 5 mg 7- [id number] tablets by ity of tablet 00:00: mouth [place] 00 every Medical evening as Branch needed for Other (itching). SERTRALINE Yes [id number] 50mg TAKE 1 U nivers 50 mg 6-27 TABLET BY ity of tablet 00:00: MOUTH [place] 00 DAILY Medical Branch SERTRALINE Yes [id number] 50mg TAKE 1 U nivers 50 mg 6-27 TABLET BY ity of tablet 00:00: MOUTH DAILY Medical Branch SERTRALINE Yes [id number] 50mg TAKE 1 U nivers 50 mg 6-27 TABLET BY ity of tablet 00:00: MOUTH DAILY Medical Branch SERTRALINE Yes [id number] 50mg TAKE 1 U nivers 50 mg 6-27 TABLET BY ity of tablet 00:00: MOUTH 00 DAILY Medical Branch HYDROCORTIS Yes [id number] APPLY TO Univers ONE 2.5 % 6-01 AFFECTED ity of cream 00:00: AREA TWICE DAILY Medical Branch meclizine Yes [id number] 12.5mg Take 1 Univers 12.5 mg 6-01 tablet by ity of tablet 00:00: mouth 3 (three) Medical times Branch daily as needed for Dizziness. HYDROCORTIS Yes [id number] APPLY TO Univers ONE 2.5 % 6-01 AFFECTED ity of cream 00:00: AREA TWICE DAILY Medical Branch meclizine Yes [id number] 12.5mg Take 1 Univers 12.5 mg 6-01 tablet by ity of tablet 00:00: mouth 3 00 (three) Medical times Branch daily as needed for Dizziness. HYDROCORTIS Yes [id number] APPLY TO Univers ONE 2.5 % 6-01 AFFECTED ity of cream 00:00: AREA TWICE DAILY Medical Branch meclizine Yes [id number] 12.5mg Take 1 Univers 12.5 mg 6-01 tablet by ity of tablet 00:00: mouth 3 00 (three) Medical times Branch daily as needed for Dizziness. HYDROCORTIS Yes [id number] APPLY TO Univers ONE 2.5 % 6-01 AFFECTED ity of cream 00:00: AREA TWICE [place] 00 DAILY Medical Branch meclizine 2021-0 Yes [id number] 12.5mg Take 1 Univers 12.5 mg 6-01 tablet by ity of tablet 00:00: mouth 3 [place] 00 (three) Medical times Branch daily as needed for Dizziness. ciprofloxac 2021-0 Yes [id number] 500mg Take 1 Univers in HCl 3-08 tablet by ity of (CIPRO) 500 00:00: mouth [place] mg tablet 00 every 12 Medica l (twelve) Branch hours. ciprofloxac 2021-0 Yes [id number] 500mg Take 1 Univers in HCl 3-08 tablet by ity of (CIPRO) 500 00:00: mouth [place] mg tablet 00 every 12 Medica l (twelve) Branch hours. ciprofloxac 2021-0 Yes [id number] 500mg Take 1 Univers in HCl 3-08 tablet by ity of (CIPRO) 500 00:00: mouth [place] mg tablet 00 every 12 Medica l (twelve) Branch hours. ciprofloxac 2021-0 Yes [id number] 500mg Take 1 Univers in HCl 3-08 tablet by ity of (CIPRO) 500 00:00: mouth [place] mg tablet 00 every 12 Medica l (twelve) Branch hours. amLODIPine 2021-0 Yes [id number] 2.5mg Take 1 Univers 2.5 mg 1-28 tablet by ity of tablet 00:00: mouth [place] 00 daily. Medical Branch clopidogreL 2021-0 Yes [id number] 75mg Take 1 Univers 75 mg 1-28 tablet by ity of tablet 00:00: mouth [place] 00 daily. Medical Branch amLODIPine 2021-0 Yes [id number] 2.5mg Take 1 Univers 2.5 mg 1-28 tablet by ity of tablet 00:00: mouth [place] 00 daily. Medical Branch clopidogreL 2021-0 Yes [id number] 75mg Take 1 Univers 75 mg 1-28 tablet by ity of tablet 00:00: mouth [place] 00 daily. Medical Branch amLODIPine 2021-0 Yes [id number] 2.5mg Take 1 Univers 2.5 mg 1-28 tablet by ity of tablet 00:00: mouth [place] 00 daily. Medical Branch clopidogreL 2021-0 Yes [id number] 75mg Take 1 Univers 75 mg 1-28 tablet by ity of tablet 00:00: mouth [place] 00 daily. Medical Branch amLODIPine 0 Yes [id number] 2.5mg Take 1 Univers 2.5 mg 1-28 tablet by ity of tablet 00:00: mouth [place] 00 daily. Medical Branch clopidogreL 0 Yes [id number] 75mg Take 1 Univers 75 mg 1-28 tablet by ity of tablet 00:00: mouth [place] 00 daily. Medical Branch ALPRAZOLAM 2020-09 Yes [id number] TAKE 1/2 Univers 2 mg tablet 2-13 TABLET BY ity of 00:00: MOUTH [place] 00 EVERY Medical NIGHT AT Branch BEDTIME NEEDED FOR SLEEP OR ANXIETY ALPRAZOLAM 2020-09 Yes [id number] TAKE 1/2 Univers 2 mg tablet 2-13 TABLET BY ity of 00:00: MOUTH [place] 00 EVERY Medical NIGHT AT Branch BEDTIME NEEDED FOR SLEEP OR ANXIETY ALPRAZOLAM 2020-09 Yes [id number] TAKE 1/2 Univers 2 mg tablet 2-13 TABLET BY ity of 00:00: MOUTH [place] 00 EVERY Medical NIGHT AT Branch BEDTIME NEEDED FOR SLEEP OR ANXIETY ALPRAZOLAM 2020-09 Yes [id number] TAKE 1/2 Univers 2 mg tablet 2-13 TABLET BY ity of 00:00: MOUTH [place] 00 EVERY Medical NIGHT AT Branch BEDTIME NEEDED FOR SLEEP OR ANXIETY pantoprazol 0 Yes [id number] 40mg Take 1 Univers e 40 mg EC 6-03 tablet by ity of tablet 00:00: mouth [place] 00 daily. Medical Branch pantoprazol 0 Yes [id number] 40mg Take 1 Univers e 40 mg EC 6-03 tablet by ity of tablet 00:00: mouth [place] 00 daily. Medical Branch pantoprazol Yes [id number] 40mg Take 1 Univers e 40 mg EC 6-03 tablet by ity of tablet 00:00: mouth [place] 00 daily. Medical Branch pantoprazol Yes [id number] 40mg Take 1 Univers e 40 mg EC 6-03 tablet by ity of tablet 00:00: mouth [place] 00 daily. Medical Branch Alfuzosin Alfuzosin 2019-0 2020- No Brielle 1 tablet Common HCl ER HCl ER 3-18 06-16 [place] immediatel Spirit 00:00: 00:00 y after - [facility]I 00 :00 the same [facility] Tamsulosin Tamsulosin 2019-0 2020- No Brielle 1 capsule Common HCl HCl 10-14 Alicja Spirit 00:00: 00:00 - [facility] 00 :00 [facility] fluocinonid 2018- Yes [id number] Apply to Univers e 0.05 % 1-18 area(s) 2 ity of cream 00:00: (two) [place] 00 times Medical daily. Branch fluocinonid 2018-09 Yes [id number] Apply to Univers e 0.05 % 1-18 area(s) 2 ity of cream 00:00: (two) [place] 00 times Medical daily. Branch fluocinonid 2018- Yes [id number] Apply to Univers e 0.05 % 1-18 area(s) 2 ity of cream 00:00: (two) [place] 00 times Medical daily. Branch fluocinonid 2018-09 Yes [id number] Apply to Univers e 0.05 % 1-18 area(s) 2 ity of cream 00:00: (two) [place] 00 times Medical daily. Branch HYDROcodone Yes TK 1 T PO U nivers -acetaminop 8-23 TID ity of hen 10-325 00:00: [place] mg tablet 00 Medical Branch HYDROcodone 2019-0 Yes TK 1 T PO U nivers -acetaminop 8-23 TID ity of hen 10-325 00:00: [place] mg tablet 00 Medical Branch HYDROcodone 2019-0 Yes TK 1 T PO U nivers -acetaminop 8-23 TID ity of hen 10-325 00:00: [place] mg tablet 00 Medical Branch HYDROcodone 2019-0 Yes TK 1 T PO U nivers -acetaminop 8-23 TID ity of hen 10-325 00:00: [place] mg tablet 00 Medical Branch tamsulosin 2019-0 Yes [id number] .4mg Take 1 Univers 0.4 mg 24 4-23 01 capsule by ity of hr capsule 00:00: mouth [place] 00 daily. Medical Branch tamsulosin Yes [id number] .4mg Take 1 Univers 0.4 mg 24 4-23 01 capsule by ity of hr capsule 00:00: mouth [place] 00 daily. Medical Branch tamsulosin 2018- Yes [id number] .4mg Take 1 Univers 0.4 mg 24 -25 09 capsule by ity of hr capsule 00:00: mouth daily. Medical Branch tamsulosin 2019-0 Yes [id number] .4mg Take 1 Univers 0.4 mg 24 4-25 09 capsule by ity of hr capsule 00:00: mouth 00 daily. Medical Branch lidocaine-p 2019-0 Yes Apply to Un janelle rilocaine 4-10 area(s) ity of 2.5-2.5 % 00:00: daily. [place] cream 00 Medical Branch lidocaine-p 2019-0 Yes Apply to Un janelle rilocaine 4-10 area(s) ity of 2.5-2.5 % 00:00: daily. [place] cream 00 Medical Branch lidocaine-p 2018-0 Yes Apply to Un janelle rilocaine 4-10 area(s) ity of 2.5-2.5 % 00:00: daily. [place] cream Medical Branch lidocaine-p 2018-0 Yes Apply to Un janelle rilocaine 4-10 area(s) ity of 2.5-2.5 % 00:00: daily. [place] cream 00 Medical Branch oxybutynin 2018-0 Yes 5mg Take 1 Unive rs chloride 5 7-02 tablet by ity of mg tablet 00:00: mouth (three) Medical times Branch daily as needed for Bladder spasms. oxybutynin 2018-0 Yes 5mg Take 1 Unive rs chloride 5 7-02 tablet by ity of mg tablet 00:00: mouth (three) Medical times Branch daily as needed for Bladder spasms. oxybutynin 2018-0 Yes 5mg Take 1 Unive rs chloride 5 7-02 tablet by ity of mg tablet 00:00: mouth (three) Medical times Branch daily as needed for Bladder spasms. oxybutynin 2018-0 Yes 5mg Take 1 Unive rs chloride 5 7-02 tablet by ity of mg tablet 00:00: mouth (three) Medical times Branch daily as needed for Bladder spasms. finasteride 2018-0 Yes [id number] 5mg Take 1 Univers 5 mg tablet 4-09 tablet by ity of 00:00: mouth 00 daily. Medical Branch finasteride 2017-0 Yes [id number] 5mg Take 1 Univers 5 mg tablet 4-09 tablet by ity of 00:00: mouth [place] 00 daily. Medical Branch finasteride Yes [id number] 5mg Take 1 Univers 5 mg tablet 4-09 tablet by ity of 00:00: mouth [place] 00 daily. Medical Branch finasteride Yes [id number] 5mg Take 1 Univers 5 mg tablet [...] Yes Brielle 1 tablet Common Besylate Besylate [facility] Pantoprazol Pantoprazol Yes Brielle 1 tablet Common e Sodium e Sodium Alicja [facility] HydrOXYzine HydrOXYzine Yes Brielle 1 tablet Common HCl HCl Alicja as needed [facility] Yes Brielle as Common Silver Silver [place] directed [facility] Methadone Methadone Yes Brielle 1 tablet Common HCl HCl Alicja [facility] Ranolazine Ranolazine Yes Brielle 1 tablet Common ER ER [place] [facility] Aspir-81 Aspir-81 Yes Brielle 1 tablet Co mmon Alicja [facility] Testosteron Testosteron Yes Brielle as Common e e [place] directed [facility] Clopidogrel Clopidogrel Yes Brielle 1 tablet Common Bisulfate Bisulfate [place] [facility] Metoprolol Metoprolol Yes Brielle 1 capsule Common Succinate Succinate Alicja [facility] [facility] Immunizations Ordered Filled Immunization Date Status Comments Sour e Immunization Name Name Influenza Virus 2021-12-07 [...] Completed Unive rsity of PFIZER VACCINE 00:00:00 [facility] SARS-COV-2 COVID-19 2021-08-10 Completed Unive rsity of PFIZER VACCINE 00:00:00 [facility] SARS-COV-2 COVID-19 2021-08-10 Completed Unive rsity of PFIZER VACCINE 00:00:00 [facility] SARS-COV-2 COVID-19 2021-08-10 Completed Unive rsity of PFIZER VACCINE 00:00:00 [facility] SARS-COV-2 COVID-19 2020-11-05 Completed Unive rsity of PFIZER VACCINE 00:00:00 [facility] SARS-COV-2 COVID-19 2020-11-05 Completed Unive rsity of PFIZER VACCINE 00:00:00 [facility] SARS-COV-2 COVID-19 2020-11-05 Completed Unive rsity of PFIZER VACCINE 00:00:00 [facility] SARS-COV-2 COVID-19 2020-11-05 Completed Unive rsity of PFIZER VACCINE 00:00:00 [facility] SARS-COV-2 COVID-19 2020-10-15 Completed Unive rsity of PFIZER VACCINE 00:00:00 [facility] SARS-COV-2 COVID-19 2020-10-15 Completed Unive rsity of PFIZER VACCINE 00:00:00 [facility] SARS-COV-2 COVID-19 2020-10-15 Completed Unive rsity of PFIZER VACCINE 00:00:00 [facility] SARS-COV-2 COVID-19 2020-10-15 Completed Unive rsity of PFIZER VACCINE 00:00:00 [facility] Influenza High Dose 2020-09-02 Completed Unive rsity of Quad 00:00:00 [facility] Influenza High Dose 2020-09-02 Completed Unive rsity of [place] 00:00:00 [facility] Influenza High Dose 2020-09-02 Completed Unive rsity of [place] 00:00:00 [facility] Influenza High Dose 2020-09-02 Completed Unive rsity of [place] 00:00:00 [facility] Pneumococcal 2019-06-25 Completed University o f Polysaccharide, 00:00:00 [place] Med ical PPSV23 (PNEUMOVAX) Branch Influenza High Dose 2019-06-25 Completed Unive rsity of 00:00:00 [facility] Pneumococcal 2019-06-25 Completed University o f Polysaccharide, 00:00:00 [place] Med ical PPSV23 (PNEUMOVAX) Branch Influenza High Dose 2019-06-25 Completed Unive rsity of 00:00:00 [facility] Pneumococcal 2019-06-25 Completed University o f Polysaccharide, 00:00:00 [place] Med ical PPSV23 (PNEUMOVAX) Branch Influenza High Dose 2019-06-25 Completed Unive rsity of 00:00:00 [facility] Pneumococcal 2019-06-25 Completed University o f Polysaccharide, 00:00:00 [place] Med ical PPSV23 (PNEUMOVAX) Branch Influenza High Dose 2019-06-25 Completed Unive rsity of 00:00:00 [facility] Vital Signs Vital Name Observation Time Observation Value Comments Source Body temperature 2022-04-12 18:21:00 36.61 Diandra Univ ersity of [facility] Systolic blood 2022-04-12 18:19:00 121 mm[Hg] Univer sity of pressure [facility] Diastolic blood 2022-04-12 18:19:00 85 mm[Hg] Unive rsity of pressure [facility] Heart rate 2022-04-12 18:19:00 91 /min [facility] Respiratory rate 2022-04-12 18:19:00 18 /min Univ ersity of [facility] Body height 2022-04-12 18:19:00 172.7 cm [facility] Body weight 2022-04-12 18:19:00 62.596 kg Universi [facility] BMI 2022-04-12 18:19:00 20.98 kg/m2 [facility] Oxygen saturation in 2022-04-12 18:19:00 96 /min [facility] Arterial blood by [facility] Pulse oximetry Branch Systolic blood 2022-04-05 17:15:00 136 mm[Hg] Univer sity of [facility] Diastolic blood 2022-04-05 17:15:00 77 mm[Hg] Unive [facility] Heart rate 2022-04-05 17:15:00 82 /min [facility] Body weight 2022-04-05 17:15:00 59.784 kg [facility] BMI 2022-04-05 17:15:00 20.04 kg/m2 [facility] Procedures Procedure Date / Time Performed Performing Clinician Sourc e EXTERNAL PROVIDER 2022-05-11 05:01:00 Doctor Unassigned, No [facility] RECORDS Name Medical Branch URINALYSIS 2022-04-12 21:11:00 Rachel Nuñez [facility] HB ECG ROUTINE & 2022-04-12 19:01:[address] RHYTHM STRIP [facility] XR CHEST 1 VW 2022-04-12 18:41:36 [place] [facility] LIPASE 2022-04-12 18:30:[address] [facility] TROPONIN I 2022-04-12 18:30:00 [place] [facility] COMP. METABOLIC PANEL 2022-04-12 18:30:00 Rachel Nuñez [facility] ([id number]) [facility] CBC WITH DIFF 2022-04-12 18:30:00 [place] [facility] Encounters Start End Encounter Admission Attending Care Care Encounter Source Date/Time Date/Time Type Type Clinicians Facility Department ID 2022-01-16 Outpatient R EDGAR OGDEN [facility] RAD 10 [id number] Univers 14:50:55 EDGAR OGDEN sadie [facility] 2021-09-28 Outpatient [facility] [id number] Common 11:07:04 [id number] [facility] 2021-07-05 Outpatient [facility] [id number] Univers 04:21:37 ity [facility] 2022-05-11 2022-05-11 Orders Doctor LESLYE [id number] Univers 00:00:00 00:00:00 Only Unassigned, CHAI [id number] ity of [facility] [id number] Abel as [id number] [facility] [address] [place] 2022-05-03 2022-05-03 [facility] [id number] Univers 12:30:00 12:30:00 PASHA beltrán [facility] 2022-04-12 2022-04-12 Emergency X [facility] ERT [id number] Univers 13:22:00 16:36:00 RACHEL beltrán [facility] 2022-04-12 2022-04-12 Emergency [facility] [id number] Univers 13:22:00 16:36:00 Rachel GRAMAJO [id number] i ty [id number] [id number] [facility] [address] [place] 2022-04-05 2022-04-05 [facility] [id number] Univers 12:15:00 13:00:56 PASHA beltrán [facility] 2022-04-05 2022-04-05 [facility] [id number] Univers 12:15:00 13:00:56 Visit Pasha [facility] [id number] it y of [place] [id number] Abel as CALEB?BLEA [id number] [place] [address] MEDICAL OFFICE BUILDING 2022-03-28 2022-03-28 [facility] [id number] Univers 00:00:00 00:00:00 (Out) Pasha GRAMAJO [id number] i ty of [place] [id number] [place] [id number] [address] 2022-03-27 2022-03-27 Outpatient R JORGE [facility] [id number] Univers 10:15:00 10:15:00 PASHA sadie [facility] 2022-03-27 2022-03-27 Outpatient Bhavesh HENRY [facility] [id number] Univers 10:15:00 10:15:00 PASHA [facility] 2022-03-21 2022-03-21 Abstract ChiloSincereseng [place] [facility] ..840.114 9 [id number] Univers 00:00:00 00:00:00 HEALTH 350.1.13.10 it y of [place] 4.2.7.2.686 Abel as CALEB?BLEA [id number] [address] 2022-03-08 2022-03-08 Telephone Jorge [facility] 1.2.839.243 [id number] Univers 00:00:00 00:00:00 [facility] 350.1.13.10 it y [facility] 4.2.7.2.686 Abel as CALEB?BLEA [id number] [address] 2022-03-08 2022-03-08 Transition LUCRECIA MackErnestine 1.2.840.114 [id number] Univers 00:00:00 00:00:00 of Care Brenda [place] 350.1.13.10 i [place] [id number] [address] 2022-03-07 2022-03-07 [facility] [id number] Univers 12:31:47 23:59:00 ANTHONY eastonsadie [facility] 2022-03-07 2022-03-07 [facility] Derrick, [facility] 1.2.840.114 [id number] Univers 12:30:00 23:59:00 Encounter Anthony Sexton [place] 350.1.13.10 ity of [place].2.[place] [id number] [facility] [address] [place] 2022-03-03 2022-03-05 Outpatient U RANI MENJIVAR [facility] AMANDA [id number] Univers 11:04:00 21:00:00 RANI MENJIVAR [facility] 2022-03-03 2022-03-05 [facility] Mick Lamas 1.2.840.1 14 [id number] Univers 11:04:00 21:00:00 Encounter Rani Menjivar 350. 1.13.10 ity [facility] 4.2.7.2.686 Abel as [id number] [facility] [address] [place] 2022-03-01 2022-03-01 [facility] [id number] Univers 12:30:00 12:48:40 [facility] 2022-03-01 2022-03-01 [facility] 1.2.840.114 [id number] Univers 12:30:00 12:48:40 Visit [facility] 350.1.13.10 it y of [place] 4.2.7.2.686 Abel as CALEB?BLEA [id number] [address] OFFICE [facility] 2022-02-25 2022-02-25 Refill [facility] 1.2.840.114 [id number] Univers 00:00:00 00:00:00 [place] HEALTH 350.1.13.10 it y of [place] 4.2.7.2.686 Abel as CALEB?BLEA [id number] [address] MEDICAL OFFICE [facility] 2022-02-23 2022-02-23 Office [facility] 1.2.840.114 [id number] Univers 11:30:00 12:00:00 Visit [facility] 350.1.13.10 i ty of [place] 4.2.7.2.686 Abel as CALEB?BLEA [id number] [address] OFFICE [facility] 2022-02-23 2022-02-23 Outpatient R KHOI [facility] [id number] Univers 11:30:00 11:30:00 YUKO beltrán [facility] 2022-02-20 2022-02-20 Outpatient Bhavesh HENRY [facility] [id number] Univers 14:00:00 14:00:00 PASHA beltrán [facility] 2022-02-09 2022-02-09 Outpatient Bhavesh HENRY [facility] [id number] Univers 13:30:00 13:30:00 PASHA beltrán [facility] 2022-02-01 2022-02-01 [facility] 1.2.840.114 [id number] Univers 00:00:00 00:00:00 [facility] 350.1.13.10 it y of [place] 4.2.7.2.686 Abel as CALEB?BLEA [id number] [address] MEDICAL OFFICE [facility] 2022-02-01 2022-02-01 Telephone [facility] 1.2.977.300 [id number] Univers 00:00:00 00:00:00 [facility] 350.1.13.10 it y of [place] 4.2.7.2.686 Abel as CALEB?BLEA [id number] [address] MEDICAL OFFICE [facility] 2022-01-23 2022-01-23 [facility], 1.2.840.0 [id number] Univers 08:00:00 08:00:00 Encounter Edgar Cristofer 37424.1.1 ity of 3.104.2.7 [place] .3.309951 Medica l .[address] [place] 2022-01-19 2022-01-19 Anesthesia [facility], 1.2.840.6 [id number] Univers 23:59:59 23:59:59 Event Kasie G 33160.1.1 ity of 3.104.2.7 [place] .3.468896 Medica l .[address] [place] 2022-01-19 2022-01-19 Anesthesia Yanira 1.2.840.1 [id number] Univers 23:59:59 23:59:59 Event Beth chang 77380.1.1 ity of 3.104.2.7 [place] .3.955349 Medica l .8 [place] 2022-01-19 2022-01-19 Office Jorge, 1.2.840.0 [id number] Univers 12:30:00 13:08:41 Visit Pasha 14443.1.1 ity of 3.104.2.7 [place] .3.065395 Medica l .[address] [place] 2022-01-19 2022-01-19 Outpatient Bhavesh HENRY [facility] [id number] Univers 12:30:00 13:08:41 PASHA itsadie [facility] 2022-01-19 2022-01-19 Outpatient R HENRY [facility] [id number] Univers 12:30:00 12:30:00 PASHA itsadie [facility] 2022-01-19 2022-01-19 Travel 1.2.840.1 1.2.573.390 [id number] [id number] Univers 00:00:00 00:00:00 45872.1.1 350.1.13.10 ity of 3.104.2.7 4.[place].3.698 [place] .3.105880 084.8 Medica l .[address] [place] 2022-01-16 2022-01-16 Anesthesia Yanira 1.2.840.1 [id number] Univers 13:56:59 13:56:59 Event Beth chang 18003.1.1 ity of 3.104.2.7 [place] .3.452758 Medica l .[address] [place] 2022-01-04 2022-01-04 [facility] Fredo, 1.2.840.4 [id number] Univers 09:30:00 09:30:00 Encounter Edgar Cristofer 48610.1.1 ity of 3.104.2.7 [place] .3.656764 Medica l .[address] [place] 2022-01-04 2022-01-04 Outpatient EDGAR MARTÍNEZ [facility] RAD [id number] Univers 06:38:00 07:58:00 EDGAR OGDEN [facility] 2022-01-04 2022-01-04 [facility] DEBRA Ogden 1.2.582.834 [id number] Univers 06:38:00 07:58:00 Encounter Edgar PAULA 350.1.13.10 ity of [facility] 4.2.7.2.686 Abel as [id number] [address] 2022-01-04 2022-01-04 Hospital [facility], 1.2.840.5 [id number] Univers 06:38:00 07:58:00 Encounter Edgar [place] 79299.1.1 ity of 3.104.2.7 [place] .3.465255 Medica l .[address] [place] 2021-12-30 2021-12-30 Travel 1.2.840.1 1.2.897.650 [id number] Univers 00:00:00 00:00:00 91244.1.1 350.1.13.10 ity of 3.104.2.7 4.[place].7.3.698 [place] .3.517298 084.8 Medica l .8 [place] 2021-12-29 2021-12-29 Outpatient [facility] [id number] Univers 12:30:00 12:47:59 [facility] 2021-12-29 2021-12-29 [facility] 1.2.840.114 [id number] Univers 12:30:00 12:47:59 Visit [facility] 350.1.13.10 it y of [place] 4.2.7.2.686 Abel as CALEB?BLEA [id number] [address] MEDICAL OFFICE BUILDING 2021-12-29 2021-12-29 Office Jorge, 1.2.840.5 [id number] Univers 12:30:00 12:47:59 Visit Pasha 42087.1.1 ity of 3.104.2.7 [place] .3.481696 Medica l .[address] [place] 2021-12-29 2021-12-29 [facility]patient [facility] [id number] Univers 12:30:00 12:30:00 [facility] 2021-12-29 2021-12-29 Travel 1.2.840.1 1.2.330.015 [id number] Univers 00:00:00 00:00:00 52143.1.1 350.1.13.10 ity of 3.104.2.7 4.[place].7.3.698 [place] .3.808808 084.8 Medica l .8 [place] 2021-12-07 2021-12-07 Out[facility] [id number] Univers 12:15:00 12:44:28 PASHA ity of [facility] 2021-12-07 2021-12-07 [facility] 1.2.840.114 [id number] Univers 12:15:00 12:44:28 Visit [facility]Formerly [facility] 350.1.13.10 it y [facility] 4.2.7.2.686 Abel as CALEB?BLEA [id number] [address] OFFICE [facility] 2021-12-07 2021-12-07 Office Jorge, 1.2.840.1 [id number] Univers 12:15:00 12:44:28 Visit Pasha 53910.1.1 ity of 3.104.2.7 [place] .3.271254 Medica l [address] 2021-12-07 2021-12-07 Telephone [facility] 1.2.027.632 [id number] Univers 00:00:00 00:00:00 Pasha HEALTH 350.1.13.10 it y [facility] 4.2.7.2.686 Abel as CALEB?BLEA [id number] [address] OFFICE [facility] 2021-12-07 2021-12-07 Telephone Jorge, 1.2.840.2 [id number] Univers 00:00:00 00:00:00 Pasha 67933.1.1 ity of 3.104.2.7 [place] .3.253256 Medica l .[address] [place] 2021-12-07 2021-12-07 Travel 1.2.840.1 1.2.712.780 [id number] [id number] Univers 00:00:00 00:00:00 14876.1.1 350.1.13.10 ity of 3.104.2.7 4.[place].7.3.698 [place] .3.961626 084.8 Medica l .[address] [place] 2021-12-05 2021-12-05 Outpatient R FREDOEDGAR [facility] RAD [id number] Univers 10:00:00 10:00:00 FREDOEDGAR ity of [facility] 2021-12-03 2021-12-03 Refdebra [facility] 1.2.840.114 [id number] Univers 00:00:00 00:00:00 Pasha HEALTH 350.1.13.10 it y of [place] 4.2.7.2.686 Abel as CALEB?BLEA [id number] [address] MEDICAL OFFICE BUILDING 2021-12-03 2021-12-03 Leonidas Henry, 1.2.840.8 [id number] Univers 00:00:00 00:00:00 Pasha 27925.1.1 ity of 3.104.2.7 [place] .3.945808 Medica l .[address] [place] 2021-12-01 2021-12-01 Travel 1.2.840.1 1.2.115.640 [id number] [id number] Univers 00:00:00 00:00:00 76959.1.1 350.1.13.10 ity of 3.104.2.7 4.[place].7.3.698 [place] .3.627133 084.8 Medica l .8 [place] 2021-11-25 2021-11-25 Outpatient SITA VILLALOBOS [facility] [id number] Univers 09:28:39 23:59:00 ity of [facility] 2021-11-25 2021-11-25 [facility] Sita Wilson UNIVERSIT 1.2.840.114 [id number] Univers 09:28:39 23:59:00 Encounter Iman [facility] Y HEALTH 350.1. 13.10 ity of [facility] 4.2.7.2.[place] [id number] [facility] [address] [place] 2021-11-25 2021-11-25 [facility] Sita Wilson 1.2.840.1 [id number] Univers 09:28:39 23:59:00 Encounter Mandi, [facility] 08935.1.1 ity of 3.104.2.7 [place] .3.744001 Medica l .[address] [place] 2021-11-14 2021-11-14 [facility]patient [facility] [id number] Univers 10:00:00 10:07:29 PASHA ity [facility] 2021-11-14 2021-11-14 Office Henry, 1.2.840.1 [id number] Univers 10:00:00 10:07:29 Visit Pasha 20131.1.1 ity of 3.104.2.7 [place] .3.096430 Medica l .[address] [place] 2021-11-14 2021-11-14 Travel 1.2.840.1 1.2.655.421 [id number] 3256 Univers 00:00:00 00:00:00 61854.1.1 350.1.13.10 ity of 3.104.2.7 4.2.7.3.698 [place] .3.171631 084.8 Medica l .8 [place] 2021-11-11 2021-11-11 Telephone Fredo, 1.2.840.2 [id number] Univers 00:00:00 00:00:00 Edgar Gene 17031.1.1 ity of 3.104.2.7 [place] .3.823564 Medica l .[address] [place] 2021-11-08 2021-11-08 Outpatient [facility] [id number] Univers 10:15:00 10:45:24 PASHA itsadie [facility] 2021-11-08 2021-11-08 Office Jorge, 1.2.840.6 [id number] Univers 10:15:00 10:45:24 Visit Pasha 09386.1.1 ity of 3.104.2.7 [place] .3.817601 Medica l .[address] [place] 2021-11-08 2021-11-08 Travel 1.2.840.1 1.2.722.994 [id number] 6176 Univers 00:00:00 00:00:00 58630.1.1 350.1.13.10 ity of 3.104.2.7 4.[place].7.3.698 [place] .3.968091 084.8 Medica l .8 [place] 2021-11-07 2021-11-07 Outpatient R [facility] [id number] Univers 10:00:00 10:00:00 ity of [facility] 2021-11-07 2021-11-07 Telephone Fredo, 1.2.840.1 [id number] Univers 00:00:00 00:00:00 Edgar [place] 21011.1.1 ity of 3.104.2.7 [place] .3.886242 Medica l .[address] [place] 2021-11-07 2021-11-07 Telephone Jorge, 1.2.840.0 [id number] Univers 00:00:00 00:00:00 Pasha 70528.1.1 ity of 3.104.2.7 [place] .3.662071 Medica l .[address] [place] 2021-11-04 2021-11-04 Outpatient R FREDOEDGAR [place] [facility] [id number] Univers 11:20:00 12:31:16 FREDOEDGAR [place] ity [facility] 2021-11-04 2021-11-04 Office Fredo 1.2.840.7 [id number] Univers 11:20:00 12:31:16 Visit Edgar [place] 92772.1.1 ity of 3.104.2.7 [place] .3.831356 Medica l .[address] [place] 2021-11-04 2021-11-04 Travel 1.2.840.1 1.2.260.246 8003 [id number] Univers 00:00:00 00:00:00 90893.1.1 350.1.13.10 ity of 3.104.2.7 4.[place].7.3.698 [place] .3.494797 084.8 Medica l .8 [place] 2021-10-24 2021-10-24 [facility] [id number] Univers 10:00:00 10:47:17 PASHA beltrán [facility] 2021-10-24 2021-10-24 Outpatient R JORGE [facility] [id number] Univers 10:00:00 10:00:00 PASHA beltrán [facility] 2021-10-14 2021-10-14 Outpatient R NETO, [facility] [id number] Univers 15:00:00 15:00:00 YEIMI beltrán o juan [facility] 2021-10-03 2021-10-03 [facility] 1.2.840.114 [id number] Univers 12:15:00 12:31:30 Visit [facility] 350.1.13.10 it y of [place] 4.2.7.2.686 Abel as CALEB?BLEA [id number] Nj dicmagdalena KNEY 044 [facility] OFFICE [facility] 2021-10-03 2021-10-03 Outpatient Bhavesh HENRY [facility] [id number] Univers 12:15:00 12:31:30 PASHA ity [facility] 2021-10-03 2021-10-03 Outpatient R JORGE [facility] [id number] Univers 12:15:00 12:31:30 PASHA ity [facility] 2021-10-03 2021-10-03 Outpatient R JORGE [facility] [id number] Univers 12:15:00 12:15:00 PASHA ity [facility] 2021-09-30 2021-09-30 [facility] [id number] Univers 10:20:00 11:04:55 YEIMI martinez [facility] 2021-09-30 2021-09-30 [facility] 1.2.840.114 [id number] Univers 10:20:00 11:04:55 Visit [facility] 350.1.13.10 ity of [place].2.[place] [id number] Nj tiffany NAL [address] [facility] 2021-09-20 2021-09-20 Telephone [facility] 1.2.314.623 [id number] Univers 00:00:00 00:00:00 [facility] 350.1.13.10 it y [facility] 4.2.7.2.686 Abel as CALEB?BLEA [id number] [address] MEDICAL OFFICE [facility] 2021-09-12 2021-09-12 [facility] [id number] Univers 12:00:00 12:27:20 PASHA beltrán [facility] 2021-09-12 2021-09-12 Office [facility] 1.2.840.114 [id number] Univers 12:00:00 12:27:20 Visit [facility] 350.1.13.10 it y [facility] 4.2.7.2.686 Abel as CALEB?BLEA [id number] [address] OFFICE [facility] 2021-09-07 2021-09-07 Orders Doctor LESLYE 1.2.840.114 [id number] Univers 00:00:00 00:00:00 Only Unassigned, CHAI 350.1.13.10 ity of [place] [facility] 4.2.7.2.686 Abel as [id number] [address] 2021-08-31 2021-08-31 Outpatient R NETO [facility] [id number] Univers 15:20:00 15:20:00 YEIMI beltrán o f [facility] 2021-08-12 2021-08-12 Refill [facility] 1.2.840.114 [id number] Univers 00:00:00 00:00:00 [facility] 350.1.13.10 it y [facility] 4.2.7.2.686 Abel as CALEB?BLEA [id number] [address] OFFICE [facility] 2021-08-10 2021-08-10 [facility] [id number] Univers 09:30:00 10:11:58 PASHA sadie [facility] 2021-08-10 2021-08-10 Office [facility] 1.2.840.114 [id number] Univers 08:32:08 10:11:58 Visit [facility] 350.1.13.10 it y [facility] 4.2.7.2.686 Abel as CALEB?BLEA [id number] [address] OFFICE [facility] 2021-08-10 2021-08-10 Outpatient R JORGE [facility] [id number] Univers 09:30:00 09:30:00 PASHA beltrán [facility] 2021-08-10 2021-08-10 Imm/Inj Vaccine, Ang Db Cbc Fam [facility] 1. 2.840.114 [id number] Univers 08:30:56 08:40:56 Visit Henry Pasha [facility] 350.1.13.10 ity of [place] 4.2.7.2.686 Abel as CALEB?BLEA [id number] [address] OFFICE [facility] 2021-08-10 2021-08-10 Telephone Neto [facility] 1.2.113.770 [id number] Univers 00:00:00 00:00:00 Qiaradha [place] 350.1.13.10 ity of [place].2.7.2.[place] [id number] Nj dical NAL 059 [facility] 2021-08-01 2021-08-01 Orders Doctor LESLYE 1.2.840.114 [id number] Univers 00:00:00 00:00:00 Only Unassigned, CHAI 350.1.13.10 ity of [place] [facility] 4.2.7.2.686 Abel as [id number] [address] 2021-07-21 2021-07-21 Outpatient Bhavesh MALDONADOHENRY [facility] [id number] Univers 09:45:00 10:00:14 PASHA beltrán [facility] 2021-07-21 2021-07-21 Outpatient Bhavesh JORGE [facility] [id number] Univers 09:45:00 10:00:14 PASHA beltrán [facility] 2021-07-21 2021-07-21 Office [facility] 1.2.840.114 [id number] Univers 09:23:41 10:00:14 Visit Pasha [facility] 350.1.13.10 it y of [place] 4.2.7.2.686 Abel as CALEB?BLEA [id number] [address] OFFICE [facility] 2021-07-21 2021-07-21 Outpatient Bhavesh HENRY [facility] [id number] Univers 09:45:00 09:45:00 PASHA beltrán [facility] 2021-07-19 2021-07-19 Telephone [facility] 1.2.109.541 [id number] Univers 00:00:00 00:00:00 [facility] 350.1.13.10 it y of [place] 4.2.7.2.686 Abel as CALEB?BLEA [id number] [address] MEDICAL OFFICE [facility] 2021-07-18 2021-07-18 Telephone [facility] 1.2.810.075 [id number] Univers 00:00:00 00:00:00 Pasha [facility] 350.1.13.10 it y of [place] 4.2.7.2.686 Abel as CALEB?BLEA [id number] [address] OFFICE [facility] 2021-06-30 2021-06-30 Outpatient Bhavesh HENRY [facility] [id number] Univers 13:15:00 13:09:31 PASHA beltrán [facility] 2021-06-30 2021-06-30 [facility] [id number] Univers 13:15:00 13:09:31 PASHA leigh ann [facility] 2021-06-30 2021-06-30 Office [facility] 1.2.840.114 [id number] Univers 12:30:04 13:09:31 Visit [facility] 350.1.13.10 it y of [place] 4.2.7.2.686 Abel as CALEB?BLEA [id number] [address] MEDICAL OFFICE [facility] 2021-06-16 2021-06-16 Refill [facility] 1.2.840.114 [id number] Univers 00:00:00 00:00:00 Pasha [facility] 350.1.13.10 it y of [place] 4.2.7.2.686 Abel as Caleb?Blea [id number] [address] Medical Office [facility] 2021-06-09 2021-06-09 Outpatient [facility] [id number] Univers 13:30:00 13:30:00 PASHA [facility] 2021-06-09 2021-06-09 Office [facility] 1.2.840.114 [id number] Univers 13:02:49 13:28:48 Visit [facility] 350.1.13.10 it y of [place] 4.2.7.2.686 Abel as Caleb?Blea [id number] Nj dicky zulay [address] [place] Medical Office [facility] 2021-06-07 2021-06-07 [facility] 1.2.092.922 [id number] Univers 12:51:25 23:59:00 Encounter Edgar [place] 350.1.13.10 ity of [place] [id number] [facility] [address] [place] 2021-06-07 2021-06-07 Outpatient R EDGAR OGDEN [facility] [id number] Univers 00:00:00 00:00:00 EDGAR OGDEN [facility] 2021-06-07 2021-06-07 Refdebra [facility] 1.2.840.114 [id number] Univers 00:00:00 00:00:00 Yeimi [place] 350.1.13.10 ity of [place].[address] [place] [address] [facility] [phone] Nj stephanieky nal 059 [facility] 2021-06-06 2021-06-06 Telephone [facility] 1.2.840.114 [id number] Univers 00:00:00 00:00:00 Edgar Cleveland [facility] 350.1.13.10 ity of [place] 4.2.7.2.686 Abel as Caleb?Blea [id number] Nj dicmagdalena luciano 092 [facility] Office [facility] 2021-06-05 2021-06-05 Refdebra [facility] 1.2.840.114 [id number] Univers 00:00:00 00:00:00 Pasha Health 350.1.13.10 it y of [place] 4.2.7.2.686 Abel as Caleb?Blea [id number] [address] Office [facility] 2021-05-27 2021-05-27 Telephone [facility] 1.2.840.114 [id number] Univers 00:00:00 00:00:00 Edgar Gramajo 350.1.13.10 ity of [place].2.[place] [id number] [address] 2021-05-23 2021-05-23 Office [facility] 1.2.840.114 [id number] Univers 12:18:41 12:47:23 Visit [facility] 350.1.13.10 it y of [place] 4.2.7.2.686 Abel as Caleb?Blea [id number] [address] 2021-05-23 2021-05-23 Outpatient [facility] [id number] Univers 12:45:00 12:45:00 [facility] 2021-05-19 2021-05-19 Outpatient [facility] [id number] Univers 10:00:00 10:00:00 [facility] 2021-05-16 2021-05-16 Telephone [facility] 1.2.840.114 [id number] Univers 00:00:00 00:00:00 [facility] 350.1.13.10 ity of [place] 4.2.7.2.686 Abel as Caleb?Blea [id number] [address] Office [facility] 2021-05-10 2021-05-10 Telephone [facility] [id number] Univers 00:00:00 00:00:00 Edgar [facility] [id number] ity of [place] [id number] Abel as Caleb?Blea [phone] [address] Office [facility] 2021-05-02 2021-05-02 [facility] [id number] Univers 10:20:16 23:59:00 Encounter Edgar [place] [id number] ity of [place] 4.2.7.2.686 [facility] [id number] [address] 2021-05-02 2021-05-02 [facility] Fredo [facility] [id number] Univers 10:20:16 23:59:00 Encounter Edgar Gramajo [id number] [place]y [place] [id number] [facility] [id number] [address] 2021-05-02 2021-05-02 Outpatient EDGAR MARTÍNEZ [facility] [id number] Univers 00:00:00 00:00:00 EDGAR OGDEN [facility] 2021-04-28 2021-04-28 [facility] [id number] Univers 08:07:54 08:57:21 Visit [facility] [id number] it y of [place] [id number] Abel as Caleb?Blea [phone] [place] tiffany biswas[address] Medical Office Building 2021-04-28 2021-04-28 Outpatient Bhavesh HENRY [facility] [id number] Univers 08:30:00 08:30:00 PASHA rustamsadie [facility] 2021-04-25 2021-04-25 Outpatient EDGAR MARTÍNEZ [facility] [id number] Univers 00:00:00 00:00:00 EDGAR OGDEN [facility] 2021-04-19 2021-04-19 Outpatient Bhavesh BLANCOSeng EDGAR [facility] [id number] Univers 13:40:00 13:40:00 EDGAR OGDEN [facility] 2021-04-15 2021-04-15 [facility]phone [facility] [id number] Univers 00:00:00 00:00:00 Pasha [facility] [id number] it y of [place] [id number] Abel as Professio [phone] [place] tiffany [address] Office Building One 2021-04-07 2021-04-07 Outpatient Bhavesh HENRY [facility] [id number] Univers 09:45:00 09:45:00 PASHA beltrán [facility] 2021-04-07 2021-04-07 [facility] [id number] Univers 09:09:06 09:40:22 Visit [facility] [id number] it y of [place] [id number] Abel as Professio [phone] [address] Office [facility] 2021-03-17 2021-03-17 [facility] 1.2.840.114 [id number] Univers 09:30:20 10:19:51 Visit [facility] [id number] it y of [place] [id number] Abel as Professio [id number] [address] Office [facility] 2021-03-17 2021-03-17 [facility] [id number] Univers 10:15:00 10:15:00 PASHA beltrán [facility] 2021-02-24 2021-02-24 Office [facility] 1.2.840.114 [id number] Univers 09:39:20 10:09:39 Visit [facility] 350.1.13.10 it y of [place] 4.2.7.2.686 Abel as Professio [phone] [address] Office [facility] 2021-02-24 2021-02-24 [facility] [id number] Univers 10:00:00 10:00:00 PASHA beltrán [facility] 2021-02-03 2021-02-03 [facility] 1.2.840.114 [id number] Univers 09:37:03 10:08:33 Visit [facility] 350.1.13.10 it y of [place] 4.2.7.2.686 [place] Professio [phone] [address] Office [facility] 2021-02-03 2021-02-03 [facility] [id number] Univers 09:45:00 09:45:00 PASHA beltrán [facility] 2021-01-13 2021-01-13 Outpatient R JORGE, [facility] [id number] Univers 10:00:00 10:00:00 PASHA itsadie [facility] 2021-01-13 2021-01-13 Office [facility] 1.2.840.114 [id number] Univers 09:20:46 09:58:58 Visit [facility] 350.1.13.10 it y of [place] 4.2.7.2.686 [place] as Professio [phone] [address] One 2020-12-16 2020-12-16 Outpatient R SHARLENE, [facility] [id number] Univers 13:15:00 13:15:00 JOSE ity [facility] 2020-12-16 2020-12-16 Office [facility] 1.2.840.114 [id number] Univers 07:35:25 08:06:34 Visit [facility] 350.1.13.10 it y of [place] 4.2.7.2.686 [place] Professio [phone] [address] 2020-12-14 2020-12-14 Refdebra [facility] 1.2.840.114 [id number] Univers 00:00:00 00:00:00 Qiaradha [place] 350.1.13.10 [place] [phone] [address] 2020-12-09 2020-12-09 Refdebra [facility] 1.2.840.114 [id number] Univers 00:00:00 00:00:00 Qiakijun [place] 350.1.13.10 [place] [phone] [address] 2020-11-25 2020-11-25 Office [facility] 1.2.840.114 [id number] Univers 07:30:31 07:51:02 Visit [facility] 350.1.13.10 it y of [place] 4.2.7.2.686 [place] Professio [phone] [facility] 044 [place] Office [facility] 2020-11-25 2020-11-25 Outpatient R JORGE [facility] [id number] Univers 07:30:00 07:30:00 PASHA ity of [facility] 2020-11-19 2020-11-19 Orders Doctor LESLYE 1.2.840.114 [id number] Univers 00:00:00 00:00:00 Only Unassigned, CHAI 350.1.13.10 ity [place] [facility] 4.2.7.2.686 Abel as [phone] [address] 2020-11-17 2020-11-17 Telephone [facility] 1.2.176.806 [id number] Univers 00:00:00 00:00:00 Yeimi Gram[place] 350.1.13.10 [place] [phone] [facility] 059 [facility] 2020-11-12 2020-11-12 Telephone [facility] 1.2.201.316 [id number] Univers 00:00:00 00:00:00 [facility] 350.1.13.10 it y of [place] 4.2.7.2.686 [place] Professio [phone] [address] One 2020-11-11 2020-11-11 Telephone [facility] 1.2.094.043 [id number] Univers 00:00:00 00:00:00 [facility] 350.1.13.10 it y of [place] 4.2.7.2.686 [place] Professio [phone] [address] Office [facility] 2020-11-05 2020-11-05 Outpatient Bhavesh IRELAND [facility] [id number] Univers 07:50:00 07:50:00 NORMAN ity of [facility] 2020-11-05 2020-11-05 Orders Doctor GAVIN 1.2.840.114 [id number] Univers 00:00:00 00:00:00 Only Unassigned, CHAI 350.1.13.10 ity of [place] [facility] 4.2.7.2.686 Abel as [phone] [address] 2020-11-04 2020-11-04 Research Manager Lab, Adc Fam Pob I [facility] 1.2. 840.114 [id number] Univers 07:55:55 08:15:55 Visit Pasha Henry [facility] 350.1.13.10 ity of [place] 4.2.7.2.686 [place] Professio [phone] [address] Office [facility] 2020-11-04 2020-11-04 Office [facility] 1.2.840.114 [id number] Univers 07:18:52 07:50:29 Visit [facility] 350.1.13.10 it y of [place] 4.2.7.2.686 [place] Professio [phone] [address] 2020-11-04 2020-11-04 Outpatient Bhavesh HENRY [facility] [id number] Univers 07:30:00 07:30:00 PASHA [facility] 2020-10-23 2020-10-23 Telephone [facility] 1.2.265.478 [id number] Univers 00:00:00 00:00:00 [facility] 350.1.13.10 it y of [place] 4.2.7.2.686 [place] as Professio [phone] [address] 2020-10-15 2020-10-15 Outpatient Bhavesh IRELAND [facility] [id number] Univers 14:10:00 14:10:00 NORMAN itsadie [facility] 2020-10-14 2020-10-14 Office [facility] 1.2.840.114 [id number] Univers 09:15:24 09:34:41 Visit [facility] 350.1.13.10 it y of [place] 4.2.7.2.686 [place] as Professio [phone] [address] Office [facility] 2020-10-14 2020-10-14 [facility] [id number] Univers 09:30:00 09:30:00 PASHA ity [facility] 2020-09-24 2020-09-24 Leonidas [facility] 1.2.840.114 [id number] Univers 00:00:00 00:00:00 Yeimi Gramajo 350.1.13.10 ity of [place] [phone] [facility] 059 [facility] 2020-09-23 2020-09-23 Office [facility] 1.2.840.114 [id number] Univers 09:37:43 10:15:21 Visit [facility] 350.1.13.10 it y of [place] 4.2.7.2.686 [place] as Professio [phone] [address] 2020-09-23 2020-09-23 Outpatient [facility] [id number] Univers 09:45:00 09:45:00 PASHA beltrán [facility] 2020-09-02 2020-09-02 Office [facility] 1.2.840.114 [id number] Univers 08:27:49 08:56:51 Visit [facility] 350.1.13.10 it y of [place] 4.2.7.2.686 [place] as Professio [phone] [address] 2020-09-02 2020-09-02 Outpatient [facility] [id number] Univers 08:45:00 08:45:00 PASHA beltrán [facility] 2020-08-12 2020-08-12 Office [facility] 1.2.840.114 [id number] Univers 14:53:48 15:29:15 Visit [facility] 350.1.13.10 it y of [place] 4.2.7.2.686 [place] Professio [phone] [address] 2020-08-12 2020-08-12 [facility] [id number] Univers 15:15:00 15:15:00 PASHA beltrán [facility] 2020-07-28 2020-07-28 [facility] [id number] Univers 09:30:00 09:30:00 PASHA beltrán [facility] 2020-07-15 2020-07-15 Outpatient R JORGE, [facility] [id number] Univers 09:30:00 09:30:00 PASHA beltrán [facility] 2020-06-17 2020-06-17 [facility] 1.2.840.114 [id number] Univers 08:33:47 08:57:34 Visit [facility] 350.1.13.10 it y of [place] 4.2.7.2.686 [place] as Professio [phone] Nj dicky nal 044 [facility] 2020-06-17 2020-06-17 Outpatient R JORGE [facility] [id number] Univers 08:30:00 08:30:00 PASHA beltrán [facility] 2020-06-08 2020-06-08 Outpatient R NETO, [facility] [id number] Univers 11:40:00 11:40:00 YEIMI eastony o f [facility] 2020-05-20 2020-05-20 Office [facility] 1.2.840.114 [id number] Univers 09:32:43 10:20:33 Visit Pasha [facility] 350.1.13.10 it y of [place] 4.2.7.2.686 [place] as Professio [phone] [facility] 044 [facility] 2020-05-20 2020-05-20 Outpatient R JORGE, [facility] [id number] Univers 10:00:00 10:00:00 PASHA beltrán [facility] 2020-05-14 2020-05-14 Refdebra [facility] 1.2.840.114 [id number] Univers 00:00:00 00:00:00 Yeimi [place] 350.1.13.10 ity of [place] [phone] Nj dical nal 059 [facility] 2020-05-14 2020-05-14 Refill [facility] 1.2.840.114 [id number] Univers 00:00:00 00:00:00 [facility] 350.1.13.10 it y of [place] 4.2.7.2.686 Abel as Professio [phone] Nj dical nal 044 [place] Office [facility] 2020-05-03 2020-05-03 Research Manager 2, Adc Lab [facility] 1.2.840.114 [id number] Univers 08:49:16 09:04:16 Visit Pasha [place] 350.1.13.10 [place].2.[place] [phone] Nj dical nal 353 [facility] 2020-05-03 2020-05-03 [facility] [id number] Univers 09:00:00 09:00:00 PASHA beltrán [facility] 2020-04-21 2020-04-21 Office [facility] 1.2.840.114 [id number] Univers 08:51:04 09:17:48 Visit Pasha [place] 350.1.13.10 i [place] [phone] Nj dical nal 044 [facility] 2020-04-21 2020-04-21 [facility] [id number] Univers 09:00:00 09:00:00 PASHA eastonsadie [facility] 2020-03-29 2020-03-29 Leonidas [facility] 1.2.840.114 [id number] Univers 00:00:00 00:00:00 Coltjohan [place] 350.1.13.10 [place] [phone] Nj dical nal 059 [facility] 2020-03-25 2020-03-25 Office [facility] 1.2.840.114 [id number] Univers 07:52:36 08:17:58 Visit Pasha [place] 350.1.13.10 [place] [phone] Nj dical nal 044 [facility] 2020-03-25 2020-03-25 Outpatient [facility] [id number] Univers 08:00:00 08:00:00 PASHA leigh ann [facility] 2020-03-23 2020-03-23 Refill [facility] 1.2.840.114 [id number] Univers 00:00:00 00:00:00 Yeimi Gram[place] 350.1.13.10 [place] [phone] [facility] nal 059 [facility] 2020-03-23 2020-03-23 Refdebra [facility] 1.2.840.114 [id number] Univers 00:00:00 00:00:00 Yeimi Gram[place] 350.1.13.10 [place] [phone] [address] 2020-02-26 2020-02-26 Office [facility] 1.2.840.114 [id number] Univers 09:40:04 12:59:52 Visit Pasha [place] 350.1.13.10 [place]2.[place] [phone] [address] 2020-02-26 2020-02-26 Outpatient R JORGE [facility] [id number] Univers 10:00:00 10:00:00 PASHA beltrán [facility] 2020-02-16 2020-02-16 Outpatient R JORGE [facility] [id number] Univers 12:45:00 12:45:00 PASHA beltrán [facility] 2020-02-16 2020-02-16 Telephone [facility] 1.2.963.845 [id number] Univers 00:00:00 00:00:00 [facility] 350.1.13.10 it y of [place] 4.2.7.2.686 Abel as Professio [phone] [address] 2020-02-16 2020-02-16 Refill [facility] 1.2.840.114 [id number] Univers 00:00:00 00:00:00 [facility] 350.1.13.10 it y of [place] 4.2.7.2.686 [place] as Professio [phone] [address] 2020-02-10 2020-02-10 Outpatient R JORGE, [facility] [id number] Univers 08:30:00 08:30:00 PASAH beltrán [facility] 2020-02-03 2020-02-03 [facility] [id number] Univers 11:40:00 11:40:00 YEIMI ity o f [facility] 2020-01-08 2020-01-08 Office [facility] 1.2.840.114 [id number] Univers 09:11:36 09:30:34 Visit Pasha [place] 350.1.13.10 [place] [phone] [address] 2020-01-08 2020-01-08 Outpatient [facility] [id number] Univers 09:15:00 09:15:00 PASHA beltrán [facility] 2020-01-06 2020-01-06 [facility] 1.2.447.430 [id number] Univers 00:00:00 00:00:00 Yeimi [place] 350.1.13.10 [place] [phone] [address] 2020-01-03 2020-01-03 [facility] 1.2.348.163 [id number] Univers 00:00:00 00:00:00 Yeimi [place] 350.1.13.10 [place] [phone] [address] 2019-12-26 2019-12-26 Refill [facility] 1.2.840.114 [id number] Univers 00:00:00 00:00:00 Qiaradha [place] 350.1.13.10 [place] [phone] [address] 2019-12-22 2019-12-22 [facility] 1.2.286.481 [id number] Univers 00:00:00 00:00:00 Yeimi [place] 350.1.13.10 [place] [phone] Nj dicky nal 9 [facility] 2019-12-18 2019-12-18 Refill [facility] 1.2.840.114 [id number] Univers 00:00:00 00:00:00 Pasha [place] 350.1.13.10 [place].2.[place] [phone] Nj dical nal 044 [facility] 2019-12-11 2019-12-11 [facility] [id number] Univers 09:15:00 09:15:00 PASHA beltrán [facility] 2019-12-11 2019-12-11 Office [facility] 1.2.840.114 [id number] Univers 08:37:31 09:02:27 Visit Pasha [place] 350.1.13.10 i [place]2.[place] [phone] Nj dical nal 044 [facility] 2019-12-04 2019-12-04 Refill [facility] 1.2.840.114 [id number] Univers 00:00:00 00:00:00 Yeimi [place] 350.1.13.10 [place] [phone] Nj dicky nal 9 [facility] 2019-12-03 2019-12-03 [facility] [id number] Univers 11:20:00 11:20:00 YEIMI beltrán o f [facility] 2019-12-03 2019-12-03 Telemedici [facility] 1.2.840.114 [id number] Univers 08:53:07 09:13:07 ne Visit Coltjohan [place] 350.1.13.10 [place] [phone] Nj dicky nal 059 [facility] 2019-11-19 2019-11-19 Outpatient [facility] [id number] Common 11:45:00 11:45:00 t Specialty/U Sp felipe Specialty rology - [facility] /Urology Clinic [facility] 2019-11-13 2019-11-13 Outpatient Bhavesh EHNRY [facility] [id number] Univers 14:45:00 14:45:00 PASHA beltrán [facility] 2019-11-13 2019-11-13 Office [facility] 1.2.840.114 [id number] Univers 13:19:08 14:35:52 Visit [facility] 350.1.13.10 it y of [place] 4.2.7.2.686 Abel as Professio [phone] Nj dicky nal 044 [facility] One 2019-11-11 2019-11-11 Outpatient [facility] [id number] Univers 07:15:00 07:15:00 PASHA beltrán [facility] 2019-11-04 2019-11-04 Refill [facility] 1.2.840.114 [id number] Univers 00:00:00 00:00:00 [facility] 350.1.13.10 it y of [place] 4.2.7.2.686 Abel as Professio [phone] Nj dical nal 044 [facility] 2019-11-03 2019-11-03 Telephone [facility] 1.2.592.338 [id number] Univers 00:00:00 00:00:00 Yeimi [place] 350.1.13.10 [place] [phone] Nj dical nal 059 [facility] 2019-11-03 2019-11-03 Orders Doctor LESLYE 1.2.840.114 [id number] Univers 00:00:00 00:00:00 Only Unassigned, CHAI 350.1.13.10 ity of [place] [facility] 4.2.7.2.686 Abel as [phone] [facility] 00[address] [place] 2019-10-15 2019-10-15 Outpatient [facility] [id number] Common 09:41:00 09:41:00 t Specialty/U Sp felipe Specialty rology - [facility] /Urology Clinic [facility] 2019-10-15 2019-10-15 Telephone [facility] 1.2.520.407 [id number] Univers 00:00:00 00:00:00 [facility] 350.1.13.10 it y of [place] 4.2.7.2.686 [place] as Professio [phone] Nj dical nal 044 [place] Office [facility] 2019-10-15 2019-10-15 Telephone [facility] 1.2.040.864 [id number] Univers 00:00:00 00:00:00 Qiangjohan [place] 350.1.13.10 [place] [phone] [facility] nal 059 [facility] 2019-10-14 2019-10-14 Outpatient [facility] [id number] Common 14:00:00 14:00:00 t Specialty/U Sp felipe Specialty rology - [facility] Clinic [facility] 2019-10-13 2019-10-13 Office [facility] 1.2.840.114 [id number] Univers 09:13:57 09:42:18 Visit [facility] 350.1.13.10 it y of [place] 4.2.7.2.686 Abel as Professio [phone] [facility] nal 044 [facility] 2019-10-10 2019-10-10 Telephone [facility] 1.2.484.932 [id number] Univers 00:00:00 00:00:00 Coltjohan [place] 350.1.13.10 [place] [phone] Nj dical nal 059 [facility] 2019-10-09 2019-10-09 Orders Doctor LESLYE 1.2.840.114 [id number] Univers 00:00:00 00:00:00 Only Unassigned, CHAI 350.1.13.10 ity of [place] [facility] 4.2.7.2.686 Abel as [phone] [address] 2019-10-01 2019-10-01 Refill [facility] 1.2.840.114 [id number] Univers 00:00:00 00:00:00 Yeimi Gram[place] 350.1.13.10 [place] [phone] Nj tiffany Thompson9 [facility] 2019-09-24 2019-09-24 Telephone [facility] 1.2.761.335 [id number] Univers 00:00:00 00:00:00 Yeimi [place] 350.1.13.10 [place] [phone] Nj stephanieky shaheed 9 [facility] 2019-09-16 2019-09-16 Office [facility] 1.2.840.114 [id number] [facility] 10:54:07 11:46:35 Visit Yeimi [place] 350.1.13.10 [place] of [place] [phone] Nj tiffany hummel [address] [place] [address] 2019-05-21 2019-05-21 Refill [facility] 1.2.840.114 [id number] Univers 00:00:00 00:00:00 [facility] 350.1.13.10 it y of [place] 4.2.7.2.686 Abel as Professio [phone] [facility] shaheed [address] [place] [address] One 2019-05-08 2019-05-13 Office [facility] 1.2.840.114 [id number] [facility] 12:45:50 08:07:10 Visit Rafa Jordan SPECIALTY 350.1.13.10 it[place] AT [phone] Nj tiffany VELÁSQUEZ [address] [place] [address] 2019-05-13 2019-05-13 Office [facility] 1.2.840.114 [id number] Univers 07:01:00 07:34:24 Visit [facility] 350.1.13.10 it y of [place] 4.2.7.2.686 Abel as Professio [phone] Nj tiffany nal 044 [facility] One 2019-05-08 2019-05-08 [facility] 1.2.070.395 [id number] Univers 13:59:23 23:59:00 Encounter Rafa B SPECIALTY 350.1.13.10 it[place] AT [phone] Nj dical ORIONY 807 [facility] 2019-05-08 2019-05-08 Orders Doctor LESLYE 1.2.840.114 [id number] Univers 00:00:00 00:00:00 Only Unassigned, CHAI 350.1.13.10 [place] [facility] 4.2.7.2.686 Abel as [phone] [facility] 009 [place] 2019-04-16 2019-04-16 Office Jorge, [facility] 1.2.840.114 [id number] Univers 14:33:12 15:10:43 Visit [facility] 350.1.13.10 it y of [place] 4.2.7.2.686 [place] as Professio [phone] Nj dical nal 044 [place] Office Building One Results Test Description Test Time Test Comments [...] 34.3 g/dL 31.2-35 RDW-SD (test code = 39245-6) 44.2 fL 38.5-51.6 RDW-CV (test code = 788-0) 13.5 % 12.1-15.4 PLT (test code = 777-3) See_Comment [Au tomated message] The system which ge nerated this result transmit patricio reference range: 150 - 32 8 10*3/?L. The reference range was not used to interpret th is result as normal/abnormal . MPV (test code = 26759-7) 10.4 fL 9.8-13 NRBC/100 WBC (test code = See_Comment [ Automated message] The 1146944565) system which ge nerated this result transmit patricio reference range: 0.0 - 10 .0 /100 WBCs. The reference r sen was not used to interpr et this result as normal/abnor mal. NRBC x10^3 (test code = See_Comment [Au tomated message] The 1474733029) system which ge nerated this result transmit patricio reference range: 10*3/?L. The reference range was not u sed to interpret this result as normal/abnormal . GRAN MAT (NEUT) % (test code 76.9 % = 770-8) IMM GRAN % (test code = 0.40 % 8692619322) LYMPH % (test code = 736-9) 14.3 % MONO % (test code = 5905-5) 7.7 % EOS % (test code = 713-8) 0.3 % BASO % (test code = 706-2) 0.4 % GRAN MAT x10^3(ANC) (test 5.28 10*3/uL 1.99-6.95 code = 5760715378) IMM GRAN x10^3 (test code = 0.03 10*3/uL 0-0.06 1108145619) LYMPH x10^3 (test code = 0.98 10*3/uL 1.09-3.23 L 731-0) MONO x10^3 (test code = 0.53 10*3/uL 0.36-1.02 742-7) EOS x10^3 (test code = 0.06-0.53 L 711-2) BASO x10^3 (test code = 0.03 10*3/uL 0.01-0.09 704-7) Lab Interpretation (test Abnormal code = 40183-6) [id number] 19:17:13 Test Item Value Reference Interpretation Comments Range TROPONIN I (test 0.029 ng/mL See_Comment [Automated code = 1766526599) message] The system which generated this result [...] biotin. Lab Interpretation Normal (test code = 56691-7) [facility] ([id number])2022-04-12 19:05:30 Test Item Value Reference Range Interpretation Comments NA (test code = 141 mmol/L 135-145 7298367248) K (test code = 3.8 mmol/L 3.5-5 0541172818) CL (test code = 103 mmol/L 98-108 0587273304) CO2 TOTAL (test code = 29 mmol/L 23-31 8259503513) AGAP (test code = 2-16 4337621484) BUN (test code = 25 mg/dL 7-23 H 7406881760) GLUCOSE (test code = 108 mg/dL 70-110 5414571067) CREATININE (test code = 1.47 mg/dL 0.6-1.25 H 0030362296) TOTAL BILI (test code = 2.1 mg/dL 0.1-1.1 H 8657847093) CALCIUM (test code = 9.5 mg/dL 8.6-10.6 8526903831) T PROTEIN (test code = 6.5 g/dL 6.3-8.2 7938101264) ALBUMIN (test code = 4.0 g/dL 3.5-5 0757355158) ALK PHOS (test code = 80 U/L 34-122 7340731747) ALTv (test code = 29 U/L 5-50 2-6) AST(SGOT) (test code = 33 U/L 13-40 5484602731) eGFR (test code = mL/min/1.73m2 8190476259) SONAL (test code = SONAL) Association of [...] tests). Lab Interpretation Abnormal (test code = 70860-2) [facility] Test Item Value Reference Range Interpretation Comments LIPASE (test code = 4172662366) 343 U/L 0-220 H Lab Interpretation (test code = Abnormal 14998-3) [facility] [place]"
[2023-04-09 09:57] LABS: Absolute Lymphocytes (CBC) 0.8 K/uL (0.7-4.9); Hematocrit 37.6 % (39.6-49.0); Lymphocytes % 4.4 % (15.3-44.8); MCV 86.8 fL (80-100); MPV 7.6 fL (7.6-11.3); Platelets 391 thou/uL (152-406); RBC Red Blood Cell Count 4.33 M/uL (4.33-5.43)
[2023-04-09 09:59] LABS: Protime INR 1.68
[2023-04-09] MEDS ORDERED: ONDANSETRON 4 MG/2 ML VIAL ONE (09:59)
[2023-04-09] MEDS ORDERED: PANTOPRAZOLE 40 MG INJ ONE (09:59)
[2023-04-09] MEDS ORDERED: PANTOPRAZOLE INJ 80 MG in NA CHLORIDE 0.9% 250 ML IV ONE (10:00)
[2023-04-09] MEDS ORDERED: NA CHLORIDE 0.9% 1,000 ML ONE ×2 (10:00→11:14)
[2023-04-09 10:17] LABS: Albumin 3.1 g/dL (3.4-5.0); Bilirubin Total 0.6 mg/dL (0.2-1.0); Potassium 3.7 mEq/L (3.5-5.1); Protein, Total 7.7 g/dL (6.4-8.2)
[2023-04-09 11:09] LABS: Blood Morphology Comment NOT SEEN (NOT SEEN); Platelet Estimate ADEQ; White Blood Cell Scan OK (OK)
[2023-04-09] MEDS ORDERED: NA CHLORIDE 0.9% 50 ML ONE (11:14)
[2023-04-09] MEDS ORDERED: CEFTRIAXONE 1000 MG/VIAL ONE (11:14)
--- NOTE | 2023-04-09 11:15 | RAD REPORT ---
EXAM DESCRIPTION: CT - Abdomen Pelvis W Contrast - 04/09/2023 10:32 am CLINICAL HISTORY: GI BLEED COMPARISON: Stone Protocol dated 05/14/2022 TECHNIQUE: Thin cut axial CT imaging of the abdomen and pelvis was performed following intravenous a dministration of 100 mL Isovue 300. Multiplanar reformats were generated and reviewed. All CT scans are performed using dose optimization technique as appropriate and may include automated exposure control or mA/KV adjustment according to patient size. FINDINGS: Confluent airspace opacities in the dependent left more than right lower lobe. Marked stomach distention. Mild fluid distention of the proximal small bowel, without abrupt transiti on. The liver, spleen, and pancreas show no suspicious findings. Status post cholecystectomy. Symmetric renal function is seen with no hydronephrosis or suspicious renal mass. Left superior pole 1.8 centimeter cyst is incidentally noted. No bowel wall thickening. Moderate stool burden in the rectal bulb. No free air, free fluid or inflam matory stranding. No hernia, mass or bulky lymphadenopathy. The urinary bladder is without significan t finding. No suspicious bony findings. IMPRESSION: Patchy bibasilar airspace opacities more pronounced in the dependent left lower lobe, ma y relate to aspiration/pneumonia. Marked stomach distention and mild fluid distention of the proximal small bowel, with gradual transit ion to nondistended bowel. Findings are nonspecific and could relate to ileus. Moderate stool burden in the rectal bulb. Other incidental findings as above.
--- NOTE | 2023-04-09 11:34 | RAD REPORT ---
EXAM DESCRIPTION: RADChest Single View04/09/2023 11:11 am CLINICAL HISTORY: MALAISE COMPARISON: Chest Single View dated 05/14/2022; Chest Single View dated 04/28/2022; Chest Single View dated 04/21/2022 TECHNIQUE: Portable AP view of the chest. FINDINGS: The lungs are clear. No pneumothorax or effusion. The cardiomediastinal contours are uncha nged. IMPRESSION: No acute cardiopulmonary process.
--- NOTE | 2023-04-09 11:50 | EDPHYS ---
Physician Documentation [facility] Name: Fritz Laws Age: 77 yrs Sex: Male : 1945 Arrival Date: 04/09/2023 Time: 09:15 Bed 19 Private MD: ED Physician Andrea Palacios HPI: 04/09 09:25 This 77 yrs old Male presents to ER via EMS with complaints of Vomiting. jh7 09:25 The patient presents to the emergency department vomiting blood, a moderate amount, jh7 coffee grounds in nature, with multiple such episodes. Onset: The symptoms/episode began/occurred last night. Abdominal pain: none is appreciated. Associated signs and symptoms: Pertinent positives: vomiting, Pertinent negatives: chest pain, constipation, diarrhea, fever, shortness of breath, syncope. 77-year-old male presents from [facility] for vomiting coffee-ground emesis since last night. snf staff report that the patient has been vomiting for 3 days but worsened last night when the vomit changed to coffee-ground. Past medical history includes stroke, hypertension, and high cholesterol.. Historical: - Allergies: 09:23 No Known Allergies; ph - PMHx: 09:23 Cerebrovascular accident; depressive disorder; Hypercholesterolemia; Hypertensive ph disorder; - Immunization history:: Adult Immunizations unknown. - Social history:: Smoking status: unknown. ROS: 09:25 Eyes: Negative for injury, pain, redness, and discharge, ENT: Negative for injury, jh7 pain, and discharge, Neck: Negative for injury, pain, and swelling, Cardiovascular: Negative for chest pain, palpitations, and edema, Respiratory: Negative for shortness of breath, cough, wheezing, and pleuritic chest pain, Back: Negative for injury and pain, MS/Extremity: Negative for injury and deformity, Neuro: Negative for headache, weakness, numbness, tingling, and seizure. 09:25 Constitutional: Positive for fatigue, malaise. 09:25 Abdomen/GI: Positive for nausea and vomiting, Negative for abdominal pain, diarrhea, constipation, black/tarry stool. 09:25 Skin: Positive for pallor. 09:25 All other systems are negative. Exam: 09:25 Eyes: Pupils equal round and reactive to light, extra-ocular motions intact. Lids and jh7 lashes normal. Conjunctiva and sclera are non-icteric and not injected. Cornea within normal limits. Periorbital areas with no swelling, redness, or edema. ENT: Nares patent. No nasal discharge, no septal abnormalities noted. Tympanic membranes are normal and external auditory canals are clear. Oropharynx with no redness, swelling, or masses, exudates, or evidence of obstruction, uvula midline. Mucous membranes moist. Neck: Trachea midline, no thyromegaly or masses palpated, and no cervical lymphadenopathy. Supple, full range of motion without nuchal rigidity, or vertebral point tenderness. No Meningismus. Cardiovascular: Regular rate and rhythm with a normal S1 and S2. No gallops, murmurs, or rubs. Normal PMI, no JVD. No pulse deficits. Respiratory: Diminished lung sounds bilaterally. No increased work of breathing, no retractions or nasal flaring. Back: No spinal tenderness. No costovertebral tenderness. Full range of motion. MS/ Extremity: Pulses equal, no cyanosis. Neurovascular intact. Full, normal range of motion. Neuro: Awake and alert, GCS 15, oriented to person, place, time, and situation. 09:25 Constitutional: The patient appears awake, lethargic. 09:25 Skin: Appearance: Color: pale, Temperature: cool. Vital Signs: 09:20 BP 114 / 87; Pulse 117; Resp 20; Temp 97.1; Pulse Ox 96% on R/A; Weight 58.97 kg; ph 10:04 BP 119 / 87; Pulse 148; Resp 22; Pulse Ox 95% on R/A; ph 10:50 BP 136 / 92; Pulse 125; Resp 22; Pulse Ox 97% on R/A; ph 13:28 BP 122 / 91; Pulse 103; Resp 20; Pulse Ox 96% on R/A; ph 14:52 BP 124 / 86; Pulse 118; Resp 18; Pulse Ox 96% on R/A; ph 16:23 BP 112 / 74; Pulse 110; Resp 22; Pulse Ox 95% on R/A; ph 17:45 BP 113 / 74; Pulse 97; Resp 20; Temp 97.8; Pulse Ox 96% on R/A; ph 18:40 BP 110 / 72; Pulse 104; Resp 18; Temp 98.8; Pulse Ox 96% on R/A; ph MDM: 09:21 Patient medically screened. [facility] 11:30 Management of patient was discussed with the following: [employer]: Dr. Soliz, [facility] general surgery. Advised n.p.o. and NG tube. Informed Dr. Soliz that neither EMS or our staff has noticed any coffee-ground emesis or vomiting. The patient also had a normal bowel movement with no melena noted. He stated that it was acceptable to admit the patient here, but if the patient began having coffee-ground emesis, he would need to be transferred due to our lack of the appropriate specialty here (GI).. 11:45 Differential diagnosis: gastritis, diverticulitis, varices, GI bleed, sepsis, [facility] pneumonia, UTI, gastric ulcer. Data reviewed: vital signs, nurses notes, lab test result(s), EKG, radiologic studies, CT scan, plain films. Consideration of Admission/Observation Patient was admitted/placed on observation. I considered the following discharge prescriptions or medication management in the emergency department Medications were administered in the Emergency Department. See MAR. Independent interpretation of the following test(s) in the Emergency Department EKG: See my EKG interpretation above. Historians other than the Patient: EMS: . Care significantly affected by the following chronic conditions: Hypertension. Post IV fluid administration reassessment for Sepsis: Client prescribed 30 mL/kg IVF. Sepsis focused reassessment complete. Counseling: I had a detailed discussion with the patient and/or guardian regarding: the historical points, exam findings, and any diagnostic results supporting the discharge/admit diagnosis, the need for further work-up and treatment in the hospital. Response to treatment: the patient's symptoms have mildly improved after treatment. 15:13 ED course: Notified by ELYSE Ruff for Dr. Dubon, that upon evaluation of repeat H\T\H, the [facility] patient should be transferred for GI eval. Agreed to transfer.. 04/09 09:22 Order name: CBC with Diff; Complete Time: 11:11 [facility] 04/09 09:22 Order name: CMP; Complete Time: 10:21 [facility] 04/09 09:22 Order name: Lipase; Complete Time: 10:21 [facility] 04/09 09:22 Order name: Type And Screen; Complete Time: 10:49 [facility] 04/09 09:22 Order name: PT-INR; Complete Time: 10:06 [facility] 04/09 10:06 Order name: Lactate w/ 2H reflex if indic.; Complete Time: 10:54 [facility] 04/09 10:06 Order name: Blood Culture Adult (2) [facility] 04/09 10:38 Order name: Urinalysis W/Microscopic; Complete Time: 12:07 [facility] 04/09 10:52 Order name: ABO/RH no charge; Complete Time: 10:54 [facility] 04/09 11:10 Order name: CBC Smear Scan; Complete Time: 11:11 [facility] 04/09 12:09 Order name: Urine Culture [facility] 04/09 14:13 Order name: CBC with Automated Diff; Complete Time: 15:47 [facility] 04/09 14:21 Order name: Lactate Sepsis 2 HR Follow-up; Complete Time: 15:47 [facility] 04/09 09:22 Order name: CT Abd/Pelvis - IV Contrast Only; Complete Time: 11:36 [facility] 04/09 10:38 Order name: XRAY Chest (1 view); Complete Time: 11:36 [facility] 04/09 09:22 Order name: IV Saline Lock; Complete Time: 10:03 [facility] 04/09 09:22 Order name: Labs collected and sent; Complete Time: 10:03 [facility] 04/09 09:22 Order name: EKG - Nurse/Tech; Complete Time: 09:36 [facility] 04/09 11:44 Order name: NPO; Complete Time: 11:55 [facility] EC:32 Rate is 116 beats/min. Rhythm is regular. Left axis deviation noted. QRS is negative in [facility] lead III. QRS interval is prolonged at 122 msec. QT interval is normal at 354 msec. No Q waves. T waves are Normal. Clinical impression: Sinus tachycardia with right bundle branch block. Administered Medications: 10:03 Drug: NS 0.9% IV 1000 ml Route: IV; Rate: 1 bolus; Site: left forearm; ph 11:30 Follow up: Response: No adverse reaction; IV Status: Completed infusion; IV Intake: ph 1000ml 10:03 Drug: Ondansetron IVP 4 mg Route: IVP; Site: left forearm; ph 13:28 Follow up: Response: No adverse reaction ph 10:03 Drug: Pantoprazole IVP 40 mg Route: IVP; Site: left forearm; ph 13:27 Follow up: Response: No adverse reaction ph 10:39 Drug: Pantoprazole IV 8 mg/hr Route: IV; Rate: 25 ml/hr; Site: left forearm; ph 13:27 Follow up: Response: No adverse reaction; IV Status: Infusion continued upon admission ph 11:55 Drug: Rocephin IV 1 grams Route: IV; Rate: 1 calculated rate; Site: right forearm; ph 12:30 Follow up: Response: No adverse reaction; IV Status: Completed infusion ph 11:56 Drug: NS 0.9% IV 1000 ml Route: IV; Rate: 1 bolus; Site: right forearm; ph 13:26 Follow up: Response: No adverse reaction; IV Status: Completed infusion; IV Intake: ph 1000ml 13:26 Drug: AZITHromycin IVPB 500 mg Route: IVPB; Infused Over: 1 hrs; Site: right forearm; ph 14:30 Follow up: Response: No adverse reaction; IV Status: Completed infusion ph Disposition: 04/10 06:58 Co-signature as Attending Physician, Andrea Palacios MD I reviewed the patient's care rn provided by the Advanced Practice Provider and agree with the diagnosis and treatment plan. Disposition Summary: 04/09/23 15:13 Transfer Ordered Transfer Location: [place] [id number] Reason: Higher level of care [facility] Condition: Serious(04/09/23 15:13) [facility] Problem: new(04/09/23 15:13) [facility] Symptoms: have worsened(04/09/23 15:13) [facility] Accepting Physician: Dr. Egan, inbound sales consultant(04/09/23 18:41) ph Diagnosis - Aspiration Pneumonia jh7 - Severe sepsis without septic shock(04/09/23 15:13) jh7 - Small Bowel Obstruction jh7 - UTI/ Urinary tract infection, site not specified(04/09/23 15:13) jh7 - GI Bleed/ Gastrointestinal hemorrhage, unspecified [facility] Forms: - Medication Reconciliation Form [facility] - SBAR form [facility] Signatures: Dispatcher [employer] Andrea Oseguera MD MD rn Hall, Patricia, RN RN ph Hadash, Jennifer, FNP FNP [facility] Corrections: (The following items were deleted from the chart) 04/09 15:11 11:49 Inpatient Admission [place] [address] 15:11 11:49 Con Dubon [place] [address] 15:11 11:49 Telemetry/MedSurg (Inpatient) [place] [address] 15:11 11:49 Fair [place] [address] 15:11 11:49 new [place] [address] 15:11 11:49 have worsened [place] [address] 15:11 11:49 Standard [place] [address] 15:11 11:49 [place] [address] 15:11 11:49 Aspiration Pneumonia [place] [address] 15:11 11:49 Severe sepsis without septic shock [place] [address] 15:11 11:49 Small Bowel Obstruction [place] [address] 15:11 12:07 UTI/ Urinary tract infection, site not specified [place] [address] 16:13 15:13 GI doc [place] [address] 16:56 09:25 Eyes: Pupils equal round and reactive to light, extra-ocular motions intact. Lids jh and lashes normal. Conjunctiva and sclera are non-icteric and not injected. Cornea within normal limits. Periorbital areas with no swelling, redness, or edema. ENT: Nares patent. No nasal discharge, no septal abnormalities noted. Tympanic membranes are normal and external auditory canals are clear. Oropharynx with no redness, swelling, or masses, exudates, or evidence of obstruction, uvula midline. Mucous membranes moist. Neck: Trachea midline, no thyromegaly or masses palpated, and no cervical lymphadenopathy. Supple, full range of motion without nuchal rigidity, or vertebral point tenderness. No Meningismus. Cardiovascular: Regular rate and rhythm with a normal S1 and S2. No gallops, murmurs, or rubs. Normal PMI, no JVD. No pulse deficits. Respiratory: Lungs have equal breath sounds bilaterally, clear to auscultation and percussion. No rales, rhonchi or wheezes noted. No increased work of breathing, no retractions or nasal flaring. Back: No spinal tenderness. No costovertebral tenderness. Full range of motion. MS/ Extremity: Pulses equal, no cyanosis. Neurovascular intact. Full, normal range of motion. Neuro: Awake and alert, GCS 15, oriented to person, place, time, and situation. [facility] 18:41 16:13 Dr. Egan, inbound sales consultant [facility] ph
--- NOTE | 2023-04-09 11:50 | ER ---
Nurse's Notes [facility] Name: Fritz Laws Age: 77 yrs Sex: Male : 1945 Arrival Date: 04/09/2023 Time: 09:15 Bed 19 Private MD: Diagnosis: Aspiration Pneumonia;Severe sepsis without septic shock;Small Bowel Obstruction;UTI/ Urinary tract infection, site not specified;GI Bleed/ Gastrointestinal hemorrhage, unspecified Presentation: 04/09 09:20 Chief complaint: EMS states: Pt from [facility], c/o coffee ground emesis that started ph last night, has been vomiting for multiple days, HR 140s other VSS, pt oriented x 4, BGL 189, denies pain or nausea at this time, Is a DNR. Coronavirus screen: Vaccine status: Patient reports receiving the 2nd dose of the covid vaccine. Ebola Screen: No symptoms or risks identified at this time. Initial Sepsis Screen: Does the patient meet any 2 criteria? No. Patient's initial sepsis screen is negative. Does the patient have a suspected source of infection? No. Patient's initial sepsis screen is negative. Risk Assessment: Do you want to hurt yourself or someone else? Patient reports no desire to harm self or others. Onset of symptoms was April 09, 2023. 09:20 Method Of Arrival: EMS: [facility] 09:20 Acuity: MARTIN 2 ph Triage Assessment: 09:23 General: Appears in no apparent distress. slender, Behavior is calm, cooperative, ph drowsy, quiet. Pain: Denies pain. Neuro: Level of Consciousness is obeys commands, lethargic, Oriented to person, place. Cardiovascular: Capillary refill < 3 seconds in bilateral fingers Patient's skin is warm and dry. Rhythm is sinus tachycardia. Respiratory: Airway is patent Respiratory effort is even, unlabored. GI: Reports nausea, vomiting, coffee ground emesis. Derm: Skin is fragile, is thin, Skin is pale. Musculoskeletal: Range of motion: intact in all extremities. Historical: - Allergies: : No Known Allergies; ph - PMHx: : Cerebrovascular accident; depressive disorder; Hypercholesterolemia; Hypertensive ph disorder; - Immunization history:: Adult Immunizations unknown. - Social history:: Smoking status: unknown. Screenin: Abuse screen: Denies threats or abuse. Denies injuries from another. Nutritional ph screening: No deficits noted. Tuberculosis screening: No symptoms or risk factors identified. 15:05 [facility] ED Fall Risk Assessment (Adult) History of falling in the last 3 months, ph including since admission No falls in past 3 months (0 pts) Confusion or Disorientation Yes (5 pts) Intoxicated or Sedated No (0 pts) Impaired Gait Yes (1 pt) Mobility Assist Device Used No (0 pt) Altered Elimination Yes (1 pt) Score/Fall Risk Level 3 or more points = High Risk Oriented to surroundings, Maintained a safe environment, Hourly rounding (assess needs \\T\\ fall precautionary measures) done, Used ambulatory aids as needed (educated on \\T\\ assisted with). Assessment: 10:03 Reassessment: SEE TRIAGE ASSESSMENT. ph 14:30 Reassessment: Pt cleaned of bowel incontinence, soft and brown, no radha blood noted. ph 14:50 Reassessment: Patient appears in no apparent distress at this time. Patient is alert, ph oriented x 3, equal unlabored respirations, skin warm/dry/pink. Pt resting comfortably at this time, repeat CBC sent per hospitalist request, awaiting results. 16:23 Reassessment: Patient appears in no apparent distress at this time. No changes from ph previously documented assessment. Patient is alert, oriented x 3, equal unlabored respirations, skin warm/dry/pink. 17:02 Reassessment: Attempted to call report to [facility] ICU, requested that I ph call back in 30 min-1 hour because they, "Are having an code right now.". 17:44 Reassessment: Patient appears in no apparent distress at this time. No changes from ph previously documented assessment. Patient and/or family updated on plan of care and expected duration. Pain level reassessed. Pt asleep w/ stable vitals, attempted to call report to [facility], receiving nurse asked for phone number and stated that she would call me back. 18:10 Reassessment: Report called to Stephanie MELTON at [facility]. ph Vital Signs: 09:20 BP 114 / 87; Pulse 117; Resp 20; Temp 97.1; Pulse Ox 96% on R/A; Weight 58.97 kg; ph 10:04 BP 119 / 87; Pulse 148; Resp 22; Pulse Ox 95% on R/A; ph 10:50 BP 136 / 92; Pulse 125; Resp 22; Pulse Ox 97% on R/A; ph 13:28 BP 122 / 91; Pulse 103; Resp 20; Pulse Ox 96% on R/A; ph 14:52 BP 124 / 86; Pulse 118; Resp 18; Pulse Ox 96% on R/A; ph 16:23 BP 112 / 74; Pulse 110; Resp 22; Pulse Ox 95% on R/A; ph 17:45 BP 113 / 74; Pulse 97; Resp 20; Temp 97.8; Pulse Ox 96% on R/A; ph 18:40 BP 110 / 72; Pulse 104; Resp 18; Temp 98.8; Pulse Ox 96% on R/A; ph ED Course: 09:17 Patient arrived in ED. bp 09:19 Katalina Barrera, RN is Primary Nurse. ph 09:21 Racquel Oneill FNP is PHCP. jh7 09:21 Andrea Palacios MD is Attending Physician. jh7 09:22 Triage completed. ph 09:25 Arm band placed on Patient placed in an exam room, in a wheelchair, on child monitor, ph on pulse oximetry. 09:25 Patient has correct armband on for positive identification. Bed in low position. Call ph light in reach. Side rails up X2. Client placed on continuous cardiac and pulse oximetry monitoring. NIBP monitoring applied. 09:45 Initial lab(s) drawn, by me, sent to lab. T\\T\\S collected, blood band applied to patient. ph Inserted saline lock: 22 gauge in left forearm, using aseptic technique. Blood collected. Maintain EMS IV. Dressing intact. Good blood return noted. Site clean \\T\\ dry. Gauge \\T\\ site: 20 RFA. 10:24 Blood Culture Adult (2) Sent. ph 10:24 Lactate w/ 2H reflex if indic. Sent. ph 10:34 CT Abd/Pelvis - IV Contrast Only In Process Unspecified. EDMS 11:13 XRAY Chest (1 view) In Process Unspecified. EDMS 11:48 Con Dubon MD is Hospitalizing Provider. jh7 13:28 No provider procedures requiring assistance completed. Patient admitted, IV remains in ph place. Administered Medications: 10:03 Drug: NS 0.9% IV 1000 ml Route: IV; Rate: 1 bolus; Site: left forearm; ph 11:30 Follow up: Response: No adverse reaction; IV Status: Completed infusion; IV Intake: ph 1000ml 10:03 Drug: Ondansetron IVP 4 mg Route: IVP; Site: left forearm; ph 13:28 Follow up: Response: No adverse reaction ph 10:03 Drug: Pantoprazole IVP 40 mg Route: IVP; Site: left forearm; ph 13:27 Follow up: Response: No adverse reaction ph 10:39 Drug: Pantoprazole IV 8 mg/hr Route: IV; Rate: 25 ml/hr; Site: left forearm; ph 13:27 Follow up: Response: No adverse reaction; IV Status: Infusion continued upon admission ph 11:55 Drug: Rocephin IV 1 grams Route: IV; Rate: 1 calculated rate; Site: right forearm; ph 12:30 Follow up: Response: No adverse reaction; IV Status: Completed infusion ph 11:56 Drug: NS 0.9% IV 1000 ml Route: IV; Rate: 1 bolus; Site: right forearm; ph 13:26 Follow up: Response: No adverse reaction; IV Status: Completed infusion; IV Intake: ph 1000ml 13:26 Drug: AZITHromycin IVPB 500 mg Route: IVPB; Infused Over: 1 hrs; Site: right forearm; ph 14:30 Follow up: Response: No adverse reaction; IV Status: Completed infusion ph Medication: 09:25 VIS not applicable for this client. ph Intake: 11:30 IV: 1000ml; Total: 1000ml. ph 13:26 IV: 1000ml; Total: 2000ml. ph Outcome: 11:49 Decision to Hospitalize by Provider. Karyn 15:13 ER care complete, transfer ordered by MD. starr 18:40 Transferred by ground EMS [facility]. to [facility], Transfer ph form completed. X-rays sent w/ patient. 18:40 Condition: stable 18:40 Instructed on the need for transfer. 18:41 Patient left the ED. ph Signatures: Dispatcher [employer] Katalina Barnard RN RN ph Peltier, Brian, RN RN Racquel Isaac, TRANSIT SPECIALIST TRANSIT SPECIALIST Karyn Corrections: (The following items were deleted from the chart) 15:05 09:23 Neuro: Level of Consciousness is obeys commands, lethargic, Oriented to person, ph place, time, situation, ph
[2023-04-09 12:06] LABS: Specific Gravity 1.019 (1.005-1.030); Urine Bacteria >50 /HPF (<20); Urine Bilirubin NEGATIVE (Negative); Urine Blood 3+ (OVER) (Negative); Urine Clarity Extremely Turbid (Clear); Urine Color Light-Orange (Yellow); Urine Glucose NEGATIVE (Negative); Urine Mucus Slight /HPF (None Seen); Urine Protein 1+ (Negative); Urine RBC >50 /HPF (None Seen); Urine Urobilinogen Normal (Normal); Urine pH 5.5 (5.0-7.0)
[2023-04-09] MEDS ORDERED: AZITHROMYCIN 500 MG INJ IVPB ONE (13:01)
[2023-04-09] MEDS ORDERED: NA CHLORIDE 0.9% 250 ML ONE (13:02)
[2023-04-09 14:57] LABS: Absolute Lymphocytes (CBC) 0.7 K/uL (0.7-4.9); Hematocrit 31.3 % (39.6-49.0); Lymphocytes % 5.6 % (15.3-44.8); MCV 87.6 fL (80-100); MPV 7.2 fL (7.6-11.3); Platelets 267 thou/uL (152-406); RBC Red Blood Cell Count 3.57 M/uL (4.33-5.43)
[2023-04-09 19:13] VITALS: O2SAT 96
[2023-04-09 19:14] VITALS: BP 110/72; TEMP 98.8
--- NOTE | 2023-04-11 18:17 | EKG ---
Test Date: 2023-04-09 Test Time: 09:32:58 [employer]: KENDRA MEASUREMENT RESULTS: Intervals: Rate: 116 RI: 156 QRSD: 122 QT: 354 QTc: 492 Karval: P: 83 RI: 156 QRS: -44 T: 88 INTERPRETIVE STATEMENTS: Sinus tachycardia Left axis deviation Right bundle branch block Abnormal ECG Compared to ECG 05/14/2022 10:59:04 Ventricular premature complex(es) no longer present Electronically Signed On 04-11-23 18:13:08 CDT by Celestine Hampton
== END 2023-04-09 18:41 | disposition short-term general hospital (02) ==
LOC: ER 09:15
DX: J69.0 Pneumonitis due to inhalation of food and vomit (principal); A41.9 Sepsis, unspecified organism; R65.20 Severe sepsis without septic shock; K56.609 Unspecified intestinal obstruction, unspecified as to partial versus complete obstruction; N39.0 Urinary tract infection, site not specified; I10 Essential (primary) hypertension; Z86.73 Personal history of transient ischemic attack (TIA), and cerebral infarction without residual deficits
CPT/HCPCS: 93005; 87040 ×2; 87088; 85025 ×2; 81001; 87086; 36415; 86900; 86850; 85610; 86901; 83605 ×2; 83690; 80053; 74177; 71045; 99285; Q9967; C9113 ×2; J2405; J7050 ×2; J7030 ×2; J0696